=== PATIENT | male | born 1960 | race Caucasian/White ===

== ENCOUNTER 2019-07-17 12:17 | Inpatient (IN) ==
--- NOTE | 2019-07-17 20:17 | History & Physical Report ---
Date of Service July 17, 2019 Assessment & Plan (1) Cellulitis: [facility] for cellulitis of the right hand possible osteomyelitis. CT right hand pending Consult Ortho Continue Zyvox and Zosyn for cellulitis which was started in [facility]. Monitor white blood cells Monitor electrolytes and replenish We will hold Xarelto until we hear from orthopedics because of possible surgical procedure. For DVT prophylaxis and atrial fibrillation/pulmonary embolism/DVT replaced patient therapeutic dose of Lovenox twice a day. Patient is a full code Present on Admission?: Yes (2) Sleep apnea: Continue BiPAP per patient home setting. Present on Admission?: Yes (3) Diabetes mellitus type 2 in nonobese: A1c pending in a.m. Patient is on insulin pump with NovoLog. Present on Admission?: Yes (4) Depression: Continue home medicine: Bupropion HCl 150 mg tablet 1 tablet daily. Present on Admission?: Yes (5) Atrial fibrillation: Continue home medicine: Amiodarone 200 mg p.o. daily, aspirin 81 mg p.o. daily, carvedilol 12.5 mg tablet p.o. twice daily, furosemide 80 mg p.o. twice a day. Present on Admission?: Yes (6) Peripheral neuropathy: Continue home medicine. Patient takes large doses of Lyrica which was clarified with patient . Patient takes 200 mg of milligram of Lyrica in the morning, 250 at noon time and 200 before he goes to sleep. Present on Admission?: Yes (7) Pulmonary embolism: Patient is on Xarelto but now because of possible procedure he is switched to Lovenox therapeutic dose for A. fib's pulmonary embolism and DVT twice a day. Present on Admission?: Yes (8) DVT (deep venous thrombosis): Continue Lovenox therapeutic dose twice a day. Present on Admission?: Yes (9) Asthma: Continue montelukast 10 mg tablet p.o. daily. 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 Present on Admission?: Yes (11) Chronic kidney disease, stage III (moderate): Avoid nephrotoxic agents. Omeprazole on hold due to possible side effects to kidneys. Would consider consulting nephrology. 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 Patient is right-hand dominant. Patient reported having very little feeling in his hands due to diabetic neuropathy. Patient stated that he is nail disappeared and he noticed that was growing over the distal aspect of the right ring finger and he picked it and pulled out to the nail. From that point his hand started to swell and become warm and inflamed until his started to have pain going up to his arm. Patient's symptoms started approximately 1 week ago and are rapidly worsening. Patient reports that nothing helps. For chronic pain patient takes a large amount of Lyrica which was verified with his over the phone. Apparently patient takes 200mg of Lyrica in the morning 250mg in the afternoon and 200mg in the evening. He was admitted overnight in [facility] and treated with Zyvox and Zosyn for his cellulitis. They believe that patient should have had surgery and he is transferred to directly to [facility]. Labs from [facility] reviewed: WBC is 11.1, RBC 3.37, hematocrit 30.1, platelets 217, left shift and neutrophils 80, sodium 136, potassium 4.1, chloride 106, anion gap 12.1, AST 29, ALT 30, CRP 18.4 lactic acid 1.8 PT 9, PTT 29, INR 0.93. On arrival to [facility] patient denies fever, headache, chest pain, shortness of breath, frequency, urgency. Patient is usually oxygen at home. Depending on activity he takes usually 2 to 3 L. At night he uses BiPAP. Creatinine 2.3, GFR 29. Bilirubin 0.2, albumin 2.8 chest x-ray shows mild cardiac enlargement with superimposed mild congestive changes. No other definitive acute chest abnormality. X-rays of the right hand 3 views shows interval development of bony ratification ulcers destruction involving the distal phalanges of the right fourth digit. A mild amount of dorsal subluxation of the distal phalanx in relation to the middle phalanx is now seen without joint space widening. There is now mild irregularity of the distal epithesis of the middle phalanx. No other evidence for fracture, dislocation or definitive bone destruction in the fourth and the right fourth digits. Diffuse soft tissue swelling without evidence of subcutaneous gas or radiopaque foreign body. There has been further attenuation of the third digit distal phalanx. There is now also is attenuation of the tuft of the distal phalanx second digit. There is a mild diffuse soft tissue swelling of the fifth digit without evidence of acute osseous abnormality. Decision was made to admit patient to [facility] on telemetry. Allergies Allergy/AdvReac Type Severity Reaction Status Date / Time adhesive tape Allergy Verified 06/28/19 10:54 chlorhexidine Allergy Verified 06/28/19 10:54 disopyramide Allergy Verified 06/28/19 10:54 erythromycin base Allergy Verified 06/28/19 10:54 fluconazole Allergy Verified 06/28/19 10:54 levofloxacin [From Levaquin] Allergy Verified 06/28/19 10:54 Macrolide Antibiotics Allergy Verified 06/28/19 10:54 Quinolones Allergy Verified 06/28/19 10:54 Sulfa (Sulfonamide Allergy Verified 06/28/19 10:54 Antibiotics) sulfamethoxazole Allergy Verified 06/28/19 10:54 Sulfone Allergy Uncoded 06/28/19 10:54 Home Medications Home Medications Medication Instructions Recorded Confirmed Type acetaminophen 500 mg tablet PO .TAKE 1 TABLET EVERY tab 03/21/19 06/28/19 History bupropion HCl 150 mg tablet,12 hr PO .TAKE 1 TABLET DAILY. ea 03/21/19 03/21/19 History sustained-release carvedilol 12.5 mg tablet PO .Take 1 tablet twice tab 03/21/19 03/21/19 History donepezil 5 mg tablet PO .TAKE 1 TABLET DAILY tab 03/21/19 03/21/19 History duloxetine 60 mg capsule,delayed 1 PO .TAKE 1 CAPSULE DAILY cap 03/21/19 03/21/19 History release ergocalciferol (vitamin D2) 2,000 PO .1.25 mg 1 tab once a tab 03/21/19 03/21/19 History unit tablet fluticasone propionate 50 2 sprays INTRANASAL .USE 2 SPRAYS 03/21/19 03/21/19 History mcg/actuation nasal IN EACH gm spray,suspension furosemide 80 mg tablet PO tab 03/21/19 03/21/19 History lamotrigine 25 mg disintegrating PO .TAKE 2 TABLETS TWICE tab 03/21/19 03/21/19 History tablet lisinopril 10 mg tablet PO .TAKE 1 TABLET DAILY. tab 03/21/19 03/21/19 History magnesium oxide 400 mg (as 400 mg PO DAILY cap 03/21/19 03/21/19 History magnesium oxide) capsule montelukast 10 mg tablet PO .TAKE 1 TABLET DAILY. #90 tab 03/21/19 03/21/19 History multivitamin with iron 1 tab PO DAILY 03/21/19 03/21/19 History nitroglycerin 0.4 mg sublingual SL .PLACE 1 TABLET UNDER tab 03/21/19 03/21/19 History tablet nortriptyline 75 mg capsule PO cap 03/21/19 03/21/19 History omeprazole 20 mg capsule,delayed PO .TAKE 1 CAPSULE BY MO #30 cap 03/21/19 03/21/19 History release pregabalin 150 mg capsule 150 mg PO .TAKE 2 CAPSULE Twice 03/21/19 03/21/19 History cap pregabalin 50 mg capsule PO .TAKE 1 CAPSULE IN AM cap 03/21/19 03/21/19 History primidone 50 mg tablet PO .TAKE 2 TABLETS AT BE tab 03/21/19 03/21/19 History ranitidine HCl 150 mg tablet PO .TAKE 1 TABLET TWICE tab 03/21/19 03/21/19 History rivaroxaban 20 mg tablet PO .TAKE 1 TABLET BY ABBE #1 tab 03/21/19 03/21/19 History insulin aspart U-100 100 100 SUBCUT .sliding scale ml 05/24/19 05/24/19 History unit/mL subcutaneous solution amiodarone 200 mg tablet 200 mg PO DAILY tab 06/28/19 06/28/19 History aspirin 81 mg tablet 81 mg PO DAILY tab 06/28/19 06/28/19 History atorvastatin 20 mg tablet 20 mg PO DAILY tab 06/28/19 06/28/19 History prednisone 10 mg tablet See Rx Instructions PO DAILY #20 06/28/19 06/28/19 Rx tab Past Med/Surg History Medical History Anemia Anxiety Asthma Atrial fibrillation Cardiac defibrillator in place Chronic kidney disease Deep vein thrombosis Depression Diabetes mellitus, type 2 GERD (gastroesophageal reflux disease) Glaucoma L eye Hyperlipidemia Hypertension Methicillin resistant Staphylococcus aureus infection, unspecified site Myocardial Infarction On home oxygen therapy Osteoarthritis Osteomyelitis Pacemaker Peripheral neuropathy Pneumonia Pulmonary embolism Umbilical hernia Surgical History History of cholecystectomy History of umbilical hernia repair Hx of cataract surgery S/P placement of cardiac pacemaker Family History Father Diabetes Acute myocardial infarction Hypercholesteremia Mother Diabetes Heart disease Sister Cancer Social History Preferred Language: Omani Communication Ability: Effective Oncology Social Worker Required: No Beliefs That Will Affect Care: None Current Living Situation: Spouse Current Living Situation Comment: visiting caregivers and nurses Other Information That Helps Us Care for You: No Feels Safe at Home: Yes Safety Concerns: Feels Safe At This Time Smoking Status: Never smoker Hx Alcohol Use: No Hx Substance Use: No Review of Systems Review of Systems: All systems reviewed & are unremarkable except as noted in HPI & below Physical Exam Constitutional: WD/WN, vitals as above well developed and + morbidly obese Eyes: PERRL, conjunctivae normal, anicteric sclerae ENMT: external ear and nose normal, oropharynx normal Neck: trachea midline, no thyromegaly Respiratory: Auscultation: + wheezes Cardiovascular: Rate/Rhythm: + irregularly irregular Heart Sounds: normal S1 and normal S2 Vessels: dorsalis pedis pulses present Gastrointestinal (Abdomen): normal bowel sounds, soft, nontender, no hepatosplenomegaly Musculoskeletal: no cyanosis or clubbing, extremities motor strength 5/5 Right BKA, right hand red swollen tender. There is tract patient arm pit. Skin: no rashes, warm and dry Neurologic: patellar DTR's 2+ bilat, sensation intact Psychiatric: A+Ox3, euthymic affect Lymphatic: no cervical or axillary lymphadenopathy Results & Data Vital Signs (Past 12 Hours) Vital Signs Temp Pulse Resp BP Pulse Ox 07/17/19 18:45 36.9 C 110 H 20 127/70 98 Code Status & VTE Plan Code Status Full code VTE Prophylaxis Plan VTE Prophylaxis will be ordered: Yes PG Care Time/CCT Total # of Minutes Spent Total Time Spent with Patient: Total time spent is greater than 50% in coordination of care (as documented) at patient's floor/unit and/or counseling patient:
[2019-07-17] MEDS ORDERED: ALUMINUM/MAGNESIUM SUSP 30 ML UDC PO PRN (21:11)
[2019-07-17] MEDS ORDERED: POLYETHYLENE (MIRALAX) 17 GM PACK PO PRN (21:11)
[2019-07-17] MEDS ORDERED: MAGNESIUM HYDROXIDE SUSP 30 ML UDC PO PRN (21:11)
[2019-07-17] MEDS ORDERED: ONDANSETRON INJ 2 MG/ML 2 ML VIAL IV PRN (21:11)
[2019-07-17] MEDS ORDERED: NORTRIPTYLINE HCL 25 MG CAP PO SCH (21:11)
[2019-07-17] MEDS ORDERED: RIVAROXABAN 20 MG TAB PO SCH (21:11)
[2019-07-17] MEDS ORDERED: FLUTICASONE PROPIONATE NA SPR 16 GM BTL NAE SCH (21:11)
[2019-07-17] MEDS: ACETAMINOPHEN 325 MG TAB PO PRN (21:55)
[2019-07-17] MEDS ORDERED: PREGABALIN 100 MG CAP PO ONE (23:11)
[2019-07-17 23:54] LABS: Hematocrit (blood only) 31.6 % (42-52); Hemoglobin 10.2 g/dL (14.0-18.0); Mean Corpuscular Hemoglobin 29.7 pg (25-34); Mean Corpuscular Hgb Conc 32.3 g/dL (32-36); Mean Corpuscular Volume 91.9 fL (80-100); Mean Platelet Volume 8.6 fL (7.4-10.4); Platelet Count 253 K/uL (130-400); RDW Coefficient of Variation 14.7 % (11.5-14.5); Red Blood Count 3.44 M/uL (4.7-6.1); White Blood Count 11.25 K/uL (4.8-10.8)
[2019-07-18] MEDS ORDERED: PIPERACILL/TAZOBAC CONSULT ACTIVE PRN (00:02)
[2019-07-18 00:10] LABS: Creatinine Clr Calc Pharmacy 52.2 ml/min; Est GFR (African American) 43.8; Est GFR (Non-African American) 37.8
[2019-07-18] MEDS: carvediloL 12.5 MG TAB PO SCH ×3 (00:26→20:43)
[2019-07-18] MEDS: lamoTRIgine 25 MG TAB PO SCH ×3 (00:26→20:41)
[2019-07-18] MEDS: BuPROPion SR 150 MG TABCR PO SCH (00:27)
[2019-07-18] MEDS: PRIMIDONE 50 MG TAB PO SCH ×2 (00:28→20:43)
[2019-07-18] MEDS: MONTELUKAST SODIUM 10 MG TABLET PO SCH ×2 (00:28→20:42)
[2019-07-18] MEDS: ENOXAPARIN INJ 120 MG/0.8 ML SYR SQ SCH ×2 (00:29→22:48)
[2019-07-18 01:19] LABS: C Reactive Protein 18.5 mg/dl (0-0.29)
[2019-07-18] MEDS: LINEZOLID 600 MG TAB PO SCH ×2 (01:48→08:02)
[2019-07-18] MEDS: PIPERACILLIN/TAZOBACTAM 4.5 GM in DEXTROSE 5% 100 ML IV SCH ×3 (01:49→17:44)
[2019-07-18] MEDS ORDERED: SODIUM CHLORIDE 0.9% 1000ML 1,000 ML IV ONE (03:14)
[2019-07-18] MEDS: ACETAMINOPHEN 325 MG TAB PO PRN ×2 (05:05→21:00)
[2019-07-18] MEDS: MoRPHine SULFATE 2 MG/ML CARP IV PRN (05:45)
[2019-07-18 06:09] LABS: Estimated Average Glucose 197 mg/dl; Hemoglobin A1C 8.5 % (4.5-5.6)
[2019-07-18] MEDS: MULTIVITAMIN TAB PO SCH (08:00)
[2019-07-18] MEDS: ATORVASTATIN 20 MG TAB PO SCH (08:01)
[2019-07-18] MEDS: AMIODARONE 200 MG TAB PO SCH (08:01)
[2019-07-18] MEDS: DONEPEZIL HCL 10 MG TAB PO SCH (08:01)
[2019-07-18] MEDS: MAGNESIUM OXIDE 400 MG TAB PO SCH (08:01)
[2019-07-18] MEDS: ASPIRIN 81 MG ECTAB PO SCH (08:02)
[2019-07-18] MEDS ORDERED: GLUCOSE 40% GEL 15 GM TUBE PO PRN (08:48)
[2019-07-18] MEDS ORDERED: CARBOHYDRATES FOR HYPOGLYCEMIA PO PRN (08:48)
[2019-07-18] MEDS ORDERED: GLUCOSE 10 TABS/TUBE PO PRN (08:48)
[2019-07-18] MEDS ORDERED: DEXTROSE 50% 50 ML SYRINGE IV PRN (08:48)
[2019-07-18] MEDS ORDERED: GLUCAGON FOR INJ 1 MG VIAL SQ PRN (08:48)
[2019-07-18] MEDS ORDERED: PHARMACY GLYCEMIC MGMT CONSULT PRN (08:54)
[2019-07-18] MEDS ORDERED: lisinopriL 10 MG TAB PO SCH (09:00)
[2019-07-18] MEDS ORDERED: predniSONE 10 MG TABLET PO SCH (09:00)
[2019-07-18] MEDS ORDERED: FUROSEMIDE 80 MG TAB PO SCH (09:00)
[2019-07-18] MEDS: SODIUM CHLORIDE 0.9% 1000ML 1,000 ML IV SCH ×2 (09:01→19:33)
[2019-07-18] MEDS ORDERED: VANCOMYCIN CONSULT ACTIVE PRN (09:17)
--- NOTE | 2019-07-18 09:22 | CT Scan Report ---
CT hand RT wo con HISTORY: 59 years-old Male right hand cellulitis, possible osteo, acute pain and swelling of the rig ht hand. COMPARISON: Right hand radiographs 07/17/2019. TECHNIQUE: Multiple axial CT images of the right hand were obtained without the use of IV contrast. A dose lowering technique was used consistent with the principals of ANNETTE. FINDINGS: Intrinsic ligaments and tendons are not well evaluated by CT technique. No gross ligamentous or tendi nous injury identified. Arterial calcifications are noted. There is moderate subcutaneous edema of th e second through fourth distal phalanges with mild associated dermal thickening. No drainable fluid c ollection or soft tissue calcifications identified. Mild subcutaneous edema of the wrist and hand. Mild radiocarpal, triscaphe and first carpometacarpal osteoarthritis. Scattered subcortical cystic ch anges of the carpal bones and metacarpal heads. Late subacute to chronic appearing fracture of the fi fth middle phalanx. Mild osteoarthritis of the metacarpal phalangeal and interphalangeal joints. Subc ortical cyst versus marginal erosions of the second metacarpal head. Moderate osteoarthritis of the D IP joints. There is lytic destruction/bony resorption of the second, third and fourth distal phalange s, most pronounced within the third and fourth digits. There is dorsal subluxation involving the shakila ining portion of the fourth distal phalanx. IMPRESSION: 1. Lytic destruction/bony resorption of the second, third and fourth distal phalanges (acro-osteolysi s) is most pronounced within the third and fourth digits. Moderate subcutaneous edema with dermal thi ckening is also noted within these digits. Findings are nonspecific however there is a limited differ ential diagnosis which includes scleroderma, Raynaud disease, psoriatic arthritis, hyperparathyroidis m, prior thermal injury among other etiologies. Close clinical correlation is required. 2. Degenerative changes as above with equivocal marginal erosions of the second metacarpal head. The above report was generated using voice recognition software. It may contain grammatical, syntax o r spelling errors. Dictated: 07/18/2019 8:40 AM Transcribed: 07/18/2019 8:55 AM Dianne [id number] [email or web address] Electronically signed by: Juan Luis Brandon M.D. 07/18/2019 9:21 AM
[2019-07-18 09:30] LABS: Basophils # (auto) 0.03 K/uL (0-0.2); Basophils % (auto) 0.3 %; Eosinophils # (auto) 0.17 K/uL (0-0.5); Eosinophils % (auto) 1.8 %; Hematocrit (blood only) 30.8 % (42-52); Hemoglobin 9.6 g/dL (14.0-18.0); Immature Granulocytes # (auto) 0.04 K/uL (0.00-0.02); Immature Granulocytes % (auto) 0.4 %; Lymphocytes # (auto) 1.28 K/uL (1.2-3.4); Lymphocytes % (auto) 13.4 %; Mean Corpuscular Hemoglobin 29.1 pg (25-34); Mean Corpuscular Hgb Conc 31.2 g/dL (32-36); Mean Corpuscular Volume 93.3 fL (80-100); Mean Platelet Volume 8.3 fL (7.4-10.4); Monocytes # (auto) 0.67 K/uL (0.11-0.59); Neutrophils # (auto) 7.34 K/uL (1.4-6.5); Neutrophils % (auto) 77.1 %; Platelet Count 232 K/uL (130-400); RDW Coefficient of Variation 14.8 % (11.5-14.5); RDW Standard Deviation 50.5 fL (36.4-46.3); White Blood Count 9.53 K/uL (4.8-10.8)
[2019-07-18] MEDS ORDERED: VANCOMYCIN HCL 2,750 MG in SODIUM CHLORIDE 0.9% 500 ML IV ONE (09:30)
[2019-07-18] MEDS ORDERED: INSULIN ASPART 100 UNITS/ML 3 ML PEN SC SCH ×3 (09:30→12:00)
[2019-07-18 09:50] LABS: BUN Creatinine Ratio 25.1 (10-20); Calcium 8.8 mg/dl (8.5-10.1); Creatinine Clr Calc Pharmacy 50.1 ml/min; Est GFR (African American) 41.7; Magnesium 2.1 mg/dl (1.8-2.4); Potassium 4.3 mmol/L (3.5-5.1)
[2019-07-18] MEDS ORDERED: MICONAZOLE NITRATE POWDER 43 GM EXT PRN (09:52)
[2019-07-18] MEDS ORDERED: INSULIN GLARGINE SOLOSTAR 100 UNITS/ML 3 ML PEN SC ONE ×2 (10:00→21:00)
[2019-07-18 10:01] LABS: C Reactive Protein 19.7 mg/dl (0-0.29)
--- NOTE | 2019-07-18 10:27 | Infectious Disease Consult ---
Date of Consultation July 18, 2019 Assessment & Plan (1) Cellulitis: Continue IV abx for now, follow cultures, ortho following as well. History of Present Illness Attending Physician: Emeli Bernard MD pt transferred from [facility] due to increase pain, swelling, erythema of right 4th digit. He states he pulled his fingernail off last thursday and since then has noticed progression of swelling and erythema, denies drainage or bleeding. subjective f/c at home, afebrile since admission. wbc 11, crp 18, creat 1.9 (no baseline creat). Placed on vanco and zosyn and is tolerating well. CT hand done this am, no osteomyelitis noted but lytic destruction of 2nd, 3rd, 4th fingers noted. Blood cultures pending. ortho following. states he has neuropathy of hands/fingers for prolonged time. Did not take any abx prior to presentation to ER. no cp, sob, cough, abd pain, n/v/d. Allergies Allergy/AdvReac Type Severity Reaction Status Date / Time adhesive tape Allergy Verified 06/28/19 10:54 chlorhexidine Allergy Verified 06/28/19 10:54 disopyramide Allergy Verified 06/28/19 10:54 erythromycin base Allergy Verified 06/28/19 10:54 fluconazole Allergy Verified 06/28/19 10:54 levofloxacin [From Levaquin] Allergy Verified 06/28/19 10:54 Macrolide Antibiotics Allergy Verified 06/28/19 10:54 Quinolones Allergy Verified 06/28/19 10:54 Sulfa (Sulfonamide Allergy Verified 06/28/19 10:54 Antibiotics) sulfamethoxazole Allergy Verified 06/28/19 10:54 Sulfone Allergy Uncoded 06/28/19 10:54 Home Medications Home Medications Medication Instructions Recorded Confirmed Type acetaminophen 500 mg tablet PO .TAKE 1 TABLET EVERY tab 03/21/19 06/28/19 History bupropion HCl 150 mg tablet,12 hr PO .TAKE 1 TABLET DAILY. ea 03/21/19 03/21/19 History sustained-release carvedilol 12.5 mg tablet PO .Take 1 tablet twice tab 03/21/19 03/21/19 History donepezil 5 mg tablet PO .TAKE 1 TABLET DAILY tab 03/21/19 03/21/19 History duloxetine 60 mg capsule,delayed 1 PO .TAKE 1 CAPSULE DAILY cap 03/21/19 03/21/19 History release ergocalciferol (vitamin D2) 2,000 PO .1.25 mg 1 tab once a tab 03/21/19 03/21/19 History unit tablet fluticasone propionate 50 2 sprays INTRANASAL .USE 2 SPRAYS 03/21/19 03/21/19 History mcg/actuation nasal IN EACH gm spray,suspension furosemide 80 mg tablet PO tab 03/21/19 03/21/19 History lamotrigine 25 mg disintegrating PO .TAKE 2 TABLETS TWICE tab 03/21/19 03/21/19 History tablet lisinopril 10 mg tablet PO .TAKE 1 TABLET DAILY. tab 03/21/19 03/21/19 History magnesium oxide 400 mg (as 400 mg PO DAILY cap 03/21/19 03/21/19 History magnesium oxide) capsule montelukast 10 mg tablet PO .TAKE 1 TABLET DAILY. #90 tab 03/21/19 03/21/19 History multivitamin with iron 1 tab PO DAILY 03/21/19 03/21/19 History nitroglycerin 0.4 mg sublingual SL .PLACE 1 TABLET UNDER tab 03/21/19 03/21/19 History tablet nortriptyline 75 mg capsule PO cap 03/21/19 03/21/19 History omeprazole 20 mg capsule,delayed PO .TAKE 1 CAPSULE BY MO #30 cap 03/21/19 03/21/19 History release pregabalin 150 mg capsule 150 mg PO .TAKE 2 CAPSULE Twice 03/21/19 03/21/19 History cap pregabalin 50 mg capsule PO .TAKE 1 CAPSULE IN AM cap 03/21/19 03/21/19 History primidone 50 mg tablet PO .TAKE 2 TABLETS AT BE tab 03/21/19 03/21/19 History ranitidine HCl 150 mg tablet PO .TAKE 1 TABLET TWICE tab 03/21/19 03/21/19 History rivaroxaban 20 mg tablet PO .TAKE 1 TABLET BY ABBE #1 tab 03/21/19 03/21/19 History insulin aspart U-100 100 100 SUBCUT .sliding scale ml 05/24/19 05/24/19 History unit/mL subcutaneous solution amiodarone 200 mg tablet 200 mg PO DAILY tab 06/28/19 06/28/19 History aspirin 81 mg tablet 81 mg PO DAILY tab 06/28/19 06/28/19 History atorvastatin 20 mg tablet 20 mg PO DAILY tab 06/28/19 06/28/19 History prednisone 10 mg tablet See Rx Instructions PO DAILY #20 06/28/19 06/28/19 Rx tab Patient History Medical History Anemia Anxiety Asthma Atrial fibrillation Cardiac defibrillator in place Chronic kidney disease Deep vein thrombosis Depression Diabetes mellitus, type 2 GERD (gastroesophageal reflux disease) Glaucoma L eye Hyperlipidemia Hypertension Methicillin resistant Staphylococcus aureus infection, unspecified site Myocardial Infarction On home oxygen therapy Osteoarthritis Osteomyelitis Pacemaker Peripheral neuropathy Pneumonia Pulmonary embolism Umbilical hernia Surgical History History of cholecystectomy History of umbilical hernia repair Hx of cataract surgery S/P placement of cardiac pacemaker Family History Father Diabetes Acute myocardial infarction Hypercholesteremia Mother Diabetes Heart disease Sister Cancer Social History Preferred Language: Algerian Communication Ability: Effective Coppersmith Helper Required: No Beliefs That Will Affect Care: None Current Living Situation: Spouse Current Living Situation Comment: visiting caregivers and nurses Other Information That Helps Us Care for You: No Feels Safe at Home: Yes Safety Concerns: Feels Safe At This Time Smoking Status: Never smoker Hx Alcohol Use: No Hx Substance Use: No Review of Systems Review of Systems: All systems reviewed & are unremarkable except as noted in HPI & below Physical Exam Constitutional: WD/WN, vitals as above Eyes: PERRL, conjunctivae normal, anicteric sclerae ENMT: external ear and nose normal, oropharynx normal Neck: normal visual inspection Respiratory: normal respiratory effort, lungs clear to auscultation Auscultation: + diminished lung sounds Cardiovascular: RRR, no murmur, no edema Gastrointestinal (Abdomen): normal bowel sounds, soft, nontender, no hepatosplenomegaly Musculoskeletal: no cyanosis or clubbing, extremities motor strength 5/5 Skin: no rashes, warm and dry + wound (4th finger edema, erythema, warmth, no drainage) Psychiatric: A+Ox3, euthymic affect Results & Data Vital Signs (Past 12 Hours) Vital Signs Temp Pulse Pulse Resp BP Pulse Ox 07/18/19 08:40 99/60 L 07/18/19 07:33 37.2 C 82 20 87/52 L 96 07/18/19 03:19 104 H 16 94 07/18/19 03:06 37.2 C 125 H 20 80/48 L 93 07/18/19 00:48 111 H 07/17/19 23:55 37.4 C 110 H 20 106/55 L 99 07/17/19 22:25 116 H 22 95 PG Care Time/CCT Total # of Minutes Spent Total Time Spent with Patient: Total time spent is greater than 50% in coordination of care (as documented) at patient's floor/unit and/or counseling patient:
[2019-07-18] MEDS: PREGABALIN 100 MG CAP PO SCH ×4 (11:22→20:50)
[2019-07-18] MEDS: PREGABALIN 50 MG CAP PO SCH (12:34)
--- NOTE | 2019-07-18 13:00 | Consultation Report ---
DATE OF CONSULTATION: 07/18/2019 ORTHOPEDIC CONSULTATION PATIENT OF: Dr. Negron. CHIEF COMPLAINT: Right ring finger pain and swelling. HISTORY OF PRESENT ILLNESS: This 59-year-old white male is seen today in his room. The patient was admitted for an infection of his right ring finger. The patient states he frequently bites his fingernails. On Thursday, he bit his fingernail off and since then has noticed increasing redness, swelling, and pain of the ring finger. He was initially seen at the ER at [facility] and transferred here. There was significant redness in the finger that extended to the dorsum of the hand and into the forearm. Since being started on antibiotics, he states the redness has improved greatly. It now involves only the ring finger. No prior history of similar infection. He notes that he is a diabetic and has peripheral neuropathy. He does not feel much in the tips of his fingers. No fevers or chills. No nausea or vomiting. Right hand dominant. No other complaints. He does take Xarelto daily and has multiple medical comorbidities. PAST MEDICAL HISTORY: Significant for anemia, anxiety, asthma, atrial fibrillation, chronic kidney disease, history of DVT, depression, type 2 diabetes, GERD, glaucoma, elevated lipids, hypertension, history of MRSA, previous SD, osteoarthritis, peripheral neuropathy, pneumonia, history of PE, and umbilical hernia. PREVIOUS SURGERIES: Pacemaker placement, history of cholecystectomy, umbilical hernia repair, cataract surgery, below-knee amputation in [address] Pagan at [facility]. FAMILY HISTORY: Significant for diabetes, heart disease, elevated cholesterol, and cancer. SOCIAL HISTORY: The patient is . Unemployed. No tobacco use. No ETOH use. ALLERGIES: KNOWN ALLERGY TO ADHESIVE TAPE, CHLORHEXIDINE, ERYTHROMYCIN, FLUCONAZOLE, LEVAQUIN, QUINOLONES, SULFA, AND SULFONE. CURRENT MEDICATIONS: Extensive list reviewed and filed in patient's chart. Notable for Xarelto, insulin, amiodarone, lisinopril, lamotrigine, duloxetine, donepezil, carvedilol, and bupropion. REVIEW OF SYSTEMS: A total of 10 systems are reviewed and are significant only for the above-stated conditions. PHYSICAL EXAMINATION: VITAL SIGNS: Temperature 37.0, pulse 99, BP 88/54, respirations 22, O2 sat 97% on 2 liters. GENERAL: A well-developed, well-nourished obese middle-aged white male, in no acute distress. Lying on a bed. Alert and oriented. Conversive. SKIN: Warm and dry with good turgor. Right ring finger has significant erythema and edema throughout the digit. Overall, his digits are universally swollen. He has extensive scabbing on the ends of each of the digits. Ring finger has a large eschar and some questionable pus underneath the skin of the tip of the finger. It is very mildly fluctuant. No other definitive areas of collection throughout the finger. Multiple fingernails are missing. Finger is tender to touch. MUSCULOSKELETAL: The patient has intact motor function to the FDS and FDP tendons in the index, long, and little fingers. I am unable to get him to flex the DIP joint of the ring finger through isolation. He does have intact motor function to the PIP and MCP joints. There is discomfort with palpation over the ring finger as stated. No pain with palpation over his metacarpals, carpals, or forearm. Full range of motion of the wrist. NEUROLOGIC: Gross sensation is intact across all aspects of the forearm and hand by soft touch. He has universal decreased subjective sensation across the tips of each of the fingers by soft touch. DATA: Radiographic imaging previously obtained of the right hand shows osseous destruction of the distal phalanx and middle phalanx of the right fourth digit with subluxation at the DIP joint. Progression of osseous destruction in the long finger and index finger as well. Soft tissue swelling of the little finger is present. CT scan imaging of the hand obtained today shows lytic destruction and bony resorption of the second, third, and fourth distal phalanges. It is worse to the third and fourth digits. Moderate subcutaneous edema with terminal thickening is noted. Degenerative changes of the second metacarpal head are also noted. No specific abscess. 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 PLAN: The patient was educated regarding today's findings. We will continue to follow while in house. He may require a localized I and D of the tip if it looks like this is becoming more pocketed. For now, continue on his antibiotics. Appreciate insight from infectious disease. The patient will be seen later today by Dr. Negron for reexamination. I do not anticipate treatment in the operating room at this time. I, Dr. Negron, saw and examined the patient and discussed the management with my PA. I reviewed my PAs note and agree with the documented findings and the plan of care I developed. At this point no surgical intervention is necessary. Would continue with IV antibiotics. We will continue to monitor while in the hospital. ALL
--- NOTE | 2019-07-18 14:45 | Pharmacy Report ---
Glycemic Control Consultation - Date of Service July 18, 2019 - Scope Scope: Glycemic Pharmacist consulted by Dr Bernard on 07/18 for glycemic control and to write orders per [facility] inpatient glycemic control protocol - Objective Weight: 114.9 kg Accuchecks BSG (last 24hrs): 07/17/19 07/17/19 07/18/19 20:30 21:31 07:45 Glucose POC Glucose 94 97 198 H 07/18/19 07/18/19 07/18/19 09:15 11:33 12:13 Glucose 218 H POC Glucose 275 H 306 H* Laboratory Data (last 24hrs): 07/17/19 07/18/19 23:14 09:15 Potassium 4.3 Carbon Dioxide 21 Anion Gap 8.0 Creatinine 1.92 H 2.00 H Est Cr Clr Drug Dosing 52.2 50.1 HbA1c: Hemoglobin A1c 8.5 % (4.5-5.6) H 07/17/19 23:14 - Recent Pertinent Medications Outpatient Anti-diabetic Regimen: * Novolog pump: basal settings obtained from [employer] (~82 units/day) + bolus 30 units with breakfast, lunch and dinner (~170 total units/day) * Per records his back up SQ dosing is Lantus 50 units daily and novolog 28 units breakfast, 28 lunch, and 25 with supper * A1c =8.5 % 07/17 Risk Factors for Insulin Resistance: * Diet:NPO/ changed to diet at lunch - Assessment & Plan Assessment & Plan: ASSESSMENT: * 59 year old transferred from outside facility due to increase in pain,swelling of finger. Osteomyelitis ruled out, started broad spectrum antibiotics * Patient on novolog pump at home, pharmacy consulted to manage insulin. Pump disconnected this morning around 9 am * Patient NPO this morning - reduced outpatient basal dose this morning ; add scale for Lantus for tonight * Patient changed to diet at lunch - plan is to hold surgery for now and continue with IV abx PLAN FOR INPATIENT GLYCEMIC CONTROL: * Basal insulin * Lantus 40 this am (dose given late by nurse - given at 1200) * Lantus HS per scale -for bsg <140 - give 20 units -for bsg 140-180 - give 25 units -for bsg >180 - give 30 units * Bolus insulin * NovoLog per scale ACHS or Q6hrs while NPO * Goal Range: Low 110 mg/dL - High 140 mg/dL * Correction Factor: 15 mg/dL/unit * Nutritional / Prandial insulin per carb ratio of 1 unit per 4 grams CHO consumed * Please note that the plan above was derived based on current level of insulin resistance and hospital stress. These recommendations are appropriate for inpatient admission only. Plan of care upon discharge will need to be reassessed to avoid potential outpatient hypo/hyperglycemia. Thank you.
--- NOTE | 2019-07-18 15:32 | Pharmacy Report ---
Pharmacy Abx Initial Consult - Date of Service July 18, 2019 - Pharmacy Dosing Scope Date of Consult: 07/18 Consultation requested by: Dr. Bernard Pharmacy is consulted to initiate vancomycin and zosyn IV/PO dosing therapy, order appropriate labs and adjust drug dose/frequency. - Subjective The patient is a 59 year old M admitted on 07/17/19 18:46. - Objective Height: 5 ft 8 in Weight: 114.9 kg Vital Signs (Past 12hrs): Vital Signs Temp Pulse Resp BP Pulse Ox 07/18/19 15:13 36.8 C 98 H 20 102/66 91 07/18/19 11:20 37 C 99 H 22 88/54 L 97 07/18/19 08:40 99/60 L 07/18/19 07:33 37.2 C 82 20 87/52 L 96 Lab Results (24hrs): Laboratory Tests (24 Hours) 07/18/19 07/18/19 07/18/19 09:15 09:15 09:15 WBC 9.53 Neut # (Auto) 7.34 H ESR > 90 H Creatinine 2.00 H Est Cr Clr Drug Dosing 50.1 C-Reactive Protein 19.70 H 07/17/19 07/17/19 23:14 23:14 WBC 11.25 H Neut # (Auto) ESR Creatinine 1.92 H Est Cr Clr Drug Dosing 52.2 C-Reactive Protein 18.50 H Micro Results: 07/18/19 00:37 Aerobic Blood Culture - Pending Blood Anaerobic Blood Culture - Pending 07/18/19 00:38 Aerobic Blood Culture - Pending Blood Anaerobic Blood Culture - Pending - Assessment & Plan Assessment 59 year old male admitted with possible finger infection. ID consulted to follow patient. CT of hand negative for osteomyelitis. Started broad spectrum antibiotics. Possible I&D per ortho. Blood cultures x 2 are pending Plan Vancomycin IV * Received 2750 mg iv x 1 this morning * Will start maintenance dose of 1500 mg iv q 18 hrs to achieve estimated trough ~15 mcg/ml - a less than traditional dose selected due to likelihood of accumulation in elevated BMI > 35 mg/kg2 * Estimated kinetics: t1/2~15 hrs, ke~0.05 hr-1, CrCl ~52 ml/min * Will wait to see if continued >48 hrs before ordering trough level Piperacillin/tazobactam * 4.5 gm iv q 8 hrs - no change (appropriate for CrCl >20 ml/min) Pharmacy will continue to follow and will adjust dose/frequency as necessary. Thank you.
[2019-07-18] MEDS ORDERED: Nursing to Pharmacy Communication ONE (16:50)
[2019-07-18] MEDS: INSULIN ASPART 100 UNITS/ML 3 ML PEN SC SCH ×2 (17:08→20:39)
--- NOTE | 2019-07-18 18:14 | Hospitalist Progress Note ---
Date of Service July 18, 2019 Assessment & Plan (1) Cellulitis: With cellulitis of the right ring finger with possible osteomyelitis. CT right hand with significant bony destruction especially in 3-4th digits, question if just all from neuropathy or like a Charcot hand? Consult Ortho appreciated--> continue IV abx for now, no surgery yet Continue Zosyn and switched Zyvox to Vanco due to interaction with his Wellbutrin However, pt reports a h/o Red Man syndrome with Vanco after it was already given--> no signs of this now -can cautiously continue Vanco and make infusions slow Monitor CBC, ESR, CRP-all high but WBCs coming down -continue to hold Xarelto because of possible surgical procedure-giving Lovenox instead in case needs to be held -continue pain control with tylenol -encouraged elevation of hand (2) Sleep apnea: Continue BiPAP per patient home setting. (3) Depression: Continue home medicine: Bupropion HCl 150 mg tablet 1 tablet daily. (4) Atrial fibrillation: Paroxysmal-had rapid AF for 2:30 hrs on night of 07/17, spontaneously converted Has pacer/AICD in palce -holding Xarelto and bridging with Lovenox in case of need for surgery on finger as above -continue home Amiodarone 200 mg p.o. daily, aspirin 81 mg p.o. daily, carvedilol 12.5 mg tablet p.o. twice daily -continue tele monitoring -keep lytes replaced -hold lasix while acutely ill as may contribute to tachycardia (5) Peripheral neuropathy: Continue home medicine. Patient takes large doses of Lyrica which was clarified with patient . Patient takes 200 mg of milligram of Lyrica in the morning, 250 at noon time and 200 before he goes to sleep. (6) Pulmonary embolism: A history of such Holding Xarelto as above -continue Lovenox therapeutic dose (7) Asthma: No acute issues -Continue montelukast 10 mg tablet p.o. daily. 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 Possibly for ischemic severe CM? Follows with brenda in [place] for Cardiolgoy -consult [facility] Cardiology here if needed (9) Chronic kidney disease, stage III (moderate): Pt reports baseline GFR around 42, was told has CKD Stage 3 Emergency Technician here 1.9-2.0 slightly above baseline in setting of acute illness -Avoid nephrotoxic agents -hold home lasix and lisinopril -giving IVFs -follow BMP in AM (10) Chronic pain syndrome: multiple joints, OA-continue tylenol prn (11) Hypotension: hypotensive today in setting of acute infection -hold lasix, lisinopril -giving IVFs -improved (12) CAD (coronary artery disease), [place] coronary artery: with h/o PA and stents placed many years ago No ongoing chest pain -continue ASA, statin, Coreg -lisinopril on hold (13) Anemia: Hgb 9.6, stable from previous, normocytic Likely anemia of chronic disease but will check B12, folate, iron studies (14) Diabetes mellitus, type 2: With insulin pump at home which was removed here and no supplies available -check A1C in AM -consult Pharmacy appreciated -start Lantus and Novolog, high doses here -follow accuchecks akosua (15) DVT (deep venous thrombosis): Continue Lovenox therapeutic dose twice a day. Dispo-remain hospitalized Subjective I discussed his case with Orthopedic Surgeon, Dr. Negron Pt feels his finger is more painful as the day goes on. Denies chest pain or SOB over his usual. He denies abd pain, no diarrhea. Reviewed his extensive history with him and at bedside. Tele with rapid A-fib overnight into the 140s for 2:30 hours and then spontaneously converted back. Pt reports he has had Afib before and thinks that's why he has a pacer/AICD. Denies ever being shocked. Does not recall having CHF or a low EF but reports after his PA many years ago, they were told the backside of his heart was 50% "wiped out." Pt also reports he usually gets Red Man Syndrome pretty badly with Vanco, however he has not had any problems all day since receiving the dose earlier as it was not listed in his allergies. Review of Systems Review of Systems: All systems reviewed & are unremarkable except as noted in HPI & below Physical Exam Constitutional: WD/WN, vitals as above + obese Eyes: + anicteric sclerae ENMT: external ear and nose normal, oropharynx normal Neck: trachea midline, no thyromegaly Respiratory: normal respiratory effort, lungs clear to auscultation Cardiovascular: RRR, no murmur, no edema Vessels: dorsalis pedis pulses present (on left, absent foot on right) and radial pulses present Chest (Breasts): Chest: normal inspection of chest Gastrointestinal (Abdomen): normal bowel sounds, soft, nontender, no hepatosplenomegaly (obese, protuberant) Musculoskeletal: Extremities: + hand abnormality Right (ring finger markedly edematous,erythema to dorsal hand,yellow blanching dorsal finger,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7-6.1) M/uL Hgb (14.0-18.0) g/dL Hct (42-52) % MCV (80-100) fL MCH (25-34) pg MCHC (32-36) g/dL RDW Std Deviation (36.4-46.3) fL RDW Coeff of Karolina (11.5-14.5) % Plt Count (130-400) K/uL MPV (7.4-10.4) fL Immature Gran % (Auto) % Neut % (Auto) % Lymph % (Auto) % [place] % (Auto) % Eos % (Auto) % Baso % (Auto) % Immature Gran # (Auto) (0.00-0.02) K/uL Neut # (Auto) (1.4-6.5) K/uL Lymph # (Auto) (1.2-3.4) K/uL [place] # (Auto) (0.11-0.59) K/uL Eos # (Auto) (0-0.5) K/uL Baso # (Auto) (0-0.2) K/uL ESR (0-14) mm/hr Sodium (136-145) mmol/L Potassium (3.5-5.1) mmol/L Chloride (98-107) mmol/L Carbon Dioxide (21-32) mmol/L Anion Gap (3-11) BUN (7-18) mg/dl Creatinine (0.6-1.4) mg/dl Est Cr Clr Drug Dosing ml/min Est GFR ( Amer) Est GFR (Non-Af Amer) BUN/Creatinine Ratio (10-20) Glucose (70-99) mg/dl POC Glucose 226 H 266 H 306 H* (70-99) Estimat Average Glucose mg/dl Hemoglobin A1c (4.5-5.6) % Calcium (8.5-10.1) mg/dl Magnesium (1.8-2.4) mg/dl C-Reactive Protein (0-0.29) mg/dl Triglycerides (0-150) mg/dl Cholesterol (0-200) mg/dl LDL Cholesterol, Calc mg/dl VLDL Cholesterol, Calc mg/dl HDL Cholesterol mg/dl Cholesterol/HDL Ratio 07/18/19 07/18/19 07/18/19 Range/Units 11:33 09:15 09:15 WBC (4.8-10.8) K/uL RBC (4.7-6.1) M/uL Hgb (14.0-18.0) g/dL Hct (42-52) % MCV (80-100) fL MCH (25-34) pg MCHC (32-36) g/dL RDW Std Deviation (36.4-46.3) fL RDW Coeff of Karolina (11.5-14.5) % Plt Count (130-400) K/uL MPV (7.4-10.4) fL Immature Gran % (Auto) % Neut % (Auto) % Lymph % (Auto) % [place] % (Auto) % Eos % (Auto) % Baso % (Auto) % Immature Gran # (Auto) (0.00-0.02) K/uL Neut # (Auto) (1.4-6.5) K/uL Lymph # (Auto) (1.2-3.4) K/uL [place] # (Auto) (0.11-0.59) K/uL Eos # (Auto) (0-0.5) K/uL Baso # (Auto) (0-0.2) K/uL ESR > 90 H (0-14) mm/hr Sodium 136 (136-145) mmol/L Potassium 4.3 (3.5-5.1) mmol/L Chloride 107 (98-107) mmol/L Carbon Dioxide 21 (21-32) mmol/L Anion Gap 8.0 (3-11) BUN 50 H (7-18) mg/dl Creatinine 2.00 H (0.6-1.4) mg/dl Est Cr Clr Drug Dosing 50.1 ml/min Est GFR ( Amer) 41.7 Est GFR (Non-Af Amer) 36.0 BUN/Creatinine Ratio 25.1 H (10-20) Glucose 218 H (70-99) mg/dl POC Glucose 275 H (70-99) Estimat Average Glucose mg/dl Hemoglobin A1c (4.5-5.6) % Calcium 8.8 (8.5-10.1) mg/dl Magnesium 2.1 (1.8-2.4) mg/dl C-Reactive Protein 19.70 H (0-0.29) mg/dl Triglycerides (0-150) mg/dl Cholesterol (0-200) mg/dl LDL Cholesterol, Calc mg/dl VLDL Cholesterol, Calc mg/dl HDL Cholesterol mg/dl Cholesterol/HDL Ratio 07/18/19 07/18/19 07/17/19 Range/Units 09:15 07:45 23:14 WBC 9.53 (4.8-10.8) K/uL RBC 3.30 L (4.7-6.1) M/uL Hgb 9.6 L (14.0-18.0) g/dL Hct 30.8 L (42-52) % MCV 93.3 (80-100) fL MCH 29.1 (25-34) pg MCHC 31.2 L (32-36) g/dL RDW Std Deviation 50.5 H (36.4-46.3) fL RDW Coeff of Karolina 14.8 H (11.5-14.5) % Plt Count 232 (130-400) K/uL MPV 8.3 (7.4-10.4) fL Immature Gran % (Auto) 0.4 % Neut % (Auto) 77.1 % Lymph % (Auto) 13.4 % [place] % (Auto) 7.0 % Eos % (Auto) 1.8 % Baso % (Auto) 0.3 % Immature Gran # (Auto) 0.04 H (0.00-0.02) K/uL Neut # (Auto) 7.34 H (1.4-6.5) K/uL Lymph # (Auto) 1.28 (1.2-3.4) K/uL [place] # (Auto) 0.67 H (0.11-0.59) K/uL Eos # (Auto) 0.17 (0-0.5) K/uL Baso # (Auto) 0.03 (0-0.2) K/uL ESR (0-14) mm/hr Sodium (136-145) mmol/L Potassium (3.5-5.1) mmol/L Chloride (98-107) mmol/L Carbon Dioxide (21-32) mmol/L Anion Gap (3-11) BUN (7-18) mg/dl Creatinine (0.6-1.4) mg/dl Est Cr Clr Drug Dosing ml/min Est GFR ( Amer) Est GFR (Non-Af Amer) BUN/Creatinine Ratio (10-20) Glucose (70-99) mg/dl POC Glucose 198 H (70-99) Estimat Average Glucose 197 mg/dl Hemoglobin A1c 8.5 H (4.5-5.6) % Calcium (8.5-10.1) mg/dl Magnesium (1.8-2.4) mg/dl C-Reactive Protein (0-0.29) mg/dl Triglycerides (0-150) mg/dl Cholesterol (0-200) mg/dl LDL Cholesterol, Calc mg/dl VLDL Cholesterol, Calc mg/dl HDL Cholesterol mg/dl Cholesterol/HDL Ratio 07/17/19 07/17/19 Range/Units 23:14 23:14 WBC 11.25 H (4.8-10.8) K/uL RBC 3.44 L (4.7-6.1) M/uL Hgb 10.2 L (14.0-18.0) g/dL Hct 31.6 L (42-52) % MCV 91.9 (80-100) fL MCH 29.7 (25-34) pg MCHC 32.3 (32-36) g/dL RDW Std Deviation 50.0 H (36.4-46.3) fL RDW Coeff of Karolina 14.7 H (11.5-14.5) % Plt Count 253 (130-400) K/uL MPV 8.6 (7.4-10.4) fL Immature Gran % (Auto) % Neut % (Auto) % Lymph % (Auto) % [place] % (Auto) % Eos % (Auto) % Baso % (Auto) % Immature Gran # (Auto) (0.00-0.02) K/uL Neut # (Auto) (1.4-6.5) K/uL Lymph # (Auto) (1.2-3.4) K/uL [place] # (Auto) (0.11-0.59) K/uL Eos # (Auto) (0-0.5) K/uL Baso # (Auto) (0-0.2) K/uL ESR (0-14) mm/hr Sodium (136-145) mmol/L Potassium (3.5-5.1) mmol/L Chloride (98-107) mmol/L Carbon Dioxide (21-32) mmol/L Anion Gap (3-11) BUN (7-18) mg/dl Creatinine 1.92 H (0.6-1.4) mg/dl Est Cr Clr Drug Dosing 52.2 ml/min Est GFR ( Amer) 43.8 Est GFR (Non-Af Amer) 37.8 BUN/Creatinine Ratio (10-20) Glucose (70-99) mg/dl POC Glucose (70-99) Estimat Average Glucose mg/dl Hemoglobin A1c (4.5-5.6) % Calcium (8.5-10.1) mg/dl Magnesium (1.8-2.4) mg/dl C-Reactive Protein 18.50 H (0-0.29) mg/dl Triglycerides 128 (0-150) mg/dl Cholesterol 128 (0-200) mg/dl LDL Cholesterol, Calc 53 mg/dl VLDL Cholesterol, Calc 26 mg/dl HDL Cholesterol 49 mg/dl Cholesterol/HDL Ratio [address] images personally reviewed and agree with the following report: [place], [place] [phone] CT Scan Report Patient: LORENA CLEVELANDAdmit Date: 07/17/19 MR#: [id number]: [id number] [facility] Acct ID:[id number]: Date: [address] Zip: [place] [address] Age: 59Location: 2W Sex: M Room/Bed: [facility] Att Phy: Emeli Bernard, MDDiagnosis: OSTEOMYLEITIS R RING FINGER Cyndi Phy: Hola Lindsey I., VERITOervice Date: 07/18/19 Fam Phy:Interpreting Phy: Sanjeev Brandon Admit Phy: Anderson Dallas MD Ordering Phy: Anderson Dallas MD cc: ~ CT hand RT wo con HISTORY: 59 years-old Male right hand cellulitis, possible osteo, acute pain and swelling of the right hand. COMPARISON: Right hand radiographs 07/17/2019. TECHNIQUE: Multiple axial CT images of the right hand were obtained without the use of IV contrast. A dose lowering technique was used consistent with the principals of ALARA. FINDINGS: Intrinsic ligaments and tendons are not well evaluated by CT technique. No gross ligamentous or tendinous injury identified. Arterial calcifications are noted. There is moderate subcutaneous edema of the second through fourth distal phalanges with mild associated dermal thickening. No drainable fluid collection or soft tissue calcifications identified. Mild subcutaneous edema of the wrist and hand. Mild radiocarpal, triscaphe and first carpometacarpal osteoarthritis. Scattered subcortical cystic changes of the carpal bones and metacarpal heads. Late subacute to chronic appearing fracture of the fifth middle phalanx. Mild osteoarthritis of the metacarpal phalangeal and interphalangeal joints. Subcortical cyst versus marginal erosions of the second metacarpal head. Modera te osteoarthritis of the DIP joints. There is lytic destruction/bony resorption of the second, third and fourth distal phalanges, most pronounced within the third and fourth digits. There is dorsal subluxation involving the remaining portion of the fourth distal phalanx. IMPRESSION: 1. Lytic destruction/bony resorption of the second, third and fourth distal phalanges (acro-osteolysis) is most pronounced within the third and fourth digits. Moderate subcutaneous edema with dermal thickening is also noted within these digits. Findings are nonspecific however there is a limited differential diagnosis which includes scleroderma, Raynaud disease, psoriatic arthritis, hyperparathyroidism, prior thermal injury among other etiologies. Close clinical correlation is required. 2. Degenerative changes as above with equivocal marginal erosions of the second metacarpal head. PG Care Time/CCT Total # of Minutes Spent Total Time Spent with Patient: Total time spent is greater than 50% in coordination of care (as documented) at patient's floor/unit and/or counseling patient:
[2019-07-19] MEDS: INSULIN ASPART 100 UNITS/ML 3 ML PEN SC SCH ×6 (00:14→20:30)
[2019-07-19] MEDS: PIPERACILLIN/TAZOBACTAM 4.5 GM in DEXTROSE 5% 100 ML IV SCH ×3 (02:12→17:49)
[2019-07-19] MEDS: SODIUM CHLORIDE 0.9% 1000ML 1,000 ML IV SCH ×3 (03:34→19:57)
[2019-07-19] MEDS: VANCOMYCIN HCL 1,500 MG in SODIUM CHLORIDE 0.9% 500 ML IV SCH ×2 (03:35→21:34)
[2019-07-19 07:44] LABS: Basophils # (auto) 0.04 K/uL (0-0.2); Basophils % (auto) 0.5 %; Eosinophils # (auto) 0.24 K/uL (0-0.5); Eosinophils % (auto) 3.1 %; Hematocrit (blood only) 29.9 % (42-52); Hemoglobin 9.4 g/dL (14.0-18.0); Immature Granulocytes # (auto) 0.02 K/uL (0.00-0.02); Immature Granulocytes % (auto) 0.3 %; Lymphocytes # (auto) 1.21 K/uL (1.2-3.4); Lymphocytes % (auto) 15.6 %; Mean Corpuscular Hemoglobin 29.6 pg (25-34); Mean Corpuscular Hgb Conc 31.4 g/dL (32-36); Mean Platelet Volume 8.5 fL (7.4-10.4); Monocytes # (auto) 0.51 K/uL (0.11-0.59); Monocytes % (auto) 6.6 %; Neutrophils # (auto) 5.75 K/uL (1.4-6.5); Neutrophils % (auto) 73.9 %; Platelet Count 234 K/uL (130-400); RDW Coefficient of Variation 14.8 % (11.5-14.5); RDW Standard Deviation 50.7 fL (36.4-46.3); Red Blood Count 3.18 M/uL (4.7-6.1); White Blood Count 7.77 K/uL (4.8-10.8)
[2019-07-19 08:18] LABS: BUN Creatinine Ratio 25.4 (10-20); Calcium 9.2 mg/dl (8.5-10.1); Est GFR (African American) 48.3; Est GFR (Non-African American) 41.7; Magnesium 2.3 mg/dl (1.8-2.4); Potassium 3.7 mmol/L (3.5-5.1)
[2019-07-19 08:23] LABS: Ferritin 94.2 ng/ml (8-388)
[2019-07-19] MEDS ORDERED: INSULIN GLARGINE SOLOSTAR 100 UNITS/ML 3 ML PEN SC SCH (09:00)
[2019-07-19] MEDS: PREGABALIN 100 MG CAP PO SCH ×3 (09:33→20:48)
[2019-07-19] MEDS: DONEPEZIL HCL 10 MG TAB PO SCH (09:33)
[2019-07-19] MEDS: ASPIRIN 81 MG ECTAB PO SCH (09:34)
[2019-07-19] MEDS: carvediloL 12.5 MG TAB PO SCH (09:34)
[2019-07-19] MEDS: lamoTRIgine 25 MG TAB PO SCH ×2 (09:34→20:38)
[2019-07-19] MEDS: AMIODARONE 200 MG TAB PO SCH (09:34)
[2019-07-19] MEDS: MULTIVITAMIN TAB PO SCH (09:35)
[2019-07-19] MEDS: MAGNESIUM OXIDE 400 MG TAB PO SCH (09:35)
[2019-07-19] MEDS: ATORVASTATIN 20 MG TAB PO SCH (09:35)
[2019-07-19] MEDS: BuPROPion SR 150 MG TABCR PO SCH ×2 (09:35→17:44)
[2019-07-19 10:45] LABS: Folate (Folic Acid) 7.97 ng/ml (>5.38)
--- NOTE | 2019-07-19 12:58 | Pharmacy Report ---
Pharmacy Glycemic Short Note 2 - Date of Service July 19, 2019 - Glycemic Short BSG Results (Last 24 hours): 07/18/19 07/18/19 07/19/19 16:58 20:09 00:05 Glucose POC Glucose 266 H 226 H 158 H 07/19/19 07/19/19 07/19/19 03:41 07:27 07:41 Glucose 123 H POC Glucose 139 H 124 H 07/19/19 11:38 Glucose POC Glucose 239 H OUTPATIENT ANTIDIABETIC REGIMEN: * Novolog pump: basal settings obtained from [employer] (~82 units/day) + bolus 30 units with breakfast, lunch and dinner (~170 total units/day) * Per records his back up SQ dosing is Lantus 50 units daily and novolog 28 units breakfast, 28 lunch, and 25 with supper * A1c =8.5 % 07/17 ASSESSMENT: 07/19: * Jorge received 117 units of SQ insulin yesterday (70 units basal - 47 units bolus) with majority of BSGs > 200 mg/dL. * Fasting BSG of 124 mg/dL is at goal. I will slightly back off basal insulin dosing. Per [employer] records, Jorge usually takes Lantus 50 units daily when off insulin pump. He required 70 units yesterday but I suspect this will be too much if continued. * He is tolerating an oral diet. Insulin meal coverage yesterday shows adequate correction factor and need for additional carb coverage. 07/18: * 59 year old transferred from outside facility due to increase in pain,swelling of finger. Osteomyelitis ruled out, started broad spectrum antibiotics * Patient on novolog pump at home, pharmacy consulted to manage insulin. Pump disconnected this morning around 9 am * Patient NPO this morning - reduced outpatient basal dose this morning ; add scale for Lantus for tonight * Patient changed to diet at lunch - plan is to hold surgery for now and continue with IV abx PLAN FOR INPATIENT GLYCEMIC CONTROL: * Basal insulin * Lantus 25 units SQ this morning, then per scale BID: - bsg <140 - give 25 units - bsg 140-180 - give 30 units - bsg >180 - give 35 units * Bolus insulin - tighten carb coverage * NovoLog per scale ACHS or Q6hrs while NPO * Goal Range: Low 110 mg/dL - High 140 mg/dL * Correction Factor: 15 mg/dL/unit * Change to Nutritional / Prandial insulin per carb ratio of 1 unit per 3.5 grams CHO consumed * Please note that the plan above was derived based on current level of insulin resistance and hospital stress. These recommendations are appropriate for inpatient admission only. Plan of care upon discharge will need to be reassessed to avoid potential outpatient hypo/hyperglycemia. PLAN FOR DISCHARGE: * Resume care at [facility]
[2019-07-19] MEDS: ENOXAPARIN INJ 120 MG/0.8 ML SYR SQ SCH ×2 (13:04→21:35)
--- NOTE | 2019-07-19 13:14 | Infectious Disease Progress Nt ---
Date of Service July 19, 2019 Assessment & Plan (1) Cellulitis: Continue IV abx for now, follow cultures, ortho following as well. Subjective remains on broad spectrum abx, tolerating well. afebrile. ESR >90. wbc 7. blood cultures negative, ortho following. Results & Data Vital Signs (Past 12 Hours) Vital Signs Temp Pulse Resp BP BP Pulse Ox 07/19/19 12:15 92 H 20 114/65 100 07/19/19 07:58 36.9 C 69 19 115/68 99 07/19/19 04:11 36.7 C 105 H 18 111/62 97 Laboratory Results Microbiology 07/18/19 00:38 Blood Aerobic Blood Culture - Preliminary No growth in Aerobic bottle after 24 hours. 07/18/19 00:38 Blood Anaerobic Blood Culture - Preliminary No growth in Anaerobic bottle after 24 hours. 07/18/19 00:37 Blood Aerobic Blood Culture - Preliminary No growth in Aerobic bottle after 24 hours. 07/18/19 00:37 Blood Anaerobic Blood Culture - Preliminary No growth in Anaerobic bottle after 24 hours. PG Care Time/CCT Total # of Minutes Spent Total Time Spent with Patient: Total time spent is greater than 50% in coordination of care (as documented) at patient's floor/unit and/or counseling patient:
[2019-07-19] MEDS: PREGABALIN 50 MG CAP PO SCH (13:26)
--- NOTE | 2019-07-19 15:02 | Orthopedic Progress Note ---
Date of Service July 19, 2019 Assessment & Plan (1) Cellulitis: Cellulitis right hand, would recommend strict elevation right hand. Encouraged patient to keep hand above his heart. ROM right hand as tolerated. Continue antibiotics as per ID. Will continue to monitor and discuss findings with Dr. Negron. I, Dr. Negron, saw and examined the patient and agree with the above findings and plan of care with my PA. Subjective states still having pain right middle finger. radiates into hand and wrist. Patient states it's the same as yesterday. Has been trying to keep it elevated. Physical Exam Physical Exam: exam of right hand/finger - redness, warmth of right middle finger. Edema into hand and forearm. Has pain with active and passive ROM of Right wrist. Tolerates passive motion of right finger MCP and PIP joints. No fluctuance or palpated abscess, tender to palpation. Finger blanches and cap refill brisk. Two small dime sized white patches on finger, nontender to palpation. Dried scabs throughout tip of finger. Distal sensation unchanged. Results & Data Vital Signs (Past 12 Hours) Vital Signs Temp Pulse Pulse Resp BP BP Pulse Ox 07/19/19 12:15 92 H 20 114/65 100 07/19/19 08:00 68 07/19/19 07:58 36.9 C 69 19 115/68 99 07/19/19 04:11 36.7 C 105 H 18 111/62 97
--- NOTE | 2019-07-19 19:15 | Hospitalist Progress Note ---
Date of Service July 19, 2019 Assessment & Plan (1) Cellulitis: With cellulitis of the right ring finger with possible osteomyelitis. CT right hand with significant bony destruction especially in 3-4th digits, question if just all from neuropathy or like a Charcot hand? Consult Ortho appreciated--> continue IV abx for now, no surgery yet With some mild improvement on 07/19, but had fever still last evening -Continue Zosyn and Vanco-caution as pt reports a h/o Red Man syndrome with [facility] after it was already given--> no signs of this now -can cautiously continue Vanco and make infusions slow -Monitor CBC, ESR, CRP-all high but WBCs coming down lysed -continue to hold Xarelto because of possible surgical procedure-giving Lovenox instead in case needs to be held -continue pain control with tylenol -encouraged elevation of hand -Suspect some of his lethargy today is due to febrile illness and infection- monitor closely although reports that he frequently sleeps all day long (2) Sleep apnea: Continue BiPAP per patient home setting. (3) Depression: Continue home medicine: Bupropion HCl 150 mg twice daily -Continue Lamictal 25 mg twice daily -Holding nortriptyline due to drowsiness -Restart home duloxetine which got left off the med list (4) Atrial fibrillation: Paroxysmal-had rapid AF for 2:30 hrs on night of 07/17, spontaneously conve rted and has not had any further Has pacer/AICD in place -holding Xarelto and bridging with Lovenox in case of need for surgery on finger as above -continue home Amiodarone 200 mg p.o. daily, aspirin 81 mg p.o. daily, but will hold carvedilol 12.5 mg tablet p.o. twice daily for hypotension -continue tele monitoring -keep lytes replaced -hold lasix while acutely ill as may contribute to tachycardia -DC IV fluids (5) Peripheral neuropathy: Patient takes large doses of Lyrica which was clarified with patient . Patient takes 200 mg of milligram of Lyrica in the morning, 250 at noon time and 200 before he goes to sleep. -Continue same doses as he has been stable on these for years and renal functions actually improved since admission (6) Pulmonary embolism: A history of such Holding Xarelto as above -continue Lovenox therapeutic dose (7) Asthma: No acute issues -Continue montelukast 10 mg tablet p.o. daily. 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 Possibly for ischemic severe CM? 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 slightly above baseline in setting of acute illness upon admission which is now improved with IV fluids to 1.77 -Avoid nephrotoxic agents -Continue to hold home lasix and lisinopril -DC IVFs now -follow BMP in AM (10) Chronic pain syndrome: multiple joints, OA-continue tylenol prn -Continue Lyrica, holding nortriptyline -Continue Cymbalta (11) Hypotension: hypotensive in setting of acute infection which was improved but now slightly low again today, asymptomatic -Continue to hold lasix, lisinopril -DC IVFs to avoid volume overload -Hold Coreg (12) CAD (coronary artery disease), [place] coronary artery: with h/o TX and stents placed many years ago No ongoing chest pain -continue ASA, statin, but will hold Coreg as above for hypotension -lisinopril on hold (13) Anemia: Hgb 9.6, stable from previous, normocytic Likely anemia of chronic disease-B12, folate pending -Iron studies consistent with chronic disease (14) Diabetes mellitus, type 2: With insulin pump at home which was removed here and no supplies available Hemoglobin A1C here is 8.5% -consult Pharmacy appreciated Hyperglycemia now improved -Continue Lantus and Novolog as per pharmacy -follow [facility] (15) Depression: Seems to be worsened in the setting of acute illness as per Wants to just sleep all day, not motivated -Continue bupropion -Restart home duloxetine -Continue Lamictal -Continue donepezil (16) Tremor: Hold home primidone for excessive drowsiness -Holding home Requip and Mirapex for drowsiness Not having terrible restless legs at the moment (17) DVT (deep venous thrombosis): Continue Lovenox therapeutic dose twice a day. Dispo-remain hospitalized for ongoing IV antibiotics Subjective Patient has been very drowsy all day and is been sleeping most of the day as per nursing. He has been wearing his BiPAP in bed. He wakes up very easily and is oriented and answers all questions appropriately, however he reports that he is just feeling unusually tired. He has been afebrile today but did have a fever last night. He denies headache or lightheadedness, denies chest pain. He has his chronic shortness of breath which feels better with wearing BiPAP and is no worse than usual. Denies nausea or abdominal pain. He has had low appetite today. He reports he ate breakfast but does not feel like eating lunch or dinner. Blood sugar was checked at the bedside was 131. He feels he has been trying to elevate his right hand is much as possible, however when I walked in he was sleeping, his hand was hanging down below the bedside. He has some pain in the right ring finger when it is manipulated. Telemetry with normal sinus rhythm with rates in the 60s to 100s, some sinus tachycardia in the low 100s with first-degree block Review of Systems Review of Systems: All systems reviewed & are unremarkable except as noted in HPI & below Physical Exam Constitutional: WD/WN, vitals as above + obese Eyes: + conjunctival abnormality (Small amount of erythema and watery discharge right eye) and + anicteric sclerae Neck: trachea midline, no thyromegaly Respiratory: normal respiratory effort, lungs clear to auscultation Cardiovascular: RRR, no murmur, no edema Vessels: dorsalis pedis pulses present (on left, absent foot on right) and radial pulses present Chest (Breasts): Chest: normal inspection of chest Gastrointestinal (Abdomen): normal bowel sounds, soft, nontender, no hepatosplenomegaly (obese, protuberant) Musculoskeletal: Extremities: + hand abnormality; + 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), no cyanosis and no clubbing Skin: + lesion (Right ring finger markedly edematous,erythematous but slightly improved from previous) Neurologic: moves all extremities and awake; no focal motor deficits Psychiatric: A+Ox3, euthymic affect Results & Data Vital Signs (Past 12 Hours) Vital Signs Temp Pulse Pulse Resp BP BP Pulse Ox 07/19/19 16:19 75 07/19/19 15:37 36.4 C L 68 20 91/48 L 95 07/19/19 12:15 92 H 20 114/65 100 07/19/19 08:00 68 07/19/19 07:58 36.9 C 69 19 115/68 99 Laboratory Results 07/19/19 07/19/19 07/19/19 Range/Units 16:17 11:38 07:41 WBC (4.8-10.8) K/uL RBC (4.7-6.1) M/uL Hgb (14.0-18.0) g/dL Hct (42-52) % MCV (80-100) fL MCH (25-34) pg MCHC (32-36) g/dL RDW Std Deviation (36.4-46.3) fL RDW Coeff of Karolina (11.5-14.5) % Plt Count (130-400) K/uL MPV (7.4-10.4) fL Immature Gran % (Auto) % Neut % (Auto) % Lymph % (Auto) % Wilson % (Auto) % Eos % (Auto) % Baso % (Auto) % Immature Gran # (Auto) (0.00-0.02) K/uL Neut # (Auto) (1.4-6.5) K/uL Lymph # (Auto) (1.2-3.4) K/uL Wilson # (Auto) (0.11-0.59) K/uL Eos # (Auto) (0-0.5) K/uL Baso # (Auto) (0-0.2) K/uL Sodium (136-145) mmol/L Potassium (3.5-5.1) mmol/L Chloride (98-107) mmol/L Carbon Dioxide (21-32) mmol/L Anion Gap (3-11) BUN (7-18) mg/dl Creatinine (0.6-1.4) mg/dl Est Cr Clr Drug Dosing ml/min Est GFR ( Amer) Est GFR (Non-Af Amer) BUN/Creatinine Ratio (10-20) Glucose (70-99) mg/dl POC Glucose 146 H 239 H 124 H (70-99) Calcium (8.5-10.1) mg/dl Magnesium (1.8-2.4) mg/dl Iron (35-175) mcg/dl TIBC (250-450) mcg/dl Transferrin (200-360) mg/dl Transferrin % Sat (20-50) % Ferritin (8-388) ng/ml Vitamin B12 (211-911) pg/ml Folate (>5.38) ng/ml 07/19/19 07/19/19 07/19/19 Range/Units 07:27 07:27 07:27 WBC 7.77 (4.8-10.8) K/uL RBC 3.18 L (4.7-6.1) M/uL Hgb 9.4 L (14.0-18.0) g/dL Hct 29.9 L (42-52) % MCV 94.0 (80-100) fL MCH 29.6 (25-34) pg MCHC 31.4 L (32-36) g/dL RDW Std Deviation 50.7 H (36.4-46.3) fL RDW Coeff of Karolina 14.8 H (11.5-14.5) % Plt Count 234 (130-400) K/uL MPV 8.5 (7.4-10.4) fL Immature Gran % (Auto) 0.3 % Neut % (Auto) 73.9 % Lymph % (Auto) 15.6 % Wilson % (Auto) 6.6 % Eos % (Auto) 3.1 % Baso % (Auto) 0.5 % Immature Gran # (Auto) 0.02 (0.00-0.02) K/uL Neut # (Auto) 5.75 (1.4-6.5) K/uL Lymph # (Auto) 1.21 (1.2-3.4) K/uL Wilson # (Auto) 0.51 (0.11-0.59) K/uL Eos # (Auto) 0.24 (0-0.5) K/uL Baso # (Auto) 0.04 (0-0.2) K/uL Sodium 141 (136-145) mmol/L Potassium 3.7 (3.5-5.1) mmol/L Chloride 113 H (98-107) mmol/L Carbon Dioxide 22 (21-32) mmol/L Anion Gap 6.0 (3-11) BUN 45 H (7-18) mg/dl Creatinine 1.77 H (0.6-1.4) mg/dl Est Cr Clr Drug Dosing 58.0 ml/min Est GFR ( Amer) 48.3 Est GFR (Non-Af Amer) 41.7 BUN/Creatinine Ratio 25.4 H (10-20) Glucose 123 H (70-99) mg/dl POC Glucose (70-99) Calcium 9.2 (8.5-10.1) mg/dl Magnesium 2.3 (1.8-2.4) mg/dl Iron 32 L (35-175) mcg/dl TIBC 272 (250-450) mcg/dl Transferrin 230 (200-360) mg/dl Transferrin % Sat 10 L (20-50) % Ferritin 94.2 (8-388) ng/ml Vitamin B12 327 (211-911) pg/ml Folate 7.97 (>5.38) ng/ml 07/19/19 07/19/19 07/18/19 Range/Units 03:41 00:05 20:09 WBC (4.8-10.8) K/uL RBC (4.7-6.1) M/uL Hgb (14.0-18.0) g/dL Hct (42-52) % MCV (80-100) fL MCH (25-34) pg MCHC (32-36) g/dL RDW Std Deviation (36.4-46.3) fL RDW Coeff of Karolina (11.5-14.5) % Plt Count (130-400) K/uL MPV (7.4-10.4) fL Immature Gran % (Auto) % Neut % (Auto) % Lymph % (Auto) % Wilson % (Auto) % Eos % (Auto) % Baso % (Auto) % Immature Gran # (Auto) (0.00-0.02) K/uL Neut # (Auto) (1.4-6.5) K/uL Lymph # (Auto) (1.2-3.4) K/uL Wilson # (Auto) (0.11-0.59) K/uL Eos # (Auto) (0-0.5) K/uL Baso # (Auto) (0-0.2) K/uL Sodium (136-145) mmol/L Potassium (3.5-5.1) mmol/L Chloride (98-107) mmol/L Carbon Dioxide (21-32) mmol/L Anion Gap (3-11) BUN (7-18) mg/dl Creatinine (0.6-1.4) mg/dl Est Cr Clr Drug Dosing ml/min Est GFR ( Amer) Est GFR (Non-Af Amer) BUN/Creatinine Ratio (10-20) Glucose (70-99) mg/dl POC Glucose 139 H 158 H 226 H (70-99) Calcium (8.5-10.1) mg/dl Magnesium (1.8-2.4) mg/dl Iron (35-175) mcg/dl TIBC (250-450) mcg/dl Transferrin (200-360) mg/dl Transferrin % Sat (20-50) % Ferritin (8-388) ng/ml Vitamin B12 (211-911) pg/ml Folate (>5.38) ng/ml PG Care Time/CCT Total # of Minutes Spent Total Time Spent with Patient: Total time spent is greater than 50% in coordination of care (as documented) at patient's floor/unit and/or counseling patient:
[2019-07-19] MEDS: INSULIN GLARGINE SOLOSTAR 100 UNITS/ML 3 ML PEN SC SCH (20:38)
[2019-07-19] MEDS: DULOXETINE HCL 60 MG CAP PO SCH (20:38)
[2019-07-19] MEDS: MONTELUKAST SODIUM 10 MG TABLET PO SCH (20:38)
[2019-07-19] MEDS: ACETAMINOPHEN 325 MG TAB PO PRN (20:48)
[2019-07-20] MEDS: PIPERACILLIN/TAZOBACTAM 4.5 GM in DEXTROSE 5% 100 ML IV SCH ×3 (01:06→18:15)
[2019-07-20] MEDS: MoRPHine SULFATE 2 MG/ML CARP IV PRN ×4 (05:37→23:30)
[2019-07-20 07:54] LABS: Hematocrit (blood only) 29.2 % (42-52); Hemoglobin 9.1 g/dL (14.0-18.0); Mean Corpuscular Hemoglobin 29.3 pg (25-34); Mean Corpuscular Hgb Conc 31.2 g/dL (32-36); Mean Corpuscular Volume 93.9 fL (80-100); Mean Platelet Volume 8.2 fL (7.4-10.4); Platelet Count 236 K/uL (130-400); RDW Coefficient of Variation 14.8 % (11.5-14.5); Red Blood Count 3.11 M/uL (4.7-6.1); White Blood Count 6.72 K/uL (4.8-10.8)
[2019-07-20 08:24] LABS: C Reactive Protein 12.1 mg/dl (0-0.29); Creatinine Clr Calc Pharmacy 74.6 ml/min; Est GFR (African American) 60.5; Est GFR (Non-African American) 52.2; Magnesium 2.4 mg/dl (1.8-2.4); Potassium 4.1 mmol/L (3.5-5.1)
[2019-07-20] MEDS: INSULIN ASPART 100 UNITS/ML 3 ML PEN SC SCH ×4 (08:34→21:38)
[2019-07-20] MEDS: INSULIN GLARGINE SOLOSTAR 100 UNITS/ML 3 ML PEN SC SCH ×2 (08:35→21:36)
[2019-07-20] MEDS: PREGABALIN 100 MG CAP PO SCH ×3 (08:38→21:35)
[2019-07-20] MEDS: AMIODARONE 200 MG TAB PO SCH (08:39)
[2019-07-20] MEDS: DONEPEZIL HCL 10 MG TAB PO SCH (08:39)
[2019-07-20] MEDS: ASPIRIN 81 MG ECTAB PO SCH (08:40)
[2019-07-20] MEDS: DULOXETINE HCL 60 MG CAP PO SCH (08:40)
[2019-07-20] MEDS: lamoTRIgine 25 MG TAB PO SCH ×2 (08:40→21:35)
[2019-07-20] MEDS: BuPROPion SR 150 MG TABCR PO SCH ×2 (08:41→16:40)
[2019-07-20] MEDS: MAGNESIUM OXIDE 400 MG TAB PO SCH (08:41)
[2019-07-20] MEDS: ATORVASTATIN 20 MG TAB PO SCH (08:41)
[2019-07-20] MEDS: MULTIVITAMIN TAB PO SCH (08:41)
--- NOTE | 2019-07-20 09:19 | Pharmacy Report ---
Pharmacy Glycemic Short Note 2 - Date of Service July 20, 2019 - Glycemic Short BSG Results (Last 24 hours): 07/19/19 07/19/19 07/19/19 11:38 16:17 19:09 Glucose POC Glucose 239 H 146 H 131 H 07/20/19 07/20/19 07:31 07:36 Glucose 95 POC Glucose 94 OUTPATIENT ANTIDIABETIC REGIMEN: * Novolog pump: basal settings obtained from [employer] (~82 units/day) + bolus 30 units with breakfast, lunch and dinner (~170 total units/day) * Per records his back up SQ dosing is Lantus 50 units daily and novolog 28 units breakfast, 28 lunch, and 25 with supper * A1c =8.5 % 07/17 ASSESSMENT: 07/20: * Mr. Cullen received 70 units of insulin yesterday (50 units of basal - 20 units of bolus) with BSGs ranging from 124 - 239 mg/dL. Of note, current insulin needs are significantly less that what patient takes at home (~170 units/day). * Fasting BSG of 94 mg/dL this morning is slightly below goal for inpatient glycemic control. I will decrease basal insulin by 20%. Continue BID dosing of Lantus to allow for easier transition back to insulin pump at time of discharge. * Post prandial BSGs are at goal after tightening carb coverage on 07/19. Continue same for now. 07/19: * Jorge received 117 units of SQ insulin yesterday (70 units basal - 47 units bolus) with majority of BSGs > 200 mg/dL. * Fasting BSG of 124 mg/dL is at goal. I will slightly back off basal insulin dosing. Per [employer] records, Jorge usually takes Lantus 50 units daily when off insulin pump. He required 70 units yesterday but I suspect this will be too much if continued. * He is tolerating an oral diet. Insulin meal coverage yesterday shows adequate correction factor and need for additional carb coverage. 07/18: * 59 year old transferred from outside facility due to increase in pain,swelling of finger. Osteomyelitis ruled out, started broad spectrum antibiotics * Patient on novolog pump at home, pharmacy consulted to manage insulin. Pump disconnected this morning around 9 am * Patient NPO this morning - reduced outpatient basal dose this morning ; add scale for Lantus for tonight * Patient changed to diet at lunch - plan is to hold surgery for now and continue with IV abx PLAN FOR INPATIENT GLYCEMIC CONTROL: * Basal insulin - decrease * Lantus SQ per scale BID: - bsg < 140 - give 20 units - bsg 140-180 - give 25 units - bsg > 180 - give 30 units * Bolus insulin * NovoLog per scale ACHS or Q6hrs while NPO * Goal Range: Low 110 mg/dL - High 140 mg/dL * Correction Factor: 15 mg/dL/unit * Nutritional / Prandial insulin per carb ratio of 1 unit per 3.5 grams CHO consumed * Please note that the plan above was derived based on current level of insulin resistance and hospital stress. These recommendations are appropriate for inpatient admission only. Plan of care upon discharge will need to be reassessed to avoid potential outpatient hypo/hyperglycemia. PLAN FOR DISCHARGE: * A1c = 8.5% (07/17/19). Increased from 7.4 % in December of 2018. * A1c elevation is likely due to recent prednisone use and infection * Resume care through [facility]
--- NOTE | 2019-07-20 10:12 | Orthopedic Progress Note ---
Date of Service July 20, 2019 Assessment & Plan (1) Cellulitis: Cellulitis right hand, now with open wound at tip. Continue strict elevation right hand. Encouraged patient to keep hand above his heart. ROM right hand as tolerated. Continue antibiotics as per ID. Start warm soaks TID. Will continue to monitor and follow in hospital. Subjective Right ring finger continued pain, bumped earlier today and split open the tip. states still having pain right middle finger. radiates into hand and wrist. Patient states it's the same as yesterday. Has been trying to keep it elevated. Review of Systems Review of Systems: All systems reviewed & are unremarkable except as noted in HPI & below Physical Exam Physical Exam: Right ring finger/hand: decreased swelling and erythema. small laceration at tip of finger with minimal bloody drainage on dressing. Unable to expressing any purulent material/fluid. Neuro unchanged. Results & Data Vital Signs (Past 12 Hours) Vital Signs Temp Pulse Pulse Resp BP BP Pulse Ox 07/20/19 07:22 36.9 C 98 H 19 121/67 97 07/20/19 04:02 36.4 C L 64 18 111/65 96 07/20/19 03:48 69 16 99 07/20/19 00:51 74 07/19/19 23:40 37.0 C 70 19 103/58 L 95 07/19/19 22:30 77 17 96 Laboratory Results 07/20/19 07/20/19 07/20/19 Range/Units 07:36 07:36 07:36 WBC 6.72 (4.8-10.8) K/uL RBC 3.11 L (4.7-6.1) M/uL Hgb 9.1 L (14.0-18.0) g/dL Hct 29.2 L (42-52) % MCV 93.9 (80-100) fL MCH 29.3 (25-34) pg MCHC 31.2 L (32-36) g/dL RDW Std Deviation 50.0 H (36.4-46.3) fL RDW Coeff of Karolina 14.8 H (11.5-14.5) % Plt Count 236 (130-400) K/uL MPV 8.2 (7.4-10.4) fL ESR 86 H (0-14) mm/hr Sodium 141 (136-145) mmol/L Potassium 4.1 (3.5-5.1) mmol/L Chloride 114 H (98-107) mmol/L Carbon Dioxide 23 (21-32) mmol/L Anion Gap 5.0 (3-11) BUN 32 H (7-18) mg/dl Creatinine 1.47 H D (0.6-1.4) mg/dl Est Cr Clr Drug Dosing 74.6 ml/min Est GFR ( Amer) 60.5 Est GFR (Non-Af Amer) 52.2 BUN/Creatinine Ratio 22.0 H (10-20) Glucose 95 (70-99) mg/dl POC Glucose (70-99) Calcium 9.0 (8.5-10.1) mg/dl Magnesium 2.4 (1.8-2.4) mg/dl C-Reactive Protein 12.10 H (0-0.29) mg/dl Vitamin B12 (211-911) pg/ml Folate (>5.38) ng/ml 07/20/19 07/19/19 07/19/19 Range/Units 07:31 19:09 16:17 WBC (4.8-10.8) K/uL RBC (4.7-6.1) M/uL Hgb (14.0-18.0) g/dL Hct (42-52) % MCV (80-100) fL MCH (25-34) pg MCHC (32-36) g/dL RDW Std Deviation (36.4-46.3) fL RDW Coeff of Karolina (11.5-14.5) % Plt Count (130-400) K/uL MPV (7.4-10.4) fL ESR (0-14) mm/hr Sodium (136-145) mmol/L Potassium (3.5-5.1) mmol/L Chloride (98-107) mmol/L Carbon Dioxide (21-32) mmol/L Anion Gap (3-11) BUN (7-18) mg/dl Creatinine (0.6-1.4) mg/dl Est Cr Clr Drug Dosing ml/min Est GFR ( Amer) Est GFR (Non-Af Amer) BUN/Creatinine Ratio (10-20) Glucose (70-99) mg/dl POC Glucose 94 131 H 146 H (70-99) Calcium (8.5-10.1) mg/dl Magnesium (1.8-2.4) mg/dl C-Reactive Protein (0-0.29) mg/dl Vitamin B12 (211-911) pg/ml Folate (>5.38) ng/ml 07/19/19 07/19/19 Range/Units 11:38 07:27 WBC (4.8-10.8) K/uL RBC (4.7-6.1) M/uL Hgb (14.0-18.0) g/dL Hct (42-52) % MCV (80-100) fL MCH (25-34) pg MCHC (32-36) g/dL RDW Std Deviation (36.4-46.3) fL RDW Coeff of Karolina (11.5-14.5) % Plt Count (130-400) K/uL MPV (7.4-10.4) fL ESR (0-14) mm/hr Sodium (136-145) mmol/L Potassium (3.5-5.1) mmol/L Chloride (98-107) mmol/L Carbon Dioxide (21-32) mmol/L Anion Gap (3-11) BUN (7-18) mg/dl Creatinine (0.6-1.4) mg/dl Est Cr Clr Drug Dosing ml/min Est GFR ( Amer) Est GFR (Non-Af Amer) BUN/Creatinine Ratio (10-20) Glucose (70-99) mg/dl POC Glucose 239 H (70-99) Calcium (8.5-10.1) mg/dl Magnesium (1.8-2.4) mg/dl C-Reactive Protein (0-0.29) mg/dl Vitamin B12 327 (211-911) pg/ml Folate 7.97 (>5.38) ng/ml
[2019-07-20] MEDS ORDERED: TRIAMCINOLONE ACET 0.1% OINT 15 GM TUBE EXT PRN (10:15)
[2019-07-20] MEDS: FUROSEMIDE 80 MG TAB PO SCH ×2 (11:51→12:18)
[2019-07-20] MEDS: PREGABALIN 50 MG CAP PO SCH (11:52)
[2019-07-20] MEDS: ENOXAPARIN INJ 120 MG/0.8 ML SYR SQ SCH ×2 (12:22→22:05)
--- NOTE | 2019-07-20 13:39 | Infectious Disease Progress Nt ---
Date of Service July 20, 2019 Assessment & Plan (1) Cellulitis: Continue IV abx for now, follow cultures, ortho following as well. will check wound culture now that wound is open, culture may be negative due to broad spectrum abx. will await results and hopefully adjust to po abx in near future. Subjective pt seen in followup, oob to chair, states he is feeling better but still having pain in finger. saw ortho earlier and no plan for OR at this time. No f/c overnight. Remains on zosyn and vanco, spoke with pharmacy earlier regarding vanco dosing. wbc 6.7, blood cultures remain negative. creat imrproving, states wound opened today, now using peroxide soak with improvement. Review of Systems Review of Systems: All systems reviewed & are unremarkable except as noted in HPI & below Physical Exam Constitutional: WD/WN, vitals as above Eyes: PERRL, conjunctivae normal, anicteric sclerae ENMT: external ear and nose normal, oropharynx normal Neck: normal visual inspection Respiratory: normal respiratory effort, lungs clear to auscultation Auscultation: + diminished lung sounds Cardiovascular: RRR, no murmur, no edema Gastrointestinal (Abdomen): normal bowel sounds, soft, nontender, no hepatosplenomegaly Musculoskeletal: no cyanosis or clubbing, extremities motor strength 5/5 Skin: no rashes, warm and dry + wound (4th finger edema, erythema, warmth, no drainage) Psychiatric: A+Ox3, euthymic affect Results & Data Vital Signs (Past 12 Hours) Vital Signs Temp Pulse Pulse Resp BP BP Pulse Ox 07/20/19 11:07 36.6 C 77 18 118/73 97 07/20/19 07:22 36.9 C 98 H 19 121/67 97 07/20/19 04:02 36.4 C L 64 18 111/65 96 07/20/19 03:48 69 16 99 Laboratory Results Microbiology 07/18/19 00:38 Blood Aerobic Blood Culture - Preliminary No growth in Aerobic bottle after 48 hours. 07/18/19 00:38 Blood Anaerobic Blood Culture - Preliminary No growth in Anaerobic bottle after 48 hours. 07/18/19 00:37 Blood Aerobic Blood Culture - Preliminary No growth in Aerobic bottle after 48 hours. 07/18/19 00:37 Blood Anaerobic Blood Culture - Preliminary No growth in Anaerobic bottle after 48 hours. PG Care Time/CCT Total # of Minutes Spent Total Time Spent with Patient: Total time spent is greater than 50% in coordination of care (as documented) at patient's floor/unit and/or counseling patient:
[2019-07-20] MEDS ORDERED: VANCOMYCIN TROUGH ONE ×3 (14:00→15:30)
--- NOTE | 2019-07-20 15:31 | Pharmacy Report ---
Pharmacy Abx Dose Short Note - Date of Service July 20, 2019 - Assessment & Plan Assessment 59 year old M with h/o MRSA receiving vancomycin IV for treatment of cellulitis of finger * CT of hand from 07/18: no osteomyelitis noted but lytic destruction of 2nd, 3rd, 4th fingers noted * wound culture obtained today - results may be skewed due to patient on day 3 of broad spectrum antibiotics * Scr trending downward Plan Vancomycin * Trough level of 16.2 mcg/mL is therapeutic * of note, trough level was drawn 1.5 hours early therefore true trough level is less than 16.2 mcg/mL * Continue dose of 1500 mg IV every 18 hours * Goal trough level for cellulitis: ~15 mcg/mL * Patient requires close monitoring due to likelihood of drug accumulation with BMI > 40. Repeat trough level ordered for 07/22 prior to 0400 dose. Piperacillin/tazobactam * 4.5 gm iv q 8 hrs - no change (appropriate for CrCl >20 ml/min) Pharmacy will continue to follow and will adjust dose/frequency as necessary. Thank you.
[2019-07-20] MEDS: VANCOMYCIN HCL 1,500 MG in SODIUM CHLORIDE 0.9% 500 ML IV SCH (16:35)
--- NOTE | 2019-07-20 17:24 | Hospitalist Progress Note ---
Date of Service July 20, 2019 Assessment & Plan (1) Cellulitis: With cellulitis of the right ring finger with possible osteomyelitis. CT right hand with significant bony destruction especially in 3-4th digits, question if just all from neuropathy or like a Charcot hand? Consult Ortho appreciated--> continue IV abx for now, no surgery yet Finger now opened up and draining on own, edema slightly down Follow wound culture No further fevers -Continue Zosyn and Vanco-caution as pt reports a h/o Red Man syndrome with Vanco after it was already given--> no signs of this now -can cautiously continue Vanco and make infusions slow -Monitor CBC, ESR, CRP every other day-all high but WBCs coming down -continue to hold Xarelto because of possible surgical procedure-giving Lovenox instead in case needs to be held -continue pain control with tylenol -encouraged continued elevation of hand -lethargy improved Appreciate ID consult as well (2) Sleep apnea: Continue BiPAP per patient home setting. (3) Depression: Continue home medicine: Bupropion HCl 150 mg twice daily -Continue Lamictal 25 mg twice daily -Holding nortriptyline due to drowsiness -continue duloxetine (4) Atrial fibrillation: Paroxysmal-had rapid AF for 2:30 hrs on night of 07/17, spontaneously converted and has not had any further Has pacer/AICD in place -holding Xarelto and bridging with Lovenox in case of need for surgery on finger as above -continue home Amiodarone 200 mg p.o. daily, aspirin 81 mg p.o. daily, but will continue to hold carvedilol 12.5 mg tablet p.o. twice daily for hypotension -continue tele monitoring -keep lytes replaced -restart lasix (5) Peripheral neuropathy: Patient takes large doses of Lyrica which was clarified with patient . Patient takes 200 mg of milligram of Lyrica in the morning, 250 at noon time and 200 before he goes to sleep. -Continue same doses as he has been stable on these for years and renal functions actually improved since admission (6) Pulmonary embolism: A history of such Holding Xarelto as above -continue Lovenox therapeutic dose (7) Asthma: No acute issues -Continue montelukast 10 mg tablet p.o. daily. 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 Possibly for ischemic severe CM? 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 slightly above baseline in setting of acute illness upon admission which is now improved with IV fluids to 1.4 -Avoid nephrotoxic agents -restart home lasix so doesn't get volume overloaded -continue to hold lisinopril -have since dcd IVFs -follow BMP in AM (10) Chronic pain syndrome: multiple joints, OA-continue tylenol prn -Continue Lyrica, holding nortriptyline -Continue Cymbalta (11) Hypotension: hypotensive in setting of acute infection which is now improved -Continue to hold lisinopril -Hold Coreg (12) CAD (coronary artery disease), [place] coronary artery: with h/o [place] and stents placed many years ago No ongoing chest pain -continue ASA, statin, but will hold Coreg as above for hypotension -lisinopril on hold (13) Anemia: Hgb 9.1, stable from previous, normocytic Likely anemia of chronic disease-B12, folate normal -Iron studies consistent with chronic disease (14) Diabetes mellitus, type 2: With insulin pump at home which was removed here and no supplies available Hemoglobin A1C here is 8.5% -consult Pharmacy appreciated Hyperglycemia now improved -Continue Lantus and Novolog as per pharmacy -follow [facility] [place] (15) Tremor: Hold home primidone for excessive drowsiness -Holding home Requip and Mirapex for drowsiness Not having terrible restless legs at the moment (16) DVT (deep venous thrombosis): Continue Lovenox therapeutic dose twice a day. Check Soppler RUE for edema which is likely from infection in hand but given h istory of extensive RUE DVT in setting of PICC line while on anticoag, is high risk Dispo-remain hospitalized for ongoing IV antibiotics Subjective Finger was bumped on something this AM and split open, is now draining some blood and pus which was cultured. Ortho ordered warm saline soaks. Is more awake and alert today. No CP or SOB over his baseline. Denies lightheadedness, no nausea, is eating better today. Was encouraged to get out of bed to chair and he was apparently not eager to do so but did. Tele with NSR, rates 70-90s He is concerned about the swelling in his RUE and says he had an extensive DVT there in the past despite being on anticoagulation when he had a PICC line placed Also with complaint of 2 very itchy spots on his back Review of Systems Review of Systems: All systems reviewed & are unremarkable except as noted in HPI & below Physical Exam Constitutional: WD/WN, vitals as above + obese Eyes: + eyelid abnormality (bilat R>L upper lid with mild erythema and edema consistent with blephariti) and + anicteric sclerae Neck: trachea midline, no thyromegaly Respiratory: normal respiratory effort, lungs clear to auscultation Cardiovascular: RRR, no murmur, no edema Chest (Breasts): Chest: normal inspection of chest Gastrointestinal (Abdomen): normal bowel sounds, soft, nontender, no hepatosplenomegaly (obese, protuberant) Musculoskeletal: Extremities: + hand abnormality; + 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), no cyanosis and no clubbing Skin: + rash (2 small patches of erythematous macular rash approx 3 cm on right side back) and + lesion (Right ring finger markedly edematous,erythematous but slightly improved from previous) finger has opened at the tip and draining scant purulent drainge; Right dorsal hand slightly less edema, right wrist and forearm 1+ pitting edema Neurologic: moves all extremities and awake; no focal motor deficits Psychiatric: A+Ox3, euthymic affect Results & Data Vital Signs (Past 12 Hours) Vital Signs Temp Pulse Pulse Resp BP BP Pulse Ox 07/20/19 14:48 36.8 C 90 18 133/68 95 07/20/19 11:07 36.6 C 77 18 118/73 97 07/20/19 08:00 72 07/20/19 07:22 36.9 C 98 H 19 121/67 97 Laboratory Results 07/20/19 07/20/19 07/20/19 Range/Units 20:08 16:26 14:05 WBC (4.8-10.8) K/uL RBC (4.7-6.1) M/uL Hgb (14.0-18.0) g/dL Hct (42-52) % MCV (80-100) fL MCH (25-34) pg MCHC (32-36) g/dL RDW Std Deviation (36.4-46.3) fL RDW Coeff of Karolina (11.5-14.5) % Plt Count (130-400) K/uL MPV (7.4-10.4) fL ESR (0-14) mm/hr Sodium (136-145) mmol/L Potassium (3.5-5.1) mmol/L Chloride (98-107) mmol/L Carbon Dioxide (21-32) mmol/L Anion Gap (3-11) BUN (7-18) mg/dl Creatinine (0.6-1.4) mg/dl Est Cr Clr Drug Dosing ml/min Est GFR ( Amer) Est GFR (Non-Af Amer) BUN/Creatinine Ratio (10-20) Glucose (70-99) mg/dl POC Glucose 157 H 193 H (70-99) Calcium (8.5-10.1) mg/dl Magnesium (1.8-2.4) mg/dl C-Reactive Protein (0-0.29) mg/dl Vancomycin Trough 16.2 (See Comment) mcg/ml 07/20/19 07/20/19 07/20/19 Range/Units 11:52 07:36 07:36 WBC (4.8-10.8) K/uL RBC (4.7-6.1) M/uL Hgb (14.0-18.0) g/dL Hct (42-52) % MCV (80-100) fL MCH (25-34) pg MCHC (32-36) g/dL RDW Std Deviation (36.4-46.3) fL RDW Coeff of Karolina (11.5-14.5) % Plt Count (130-400) K/uL MPV (7.4-10.4) fL ESR 86 H (0-14) mm/hr Sodium 141 (136-145) mmol/L Potassium 4.1 (3.5-5.1) mmol/L Chloride 114 H (98-107) mmol/L Carbon Dioxide 23 (21-32) mmol/L Anion Gap 5.0 (3-11) BUN 32 H (7-18) mg/dl Creatinine 1.47 H D (0.6-1.4) mg/dl Est Cr Clr Drug Dosing 74.6 ml/min Est GFR ( Amer) 60.5 Est GFR (Non-Af Amer) 52.2 BUN/Creatinine Ratio 22.0 H (10-20) Glucose 95 (70-99) mg/dl POC Glucose 126 H (70-99) Calcium 9.0 (8.5-10.1) mg/dl Magnesium 2.4 (1.8-2.4) mg/dl C-Reactive Protein 12.10 H (0-0.29) mg/dl Vancomycin Trough (See Comment) mcg/ml 07/20/19 07/20/19 Range/Units 07:36 07:31 WBC 6.72 (4.8-10.8) K/uL RBC 3.11 L (4.7-6.1) M/uL Hgb 9.1 L (14.0-18.0) g/dL Hct 29.2 L (42-52) % MCV 93.9 (80-100) fL MCH 29.3 (25-34) pg MCHC 31.2 L (32-36) g/dL RDW Std Deviation 50.0 H (36.4-46.3) fL RDW Coeff of Karolina 14.8 H (11.5-14.5) % Plt Count 236 (130-400) K/uL MPV 8.2 (7.4-10.4) fL ESR (0-14) mm/hr Sodium (136-145) mmol/L Potassium (3.5-5.1) mmol/L Chloride (98-107) mmol/L Carbon Dioxide (21-32) mmol/L Anion Gap (3-11) BUN (7-18) mg/dl Creatinine (0.6-1.4) mg/dl Est Cr Clr Drug Dosing ml/min Est GFR ( Amer) Est GFR (Non-Af Amer) BUN/Creatinine Ratio (10-20) Glucose (70-99) mg/dl POC Glucose 94 (70-99) Calcium (8.5-10.1) mg/dl Magnesium (1.8-2.4) mg/dl C-Reactive Protein (0-0.29) mg/dl Vancomycin Trough (See Comment) mcg/ml PG Care Time/CCT Total # of Minutes Spent Total Time Spent with Patient: Total time spent is greater than 50% in coordina tion of care (as documented) at patient's floor/unit and/or counseling patient:
[2019-07-20] MEDS: MONTELUKAST SODIUM 10 MG TABLET PO SCH (21:38)
[2019-07-21] MEDS: ACETAMINOPHEN 325 MG TAB PO PRN ×2 (00:41→20:22)
[2019-07-21] MEDS: PIPERACILLIN/TAZOBACTAM 4.5 GM in DEXTROSE 5% 100 ML IV SCH (01:32)
[2019-07-21] MEDS: PANTOprazole 40 MG TAB PO SCH (05:29)
--- NOTE | 2019-07-21 06:09 | Ultrasound Report ---
US venous doppler UE RT HISTORY: Pain. Edema. edema,r/o DVT COMPARISON STUDY: None. FINDINGS: The internal jugular vein is patent. There is normal flow within the subclavian vein. There is normal flow and compressibility within the left axillary, basilic, brachial, radial, ulnar, and v isualized cephalic veins. IMPRESSION: No DVT within the upper extremity. The above report was generated using voice recognition software. It may contain grammatical, syntax or spelling errors. Electronically signed by: Jeff Nunez M.D. 07/21/2019 6:08 AM
[2019-07-21] MEDS: INSULIN ASPART 100 UNITS/ML 3 ML PEN SC SCH ×4 (08:22→20:24)
[2019-07-21] MEDS: INSULIN GLARGINE SOLOSTAR 100 UNITS/ML 3 ML PEN SC SCH ×2 (08:22→20:23)
[2019-07-21] MEDS: PREGABALIN 100 MG CAP PO SCH ×3 (08:24→20:20)
[2019-07-21] MEDS: carvediloL 12.5 MG TAB PO SCH ×2 (08:25→20:19)
[2019-07-21] MEDS: MAGNESIUM OXIDE 400 MG TAB PO SCH (08:25)
[2019-07-21] MEDS: BuPROPion SR 150 MG TABCR PO SCH ×2 (08:26→18:07)
[2019-07-21] MEDS: ATORVASTATIN 20 MG TAB PO SCH (08:26)
[2019-07-21] MEDS: lamoTRIgine 25 MG TAB PO SCH ×2 (08:26→20:19)
[2019-07-21] MEDS: DONEPEZIL HCL 10 MG TAB PO SCH (08:26)
[2019-07-21] MEDS: DULOXETINE HCL 60 MG CAP PO SCH (08:26)
[2019-07-21] MEDS: FUROSEMIDE 80 MG TAB PO SCH (08:26)
[2019-07-21] MEDS: MULTIVITAMIN TAB PO SCH (08:26)
[2019-07-21] MEDS: ASPIRIN 81 MG ECTAB PO SCH (08:26)
[2019-07-21] MEDS: AMIODARONE 200 MG TAB PO SCH (08:27)
[2019-07-21 08:53] LABS: Creatinine Clr Calc Pharmacy 66.1 ml/min; Est GFR (African American) 52.2; Est GFR (Non-African American) 45.1
--- NOTE | 2019-07-21 09:36 | XRay Report ---
XR finger RT min 2V CLINICAL HISTORY: R Ring Finger, pain COMPARISON STUDY: None. FINDINGS: Erosive changes seen throughout the majority of the second through fourth distal phalanges. There is a slightly distracted comminuted fracture with fragmentation at the base of the residual di stal phalanx of the fourth finger. There is diffuse soft tissue swelling. Additional erosive changes seen at the head of the middle phalanx of the fourth digit. These findings are not significantly siddiqi ged compared to the 07/17/2019 hand radiograph and 07/18/[address] IMPRESSION: Destructive/erosive changes seen at the second, third, and fourth distal phalanges likel y representing acro-osteolysis. This is most pronounced at the distal phalanx of the fourth digit whi ch also demonstrates diffuse soft tissue swelling. The residual base of the distal phalanx of the fou rth digit demonstrates a comminuted fracture/fragmentation, unchanged. These findings favor psoriatic arthritis. An associated osteomyelitis cannot be excluded. Electronically signed by: Kiran Gifford M.D. 07/21/2019 9:35 AM
[2019-07-21] MEDS: VANCOMYCIN HCL 1,500 MG in SODIUM CHLORIDE 0.9% 500 ML IV SCH (10:25)
[2019-07-21] MEDS: ENOXAPARIN INJ 120 MG/0.8 ML SYR SQ SCH ×2 (10:25→22:47)
[2019-07-21] MEDS: PREGABALIN 50 MG CAP PO SCH (12:33)
--- NOTE | 2019-07-21 14:04 | Infectious Disease Progress Nt ---
Date of Service July 21, 2019 Assessment & Plan (1) Cellulitis: wound culture obtained yesterday after wound spontaneously opened, will continue with vanco with plans to change to po abx tomorrow when final cultures returned. may need OR at some point but for now ortho planning for conservative treatment with local wound care and abx. will follow final culture. Subjective wound culture growing S. aureus, likely final in am. blood cultures remain negative, afebrile. vanco level 16 yesterday, creat slightly increased today. zosyn stopped earlier today. no plans for OR at this time. Results & Data Vital Signs (Past 12 Hours) Vital Signs Temp Pulse Pulse Resp BP BP Pulse Ox 07/21/19 12:21 37.3 C 63 19 124/61 97 07/21/19 07:00 37.0 C 72 20 112/71 98 07/21/19 04:55 36.4 C L 110 H 20 118/74 97 07/21/19 03:32 91 H 18 95 Laboratory Results Microbiology 07/20/19 14:41 Finger,Right Ring Gram Stain - Final 07/20/19 14:41 Finger,Right Ring Wound Culture - Preliminary Staphylococcus aureus 07/18/19 00:38 Blood Aerobic Blood Culture - Preliminary No growth in Aerobic bottle after 48 hours. 07/18/19 00:38 Blood Anaerobic Blood Culture - Preliminary No growth in Anaerobic bottle after 48 hours. 07/18/19 00:37 Blood Aerobic Blood Culture - Preliminary No growth in Aerobic bottle after 48 hours. 07/18/19 00:37 Blood Anaerobic Blood Culture - Preliminary No growth in Anaerobic bottle after 48 hours. PG Care Time/CCT Total # of Minutes Spent Total Time Spent with Patient: Total time spent is greater than 50% in coordination of care (as documented) at patient's floor/unit and/or counseling patient:
--- NOTE | 2019-07-21 19:27 | Hospitalist Progress Note ---
Date of Service July 21, 2019 Assessment & Plan (1) Cellulitis: With cellulitis of the right ring finger with possible osteomyelitis. CT right hand with significant bony destruction especially in 3-4th digits, question if just all from neuropathy or like a Charcot hand? Consult Ortho appreciated--> opting for conservative management without surgical intervention -Continue IV abx for now, narrowing down to vancomycin alone as per culture with Staphylococcus aureus -DC Zosyn Finger now opened up and draining on own, edema and erythema finally down Follow wound culture final sensitivities No further fevers -Monitor CBC, ESR, CRP every other day-all high but WBCs coming down -continue to hold Xarelto because of possible surgical procedure-giving Lovenox instead in case needs to be held -continue pain control with tylenol -encouraged continued elevation of hand Appreciate ID consult as well (2) Sleep apnea: Continue BiPAP per patient home setting. (3) Depression: Continue home medicine: Bupropion HCl 150 mg twice daily -Continue Lamictal 25 mg twice daily -Holding nortriptyline due to drowsiness -continue duloxetine (4) Atrial fibrillation: Paroxysmal-had rapid AF for 2:30 hrs on night of 07/17, and atrial flutter with rates to the 130s for an hour and a half again on the night of 07/20 spontaneously converted and has not had any further Has pacer/AICD in place -Continue holding Xarelto and bridging with Lovenox in case of need for surgery on finger as above -continue home Amiodarone 200 mg p.o. daily, aspirin 81 mg p.o. daily, and have since restarted carvedilol 12.5 mg tablet p.o. twice daily now that hypotension is resolved -continue tele monitoring -keep lytes replaced -Continue Lasix (5) Peripheral neuropathy: Patient takes large doses of Lyrica which was clarified with patient . Patient takes 200 mg of milligram of Lyrica in the morning, 250 at noon time and 200 before he goes to sleep. -Continue same doses as he has been stable on these for years and renal functions actually improved since admission (6) Pulmonary embolism: A history of such Holding Xarelto as above -continue Lovenox therapeutic dose (7) Asthma: No acute issues -Continue montelukast 10 mg tablet p.o. daily. 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 Possibly for ischemic severe CM? 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 slightly above baseline in setting of acute illness upon admission which is now improved and stable at 1.6 -Avoid nephrotoxic agents -Continue home lasix as has some volume overload from previous IV fluids now -continue to hold lisinopril -Follow BMP in the morning (10) Chronic pain syndrome: multiple joints, OA-continue tylenol prn -Continue Lyrica, holding nortriptyline -Continue Cymbalta (11) Hypotension: hypotensive in setting of acute infection which is now resolved -Continue to hold lisinopril -Restarted Coreg (12) CAD (coronary artery disease), [place] coronary artery: with h/o [place] and stents placed many years ago No ongoing chest pain -continue ASA, statin, and restarted Coreg as above -lisinopril on hold (13) Anemia: Hgb 9.1, stable from previous, normocytic Likely anemia of chronic disease-B12, folate normal -Iron studies consistent with chronic disease (14) Diabetes mellitus, type 2: With insulin pump at home which was removed here and no supplies available Hemoglobin A1C here is 8.5% -consult Pharmacy appreciated Hyperglycemia now improved -Continue Lantus and Novolog as per pharmacy -follow [facility] (15) Tremor: Worsening off meds -We will restart home primidone -Restless leg syndrome is worsening off of meds now -Restart home Mirapex but does not need Requip also (16) DVT (deep venous thrombosis): Continue Lovenox therapeutic dose twice a day. Doppler RUE for edema negative for DVT Dispo-remain hospitalized for ongoing IV antibiotics, but possible discharge home tomorrow if hand continues to improve Subjective Patient reports he is ready to get out of here. He is frustrated with how long it takes to get help to get to the bedside commode. Still has the itchy spots on his back and reports he never received the triamcinolone cream that was ordered Denies chest pain or shortness of breath Telemetry with normal sinus rhythm in the 70s, had some atrial flutter in the 120s to 130s for about an hour and 45 minutes last night and spontaneously converted Review of Systems Review of Systems: All systems reviewed & are unremarkable except as noted in HPI & below Physical Exam Constitutional: WD/WN, vitals as above + obese Eyes: + eyelid abnormality (bilat R>L upper lid with mild erythema and edema consistent with blephariti) and + anicteric sclerae Neck: trachea midline, no thyromegaly Respiratory: normal respiratory effort, lungs clear to auscultation Cardiovascular: Rate/Rhythm: regular rate and regular rhythm Extremities: + edema (Left ankle trace edema) Chest (Breasts): Chest: normal inspection of chest Gastrointestinal (Abdomen): normal bowel sounds, soft, nontender, no hepatosplenomegaly (obese, protuberant) Musculoskeletal: Extremities: + hand abnormality Right (Erythema and edema markedly improved today in the right ring finger); + 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), no cyanosis and no clubbing Skin: + rash (2 small patches of erythematous macular rash approx 3 cm on right side back) Neurologic: moves all extremities and awake; no focal motor deficits Psychiatric: A+Ox3, euthymic affect Results & Data Vital Signs (Past 12 Hours) Vital Signs Temp Pulse Pulse Resp BP Pulse Ox 07/21/19 16:20 72 07/21/19 15:32 36.6 C 70 17 122/69 97 07/21/19 12:21 37.3 C 63 19 124/61 97 Laboratory Results Labs reviewed labs reviewed Wound culture growing Staphylococcus aureus, sensitivities pending PG Care Time/CCT Total # of Minutes Spent Total Time Spent with Patient: Total time spent is greater than 50% in coordination of care (as documented) at patient's floor/unit and/or counseling patient:
[2019-07-21] MEDS: MONTELUKAST SODIUM 10 MG TABLET PO SCH (20:20)
[2019-07-21] MEDS: PRIMIDONE 50 MG TAB PO SCH (20:20)
[2019-07-21] MEDS ORDERED: PRAMIPEXOLE DIHYDROCHLO 0.25 MG TAB PO SCH (21:00)
--- NOTE | 2019-07-21 21:33 | Orthopedic Progress Note ---
Date of Service July 21, 2019 Assessment & Plan (1) Cellulitis: Cellulitis right hand, now with open wound at tip R RF. Continue strict elevation right hand. Encouraged patient to keep hand above his heart. ROM right hand as tolerated. Continue antibiotics as per ID. Start warm soaks TID, switched to warm soapy water. Appreciate wound care nurse input. Will continue to monitor and follow in hospital. Subjective Continued pain right hand. Review of Systems Review of Systems: All systems reviewed & are unremarkable except as noted in HPI & below Physical Exam Physical Exam: RUE: Erythema and swelling unchanged. The tip of the ring finger remains open, no purulent drainage. The skin overlying the dorsum of the ring finger is desiccated and appears it will slough. Neurovascularly unchanged. Limited ROM of digits. Results & Data Vital Signs (Past 12 Hours) Vital Signs Temp Pulse Pulse Resp BP Pulse Ox 07/21/19 20:14 36.8 C 77 18 150/76 H 99 07/21/19 16:20 72 07/21/19 15:32 36.6 C 70 17 122/69 97 07/21/19 12:21 37.3 C 63 19 124/61 97 Diagnostic Findings XR finger RT min 2V CLINICAL HISTORY: R Ring Finger, pain COMPARISON STUDY: None. FINDINGS: Erosive changes seen throughout the majority of the second through fourth distal phalanges. There is a slightly distracted comminuted fracture with fragmentation at the base of the residual distal phalanx of the fourth finger. There is diffuse soft tissue swelling. Additional erosive changes seen at the head of the middle phalanx of the fourth digit. These findings are not significantly changed compared to the 07/17/2019 hand radiograph and 07/18/[address] 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 This is most pronounced at the distal phalanx of the fourth digit which also demonstrates diffuse soft tissue swelling. The residual base of the distal phalanx of the fourth digit demonstrates a comminuted fracture/fragmentation, unchanged. These findings favor psoriatic arthritis. An associated osteomyelitis cannot be excluded. Electronically signed by: Kiran Gifford M.D. 07/21/2019 9:35 AM
[2019-07-22] MEDS ORDERED: VANCOMYCIN TROUGH ONE (03:30)
[2019-07-22 04:09] LABS: Basophils # (auto) 0.03 K/uL (0-0.2); Basophils % (auto) 0.5 %; Eosinophils # (auto) 0.27 K/uL (0-0.5); Eosinophils % (auto) 4.4 %; Hematocrit (blood only) 28.3 % (42-52); Hemoglobin 8.9 g/dL (14.0-18.0); Immature Granulocytes # (auto) 0.14 K/uL (0.00-0.02); Immature Granulocytes % (auto) 2.3 %; Lymphocytes # (auto) 1.01 K/uL (1.2-3.4); Lymphocytes % (auto) 16.6 %; Mean Corpuscular Hemoglobin 29.2 pg (25-34); Mean Corpuscular Hgb Conc 31.4 g/dL (32-36); Mean Corpuscular Volume 92.8 fL (80-100); Mean Platelet Volume 8.1 fL (7.4-10.4); Monocytes % (auto) 6.6 %; Neutrophils # (auto) 4.24 K/uL (1.4-6.5); Neutrophils % (auto) 69.6 %; Nucleated RBC # (auto) 0.02 K/uL (0-0); Nucleated RBC % (auto) 0.3 %; Platelet Count 246 K/uL (130-400); RDW Coefficient of Variation 14.3 % (11.5-14.5); RDW Standard Deviation 48.3 fL (36.4-46.3); Red Blood Count 3.05 M/uL (4.7-6.1); White Blood Count 6.09 K/uL (4.8-10.8)
[2019-07-22 04:29] LABS: Albumin Level 2.5 gm/dl (3.4-5.0); BUN Creatinine Ratio 19.8 (10-20); Calcium 8.8 mg/dl (8.5-10.1); Creatinine Clr Calc Pharmacy 66.9 ml/min; Est GFR (Non-African American) 45.7; Magnesium 2.1 mg/dl (1.8-2.4); Potassium 3.8 mmol/L (3.5-5.1)
[2019-07-22 04:32] LABS: Albumin Globulin Ratio 0.5 (0.9-2); Bilirubin,Total 0.2 mg/dl (0.2-1); C Reactive Protein 8.78 mg/dl (0-0.29); Globulin 4.9 gm/dl (2.5-4.0); Total Protein 7.4 gm/dl (6.4-8.2)
[2019-07-22] MEDS: VANCOMYCIN HCL 1,500 MG in SODIUM CHLORIDE 0.9% 500 ML IV SCH (04:53)
[2019-07-22] MEDS: PANTOprazole 40 MG TAB PO SCH (05:37)
[2019-07-22] MEDS: ACETAMINOPHEN 325 MG TAB PO PRN (05:37)
[2019-07-22] MEDS: INSULIN ASPART 100 UNITS/ML 3 ML PEN SC SCH ×2 (08:07→13:28)
[2019-07-22] MEDS: INSULIN GLARGINE SOLOSTAR 100 UNITS/ML 3 ML PEN SC SCH (08:07)
[2019-07-22] MEDS: PREGABALIN 100 MG CAP PO SCH ×2 (08:21→14:09)
[2019-07-22] MEDS: DONEPEZIL HCL 10 MG TAB PO SCH (08:22)
[2019-07-22] MEDS: carvediloL 12.5 MG TAB PO SCH (08:22)
[2019-07-22] MEDS: DULOXETINE HCL 60 MG CAP PO SCH (08:22)
[2019-07-22] MEDS: FUROSEMIDE 80 MG TAB PO SCH (08:23)
[2019-07-22] MEDS: MULTIVITAMIN TAB PO SCH (08:23)
[2019-07-22] MEDS: AMIODARONE 200 MG TAB PO SCH (08:24)
[2019-07-22] MEDS: lamoTRIgine 25 MG TAB PO SCH (08:24)
[2019-07-22] MEDS: ASPIRIN 81 MG ECTAB PO SCH (08:24)
[2019-07-22] MEDS: ATORVASTATIN 20 MG TAB PO SCH (08:25)
[2019-07-22] MEDS: MAGNESIUM OXIDE 400 MG TAB PO SCH (08:25)
[2019-07-22] MEDS: BuPROPion SR 150 MG TABCR PO SCH (08:26)
--- NOTE | 2019-07-22 08:56 | Pharmacy Report ---
Pharmacy Abx Dose Short Note - Date of Service July 22, 2019 - Assessment & Plan Assessment 59 year old M receiving vancomycin for treatment of cellulitis of finger Day # 5 of antimicrobial therapy. Plan Vancomycin * Trough level came back therapeutic at ~15.8 mcg/ml (goal ~15 mcg/ml for cellulitis) * Will continue same regimen of vancomycin for now * Cultures from finger positive for MSSA - ID following / anticipate deescalation of abx soon * Renal function remains stable Pharmacy will continue to follow and will adjust dose/frequency as necessary. Thank you.
--- NOTE | 2019-07-22 09:45 | Pharmacy Report ---
Pharmacy Glycemic Short Note 2 - Date of Service July 22, 2019 - Glycemic Short BSG Results (Last 24 hours): 07/21/19 07/21/19 07/21/19 12:17 16:35 20:21 Glucose POC Glucose 202 H 165 H 189 H 07/22/19 07/22/19 03:53 07:21 Glucose 138 H POC Glucose 141 H OUTPATIENT ANTIDIABETIC REGIMEN: * Novolog pump: basal settings obtained from [facility] (~82 units/day) + bolus 30 units with breakfast, lunch and dinner (~170 total units/day) * Per records his back up SQ dosing is Lantus 50 units daily and novolog 28 units breakfast, 28 lunch, and 25 with supper * A1c =8.5 % 07/17 ASSESSMENT: 07/22: * Patient received total of 86 units of insulin yesterday, of which 55 were basal insulin * Fasting BSG this AM w/in range at 138 mg/dL - will continue with Lantus scale * BSGs trending up yesterday - will tighten CR slightly PLAN FOR INPATIENT GLYCEMIC CONTROL: * Basal insulin * Lantus SQ per scale BID: - bsg < 140 - give 20 units - bsg 140-180 - give 25 units - bsg > 180 - give 30 units * Bolus insulin - tighten CR * NovoLog per scale ACHS or Q6hrs while NPO * Goal Range: Low 110 mg/dL - High 140 mg/dL * Correction Factor: 15 mg/dL/unit * Nutritional / Prandial insulin per carb ratio of 1 unit per 3 grams CHO consumed * Please note that the plan above was derived based on current level of insulin resistance and hospital stress. These recommendations are appropriate for inpatient admission only. Plan of care upon discharge will need to be reassessed to avoid potential outpatient hypo/hyperglycemia. PLAN FOR DISCHARGE: * A1c = 8.5% (07/17/19). Increased from 7.4 % in December of 2018. * A1c elevation is likely due to recent prednisone use and infection * Resume care through [facility]
--- NOTE | 2019-07-22 11:22 | Orthopedic Progress Note ---
Date of Service July 22, 2019 Assessment & Plan (1) Cellulitis: Continue strict elevation right hand. Encouraged patient to keep hand above his heart. ROM right hand as tolerated. Continue antibiotics as per ID. Start warm soaks TID, switched to warm soapy water. Appreciate wound care nurse input. Will continue to monitor and follow in hospital. Subjective This 59 yo M is seen for f/u of Right hand/finger cellulitis. Currently soaking hand in warm soapy water. IV Vancomycin per ID (Dr. Herndon). States that his middle finger causes most pain and that he is unable to make fist. Denies discharge/drainage or open skin areas. Denies CP, SOB, nausea, vomiting, fever, chills, sweats or lethargy. Has chronic numbness affecting all digits for past 10-12 yrs Review of Systems Review of Systems: All systems reviewed & are unremarkable except as noted in HPI & below Physical Exam Physical Exam: Right UE: Erythema and swelling to 3rd digit. The tip of the ring finger has no definitive opening, no purulent drainage. The skin overlying the dorsum of the ring finger has minimal sloughing Neurovascularly unchanged. Limited ROM of digits. Results & Data Vital Signs (Past 12 Hours) Vital Signs Temp Pulse Pulse Resp BP BP Pulse Ox 07/22/19 07:00 35.8 C L 64 20 111/66 07/22/19 04:19 36.9 C 72 20 105/57 L 98 07/22/19 04:13 70 20 98 07/22/19 01:26 67 07/22/19 00:03 36.8 C 18 150/76 H 99 Laboratory Results 07/22/19 07/22/19 07/22/19 Range/Units 07:21 03:53 03:53 WBC 6.09 (4.8-10.8) K/uL RBC 3.05 L (4.7-6.1) M/uL Hgb 8.9 L (14.0-18.0) g/dL Hct 28.3 L (42-52) % MCV 92.8 (80-100) fL MCH 29.2 (25-34) pg MCHC 31.4 L (32-36) g/dL RDW Std Deviation 48.3 H (36.4-46.3) fL RDW Coeff of Karolina 14.3 (11.5-14.5) % Plt Count 246 (130-400) K/uL MPV 8.1 (7.4-10.4) fL Immature Gran % (Auto) 2.3 % Neut % (Auto) 69.6 % Lymph % (Auto) 16.6 % Haakon % (Auto) 6.6 % Eos % (Auto) 4.4 % Baso % (Auto) 0.5 % Immature Gran # (Auto) 0.14 H (0.00-0.02) K/uL Neut # (Auto) 4.24 (1.4-6.5) K/uL Lymph # (Auto) 1.01 L (1.2-3.4) K/uL Haakon # (Auto) 0.40 (0.11-0.59) K/uL Eos # (Auto) 0.27 (0-0.5) K/uL Baso # (Auto) 0.03 (0-0.2) K/uL Absolute Nucleated RBC 0.02 H (0-0) K/uL Nucleated RBC % (auto) 0.3 % ESR > 90 H (0-14) mm/hr Sodium (136-145) mmol/L Potassium (3.5-5.1) mmol/L Chloride (98-107) mmol/L Carbon Dioxide (21-32) mmol/L Anion Gap (3-11) BUN (7-18) mg/dl Creatinine (0.6-1.4) mg/dl Est Cr Clr Drug Dosing ml/min Est GFR ( Amer) Est GFR (Non-Af Amer) BUN/Creatinine Ratio (10-20) Glucose (70-99) mg/dl POC Glucose 141 H (70-99) Calcium (8.5-10.1) mg/dl Magnesium (1.8-2.4) mg/dl Total Bilirubin (0.2-1) mg/dl AST (15-37) U/L ALT (12-78) U/L Alkaline Phosphatase (45-117) U/L C-Reactive Protein (0-0.29) mg/dl Total Protein (6.4-8.2) gm/dl Albumin (3.4-5.0) gm/dl Globulin (2.5-4.0) gm/dl Albumin/Globulin Ratio (0.9-2) Vancomycin Trough (See Comment) mcg/ml 07/22/19 07/22/19 07/21/19 Range/Units 03:53 03:53 20:21 WBC (4.8-10.8) K/uL RBC (4.7-6.1) M/uL Hgb (14.0-18.0) g/dL Hct (42-52) % MCV (80-100) fL MCH (25-34) pg MCHC (32-36) g/dL RDW Std Deviation (36.4-46.3) fL RDW Coeff of Karolina (11.5-14.5) % Plt Count (130-400) K/uL MPV (7.4-10.4) fL Immature Gran % (Auto) % Neut % (Auto) % Lymph % (Auto) % Haakon % (Auto) % Eos % (Auto) % Baso % (Auto) % Immature Gran # (Auto) (0.00-0.02) K/uL Neut # (Auto) (1.4-6.5) K/uL Lymph # (Auto) (1.2-3.4) K/uL Haakon # (Auto) (0.11-0.59) K/uL Eos # (Auto) (0-0.5) K/uL Baso # (Auto) (0-0.2) K/uL Absolute Nucleated RBC (0-0) K/uL Nucleated RBC % (auto) % ESR (0-14) mm/hr Sodium 140 (136-145) mmol/L Potassium 3.8 (3.5-5.1) mmol/L Chloride 108 H (98-107) mmol/L Carbon Dioxide 25 (21-32) mmol/L Anion Gap 7.0 (3-11) BUN 32 H (7-18) mg/dl Creatinine 1.64 H (0.6-1.4) mg/dl Est Cr Clr Drug Dosing 66.9 ml/min Est GFR ( Amer) 53.0 Est GFR (Non-Af Amer) 45.7 BUN/Creatinine Ratio 19.8 (10-20) Glucose 138 H (70-99) mg/dl POC Glucose 189 H (70-99) Calcium 8.8 (8.5-10.1) mg/dl Magnesium 2.1 (1.8-2.4) mg/dl Total Bilirubin 0.2 (0.2-1) mg/dl AST 22 (15-37) U/L ALT 28 (12-78) U/L Alkaline Phosphatase 104 (45-117) U/L C-Reactive Protein 8.78 H (0-0.29) mg/dl Total Protein 7.4 (6.4-8.2) gm/dl Albumin 2.5 L (3.4-5.0) gm/dl Globulin 4.9 H (2.5-4.0) gm/dl Albumin/Globulin Ratio 0.5 L (0.9-2) Vancomycin Trough 15.8 (See Comment) mcg/ml 07/21/19 07/21/19 Range/Units 16:35 12:17 WBC (4.8-10.8) K/uL RBC (4.7-6.1) M/uL Hgb (14.0-18.0) g/dL Hct (42-52) % MCV (80-100) fL MCH (25-34) pg MCHC (32-36) g/dL RDW Std Deviation (36.4-46.3) fL RDW Coeff of Karolina (11.5-14.5) % Plt Count (130-400) K/uL MPV (7.4-10.4) fL Immature Gran % (Auto) % Neut % (Auto) % Lymph % (Auto) % Haakon % (Auto) % Eos % (Auto) % Baso % (Auto) % Immature Gran # (Auto) (0.00-0.02) K/uL Neut # (Auto) (1.4-6.5) K/uL Lymph # (Auto) (1.2-3.4) K/uL Haakon # (Auto) (0.11-0.59) K/uL Eos # (Auto) (0-0.5) K/uL Baso # (Auto) (0-0.2) K/uL Absolute Nucleated RBC (0-0) K/uL Nucleated RBC % (auto) % ESR (0-14) mm/hr Sodium (136-145) mmol/L Potassium (3.5-5.1) mmol/L Chloride (98-107) mmol/L Carbon Dioxide (21-32) mmol/L Anion Gap (3-11) BUN (7-18) mg/dl Creatinine (0.6-1.4) mg/dl Est Cr Clr Drug Dosing ml/min Est GFR ( Amer) Est GFR (Non-Af Amer) BUN/Creatinine Ratio (10-20) Glucose (70-99) mg/dl POC Glucose 165 H 202 H (70-99) Calcium (8.5-10.1) mg/dl Magnesium (1.8-2.4) mg/dl Total Bilirubin (0.2-1) mg/dl AST (15-37) U/L ALT (12-78) U/L Alkaline Phosphatase (45-117) U/L C-Reactive Protein (0-0.29) mg/dl Total Protein (6.4-8.2) gm/dl Albumin (3.4-5.0) gm/dl Globulin (2.5-4.0) gm/dl Albumin/Globulin Ratio (0.9-2) Vancomycin Trough (See Comment) mcg/ml
--- NOTE | 2019-07-22 13:13 | Discharge Summary ---
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 Patient is right-hand dominant. Patient reported having very little feeling in his hands due to diabetic neuropathy. Patient stated that he is nail disappeared and he noticed that was growing over the distal aspect of the right ring finger and he picked it and pulled out to the nail. From that point his hand started to swell and become warm and inflamed until his started to have pain going up to his arm. Patient's symptoms started approximately 1 week ago and are rapidly worsening. Patient reports that nothing helps. For chronic pain patient takes a large amount of Lyrica which was verified with his over the phone. Apparently patient takes 200mg of Lyrica in the morning 250mg in the afternoon and 200mg in the evening. He was admitted overnight in [facility] and treated with Zyvox and Zosyn for his cellulitis. They believe that patient should have had surgery and he is transferred to directly to [facility]. Labs from [facility] reviewed: WBC is 11.1, RBC 3.37, hematocrit 30.1, platelets 217, left shift and neutrophils 80, sodium 136, potassium 4.1, chloride 106, anion gap 12.1, AST 29, ALT 30, CRP 18.4 lactic acid 1.8 PT 9, PTT 29, INR 0.93. On arrival to [facility] patient denies fever, headache, chest pain, shortness of breath, frequency, urgency. Patient is usually oxygen at home. Depending on activity he takes usually 2 to 3 L. At night he uses BiPAP. Creatinine 2.3, GFR 29. Bilirubin 0.2, albumin 2.8 chest x-ray shows mild cardiac enlargement with superimposed mild congestive changes. No other definitive acute chest abnormality. X-rays of the right hand 3 views shows interval development of bony ratification ulcers destruction involving the distal phalanges of the right fourth digit. A mild amount of dorsal subluxation of the distal phalanx in relation to the middle phalanx is now seen without joint space widening. There is now mild irregularity of the distal epithesis of the middle phalanx. No other evidence for fracture, dislocation or definitive bone destruction in the fourth and the right fourth digits. Diffuse soft tissue swelling without evidence of subcutaneous gas or radiopaque foreign body. There has been further attenuation of the third digit distal phalanx. There is now also is attenuation of the tuft of the distal phalanx second digit. There is a mild diffuse soft tissue swelling of the fifth digit without evidence of acute osseous abnormality. Decision was made to admit patient to [facility] on telemetry. Principal Diagnosis Right 4th finger Discharge Exam Constitutional WD/WN, vitals as above + obese Eyes + anicteric sclerae ENMT external ear and nose normal, oropharynx normal Neck trachea midline, no thyromegaly Respiratory normal respiratory effort, lungs clear to auscultation Cardiovascular Rate/Rhythm: regular rate and regular rhythm Vessels: dorsalis pedis pulses present (on left, absent foot on right) and radial pulses present Extremities: + edema (Left ankle trace edema) Chest (Breasts) Chest: normal inspection of chest Gastrointestinal (Abdomen) normal bowel sounds, soft, nontender, no hepatosplenomegaly (obese, protuberant) Musculoskeletal Extremities: + hand abnormality; + 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), no cyanosis and no clubbing Skin + rash (2 small patches of erythematous rash on back less erythema) right 4th finger with significantly reduced erythema and edema from previous, with some drainage, crusted scab distally Neurologic moves all extremities and awake; no focal motor deficits Psychiatric A+Ox3, euthymic affect Discharge Data Allergies Allergy/AdvReac Type Severity Reaction Status Date / Time adhesive tape Allergy Verified 06/28/19 10:54 chlorhexidine Allergy Verified 06/28/19 10:54 disopyramide Allergy Verified 06/28/19 10:54 erythromycin base Allergy Verified 06/28/19 10:54 fluconazole Allergy Verified 06/28/19 10:54 levofloxacin [From Levaquin] Allergy Verified 06/28/19 10:54 Macrolide Antibiotics Allergy Verified 06/28/19 10:54 Quinolones Allergy Verified 06/28/19 10:54 Sulfa (Sulfonamide Allergy Verified 06/28/19 10:54 Antibiotics) sulfamethoxazole Allergy Verified 06/28/19 10:54 vancomycin AdvReac Intermediate Red Man Verified 07/18/19 18:15 Syndrome Sulfone Allergy Uncoded 06/28/19 10:54 Consultations 07/18/19 00:05 Consult Orthopedic Surgery Routine 07/18/19 00:06 Consult Infectious Diseases Routine Ordered Studies 07/18/19 00:02 CT hand RT wo con Routine 07/21/19 US venous doppler UE RT Urgent Finger xray Hospital Course (1) Cellulitis: With cellulitis of the right ring finger with possible osteomyelitis. CT right hand with significant bony destruction especially in 3-4th digits, question if just all from neuropathy or like a Charcot hand? Consult Ortho appreciated--> opting for conservative management without surgical intervention -received IV Zosyn and Vanco, narrowed down to vancomycin alone as per culture with Staphylococcus aureus -will convert to Keflex 500mg po tid x 4 weeks on discharge for MSSA as final culture Finger now opened up and draining on own, edema and erythema finally down No further fevers -Monitor CBC, ESR, CRP, CMP once weekly while on antibiotics-this can be drawn by your visiting nurse -continue pain control with tylenol -encouraged continued elevation of hand Appreciate ID consult as well f/u with wound RN at home, Ortho in office in 1 week, PCP (2) Sleep apnea: Continue BiPAP per patient home setting. (3) Depression: Continue home medicine: Bupropion HCl 150 mg twice daily -Continue Lamictal 25 mg twice daily -Held nortriptyline due to drowsiness which improved and he can restart on dc -continue duloxetine (4) Atrial fibrillation: Paroxysmal-had rapid AF for 2:30 hrs on night of 07/17, and atrial flutter with rates to the 130s for an hour and a half again on the night of 07/20 spontaneously converted and has not had any further Has pacer/AICD in place -Continue Xarelto -continue home Amiodarone 200 mg p.o. daily, aspirin 81 mg p.o. daily, and carvedilol 12.5 mg tablet p.o. twice daily now that hypotension is resolved -Continue Lasix (5) Peripheral neuropathy: Patient takes large doses of Lyrica which was clarified with patient . Patient takes 200 mg of milligram of Lyrica in the morning, 250 at noon time and 200 before he goes to sleep. -Continue same doses as he has been stable on these for years and renal functions actually improved since admission (6) Pulmonary embolism: A history of such continue Xarelto as above (7) Asthma: No acute issues -Continue montelukast 10 mg tablet p.o. daily. 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 Possibly for ischemic severe CM? Follows with [facility] in [place] for Cardiolgoy (9) Chronic kidney disease, stage III (moderate): Acute kidney failure in the history of CKD Stage 3 Pt reports baseline GFR around 42, was told has CKD Stage 3 Car Dropper here 1.9-2.0 slightly above baseline in setting of acute illness upon admission which is now improved and stable at 1.6 -Avoid nephrotoxic agents -Continue home lasix -held lisinopril but can now restart upon discharge (10) Chronic pain syndrome: multiple joints, OA-continue tylenol prn -Continue Lyrica, nortriptyline -Continue Cymbalta (11) Hypotension: hypotensive in setting of acute infection which is now resolved -restart lisinopril -Restarted Coreg (12) CAD (coronary artery disease), [place] coronary artery: with h/o [place] and stents placed many years ago No ongoing chest pain -continue ASA, statin, lisinopril, and Coreg as above (13) Anemia: Hgb 8.9, stable from previous, normocytic Likely anemia of chronic disease-B12, folate normal -Iron studies consistent with chronic disease (14) Diabetes mellitus, type 2: With insulin pump at home which was removed here and no supplies available Hemoglobin A1C here is 8.5% -Received Lantus and Novolog here and will convert back to home insulin pump when he gets back home (15) Tremor: -continue home primidone -Restless leg syndrome is worsening off of meds now initially held -Restart home Mirapex and Requip as per home dosing -f/u with Neuro as usual (16) DVT (deep venous thrombosis): Recived Lovenox while here in case of surgery and convert back to Xarelto upon discharge Doppler RUE for edema negative for DVT Dispo-stable for dc to home Total Time Total Time Spent Total Time Spent (In Minutes): 35 min Total Time Includes: Examination of the Patient, Discharge Planning, Medication Reconciliation and Communication With Other Providers (Dr. Negron, Dr. 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 During your stay at [facility], we have made an effort to correct the problem that brought you to the hospital while keeping you as comfortable as possible. Medications were used to bring your condition under control and your discharge instructions will include directions for any medications you should take after leaving the hospital. Please make sure you see your Primary Care Provider as part of your follow up plan. Activity: Resume your previous activity Activity Comment: Elevate the right hand above th heart as much as possible Bathing: No limitations Non-emergency contact: Primary Care Provider Call non-emergency contact if: you have any medication questions, your symptoms worsen, your pain is not controlled, your pain is worsening, your pain is unusual for you, your pain is concerning for you and your temperature is above 101 Follow-up/Referrals: Joel Negron MD [Physician] - 07/28/19 9:15 am (Please, follow up with Dr. Joel Negron (customer solutions specialist) on July 28 at 9:15 am. *The office is located in [address] of [facility], next to this hospital. If you need to change this appointment, call the office at [phone].) Hola Lindsey MD [Primary Care Provider] - 07/26/19 1:00 pm (Please, follow up with Dr. Sutherland on ThursdayJuly 26 at 1:00 pm. *If you need to change this appointment, call the office at [phone].) Diet: Carb Consistent or DM2 and Heart Healthy Addtl Attending Provider Instructions: Please finish out the course of antibiotics with Keflex three times daily x 4 weeks. You should have your home visiting wound care nurses follow you closely. Please see the instructions from Wound Care from the hospital. Continue warm so apy soaks of the finger three times daily for 15-20 min each time. Please have the visiting RN draw your CBC, CMP, ESR, and CRP labs once weekly while on the antibiotics. Results can be sent to your PCP and Dr. Negron. Please also follow up with the Orthopedic Surgeon and your PCP as scheduled for you. Please place your insulin pump back on as soon as you get home today. You received your Xarelto (blood thinner) here today at the hospital before discharge so you don't need to take it again till tomorrow. Pending Studies at Discharge: No Stand-Alone Forms: My [facility] Medications and DC Order Prescriptions: New cephalexin [Keflex] 500 mg capsule 500 mg PO TID Qty: 84 RF: 0 Continued insulin aspart U-100 100 unit/mL solution See Rx Instructions .ROUTE .COMPLEX RF: 0 atorvastatin 20 mg tablet 20 mg PO QPM RF: 0 duloxetine 60 mg capsule,delayed release(DR/EC) 60 mg PO DAILY RF: 0 lisinopril 10 mg tablet 10 mg PO DAILY RF: 0 bupropion HCl 150 mg tablet sustained-release 12 hr 150 mg PO BID RF: 0 furosemide 80 mg tablet 80 mg PO DAILY RF: 0 omeprazole 20 mg capsule,delayed release(DR/EC) 20 mg PO DAILYBB Qty: 30 RF: 0 montelukast 10 mg tablet 10 mg PO DAILY Qty: 90 RF: 0 nitroglycerin 0.4 mg tablet, sublingual SL .PLACE 1 TABLET UNDER RF: 0 ergocalciferol (vitamin D2) 2,000 unit tablet PO .1.25 mg 1 tab once a RF: 0 carvedilol 12.5 mg tablet 12.5 mg PO BID RF: 0 magnesium oxide 400 mg magnesium capsule 400 mg PO BID RF: 0 multivitamin with iron [Daily Multiple Vitamins/Iron] tablet 1 tab PO DAILY RF: 0 nortriptyline 75 mg capsule 75 mg PO HS RF: 0 pregabalin 50 mg capsule 50 mg PO DAILY RF: 0 pregabalin 150 mg capsule 200 mg PO TID RF: 0 primidone 50 mg tablet 50 mg PO HS RF: 0 lamotrigine 25 mg tablet,disintegrating 25 mg PO BID RF: 0 Xarelto 20 mg tablet 20 mg PO QDD Qty: 1 RF: 0 donepezil 5 mg tablet 10 mg PO DAILY RF: 0 amiodarone 200 mg tablet 200 mg PO DAILY RF: 0 aspirin 81 mg tablet 81 mg PO DAILY RF: 0 ropinirole 1 mg tablet 1 mg PO PM RF: 0 triamcinolone acetonide 0.1 % ointment See Rx Instructions .ROUTE .COMPLEX RF: 0 pramipexole 0.25 mg tablet See Rx Instructions .ROUTE .COMPLEX RF: 0 Trokendi XR 100 mg capsule,extended release 24hr 100 mg PO DAILY RF: 0 Discontinued prednisone 10 mg tablet See Rx Instructions PO DAILY Qty: 20 RF: 0 Discharge Orders: Discharge Order (Routine); Ordered 07/22/19 Ordered By: Emeli Bernard Admission Data Admit Date/Time: 07/17/19 18:46 Attending Provider: Emeli Bernard Admit Provider: Anderson Dallas Primary Care Provider: Hola Lindsey I. Other Providers: Joel Negron ; Camille Herndon ; [facility],Home Healthcare
[2019-07-22] MEDS ORDERED: RIVAROXABAN 20 MG TAB PO SCH (14:00)
[2019-07-22] MEDS: PREGABALIN 50 MG CAP PO SCH (14:09)
[2019-07-22] MEDS: ENOXAPARIN INJ 120 MG/0.8 ML SYR SQ SCH (14:10)
== END 2019-07-22 15:42 | disposition home health service (06) | DRG 603 ==
LOC: 3N 18:46 → SUATTDRO 18:46 → 2W 20:59

== ENCOUNTER 2019-09-06 07:20 | Inpatient (IN) ==
--- NOTE | 2019-08-19 10:07 | Anesthesiology Consultation ---
Date of Service August 19, 2019 Assessment & Plan (1) Encounter for pre-operative examination: Chart Review Chart Review: Acceptable Risk for Surgery and Patient NOT seen in Pre Admission Testing Patient hyperkalemic on labs drawn on 08/08/2019. Will repeat BMP STAT on arrival. PLEASE OBTAIN MOST RECENT CARDIOLOGY NOTE AND INFORMATION PERTAINING TO HIS PACER/ICD. Thank you! Consults Requested none History Surgery Operation Date: 09/06/19 09:50 Proposed Procedures p Right Ring Finger Irrigation and Debridement, Partial Amputation - Joel Ying Negron MD Height/Weight Height: 5 ft 8 in Weight: 145.15 kg Allergies Allergy/AdvReac Type Severity Reaction Status Date / Time adhesive tape Allergy Unknown WELTS Verified 08/12/19 12:20 chlorhexidine Allergy UNKN Verified 08/12/19 12:20 disopyramide Allergy UNKN Verified 08/12/19 12:25 erythromycin base Allergy ? HEART Verified 08/12/19 12:20 fluconazole Allergy Unknown Verified 08/12/19 12:25 levofloxacin [From Levaquin] Allergy HEART Verified 08/12/19 12:22 ISSUES Macrolide Antibiotics Allergy HEART ISSUE Verified 08/12/19 12:25 Quinolones Allergy HEART Verified 08/12/19 12:20 ISSUES Sulfa (Sulfonamide Allergy RASH AND Verified 08/12/19 12:20 Antibiotics) ITCHING vancomycin AdvReac Intermediate Red Man Verified 07/18/19 18:15 Syndrome Sulfone Allergy Uncoded 06/28/19 10:54 Medications Home Medications Medication Instructions Recorded Confirmed Last Taken bupropion HCl 150 mg tablet,12 hr 150 mg PO BID ea 03/21/19 08/12/19 Unknown sustained-release carvedilol 12.5 mg tablet 12.5 mg PO BID tab 03/21/19 08/12/19 Unknown duloxetine 60 mg capsule,delayed 60 mg PO DAILY cap 03/21/19 08/12/19 Unknown release lamotrigine 25 mg disintegrating 50 mg PO BID tab 03/21/19 08/12/19 Unknown tablet lisinopril 10 mg tablet 10 mg PO DAILY tab 03/21/19 08/12/19 Unknown magnesium oxide 400 mg (as 400 mg PO BID cap 03/21/19 08/12/19 Unknown magnesium oxide) capsule montelukast 10 mg tablet 10 mg PO DAILY #90 tab 03/21/19 08/12/19 Unknown multivitamin with iron 1 tab PO DAILY 03/21/19 08/12/19 Unknown nitroglycerin 0.4 mg sublingual 0.[address] 1 TABLET UNDER 03/21/19 08/12/19 Unknown tablet tab nortriptyline 75 mg capsule 75 mg PO HS cap 03/21/19 08/12/19 Unknown omeprazole 20 mg capsule,delayed 20 mg PO DAILYBB #30 cap 03/21/19 08/12/19 Unknown release pregabalin 50 mg capsule 100 mg PO QDL cap 03/21/19 08/12/19 Unknown primidone 50 mg tablet 50 mg PO QAM tab 03/21/19 08/12/19 Unknown amiodarone 200 mg tablet 200 mg PO QAM tab 06/28/19 08/12/19 Unknown aspirin 81 mg tablet 81 mg PO DAILY tab 06/28/19 08/12/19 Unknown atorvastatin 20 mg tablet 20 mg PO QPM tab 06/28/19 08/12/19 Unknown Trokendi XR 100 mg PO DAILY 07/19/19 08/12/19 Unknown pramipexole 0.25 mg PO QDD 07/19/19 08/12/19 Unknown triamcinolone acetonide See Rx Instructions .ROUTE .COMPLEX 07/19/19 08/12/19 Unknown cholecalciferol (vitamin D3) 5,000 unit PO DAILY 08/12/19 08/12/19 Unknown [Vitamin D3] donepezil 10 mg PO DAILY 08/12/19 08/12/19 Unknown gentamicin sulfate (PF) 60 mg INHALATION TID 08/12/19 08/12/19 Unknown insulin aspart U-100 [Novolog 1 sliding scale dose SUBCUT 08/12/19 08/12/19 Unknown U-100 Insulin aspart] USEASDIRECTD pramipexole 0.75 mg PO HS 08/12/19 08/12/19 Unknown pregabalin [Lyrica] 200 mg PO TID 08/12/19 08/12/19 Unknown primidone 200 mg PO HS 08/12/19 08/12/19 Unknown rivaroxaban [Xarelto] 15 mg PO PM 08/12/19 08/12/19 Unknown ropinirole 2 mg PO HS 08/12/19 08/12/19 Unknown torsemide 100 mg PO DAILY 08/12/19 08/12/19 Unknown Past Medical History Medical History (Updated 08/19/19 @ 10:06 by Darnell Cuevas MD) Anemia chronic. normocytic anemia, thought to be anemia of chronic disease. Anxiety Asthma Atrial fibrillation CAD (coronary artery disease), [place] coronary artery Cardiac defibrillator in place Chronic kidney disease Depression Diabetes mellitus, type 2 Patient has insulin pump. GERD (gastroesophageal reflux disease) Glaucoma L eye History of pneumonia Hx of cardiac arrest X4 - LAST 2013 - [facility] Hx of congestive heart failure Hx of deep venous thrombosis ARM, LEG Hx pulmonary embolism Hyperlipidemia Hypertension Methicillin resistant Staphylococcus aureus infection, unspecified site Myocardial Infarction X2 ; LAST 2003 [facility] PT DOES NOT KNOW LAURA treated with BiPAP Osteoarthritis Osteomyelitis Osteomyelitis FINGER - CURRENT ISSUE Pacemaker Peripheral neuropathy Pulmonary embolism Tremor Patient admitted early Jul 2019 for finger infection and at the time orthopedics felt to treat conservatively with antibiotics rather than operative management. Patient was discharged to home on 07/22/2019. Past Family History Family History Father Diabetes Acute myocardial infarction Hypercholesteremia Mother Diabetes Heart disease Sister Cancer Past Surgical History Surgical History History of cholecystectomy Hx of amputation below knee RIGHT Hx of cardiac catheterization 2004 STENT X2; OTHER CATH PRIOR CANNOT REMEMBER DATES Hx of cataract surgery Hx of gastric bypass Hx of hand surgery LEFT X2 Hx of repair of rotator cuff RIGHT Hx of umbilical hernia repair S/P placement of cardiac pacemaker Social History Smoking Status: Never smoker Do You Dip or Chew Tobacco: No Hx Alcohol Use: No Hx Substance Use: No Testing Laboratory Results Labs 08/08/2019 Na 135, K 5.5, Cl 106, bicarb 20, bun 30, creat 1.5, glucose 230 WBC 4.95, hgb 9.8, hct 31.4, plt 257 Electrocardiogram Date: 07/17/19 Findings: + ST @ (106) sinus tach. anterolateral infarct, age undetermined. Other Testing Nuclear med stress test 08/20/2015 Moderate intensity medium sized mainly fixed apical inferior wall and apical se ptal defect suggest previous CT No significant reversible ischemia is noted. LV is normal in size. LV apex is hypokinetic. Rest of the LV contract normally. LV EJ is calculated at 54% with stress and 52% with rest.
--- NOTE | 2019-08-24 14:40 | PAT Medication Instructions ---
Medication Instructions Date of Service August 24, 2019 Home Medications bupropion HCl 150 mg tablet,12 hr sustained-release 150 mg PO BID carvedilol 12.5 mg tablet 12.5 mg PO BID duloxetine 60 mg capsule,delayed release 60 mg PO DAILY lamotrigine 25 mg disintegrating tablet 50 mg PO BID lisinopril 10 mg tablet 10 mg PO DAILY magnesium oxide 400 mg PO BID montelukast 10 mg tablet 10 mg PO DAILY multivitamin with iron 1 tab PO DAILY nitroglycerin 0.4 mg sublingual tablet 0.[address] 1 TABLET UNDER nortriptyline 75 mg capsule 75 mg PO HS omeprazole 20 mg capsule,delayed release 20 mg PO DAILYBB pregabalin 50 mg capsule 100 mg PO QDL primidone 50 mg tablet 50 mg PO QAM amiodarone 200 mg tablet 200 mg PO QAM aspirin 81 mg tablet 81 mg PO DAILY atorvastatin 20 mg tablet 20 mg PO QPM Trokendi XR 100 mg PO DAILY pramipexole 0.25 mg PO QDD triamcinolone acetonide See Rx Instructions .ROUTE .COMPLEX cholecalciferol (vitamin D3) [Vitamin D3] 5,000 unit PO DAILY donepezil 10 mg PO DAILY gentamicin sulfate (PF) 60 mg INHALATION TID insulin aspart U-100 [Novolog U-100 Insulin aspart] 1 sliding scale dose SUBCUT USEASDIRECTD pramipexole 0.75 mg PO HS pregabalin [Lyrica] 200 mg PO TID primidone 200 mg PO HS rivaroxaban [Xarelto] 15 mg PO PM ropinirole 2 mg PO HS torsemide 100 mg PO DAILY Continue as directed nitroglycerin 0.4 mg sublingual tablet 0.[address] 1 TABLET UNDER (if needed) ASK your prescriber and surgeon rivaroxaban [Xarelto] 15 mg PO PM (per surgeon office, stop 3 days before surgery) aspirin 81 mg tablet 81 mg PO DAILY STOP taking 24 hours before surgery pramipexole 0.75 mg PO HS ropinirole 2 mg PO HS DO NOT take the morning of surgery lisinopril 10 mg tablet 10 mg PO DAILY magnesium oxide 400 mg PO BID montelukast 10 mg tablet 10 mg PO DAILY multivitamin with iron 1 tab PO DAILY cholecalciferol (vitamin D3) [Vitamin D3] 5,000 unit PO DAILY torsemide 100 mg PO DAILY Take morning of surgery With a small sip of water, OTHERWISE NOTHING TO EAT OR DRINK AFTER MIDNIGHT: bupropion HCl 150 mg tablet,12 hr sustained-release 150 mg PO BID carvedilol 12.5 mg tablet 12.5 mg PO BID duloxetine 60 mg capsule,delayed release 60 mg PO DAILY lamotrigine 25 mg disintegrating tablet 50 mg PO BID montelukast 10 mg tablet 10 mg PO DAILY omeprazole 20 mg capsule,delayed release 20 mg PO DAILYBB pregabalin 50 mg capsule 100 mg PO QDL primidone 50 mg tablet 50 mg PO QAM amiodarone 200 mg tablet 200 mg PO QAM Trokendi XR 100 mg PO DAILY donepezil 10 mg PO DAILY pregabalin [Lyrica] 200 mg PO TID gentamicin sulfate (PF) 60 mg INHALATION TID Take evening before surgery bupropion HCl 150 mg tablet,12 hr sustained-release 150 mg PO BID carvedilol 12.5 mg tablet 12.5 mg PO BID lamotrigine 25 mg disintegrating tablet 50 mg PO BID magnesium oxide 400 mg PO BID nortriptyline 75 mg capsule 75 mg PO HS atorvastatin 20 mg tablet 20 mg PO QPM gentamicin sulfate (PF) 60 mg INHALATION TID insulin aspart U-100 [Novolog U-100 Insulin aspart] 1 sliding scale dose SUBCUT USEASDIRECTD pregabalin [Lyrica] 200 mg PO TID primidone 200 mg PO HS Insulin Dependent Diabetic Patients For insulin pump, morning of surgery, set insulin pump to basal setting. Do not bolus. Other Notes If you have any questions please call us at [phone] or [phone] or [phone] or [phone]
[~2019-09-06 07:20] MED LIST: CEFAZOLIN 3000MG 72.5 ML IV SCH; LACTATED RINGER'S 1,000 ML IV SCH; LR 15ML/HR IV SCH
[2019-09-06] MEDS ORDERED: MIDAZOLAM HCL 1 MG/ML 2ML VIAL ONE (08:24)
[2019-09-06] MEDS ORDERED: LIDOCAINE HCL 2% 2 ML VIAL/AMP(20MG/ML) INFIL ONE (08:24)
[2019-09-06] MEDS ORDERED: fentaNYL citrate 100 MCG/2 ML VIAL ONE (08:24)
[2019-09-06] MEDS ORDERED: PROPOFOL IV EMULSION 10 MG/ML 20 ML VIAL IV ONE (08:24)
[2019-09-06 08:34] LABS: BUN Creatinine Ratio 25.2 (10-20); Calcium 9.1 mg/dl (8.5-10.1); Creatinine Clr Calc Pharmacy 63.8 ml/min; Est GFR (African American) 47.7; Est GFR (Non-African American) 41.1; Potassium 4.6 mmol/L (3.5-5.1)
[2019-09-06] MEDS ORDERED: ONDANSETRON INJ 2 MG/ML 2 ML VIAL IV PRN ×2 (09:52→11:42)
[2019-09-06] MEDS ORDERED: ePHEDrine sulfate 50 MG/ML AMP IV PRN (09:52)
[2019-09-06] MEDS ORDERED: ATROPINE SULFATE 0.1 MG/ML 10ML SYR IV PRN (09:52)
[2019-09-06] MEDS ORDERED: fentaNYL citrate 100 MCG/2 ML VIAL IV PRN (09:52)
--- NOTE | 2019-09-06 10:09 | History & Physical Bridge Note ---
Date of Service September 06, 2019 History & Physical Bridge Note I have examined the patient, reviewed the History & Physical and in the interval since the performance of the History & Physical I have noted the following changes of clinical significance: no changes noted
[2019-09-06] MEDS ORDERED: BUPIVACAINE 0.5 % 5 MG/1 ML MPF 30ML VIAL ONE (10:16)
[2019-09-06] MEDS ORDERED: LIDOCAINE HCL 1% 20 ML VIAL ONE (10:16)
--- NOTE | 2019-09-06 10:24 | History & Physical Bridge Note ---
Date of Service September 06, 2019 History & Physical Bridge Note I have examined the patient, reviewed the History & Physical and in the interval since the performance of the History & Physical I have noted the following changes of clinical significance: no changes noted except now has a lesion on the tip of his Left RF being treated by Wound care clinic and states that his electronics engineer wants him to have iron infusions.
[2019-09-06] MEDS ORDERED: OXYCODONE HCL IR 5 MG TAB (IMMEDIATE RELEASE) PO PRN (11:42)
[2019-09-06] MEDS ORDERED: INSULIN ASPART PER UNIT SQ SCH (11:42)
[2019-09-06] MEDS ORDERED: SODIUM CHLORIDE 0.9% 1000ML 1,000 ML IV SCH (11:42)
[2019-09-06] MEDS ORDERED: bisacodyL 10 MG SUPP PR PRN (11:42)
[2019-09-06] MEDS ORDERED: MAGNESIUM HYDROXIDE SUSP 30 ML UDC PO PRN (11:42)
[2019-09-06] MEDS ORDERED: NITROGLYCERIN SL 0.4 MG/TAB TAB SL SCH (11:42)
[2019-09-06] MEDS ORDERED: NALOXONE HCL 0.4 MG/1 ML VIAL/CARP IV PRN (11:42)
--- NOTE | 2019-09-06 11:47 | Post Operative Brief Note ---
Immediate Post Op Note v1 Date of Surgery September 06, 2019 Pre & Post Diagnosis Operation Date: 09/06/19 09:50 Pre-op Dx: Infected Right Ring Finger Post-op Dx: Infected Right Ring Finger I identified the patient and participated in the time-out.: Yes Procedure Operation Date: 09/06/19 09:50 Right Ring Finger I&D, partial amputation Surgeon Joel Negron MD Government Relations Analyst José Miguel Rowell MD Estimated Blood Loss 5 Findings Consistent with Post-Op Diagnosis Fluids 400 cc Specimens Right Ring Finger C&S Anesthesia Type MAC Complications none
--- NOTE | 2019-09-06 11:50 | Operative Report ---
Post Operative Report Pre & Post Diagnosis Operation Date: 09/06/19 09:50 Pre-op Dx: Infected Right Ring Finger Post-op Dx: Infected Right Ring Finger I identified the patient and participated in the time-out.: Yes Procedure Operation Date: 09/06/19 09:50 Right Ring Finger I&D, partial amputation Surgeon Joel Negron MD Urban Anthropologist José Miguel Rowell MD Estimated Blood Loss 5 Findings See Below The middle phalanx articular cartilage had significant erosion and exposed trabecular bone. The bone of the middle phalanx did not show any signs of infection, and the cortical bone was strong. There was no sign of infection. Fluids 400 cc Specimens Right Ring Finger C&S Drains n/a Anesthesia Type MAC Complications none Indications The patient a 59-year-old male, had developed osteomyelitis from a chronic draining wound from his right ring finger that he wished to have an I&D and partial amputation. The patient understands the risks of surgery, which include but are not limited to: bleeding, infection, re-operation, damage to nerves and arteries, and continued pain. The patient understands all of these instructions and explanations, all of their questions have been satisfactorily addressed. The patient has elected to proceed with surgery and the informed consent was signed. Description of Procedure The patient was taken to the Operating Room and placed in the supine position on the operating table. After general anesthetic was administered a multidisciplinary time-out was performed identifying my initials on the right upper limb as the correct and operative limb. 3 grams of intravenous Ancef were given. The right arm was prepped and draped in the usual Orthopaedic sterile fashion. A digital block as well as the skin edges were injected with a 50:50 mixture of 1% lidocaine and 0.5 % Marcaine with epi for a total of 10cc. a finger tourniquet was placed. The scalpel was used to create the planned fishmouth incision just proximal to the DIP joint, with a long full are flap. The DIP joint was entered and the distal phalanx along with the dorsal flap of skin was excised. The middle phalanx articular cartilage had significant erosion and exposed trabecular bone. There was no evidence of infection. The wound was cultured. Again the soft tissue down and including the distal phalanx and a portion of the middle phalanx as there was already exposed trabecular bone, was removed with a combination of sharp dissection with the scalpel, curette, and rongeur. The wound was copiously irrigated with normal saline. Following irrigation and debridement there was healthy viable tissue that was bleeding. The bone of the middle phalanx did not show any signs of infection, and the cortical bone was strong. The skin were closed with 4-0 chromic. The wound was covered Xeroform, 2x2's, sterile Samreen, and an Coban. The sponge and needle counts were correct. POST-OP: Patient will be admitted and continued on IV Ancef for 24 hours and then switch to by mouth Keflex. Just prior to starting the case today, the patient mentioned that he was having a similar issue with his left ring finger and x-rays will be obtained. He will also have wound care see him for this and continued treatment. He will start warm soaks in the meantime of the left ring finger. Due to his multiple medical problems, a medicine consult will also be obtained. I attest to the content of the Intraoperative Record and any orders documented therein. Any exceptions are noted below.
--- NOTE | 2019-09-06 12:19 | Fluoroscopy Report ---
FL finger RT 2V CLINICAL HISTORY: RT RING FINGER AMPUTATION COMPARISON STUDY: Right hand 08/02/2019. FLUOROSCOPY TIME: 1 second. FINDINGS: 2 fluoroscopic spot images of the right hand demonstrate distal amputation of the right rin g finger at the level of the head of the middle phalanx. Osteolysis is again noted at the second and third digits. IMPRESSION: Fluoroscopy provided for amputation of the right ring finger at the level of the head of the middle phalanx. ACT 112: Negative or not required by law. Electronically signed by: Kiran Gifford M.D. 09/06/2019 12:17 PM
[2019-09-06] MEDS ORDERED: ACETAMINOPHEN SOLN 500 MG/15.62 ML UDP PO STA (12:24)
[2019-09-06] MEDS ORDERED: ACETAMINOPHEN 500 MG TAB ONE (12:26)
--- NOTE | 2019-09-06 12:26 | Anesthesiology Progress Note ---
Date of Service September 06, 2019 Anesthesia Post Procedure Vital Signs Vital Signs: Temp Pulse Pulse Resp BP Pulse Ox 09/06/19 12:10 75 21 103/55 L 95 09/06/19 12:00 73 16 99/50 L 99 09/06/19 11:53 36.5 C 75 16 104/54 L 100 09/06/19 07:46 36.7 C 74 18 108/57 L 93 Pain Intensity Right 4th Digit: Pain Intensity: 4 Transfer of Care Handoff Completed per policy Notes Mental Status: alert / awake / arousable and participated in evaluation Nausea / Vomiting: adequately controlled Pain: adequately controlled Airway Patency, RR, SpO2: stable & adequate BP & HR: stable & adequate Hydration State: stable & adequate Anesthetic Complications: no major complications apparent and Pt Satisfied with anesthetic care Notes: Given PO tylenol for his headache
[2019-09-06] MEDS ORDERED: NITROGLYCERIN SL 0.4 MG/TAB TAB SL PRN (12:35)
--- NOTE | 2019-09-06 12:57 | XRay Report ---
XR finger RT min 2V CLINICAL HISTORY: Right fourth finger. Partial amputation. COMPARISON: 08/02/2019 DISCUSSION: There is evidence for amputation of the fourth finger at the mid aspect of the middle pha lanx. There is an overlying bandage. There are small radiopaque densities likely representing foreign body fragments within the skin. There is chronic spurring/periosteal reaction involving the base of the proximal phalanx of the fifth digit. IMPRESSION: Evidence for an amputation of the fourth digit at the mid aspect of the middle phalanx. ACT 112: Negative or not required by law. Electronically signed by: Ryan Cespedes M.D. 09/06/2019 12:55 PM
--- NOTE | 2019-09-06 13:04 | XRay Report ---
XR finger LT min 2V CLINICAL HISTORY: 59 years-old Male presenting with left ring finger ulcer. TECHNIQUE: Frontal, oblique, and lateral views of the left fourth finger were obtained. COMPARISON: None. FINDINGS: A bandage overlies the mid to distal left fourth finger. This only minimally obscures underlying osse ous detail. There is osseous erosion of the tuft of the distal phalanx best appreciated on lateral vi ew. Relative osteopenia of the distal phalanx diffusely in comparison to the remaining osseous struct ures. The distal interphalangeal joint is preserved. Mild diffuse soft tissue swelling. No acute frac ture or malalignment. Peripheral IV line noted along the dorsal lateral aspect of the hand. IMPRESSION: Osseous erosion of the tuft of the distal phalanx concerning for osteomyelitis. This may be subjacent to the reported ulcer. The report will be called/faxed according to standard departmental protocol. ACT 112: Negative or not required by law. Electronically signed by: Brodie Alvarez M.D. 09/06/2019 1:03 PM
[2019-09-06] MEDS ORDERED: GLUCOSE 10 TABS/TUBE PO PRN ×3 (13:45→15:12)
[2019-09-06] MEDS ORDERED: GLUCOSE 40% GEL 15 GM TUBE PO PRN ×3 (13:45→15:12)
[2019-09-06] MEDS ORDERED: GLUCAGON FOR INJ 1 MG VIAL SQ PRN ×2 (13:45→15:12)
[2019-09-06] MEDS ORDERED: CARBOHYDRATES FOR HYPOGLYCEMIA PO PRN ×3 (13:45→15:12)
[2019-09-06] MEDS ORDERED: DEXTROSE 50% 50 ML SYRINGE IV PRN ×3 (13:45→15:12)
[2019-09-06] MEDS ORDERED: INSULIN ASPART 100 UNITS/ML VIAL SC PRN (13:45)
[2019-09-06] MEDS ORDERED: PHARMACY GLYCEMIC MGMT CONSULT PRN (13:46)
[2019-09-06] MEDS ORDERED: ACETAMINOPHEN 500 MG TAB PO SCH (14:00)
[2019-09-06] MEDS ORDERED: INSULIN ASPART 100 UNITS/ML 3 ML PEN SC SCH (14:15)
[2019-09-06] MEDS ORDERED: INSULIN GLARGINE SOLOSTAR 100 UNITS/ML 3 ML PEN SC ONE ×3 (14:15→21:15)
[2019-09-06] MEDS ORDERED: GLUCAGON FOR INJ 1 MG VIAL IM PRN (14:45)
[2019-09-06] MEDS: PREGABALIN 100 MG CAP PO SCH ×2 (14:54→21:46)
--- NOTE | 2019-09-06 15:11 | Consultation ---
Date of Consultation September 06, 2019 Assessment & Plan (1) Osteomyelitis: (2) Amputation finger: Patient is status post partial amputation of right ring finger secondary to MSSA osteomyelitis by Dr. Negron POD #0 EBL 5 mL Tolerated procedure well Pain and wound management per Ortho Wound consult placed secondary to patient with other ulcerations, apparent new left fourth finger ulceration in which x-ray was performed with concerns for osteomyelitis Activity and therapy as directed by Ortho Encourage incentive spirometry Monitor H&H Continue IV antibiotics and treat to culture will stop IVF due to hx of CHF and pt tolerating oral diet (3) CAD (coronary artery disease), [place] coronary artery: No current chest pain Continue ASA, statin, Xarelto, Coreg, lisinopril (4) CHF (congestive heart failure): hx of Ischemic Cardiomyopathy Patient appears euvolemic Continue torsemide, Coreg, lisinopril Daily weights, strict I's and O's Continue BiPAP Heart healthy low-sodium diet Last echo in 2014 revealed mildly reduced systolic EF 40 to 44%, apical hypokinesis with Anterior septal and anterior wall motion abnormality (5) Diabetes mellitus, type 2: Glycemic pharmacist on board Insulin pump turned off and placed on basal bolus Lantus NovoLog regimen Follow closely Recommend strict control given patient diabetic with multiple diabetic complic ations and current infection Most recent A1c 8.5 on 07/17/2019 (6) Atrial fibrillation: Rate and rhythm controlled on Coreg, amiodarone Continue Xarelto, renally dosed (7) Chronic kidney disease, stage III (moderate): BUN/creatinine 45 and 1.79 Baseline creatinine 1.4-1.7 Monitor closely given multiple medication regimen and on diuretic (8) Peripheral neuropathy: Patient is on high-dose Lyrica, as well as nortriptyline and Cymbalta Patient also with restless leg syndrome on Requip and pramipexole monitor for sedation (9) LAURA treated with BiPAP: Continue BiPAP (10) Obesity hypoventilation syndrome: Continue BiPAP (11) Anemia: Last H&H 8.9 and 28.3 on 07/22/2019 Monitor No signs or symptoms of bleeding Normocytic normochromic likely anemia of chronic disease (12) 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, pre-operative cardiovascular examination: ICD in place secondary to history of ventricular tachycardia (13) Depression: Continue Cymbalta (14) DVT prophylaxis: continue xarelto Disposition: Admitted to Med/Surg, per primary Follow up: PCP Dr. Lindsey upon discharge Pt was seen and examined in collaboration with Dr. Salinas, please see addendum Thank you for this consultation. We will follow the patient with you during their hospital stay. You can reach a [facility]/03 via pager @ [phone]. Starting 09/07/19 pt will be under the care of Dr. Chavez Supervising Physician Co-Signing Physician Notes Attending Addendum: care coordinated with ERIKA Watts notes please refer to her notes for full details, I agree with her notes patient seen and examined, records reviewed by myself as well on exam, patient seen resting in bed, sleeping but easily awakened denies chest pain, dyspnea, palpitations, dizziness, nausea no other symptoms VS noted and reviewed oriented x 3 , not in distress, speaks in sentences with no effort nor accessory muscle use normal rate, regular rhythm, no murmurs clear breath sounds bilaterally non distended, soft, nontender right hand 4th finger dressing in place, no bleeding or discharge no bipedal edema, erythema, warmth no neuro deficits Na 140 Crea 1.79 ASSESSMENT AND PLAN OSTEOMYELITIS, RIGHT HAND, RING FINGER, S/P AMPUTATION ff up cultures continue Cefazolin ID consulted HISTORY OF CAD, CHF no cardiac symptoms euvolemic continue usual medications other diagnoses and plan of care as per ERIKA Riggins notes Reji Salinas MD History of Present Illness Requesting Physician: Dr. Negron Reason for Consultation: Postop medical manag ement Attending Physician: Joel Negron MD History of Present Illness This is a 59-year-old male who has significant past medical history of insulin-dependent T2DM on insulin pump, CAD with history of stents, HTN, HLD, PVD, diabetic polyneuropathy, CKD stage III secondary to T2DM, LAURA on BiPAP, chronic diastolic CHF, PAF, history of DVT on Xarelto, asthma, obesity hypoventilation syndrome, presence of AICD, history of right lower extremity osteomyelitis status post right BKA in 2012 who presents for elective right ring finger partial amputation by Dr. Negron secondary to osteomyelitis. Of significance patient was hospitalized on 07/17/2019 to 07/22/2019 secondary to right hand osteomyelitis. Cultures grew MSSA and IV antibiotics were transitioned to oral Keflex 500 mg 3 times a day for 4 weeks. He states he completed his oral antibiotics yesterday. Currently he complains of minimal pain to right fourth finger. He denies any fever, chills, sweats, lightheadedness, dizziness, chest pain, shortness of breath at rest, nausea, vomiting, abdominal pain. He does list to sinus congestion which is chronic for him. Elicits this occasionally caused him to feel short of breath. He is moving bowels adequately. He does have slight difficulty with urination given his prior genital surgeries. Requires a bed agosto for urination. His appetite is otherwise adequate. Currently he remains compliant with his BiPAP for LAURA. He did bring his machine from home. He currently is an insulin-dependent diabetic in which he uses insulin pump. While he is hospitalized he will convert to basal bolus injections. His last A1c was 8.5 on 07/17/2019. Given his history of PAF it should be noted that during most recent hospitalization he did have episodes of RVR with spontaneous conversion. He has AICD in place. Continues with Xarelto, but recently decreased to 15 mg daily given renal function. He is was maintained on amiodarone and carvedilol. Prior to current surgery he did undergo follow-up with executive associate Karlo Sue which feels he is stable from his ASA, LAURA standpoint. He also had follow-up with remediation project engineer. He lives at home with his . He is mostly dependent on wheelchair secondary to right BKA. Only having difficulty with his residual limb and unable to use prosthesi s. Allergies Allergy/AdvReac Type Severity Reaction Status Date / Time adhesive tape Allergy Unknown WELTS Verified 09/06/19 09:45 chlorhexidine Allergy UNKN Verified 09/06/19 09:45 disopyramide Allergy UNKN Verified 09/06/19 09:45 erythromycin base Allergy ? HEART Verified 09/06/19 09:45 fluconazole Allergy Unknown Verified 09/06/19 09:45 levofloxacin [From Levaquin] Allergy HEART Verified 09/06/19 09:45 ISSUES Macrolide Antibiotics Allergy HEART ISSUE Verified 09/06/19 09:45 Quinolones Allergy HEART Verified 09/06/19 09:45 ISSUES Sulfa (Sulfonamide Allergy RASH AND Verified 09/06/19 09:45 Antibiotics) ITCHING vancomycin AdvReac Intermediate Red Man Verified 09/06/19 09:45 Syndrome Sulfone Allergy Uncoded 08/30/19 10:24 Home Medications Home Medications Medication Instructions Recorded Confirmed Type bupropion HCl 150 mg tablet,12 hr 150 mg PO BID ea 03/21/19 09/06/19 History sustained-release carvedilol 12.5 mg tablet 12.5 mg PO BID tab 03/21/19 09/06/19 History duloxetine 60 mg capsule,delayed 60 mg PO DAILY cap 03/21/19 09/06/19 History release lamotrigine 25 mg disintegrating 50 mg PO BID tab 03/21/19 09/06/19 History tablet lisinopril 10 mg tablet 10 mg PO DAILY tab 03/21/19 09/06/19 History magnesium oxide 400 mg PO BID cap 03/21/19 09/06/19 History montelukast 10 mg tablet 10 mg PO DAILY #90 tab 03/21/19 09/06/19 History multivitamin with iron 1 tab PO DAILY 03/21/19 09/06/19 History nitroglycerin 0.4 mg sublingual 0.[address] 1 TABLET UNDER 03/21/19 08/30/19 History tablet tab nortriptyline 75 mg capsule 75 mg PO HS cap 03/21/19 09/06/19 History omeprazole 20 mg capsule,delayed 20 mg PO DAILYBB #30 cap 03/21/19 09/06/19 History release pregabalin 50 mg capsule 100 mg PO QDL cap 03/21/19 09/06/19 History primidone 50 mg tablet 50 mg PO QAM tab 03/21/19 09/06/19 History amiodarone 200 mg tablet 200 mg PO QAM tab 06/28/19 09/06/19 History aspirin 81 mg tablet 81 mg PO DAILY tab 06/28/19 09/06/19 History atorvastatin 20 mg tablet 20 mg PO QPM tab 06/28/19 09/06/19 History Trokendi XR 100 mg PO DAILY 07/19/19 09/06/19 History pramipexole 0.25 mg PO QDD 07/19/19 09/06/19 History triamcinolone acetonide See Rx Instructions .ROUTE .COMPLEX 07/19/19 08/12/19 History cholecalciferol (vitamin D3) 5,000 unit PO DAILY 08/12/19 09/06/19 History [Vitamin D3] donepezil 10 mg PO DAILY 08/12/19 09/06/19 History gentamicin sulfate (PF) 60 mg INHALATION TID 08/12/19 09/06/19 History insulin aspart U-100 [Novolog 1 sliding scale dose SUBCUT 08/12/19 09/06/19 History U-100 Insulin aspart] USEASDIRECTD pramipexole 0.75 mg PO HS 08/12/19 09/06/19 History pregabalin [Lyrica] 200 mg PO TID 08/12/19 09/06/19 History primidone 200 mg PO HS 08/12/19 09/06/19 History rivaroxaban [Xarelto] 15 mg PO PM 08/12/19 09/06/19 History ropinirole 2 mg PO HS 08/12/19 09/06/19 History torsemide 100 mg PO DAILY 08/12/19 09/06/19 History Patient History Medical History Anemia chronic. normocytic anemia, thought to be anemia of chronic disease. Anxiety Asthma Atrial fibrillation CAD (coronary artery disease), [place] coronary artery Cardiac defibrillator in place Chronic kidney disease Depression Diabetes mellitus, type 2 Patient has insulin pump. GERD (gastroesophageal reflux disease) Glaucoma L eye History of pneumonia Hx of cardiac arrest X4 - LAST 2013 - [facility] Hx of congestive heart failure Hx of deep venous thrombosis ARM, LEG Hx pulmonary embolism Hyperlipidemia Hypertension Methicillin resistant Staphylococcus aureus infection, unspecified site Myocardial Infarction X2 ; LAST 2003 [place] - PT DOES NOT KNOW LAURA treated with BiPAP Osteoarthritis Osteomyelitis Osteomyelitis FINGER - CURRENT ISSUE Pacemaker Peripheral neuropathy Pulmonary embolism Tremor Surgical History History of cholecystectomy Hx of amputation below knee RIGHT Hx of cardiac catheterization 2004 STENT X2; OTHER CATH PRIOR CANNOT REMEMBER DATES Hx of cataract surgery Hx of gastric bypass Hx of hand surgery LEFT X2 Hx of repair of rotator cuff RIGHT Hx of umbilical hernia repair S/P placement of cardiac pacemaker Family History Father Diabetes Acute myocardial infarction Hypercholesteremia Mother Diabetes Heart disease Sister Cancer Social History Preferred Language: Tunisian Communication Ability: Effective Patient Care Representative Required: No Beliefs That Will Affect Care: None marital status: Current Living Situation: Spouse Current Living Situation Comment: visiting caregivers and nurses Feels Safe at Home: Yes Smoking Status: Never smoker Do You Dip or Chew Tobacco: No ; Second Hand Exposure: Yes ( CHILD) ; Hx Alcohol Use: No Hx Substance Use: No Review of Systems Review of Systems: All systems reviewed & are unremarkable except as noted in HPI & below Physical Exam Physical Exam: Constitutional: Morbidly obese, male, sitting up in bed, answers questions appropriately, vitals as above, NAD, Head: Normocephalic, Atraumatic Eyes: PERRL, conjunctivae normal, anicteric sclerae ENMT: external ear and nose normal, oropharynx normal Neck: trachea midline, no thyromegaly normal visual inspection Respiratory: normal respiratory effort, lungs clear to auscultation, no wheeze, rales, rhonchi. Distant breath sounds given body habitus. Normal insp/exp effort, no accessory muscle use Cardiovascular: Distant heart sounds given body habitus. RRR, no murmur, normal S1-S2, right BKA noted with compression sleeve in place, bilateral radial pulse +1, left pedal pulse +1 vessels: no JVD or carotid bruit Chest: normal inspection of chest Abdomen: Distended abdomen, firm, nontender, + BS x4 Musculoskeletal: Right ring finger dressing CDI, left ring finger dressing CDI, moves active range of motion x4 Skin: no rashes, warm and dry normal turgor Neurologic: PERRL, EOMI, accommodation nl, no face palsy, no dysarthria CN's II-XI intact bilaterally and moves all extremities Psychiatric: A+Ox3, euthymic affect Lymphatic: no cervical or axillary lymphadenopathy : deferred Results & Data Vital Signs (Past 12 Hours) Vital Signs Temp Pulse Pulse Resp BP Pulse Ox 09/06/19 14:10 76 16 142/80 H 100 09/06/19 13:33 74 16 106/61 94 09/06/19 13:05 36.8 C 74 15 106/60 100 09/06/19 12:40 36.6 C 73 17 102/53 L 93 09/06/19 12:30 73 12 110/59 L 93 09/06/19 12:20 74 14 112/65 95 09/06/19 12:10 75 21 103/55 L 95 09/06/19 12:00 73 16 99/50 L 99 09/06/19 11:53 36.5 C 75 16 104/54 L 100 09/06/19 07:46 36.7 C 74 18 108/57 L 93 Laboratory Results Short CBC 09/06/19 Range/Units 07:49 Creatinine 1.79 H (0.6-1.4) mg/dl BMP 09/06/19 07:49 Sodium 140 Potassium 4.6 Chloride 107 Carbon Dioxide 27 BUN 45 H Creatinine 1.79 H Glucose 106 H Calcium 9.1 Diagnostic Findings R Finger Xray: DISCUSSION: There is evidence for amputation of the fourth finger at the mid aspect of the middle phalanx. There is an overlying bandage. There are small radiopaque densities likely representing foreign body fragments within the skin. There is chronic spurring/periosteal reaction involving the base of the proximal phalanx of the fifth digit. IMPRESSION: Evidence for an amputation of the fourth digit at the mid aspect of the middle phalanx. L Finger Xray: FINDINGS: A bandage overlies the mid to distal left fourth finger. This only minimally obscures underlying osseous detail. There is osseous erosion of the tuft of the distal phalanx best appreciated on lateral view. Relative osteopenia of the distal phalanx diffusely in comparison to the remaining osseous structures. The distal interphalangeal joint is preserved. Mild diffuse soft tissue swelling. No acute fracture or malalignment. Peripheral IV line noted along the dorsal lateral aspect of the hand. IMPRESSION: Osseous erosion of the tuft of the distal phalanx concerning for osteomyelitis. This may be subjacent to the reported ulcer. Medications Administered Lactated Ringer's (Lr) 1,000 mls @ 15 mls/hr IV .Q24H UNRULY Stop: 09/07/19 05:59 Last Admin: 09/06/19 14:36 Dose: Not Given Documented by: [id number] Cefazolin Sodium (Ancef 3000mg) 72.5 mls @ 130 mls/hr IV PREOP UNRULY Stop: 09/06/19 18:00 Last Admin: 09/06/19 14:35 Dose: Not Given Documented by: [id number] Sodium Chloride (Nss 1000ml) 1,000 mls @ 100 mls/hr IV .Q10H UNRULY Stop: 09/07/19 06:00 Last Admin: 09/06/19 14:38 Dose: 100 mls/hr Documented by: [id number] Discontinued Medications Acetaminophen (Tylenol) 1,000 mg PO NOW STA Stop: 09/06/19 12:25 Last Admin: 09/06/19 12:28 Dose: 1,000 mg Documented by: [id number] Acetaminophen (Tylenol) Confirm Administered Dose 1,000 mg .ROUTE .STK-MED ONE Stop: 09/06/19 12:27 Last Admin: 09/06/19 14:36 Dose: Not Given Documented by: [id number] Bupivacaine HCl (Marcaine 0.5% Mpf) Confirm Administered Dose 30 ml .ROUTE .STK- MED ONE Stop: 09/06/19 10:17 Last Admin: 09/06/19 11:30 Dose: 5 ml Documented by: [id number] Lidocaine HCl (Xylocaine 1% (Local)) Confirm Administered Dose 20 ml .ROUTE .STK-MED ONE Stop: 09/06/19 10:17 Last Admin: 09/06/19 11:31 Dose: 5 ml Documented by: [id number]
--- NOTE | 2019-09-06 15:57 | Pharmacy Report ---
Glycemic Control Consultation - Date of Service September 06, 2019 - Scope Scope: Glycemic Pharmacist consulted by Clau Li on 09/06 for glycemic control and to write orders per [facility] inpatient glycemic control protocol - Objective Weight: 145.15 kg Accuchecks BSG (last 24hrs): 09/06/19 09/06/19 09/06/19 07:49 07:56 12:03 Glucose 106 H POC Glucose 108 H 96 09/06/19 09/06/19 13:51 14:07 Glucose POC Glucose 67 L* 85 Laboratory Data (last 24hrs): 09/06/19 07:49 Potassium 4.6 Carbon Dioxide 27 Anion Gap 7.0 Creatinine 1.79 H Est Cr Clr Drug Dosing 63.8 - Recent Pertinent Medications Outpatient Anti-diabetic Regimen: * Insulin pump: Total daily basal: 85.1 units Bolus wizard is set for sensitivity 15 and carb ratio 5, but patient manually boluses 30 units with meals * A1c = 8.5 % 07/17/19 The patient is currently receiving: Risk Factors for Insulin Resistance: * Steroids: * Infection: finger infection * Pressors: * IVF: * Recent Surgery: POD #0 * Diet: T2DM * Mechanical Ventilation: - Assessment & Plan Assessment & Plan: ASSESSMENT: * Mr. Cullen is admitted following finger I&D with partial amputation, he has a history of type II diabetes and uses an insulin pump for control however, he does have assistance using his pump. Therefore after discussion with patient will utilize basal/bolus regimen. * Patient follows with [facility]- he reports his dosing off of the pump to be 25 units BID of lantus and slightly reduced mealtime aspart. * BSGs here [id number] prior to removal of insulin pump. Reviewing previous July admission, patient required ~50 units of basal, will give a slightly reduced dose now with pump removal and set a scale for later tonight up to a total daily dose of 50 units * Will begin weight based stress of 2 novolog- this is similar to outpatient SF/CR PLAN FOR INPATIENT GLYCEMIC CONTROL: * Holding outpatient oral diabetes medications * Basal insulin * Lantus 20 units now * 20 units < 140 mg/dL * 25 units 140-180 mg/dL * 30 units >180 mg/dL * Bolus insulin * NovoLog per scale ACHS or Q6hrs while NPO * Goal Range: Low 110 mg/dL - High 140 mg/dL * Correction Factor: 15 mg/dL/unit * Nutritional / Prandial insulin per carb ratio of 1 unit per 5 grams CHO consumed * Please note that the plan above was derived based on current level of insulin resistance and hospital stress. These recommendations are appropriate for inpatient admission only. Plan of care upon discharge will need to be reassessed to avoid potential outpatient hypo/hyperglycemia. Thank you.
[2019-09-06] MEDS ORDERED: NovoLOG INSULIN PUMP SCH (16:30)
[2019-09-06] MEDS: PRAMIPEXOLE DIHYDROCHLO 0.25 MG TAB PO SCH ×2 (16:58→21:37)
--- NOTE | 2019-09-06 17:35 | Orthopedic Progress Note ---
Date of Service September 06, 2019 Assessment & Plan (1) Osteomyelitis: POD # 0, s/p I&D R RF and partial amputation, doing as well as expected. Continue pain control. Resume diet. Change dressing POD #2 and re-check wound. Medicine consult for medical management. Continue IV Abx for 24 hours plan to switch back to PO. Contact precautions due to h/o MRSA. D/C planning. Left Ring Finger infection, concern for osteomyelitis. Patient reported this am that he recently was seen by wound care for this. Will consult wound care to continue treatment. In meantime will start warm soaks. Consult ID to determine Abx coverage for this new infection. No surgical intervention at this time, will continue to monitor. Will follow labs; however, CRP and WBC from 09/05/2019 were within normal limits. Present on Admission?: Yes Subjective Doing fine. Review of Systems Review of Systems: All systems reviewed & are unremarkable except as noted in HPI & below Physical Exam Physical Exam: Right Ring finger: Dressing is clean, dry, intact. Left Ring Finger: Dressing is clean, dry, intact. Earlier today, there was a small eschar over the tip. No active drainage. Mild erythema & swelling. Results & Data Vital Signs (Past 12 Hours) Vital Signs Temp Pulse Pulse Resp BP Pulse Ox 09/06/19 16:21 36.6 C 95 H 16 135/80 98 09/06/19 14:10 76 16 142/80 H 100 09/06/19 13:33 74 16 106/61 94 09/06/19 13:05 36.8 C 74 15 106/60 100 09/06/19 12:40 36.6 C 73 17 102/53 L 93 09/06/19 12:30 73 12 110/59 L 93 09/06/19 12:20 74 14 112/65 95 09/06/19 12:10 75 21 103/55 L 95 09/06/19 12:00 73 16 99/50 L 99 09/06/19 11:53 36.5 C 75 16 104/54 L 100 09/06/19 07:46 36.7 C 74 18 108/57 L 93 Diagnostic Findings XR finger LT min 2V CLINICAL HISTORY: 59 years-old Male presenting with left ring finger ulcer. TECHNIQUE: Frontal, oblique, and lateral views of the left fourth finger were obtained. COMPARISON: None. FINDINGS: A bandage overlies the mid to distal left fourth finger. This only minimally obscures underlying osseous detail. There is osseous erosion of the tuft of the distal phalanx best appreciated on lateral view. Relative osteopenia of the distal phalanx diffusely in comparison to the remaining osseous structures. The distal interphalangeal joint is preserved. Mild diffuse soft tissue swelling. No acute fracture or malalignment. Peripheral IV line noted along the dorsal lateral aspect of the hand. IMPRESSION: Osseous erosion of the tuft of the distal phalanx concerning for osteomyelitis. This may be subjacent to the reported ulcer.
[2019-09-06] MEDS: FERROUS SULFATE 325 MG TAB PO SCH (17:36)
[2019-09-06] MEDS: RIVAROXABAN 15 MG TAB PO SCH (17:36)
[2019-09-06] MEDS: INSULIN ASPART 100 UNITS/ML 3 ML PEN SC SCH ×2 (18:07→21:41)
[2019-09-06] MEDS: CEFAZOLIN 2000MG 2,000 MG/15 ML SYR IV SCH (18:11)
--- NOTE | 2019-09-06 21:14 | Operative Report ---
Post Operative Report Pre & Post Diagnosis Operation Date: 09/06/19 09:50 Pre-Op Diagnosis: Right Ring Finger Infection Post-Op Diagnosis: Right Ring Finger Infection I identified the patient and participated in the time-out.: Yes Procedure Operation Date: 09/06/19 09:50 Actual Procedures p Right Ring Finger Irrigation and Debridement, Partial Amputation(Right) - Joel Negron MD Surgeon Joel Negron MD Pocket Maker José Miguel Rowell MD Estimated Blood Loss 5 Findings Consistent with Post-Op Diagnosis Specimens R ring finger and bone Complications none Disposition Accompanied Patient To Recovery: Yes Disposition: Recovery Room Description of Procedure Supine, hand table, time out, finger tourniquet and digital block Right Ring Finger Irrigation and Debridement, Partial Amputation Please see Dr Negron's op notes for specific details I was present throughout the case, assisted for wound closure and transferred him to PACU in stable condition I attest to the content of the Intraoperative Record and any orders documented therein. Any exceptions are noted below.
[2019-09-06] MEDS: SENNA 8.6 MG TAB PO SCH (21:35)
[2019-09-06] MEDS: DOCUSATE SODIUM 100 MG CAP PO SCH (21:35)
[2019-09-06] MEDS: lamoTRIgine 25 MG TAB PO SCH (21:36)
[2019-09-06] MEDS: ACETAMINOPHEN 500 MG TAB PO SCH (21:36)
[2019-09-06] MEDS: ROPINIROLE HCL 1 MG TABLET PO SCH (21:36)
[2019-09-06] MEDS: ATORVASTATIN 20 MG TAB PO SCH (21:37)
[2019-09-06] MEDS: BuPROPion SR 150 MG TABCR PO SCH (21:37)
[2019-09-06] MEDS: NORTRIPTYLINE HCL 25 MG CAP PO SCH (21:37)
[2019-09-06] MEDS: MAGNESIUM OXIDE 400 MG TAB PO SCH (21:37)
[2019-09-06] MEDS: carvediloL 12.5 MG TAB PO SCH (21:37)
[2019-09-06] MEDS: PRIMIDONE 50 MG TAB PO SCH (21:37)
[2019-09-07] MEDS: CEFAZOLIN 2000MG 2,000 MG/15 ML SYR IV SCH (02:53)
[2019-09-07] MEDS: ACETAMINOPHEN 500 MG TAB PO SCH ×3 (06:00→21:43)
[2019-09-07] MEDS: PANTOprazole 40 MG TAB PO SCH (06:00)
[2019-09-07 06:12] LABS: Hematocrit (blood only) 33.9 % (42-52); Hemoglobin 10.6 g/dL (14.0-18.0); Mean Corpuscular Hemoglobin 28.1 pg (25-34); Mean Corpuscular Hgb Conc 31.3 g/dL (32-36); Mean Corpuscular Volume 89.9 fL (80-100); Mean Platelet Volume 8.9 fL (7.4-10.4); Platelet Count 193 K/uL (130-400); RDW Coefficient of Variation 15.9 % (11.5-14.5); RDW Standard Deviation 51.9 fL (36.4-46.3); Red Blood Count 3.77 M/uL (4.7-6.1); White Blood Count 4.93 K/uL (4.8-10.8)
[2019-09-07 06:39] LABS: BUN Creatinine Ratio 23.2 (10-20); Calcium 8.9 mg/dl (8.5-10.1); Creatinine Clr Calc Pharmacy 69.2 ml/min; Est GFR (African American) 52.6; Est GFR (Non-African American) 45.4; Potassium 4.5 mmol/L (3.5-5.1)
--- NOTE | 2019-09-07 08:21 | Anesthesiology Progress Note ---
Date of Service September 07, 2019 Anesthesia Post Procedure Vital Signs Vital Signs: Temp Pulse Pulse Resp BP Pulse Ox 09/07/19 07:51 36.4 C L 75 16 112/73 94 09/07/19 03:10 36.0 C L 68 18 116/73 97 09/06/19 23:40 36.2 C L 68 18 102/64 97 09/06/19 21:32 72 130/79 09/06/19 19:33 36.8 C 67 18 114/70 98 09/06/19 16:21 36.6 C 95 H 16 135/80 98 09/06/19 14:10 76 16 142/80 H 100 09/06/19 13:33 74 16 106/61 94 09/06/19 13:05 36.8 C 74 15 106/60 100 09/06/19 12:40 36.6 C 73 17 102/53 L 93 09/06/19 12:30 73 12 110/59 L 93 09/06/19 12:20 74 14 112/65 95 09/06/19 12:10 75 21 103/55 L 95 09/06/19 12:00 73 16 99/50 L 99 09/06/19 11:53 36.5 C 75 16 104/54 L 100 Pain Intensity Right 4th Digit: Pain Intensity: 5 (burning/achey) Head: Pain Intensity: 3 Left Finger: Pain Intensity: 4 Notes Mental Status: alert / awake / arousable Patient Amnestic to Procedure: No Nausea / Vomiting: adequately controlled Pain: improving with treatment Airway Patency, RR, SpO2: stable & adequate BP & HR: stable & adequate Hydration State: stable & adequate Anesthetic Complications: no major complications apparent
[2019-09-07] MEDS: PREGABALIN 100 MG CAP PO SCH ×4 (08:52→21:43)
[2019-09-07] MEDS: lisinopriL 10 MG TAB PO SCH (08:52)
[2019-09-07] MEDS: BuPROPion SR 150 MG TABCR PO SCH ×2 (08:53→20:34)
[2019-09-07] MEDS: carvediloL 12.5 MG TAB PO SCH ×2 (08:53→20:34)
[2019-09-07] MEDS: AMIODARONE 200 MG TAB PO SCH (08:53)
[2019-09-07] MEDS: ASPIRIN 81 MG ECTAB PO SCH (08:53)
[2019-09-07] MEDS: DULOXETINE HCL 60 MG CAP PO SCH (08:53)
[2019-09-07] MEDS: DONEPEZIL HCL 10 MG TAB PO SCH (08:54)
[2019-09-07] MEDS: TORSEMIDE 100 MG TAB PO SCH (08:54)
[2019-09-07] MEDS: CHOLECALCIFEROL 1,000 UNITS 25 MCG TAB PO SCH (08:54)
--- NOTE | 2019-09-07 08:54 | Hospitalist Progress Note ---
Date of Service September 07, 2019 Assessment & Plan (1) Osteomyelitis: (2) Amputation finger: Patient is status post partial amputation of right ring finger secondary to MSSA osteomyelitis by Dr. Negron POD #1 EBL 5 mL Tolerated procedure well Pain and wound management per Ortho Wound consult for new left fourth finger ulceration that developed over the weekend, x-ray was performed with concerns for osteomyelitis Per ID, would prefer to hold off additional abx and obtain culture of left hand. will need continued wound care followup at [facility] upon d/c. Activity and therapy as directed by Ortho Encourage incentive spirometry Monitor H&H Continue IV antibiotics and treat to culture Stopped IVF due to hx of CHF and pt tolerating oral diet (3) CAD (coronary artery disease), [place] coronary artery: No current chest pain Continue ASA, statin, Xarelto, Coreg, lisinopril (4) CHF (congestive heart failure): hx of Ischemic Cardiomyopathy Patient appears euvolemic Continue torsemide, Coreg, lisinopril Daily weights, strict I's and O's Continue BiPAP Heart healthy low-sodium diet Last echo in 2014 revealed mildly reduced systolic EF 40 to 44%, apical hypokinesis with Anterior septal and anterior wall motion abnormality (5) Diabetes mellitus, type 2: Glycemic pharmacist on board Insulin pump turned off and placed on basal bolus Lantus NovoLog regimen Follow closely Recommend strict control given patient diabetic with multiple diabetic complications and current infection Most recent A1c 8.5 on 07/17/2019 (6) Atrial fibrillation: Rate and rhythm controlled on Coreg, amiodarone Continue Xarelto, renally dosed (7) Chronic kidney disease, stage III (moderate): BUN/creatinine 45 and 1.79 Baseline creatinine 1.4-1.7 Monitor closely given multiple medication regimen and on diuretic (8) Peripheral neuropathy: Patient is on high-dose Lyrica, as well as nortriptyline and Cymbalta Patient also with restless leg syndrome on Requip and pramipexole monitor for sedation (9) LAURA treated with BiPAP: Continue BiPAP (10) Obesity hypoventilation syndrome: Continue BiPAP (11) Anemia: Last H&H 8.9 and 28.3 on 07/22/2019 Monitor No signs or symptoms of bleeding Normocytic normochromic likely anemia of chronic disease (12) 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, pre-operative cardiovascular examination: ICD in place secondary to history of ventricular tachycardia (13) Depression: Continue Cymbalta (14) DVT prophylaxis: continue xarelto Disposition: Admitted to Med/Surg, per primary Follow up: PCP Dr. Lindsey upon discharge Pt was seen and examined in collaboration with Dr. Salinas, please see addendum Thank you for this consultation. We will follow the patient with you during their hospital stay. You can reach a member of the [facility] Hospitalist Team 09/03 via pager @ [phone]. Starting 09/07/19 pt will be under the care of Dr. Chavez Supervising Physician Co-Signing Physician Notes Attending addendum The patient was seen and examined in medical floor He is a status post right ring finger amputation secondary to MSSA osteomyelitis Has infection in the left finger Denies any symptoms except generalized weakness and tiredness He has not been ambulating well due to right BKA amputation On examination Very obese with minimal distress at rest Sitting on a chair Hemodynamically stable Chest-decreased breath sounds but otherwise clear Heart-S1-S2 Abdomen-distended fatty nontender,, Extremities-right BKA and left 1+ edema His labs and imaging studies reviewed Status post right ring finger amputation Appreciate ID and Ortho input and their recommendation Agree with assessment plan as outlined above by JAYY Ivory Dr Subjective Seen and examined in room 309-1. Patient with minimal surgical site pain in fingers. Denies any lightheadedness, visual changes, chest pain, shortness of breath, nausea, vomiting, abdominal pain, dysuria, diarrhea or constipation. No postop bowel movement yet. Review of Systems Review of Systems: At least ten systems reviewed and negative except as noted in the HPI. Physical Exam Physical Exam: General Appearance: WD/WN, vitals as above, NAD, sitting in bedside chair, obese, pleasant, conversing easily Head: normocephalic, atraumatic Eyes: normal inspection, PERRL, conjunctivae normal, anicteric sclerae ENT: external ear and nose normal, oropharynx normal Neck: trachea midline, no thyromegaly normal visual inspection Respiratory: normal respiratory effort, lungs clear to auscultation, no wheeze, rales, rhonchi Cardiovascular: regular rate, rhythm, no murmur, normal peripheral pulses Chest: normal inspection of chest Abdomen/GI: normal bowel sounds, soft, nontender, no hepatosplenomegaly Extremities/Musculoskelatal: Bilateral ring fingers with dressing clean, dry, intact. R BKA. No cyanosis or clubbing, extremities motor strength 5/5 Neurologic: PERRL, CN's II-XI intact bilaterally and moves all extremities Psychiatric: A+Ox3, euthymic affect Skin: no rashes, normal color, warm/dry Results & Data Vital Signs (Past 12 Hours) Vital Signs Temp Pulse Resp BP Pulse Ox 09/07/19 07:51 36.4 C L 75 16 112/73 94 09/07/19 03:10 36.0 C L 68 18 116/73 97 09/06/19 23:40 36.2 C L 68 18 102/64 97 09/06/19 21:32 72 130/79 Laboratory Results Short CBC 09/07/19 Range/Units 05:44 WBC 4.93 (4.8-10.8) K/uL Hgb 10.6 L (14.0-18.0) g/dL Hct 33.9 L (42-52) % Plt Count 193 (130-400) K/uL [facility] 09/07/19 05:44 Sodium 139 Potassium 4.5 Chloride 108 H Carbon Dioxide 26 BUN 38 H Creatinine 1.65 H Glucose 124 H Calcium 8.9
[2019-09-07] MEDS: DOCUSATE SODIUM 100 MG CAP PO SCH ×2 (08:55→20:29)
[2019-09-07] MEDS: FERROUS SULFATE 325 MG TAB PO SCH ×2 (08:55→17:34)
[2019-09-07] MEDS: PRIMIDONE 50 MG TAB PO SCH ×2 (08:55→20:36)
[2019-09-07] MEDS: MULTIVITAMIN TAB PO SCH (08:55)
[2019-09-07] MEDS: MONTELUKAST SODIUM 10 MG TABLET PO SCH (08:55)
[2019-09-07] MEDS: lamoTRIgine 25 MG TAB PO SCH ×2 (08:56→20:36)
[2019-09-07] MEDS ORDERED: INSULIN GLARGINE SOLOSTAR 100 UNITS/ML 3 ML PEN SC ONE ×2 (09:00→21:00)
[2019-09-07] MEDS ORDERED: TRIAMCINOLONE ACET 0.1% OINT 15 GM TUBE TOP PRN (09:00)
[2019-09-07] MEDS ORDERED: MULTIVITAMIN WITH IRON PO SCH (09:00)
[2019-09-07] MEDS: INSULIN ASPART 100 UNITS/ML 3 ML PEN SC SCH ×4 (09:03→21:45)
[2019-09-07] MEDS: MAGNESIUM OXIDE 400 MG TAB PO SCH ×2 (10:24→21:42)
--- NOTE | 2019-09-07 10:51 | Infectious Disease Consult ---
Date of Consultation September 07, 2019 Assessment & Plan (1) Osteomyelitis: suspect amp curative for infection right finger. now with wound on left hand. clinically stable, would prefer to hold off additional abx and obtain culture of left hand. will need continued wound care followup at [facility] upon d/c. History of Present Illness Attending Physician: Joel Negron MD pt admitted for elective amp of right 4th finger. was hospitalized in early Decehiber for infection, culture grew MSSA, he was d/c on keflex, states he was taking this until admission. he follows at wound center at [facility]. tolerated amp well, denies pain, dressing intact, OR cultures pending but gram stain negative, no gross infection noted in OR. Now with wound on left 4th digit as well.He is currently on no abx, he is afebrile. wbc normal. creat 1.6 (baseline) x ray of left hand concerning for osteo 4th digit left hand now as well. no culture obtained. no pain in left hand, no drainage, no abd pain, no n/v/d, no cp, sob, cough. Allergies Allergy/AdvReac Type Severity Reaction Status Date / Time adhesive tape Allergy Unknown WELTS Verified 09/06/19 09:45 chlorhexidine Allergy UNKN Verified 09/06/19 09:45 disopyramide Allergy UNKN Verified 09/06/19 09:45 erythromycin base Allergy ? HEART Verified 09/06/19 09:45 fluconazole Allergy Unknown Verified 09/06/19 09:45 levofloxacin [From Levaquin] Allergy HEART Verified 09/06/19 09:45 ISSUES Macrolide Antibiotics Allergy HEART ISSUE Verified 09/06/19 09:45 Quinolones Allergy HEART Verified 09/06/19 09:45 ISSUES Sulfa (Sulfonamide Allergy RASH AND Verified 09/06/19 09:45 Antibiotics) ITCHING vancomycin AdvReac Intermediate Red Man Verified 09/06/19 09:45 Syndrome Sulfone Allergy Uncoded 08/30/19 10:24 Home Medications Home Medications Medication Instructions Recorded Confirmed Type bupropion HCl 150 mg tablet,12 hr 150 mg PO BID ea 03/21/19 09/06/19 History sustained-release carvedilol 12.5 mg tablet 12.5 mg PO BID tab 03/21/19 09/06/19 History duloxetine 60 mg capsule,delayed 60 mg PO DAILY cap 03/21/19 09/06/19 History release lamotrigine 25 mg disintegrating 50 mg PO BID tab 03/21/19 09/06/19 History tablet lisinopril 10 mg tablet 10 mg PO DAILY tab 03/21/19 09/06/19 History magnesium oxide 400 mg PO BID cap 03/21/19 09/06/19 History montelukast 10 mg tablet 10 mg PO DAILY #90 tab 03/21/19 09/06/19 History multivitamin with iron 1 tab PO DAILY 03/21/19 09/06/19 History nitroglycerin 0.4 mg sublingual 0.4 [address] 1 TABLET UNDER 03/21/19 08/30/19 History tablet tab nortriptyline 75 mg capsule 75 mg PO HS cap 03/21/19 09/06/19 History omeprazole 20 mg capsule,delayed 20 mg PO DAILYBB #30 cap 03/21/19 09/06/19 History release pregabalin 50 mg capsule 100 mg PO QDL cap 03/21/19 09/06/19 History primidone 50 mg tablet 50 mg PO QAM tab 03/21/19 09/06/19 History amiodarone 200 mg tablet 200 mg PO QAM tab 06/28/19 09/06/19 History aspirin 81 mg tablet 81 mg PO DAILY tab 06/28/19 09/06/19 History atorvastatin 20 mg tablet 20 mg PO QPM tab 06/28/19 09/06/19 History Trokendi XR 100 mg PO DAILY 07/19/19 09/06/19 History pramipexole 0.25 mg PO QDD 07/19/19 09/06/19 History triamcinolone acetonide See Rx Instructions .ROUTE .COMPLEX 07/19/19 08/12/19 History cholecalciferol (vitamin D3) 5,000 unit PO DAILY 08/12/19 09/06/19 History [Vitamin D3] donepezil 10 mg PO DAILY 08/12/19 09/06/19 History gentamicin sulfate (PF) 60 mg INHALATION TID 08/12/19 09/06/19 History insulin aspart U-100 [Novolog 1 sliding scale dose SUBCUT 08/12/19 09/06/19 History U-100 Insulin aspart] USEASDIRECTD pramipexole 0.75 mg PO HS 08/12/19 09/06/19 History pregabalin [Lyrica] 200 mg PO TID 08/12/19 09/06/19 History primidone 200 mg PO HS 08/12/19 09/06/19 History rivaroxaban [Xarelto] 15 mg PO PM 08/12/19 09/06/19 History ropinirole 2 mg PO HS 08/12/19 09/06/19 History torsemide 100 mg PO DAILY 08/12/19 09/06/19 History Patient History Medical History Anemia chronic. normocytic anemia, thought to be anemia of chronic disease. Anxiety Asthma Atrial fibrillation CAD (coronary artery disease), [place] coronary artery Cardiac defibrillator in place Chronic kidney disease Depression Diabetes mellitus, type 2 Patient has insulin pump. GERD (gastroesophageal reflux disease) Glaucoma L eye History of pneumonia Hx of cardiac arrest X4 - LAST 2013 - [facility] Hx of congestive heart failure Hx of deep venous thrombosis ARM, LEG Hx pulmonary embolism Hyperlipidemia Hypertension Methicillin resistant Staphylococcus aureus infection, unspecified site Myocardial Infarction X2 ; LAST 2003 [place] - PT DOES NOT KNOW LAURA treated with BiPAP Osteoarthritis Osteomyelitis Osteomyelitis FINGER - CURRENT ISSUE Pacemaker Peripheral neuropathy Pulmonary embolism Tremor Surgical History History of cholecystectomy Hx of amputation below knee RIGHT Hx of cardiac catheterization 2004 STENT X2; OTHER CATH PRIOR CANNOT REMEMBER DATES Hx of cataract surgery Hx of gastric bypass Hx of hand surgery LEFT X2 Hx of repair of rotator cuff RIGHT Hx of umbilical hernia repair S/P placement of cardiac pacemaker Family History Father Diabetes Acute myocardial infarction Hypercholesteremia Mother Diabetes Heart disease Sister Cancer Social History Preferred Language: [place] Communication Ability: Effective Highway Landscape Architect Required: No Beliefs That Will Affect Care: None marital status: Current Living Situation: Spouse Current Living Situation Comment: visiting caregivers and nurses Feels Safe at Home: Yes Smoking Status: Never smoker Do You Dip or Chew Tobacco: No ; Second Hand Exposure: Yes ( CHILD) ; Hx Alcohol Use: No Hx Substance Use: No Review of Systems Review of Systems: All systems reviewed & are unremarkable except as noted in HPI & below Physical Exam Constitutional: WD/WN, vitals as above Eyes: PERRL, conjunctivae normal, anicteric sclerae ENMT: external ear and nose normal, oropharynx normal Neck: normal visual inspection Respiratory: normal respiratory effort, lungs clear to auscultation Cardiovascular: RRR, no murmur, no edema Gastrointestinal (Abdomen): normal bowel sounds, soft, nontender, no hepatosplenomegaly Musculoskeletal: no cyanosis or clubbing, extremities motor strength 5/5 Skin: no rashes, warm and dry + wound (b/l 4th finger dressing c/d/i) Psychiatric: A+Ox3, euthymic affect Results & Data Vital Signs (Past 12 Hours) Vital Signs Temp Pulse Resp BP Pulse Ox 09/07/19 07:51 36.4 C L 75 16 112/73 94 09/07/19 03:10 36.0 C L 68 18 116/73 97 09/06/19 23:40 36.2 C L 68 18 102/64 97 Laboratory Results Microbiology 09/06/19 11:17 Finger,Right Ring Gram Stain - Final PG Care Time/CCT Total # of Minutes Spent Total Time Spent with Patient: Total time spent is greater than 50% in coordination of care (as documented) at patient's floor/unit and/or counseling patient:
--- NOTE | 2019-09-07 11:03 | Orthopedic Progress Note ---
Date of Service September 07, 2019 Assessment & Plan (1) Osteomyelitis: POD # 1, s/p I&D R RF and partial amputation, doing as well as expected. Continue pain control. Resume diet. Change dressing POD #2 and re-check wound. Medicine consult for medical management, appreciate input. IV Abx for first 24 hours and switched back to PO Keflex. Contact precautions due to h/o MSSA. - Nasal MRSA swab (1st). Check labs. D/C planning. Left Ring Finger infection, concern for osteomyelitis. Consult wound care to continue treatment, and obtain cultures. In meantime will start warm soaks. Continue wound care as outpatient. Consult ID, would like to hold Abx, appreciate input. No surgical intervention at this time, will continue to monitor. Will follow weekly labs; however, CRP and WBC from 09/05/2019 were within normal limits. Subjective Doing fine. HPI: Patient doing well POD #1 s/p R Ring Finger (RF) partial amputation due to previous infection. Also now with wound and possible osteomyelitis distal phalanx L RF. Dressings have not been removed and has not started soaks L RF. Review of Systems Review of Systems: All systems reviewed & are unremarkable except as noted in HPI & below Physical Exam Physical Exam: BUE: Dressing clean dry and intact, bilateral RF. Results & Data Vital Signs (Past 12 Hours) Vital Signs Temp Pulse Resp BP Pulse Ox 09/07/19 07:51 36.4 C L 75 16 112/73 94 09/07/19 03:10 36.0 C L 68 18 116/73 97 09/06/19 23:40 36.2 C L 68 18 102/64 97 Laboratory Results 09/07/19 09/07/19 09/07/19 Range/Units 08:26 05:44 05:44 WBC 4.93 (4.8-10.8) K/uL RBC 3.77 L (4.7-6.1) M/uL Hgb 10.6 L (14.0-18.0) g/dL Hct 33.9 L (42-52) % MCV 89.9 (80-100) fL MCH 28.1 (25-34) pg MCHC 31.3 L (32-36) g/dL RDW Std Deviation 51.9 H (36.4-46.3) fL RDW Coeff of Karolina 15.9 H (11.5-14.5) % Plt Count 193 (130-400) K/uL MPV 8.9 (7.4-10.4) fL Sodium 139 (136-145) mmol/L Potassium 4.5 (3.5-5.1) mmol/L Chloride 108 H (98-107) mmol/L Carbon Dioxide 26 (21-32) mmol/L Anion Gap 5.0 (3-11) BUN 38 H (7-18) mg/dl Creatinine 1.65 H (0.6-1.4) mg/dl Est Cr Clr Drug Dosing 69.2 ml/min Est GFR ( Amer) 52.6 Est GFR (Non-Af Amer) 45.4 BUN/Creatinine Ratio 23.2 H (10-20) Glucose 124 H (70-99) mg/dl POC Glucose 151 H (70-99) mg/dl Calcium 8.9 (8.5-10.1) mg/dl Nasal Screen MRSA (PCR) (Negative) Hepatitis C Ab Screen (Neg) 09/07/19 09/06/19 09/06/19 Range/Units 05:44 Unknown 20:58 WBC (4.8-10.8) K/uL RBC (4.7-6.1) M/uL Hgb (14.0-18.0) g/dL Hct (42-52) % MCV (80-100) fL MCH (25-34) pg MCHC (32-36) g/dL RDW Std Deviation (36.4-46.3) fL RDW Coeff of Karolina (11.5-14.5) % Plt Count (130-400) K/uL MPV (7.4-10.4) fL Sodium (136-145) mmol/L Potassium (3.5-5.1) mmol/L Chloride (98-107) mmol/L Carbon Dioxide (21-32) mmol/L Anion Gap (3-11) BUN (7-18) mg/dl Creatinine (0.6-1.4) mg/dl Est Cr Clr Drug Dosing ml/min Est GFR ( Amer) Est GFR (Non-Af Amer) BUN/Creatinine Ratio (10-20) Glucose (70-99) mg/dl POC Glucose 129 H (70-99) mg/dl Calcium (8.5-10.1) mg/dl Nasal Screen MRSA (PCR) Negative (Negative) Hepatitis C Ab Screen Neg (Neg) 09/06/19 09/06/19 09/06/19 Range/Units 17:14 14:07 13:51 WBC (4.8-10.8) K/uL RBC (4.7-6.1) M/uL Hgb (14.0-18.0) g/dL Hct (42-52) % MCV (80-100) fL MCH (25-34) pg MCHC (32-36) g/dL RDW Std Deviation (36.4-46.3) fL RDW Coeff of Karolina (11.5-14.5) % Plt Count (130-400) K/uL MPV (7.4-10.4) fL Sodium (136-145) mmol/L Potassium (3.5-5.1) mmol/L Chloride (98-107) mmol/L Carbon Dioxide (21-32) mmol/L Anion Gap (3-11) BUN (7-18) mg/dl Creatinine (0.6-1.4) mg/dl Est Cr Clr Drug Dosing ml/min Est GFR ( Amer) Est GFR (Non-Af Amer) BUN/Creatinine Ratio (10-20) Glucose (70-99) mg/dl POC Glucose 101 H 85 67 L* (70-99) mg/dl Calcium (8.5-10.1) mg/dl Nasal Screen MRSA (PCR) (Negative) Hepatitis C Ab Screen (Neg) 09/06/19 Range/Units 12:03 WBC (4.8-10.8) K/uL RBC (4.7-6.1) M/uL Hgb (14.0-18.0) g/dL Hct (42-52) % MCV (80-100) fL MCH (25-34) pg MCHC (32-36) g/dL RDW Std Deviation (36.4-46.3) fL RDW Coeff of Karolina (11.5-14.5) % Plt Count (130-400) K/uL MPV (7.4-10.4) fL Sodium (136-145) mmol/L Potassium (3.5-5.1) mmol/L Chloride (98-107) mmol/L Carbon Dioxide (21-32) mmol/L Anion Gap (3-11) BUN (7-18) mg/dl Creatinine (0.6-1.4) mg/dl Est Cr Clr Drug Dosing ml/min Est GFR ( Amer) Est GFR (Non-Af Amer) BUN/Creatinine Ratio (10-20) Glucose (70-99) mg/dl POC Glucose 96 (70-99) mg/dl Calcium (8.5-10.1) mg/dl Nasal Screen MRSA (PCR) (Negative) Hepatitis C Ab Screen (Neg) Gram Stain: Rare WBC's, No organisms C&S: Pending
[2019-09-07] MEDS ORDERED: cephALEXin 500 MG CAP PO SCH (13:00)
[2019-09-07] MEDS: cephALEXin 500 MG CAP PO SCH ×2 (14:20→20:34)
--- NOTE | 2019-09-07 15:22 | Pharmacy Report ---
Pharmacy Glycemic Short Note 2 - Date of Service September 07, 2019 - Glycemic Short BSG Results (Last 24 hours): 09/06/19 09/06/19 09/07/19 17:14 20:58 05:44 Glucose 124 H POC Glucose 101 H 129 H 09/07/19 09/07/19 08:26 11:43 Glucose POC Glucose 151 H 222 H OUTPATIENT ANTIDIABETIC REGIMEN: * Insulin Pump: Basal 85.1 units/day; 30 units with meals ASSESSMENT: * Mr. Cullen received 35 units of basal yesterday, fasting this morning 151, will continue to titrate lantus up with scale * Lunch BSG elevated today, however patient had later breakfast. On previous admission carb ratio was titrated down to 3, therefore will tighten to a CR of 4 at this time and reassess need for tighter coverage. PLAN FOR INPATIENT GLYCEMIC CONTROL: * Hold outpatient oral diabetes medications * Basal insulin * Lantus 25 units this morning * scale for HS: * 20 units BSG <140 * 25 units BSG 140-180 * 30 units BSG >180 * Bolus insulin * NovoLog per scale ACHS or Q6hrs while NPO * Goal Range: Low 110 mg/dL - High 140 mg/dL * Correction Factor: 15 mg/dL/unit * Nutritional / Prandial insulin per carb ratio of 1 unit per 4 grams CHO consumed PLAN FOR DISCHARGE: * A1c 8.3% on 08/08, this was an improvement from 07/17/19 8.5%. Patient's requirements reduced while inpatient. As A1c trending down with outpatient management, would recommend follow-up with patient's MTM group for further adjustments.
--- NOTE | 2019-09-07 15:36 | Orthopedic Progress Note ---
Date of Service September 07, 2019 Assessment & Plan (1) Osteomyelitis: POD # 1, s/p I&D R RF and partial amputation, doing as well as expected. Continue pain control. Continue DMI diet. Change dressing POD #2 and re-check wound Appreciate input medicine input. Appreciate ID input. Await final cultures. Continue PO Keflex. Contact precautions due to h/o MSSA. - Nasal MRSA swab (1st). D/C planning--HH Nursing Left Ring Finger infection, concern for osteomyelitis. Continue daily warm soaks and dressing changes. Consult ID, would like to hold Abx, appreciate input. No surgical intervention at this time, will continue to monitor. D/C planning-- nursing Will follow weekly labs; however, CRP and WBC from 09/05/2019 were within normal limits. Subjective Patient sitting in bedside chair watching TV. Says right ring finger is sore. Had soaks to left ringer finger and redressed by nurse. Denies any lightheadedness, visual changes, chest pain, shortness of breath, nausea, vomiting, abdominal pain, dysuria, diarrhea or constipation. Tolerating diet and fluids. Seen this AM by Dr Negron. Physical Exam Physical Exam: Dressings to right and left fingers intact. Minimal swelling noted to hands or fingers. NV intact. B UE. Results & Data Vital Signs (Past 12 Hours) Vital Signs Temp Pulse Resp BP Pulse Ox 09/07/19 11:23 36.5 C 96 H 16 156/72 H 99 09/07/19 07:51 36.4 C L 75 16 112/73 94 Laboratory Results 09/07/19 09/07/19 09/07/19 Range/Units 11:43 08:26 05:44 WBC (4.8-10.8) K/uL RBC (4.7-6.1) M/uL Hgb (14.0-18.0) g/dL Hct (42-52) % MCV (80-100) fL MCH (25-34) pg MCHC (32-36) g/dL RDW Std Deviation (36.4-46.3) fL RDW Coeff of Karolina (11.5-14.5) % Plt Count (130-400) K/uL MPV (7.4-10.4) fL Sodium 139 (136-145) mmol/L Potassium 4.5 (3.5-5.1) mmol/L Chloride 108 H (98-107) mmol/L Carbon Dioxide 26 (21-32) mmol/L Anion Gap 5.0 (3-11) BUN 38 H (7-18) mg/dl Creatinine 1.65 H (0.6-1.4) mg/dl Est Cr Clr Drug Dosing 69.2 ml/min Est GFR ( Amer) 52.6 Est GFR (Non-Af Amer) 45.4 BUN/Creatinine Ratio 23.2 H (10-20) Glucose 124 H (70-99) mg/dl POC Glucose 222 H 151 H (70-99) mg/dl Calcium 8.9 (8.5-10.1) mg/dl Hepatitis C Ab Screen (Neg) 09/07/19 09/07/19 09/06/19 Range/Units 05:44 05:44 20:58 WBC 4.93 (4.8-10.8) K/uL RBC 3.77 L (4.7-6.1) M/uL Hgb 10.6 L (14.0-18.0) g/dL Hct 33.9 L (42-52) % MCV 89.9 (80-100) fL MCH 28.1 (25-34) pg MCHC 31.3 L (32-36) g/dL RDW Std Deviation 51.9 H (36.4-46.3) fL RDW Coeff of Karolina 15.9 H (11.5-14.5) % Plt Count 193 (130-400) K/uL MPV 8.9 (7.4-10.4) fL Sodium (136-145) mmol/L Potassium (3.5-5.1) mmol/L Chloride (98-107) mmol/L Carbon Dioxide (21-32) mmol/L Anion Gap (3-11) BUN (7-18) mg/dl Creatinine (0.6-1.4) mg/dl Est Cr Clr Drug Dosing ml/min Est GFR ( Amer) Est GFR (Non-Af Amer) BUN/Creatinine Ratio (10-20) Glucose (70-99) mg/dl POC Glucose 129 H (70-99) mg/dl Calcium (8.5-10.1) mg/dl Hepatitis C Ab Screen Neg (Neg) 09/06/19 Range/Units 17:14 WBC (4.8-10.8) K/uL RBC (4.7-6.1) M/uL Hgb (14.0-18.0) g/dL Hct (42-52) % MCV (80-100) fL MCH (25-34) pg MCHC (32-36) g/dL RDW Std Deviation (36.4-46.3) fL RDW Coeff of Karolina (11.5-14.5) % Plt Count (130-400) K/uL MPV (7.4-10.4) fL Sodium (136-145) mmol/L Potassium (3.5-5.1) mmol/L Chloride (98-107) mmol/L Carbon Dioxide (21-32) mmol/L Anion Gap (3-11) BUN (7-18) mg/dl Creatinine (0.6-1.4) mg/dl Est Cr Clr Drug Dosing ml/min Est GFR ( Amer) Est GFR (Non-Af Amer) BUN/Creatinine Ratio (10-20) Glucose (70-99) mg/dl POC Glucose 101 H (70-99) mg/dl Calcium (8.5-10.1) mg/dl Hepatitis C Ab Screen (Neg) Diagnostic Findings Preliminary culture reveals low counts mixed probable skin microbiota
[2019-09-07] MEDS: PRAMIPEXOLE DIHYDROCHLO 0.25 MG TAB PO SCH ×2 (17:07→20:35)
[2019-09-07] MEDS: RIVAROXABAN 15 MG TAB PO SCH (17:34)
[2019-09-07] MEDS: SENNA 8.6 MG TAB PO SCH (20:29)
[2019-09-07] MEDS: ATORVASTATIN 20 MG TAB PO SCH (20:34)
[2019-09-07] MEDS: ROPINIROLE HCL 1 MG TABLET PO SCH (20:34)
[2019-09-07] MEDS: NORTRIPTYLINE HCL 25 MG CAP PO SCH (20:36)
[2019-09-08 05:55] LABS: Basophils # (auto) 0.02 K/uL (0-0.2); Basophils % (auto) 0.4 %; Eosinophils # (auto) 0.21 K/uL (0-0.5); Eosinophils % (auto) 3.8 %; Hemoglobin 10.1 g/dL (14.0-18.0); Immature Granulocytes # (auto) 0.03 K/uL (0.00-0.02); Immature Granulocytes % (auto) 0.5 %; Lymphocytes # (auto) 1.26 K/uL (1.2-3.4); Lymphocytes % (auto) 22.5 %; Mean Corpuscular Hemoglobin 28.3 pg (25-34); Mean Corpuscular Hgb Conc 31.6 g/dL (32-36); Mean Corpuscular Volume 89.6 fL (80-100); Mean Platelet Volume 8.9 fL (7.4-10.4); Monocytes # (auto) 0.37 K/uL (0.11-0.59); Monocytes % (auto) 6.6 %; Neutrophils # (auto) 3.71 K/uL (1.4-6.5); Neutrophils % (auto) 66.2 %; Platelet Count 206 K/uL (130-400); RDW Coefficient of Variation 15.5 % (11.5-14.5); RDW Standard Deviation 50.8 fL (36.4-46.3); Red Blood Count 3.57 M/uL (4.7-6.1)
[2019-09-08] MEDS: PANTOprazole 40 MG TAB PO SCH (06:08)
[2019-09-08] MEDS: ACETAMINOPHEN 500 MG TAB PO SCH ×3 (06:08→22:00)
[2019-09-08 06:26] LABS: BUN Creatinine Ratio 23.2 (10-20); Calcium 8.7 mg/dl (8.5-10.1); Creatinine Clr Calc Pharmacy 56.7 ml/min; Est GFR (African American) 41.7; Potassium 4.5 mmol/L (3.5-5.1)
[2019-09-08] MEDS: PREGABALIN 100 MG CAP PO SCH ×4 (09:07→22:00)
[2019-09-08] MEDS: BuPROPion SR 150 MG TABCR PO SCH ×2 (09:08→22:01)
[2019-09-08] MEDS: DOCUSATE SODIUM 100 MG CAP PO SCH ×2 (09:08→22:02)
[2019-09-08] MEDS: MAGNESIUM OXIDE 400 MG TAB PO SCH ×2 (09:08→22:02)
[2019-09-08] MEDS: AMIODARONE 200 MG TAB PO SCH ×2 (09:09→09:18)
[2019-09-08] MEDS: ASPIRIN 81 MG ECTAB PO SCH (09:09)
[2019-09-08] MEDS: lisinopriL 10 MG TAB PO SCH (09:09)
[2019-09-08] MEDS: FERROUS SULFATE 325 MG TAB PO SCH ×2 (09:10→17:24)
[2019-09-08] MEDS: lamoTRIgine 25 MG TAB PO SCH ×2 (09:10→22:01)
[2019-09-08] MEDS: TORSEMIDE 100 MG TAB PO SCH (09:10)
[2019-09-08] MEDS: cephALEXin 500 MG CAP PO SCH ×3 (09:10→22:01)
[2019-09-08] MEDS: DONEPEZIL HCL 10 MG TAB PO SCH (09:11)
[2019-09-08] MEDS: MONTELUKAST SODIUM 10 MG TABLET PO SCH (09:11)
[2019-09-08] MEDS: CHOLECALCIFEROL 1,000 UNITS 25 MCG TAB PO SCH (09:11)
[2019-09-08] MEDS: MULTIVITAMIN TAB PO SCH (09:11)
[2019-09-08] MEDS: PRIMIDONE 50 MG TAB PO SCH ×2 (09:12→22:01)
[2019-09-08] MEDS: carvediloL 12.5 MG TAB PO SCH ×2 (09:12→22:01)
[2019-09-08] MEDS: DULOXETINE HCL 60 MG CAP PO SCH (09:15)
[2019-09-08] MEDS: INSULIN GLARGINE SOLOSTAR 100 UNITS/ML 3 ML PEN SC SCH ×2 (09:19→22:02)
[2019-09-08] MEDS: INSULIN ASPART 100 UNITS/ML 3 ML PEN SC SCH ×4 (09:21→22:00)
--- NOTE | 2019-09-08 10:28 | Hospitalist Progress Note ---
Date of Service September 08, 2019 Assessment & Plan (1) Osteomyelitis: (2) Amputation finger: -Patient is status post partial amputation of right ring finger secondary to MSSA osteomyelitis by Dr. Negron POD #2 -EBL 5 mL -Tolerated procedure well -Pain and wound management per Ortho -Was hospitalized in July when culture grew MSSA, patient has been on p.o. cephalexin since that time -Further antibiotic recommendations as per ID -Also has left fourth finger ulceration, x-ray showing possible osteomyelitis -Per ID, would prefer to hold off additional antibiotics, will need continued wound care followup at [facility] upon d/c. (3) Acute kidney injury superimposed on CKD: (4) Chronic kidney disease, stage III (moderate): -Baseline creatinine 1.4-1.7 -Creatinine 2.0 today -Hold lisinopril and torsemide, give gentle IVF -Follow renal functions in a.m. (5) CHF (congestive heart failure): -hx of Ischemic Cardiomyopathy -May be on the dry side today with elevated creatinine -will hold torsemide and lisinopril today, give gentle IVF -Continue beta-kitty -Last echo in 2014 revealed mildly reduced systolic EF 40 to 44%, apical hypokinesis with anterior septal and anterior wall motion abnormality (6) CAD (coronary artery disease), [place] coronary artery: -Appears stable, no reports of chest pain -Continue aspirin, statin, beta-kitty, VIVIANA inhibitor (7) Diabetes mellitus, type 2: -Hgb A1c 8.5 07/2019 -Typically managed with insulin pump which is been placed on hold and utilizing Lantus and NovoLog per protocol -Glycemic pharmacist consulted (8) Atrial fibrillation: -Rate and rhythm controlled on Coreg, amiodarone -Continue Xarelto, renally dosed (9) Peripheral neuropathy: -Patient is on high-dose Lyrica, as well as nortriptyline and Cymbalta -Patient also with restless leg syndrome on Requip and pramipexole (10) LAURA treated with BiPAP: (11) Obesity hypoventilation syndrome: -Continue BiPAP (12) Anemia: -Baseline hemoglobin ~ 9-10 -Hgb 10.1 today -No signs or symptoms of bleeding -Normocytic normochromic likely anemia of chronic disease (13) 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, pre-operative cardiovascular examination: -ICD in place secondary to history of ventricular tachycardia -No acute issues (14) Depression: -Continue Cymbalta (15) DVT prophylaxis: -Anticoagulated on Xarelto Supervising Physician Co-Signing Physician Notes Attending addendum; The patient was seen and examined on 09/08/2019 He remains stable without any significant symptoms but noted to have increasing BUN and creatinine He denies any significant symptoms On examination Sitting in a chair without any acute symptoms except weakness Hemodynamically stable Chest-decreased breath sounds with minimal bibasilar crackles Heart-S1-S2 Abdomen-distended, soft Extremities-mild edema on the left, right BKA His labs and imaging studies noted Has increasing creatinine likely secondary to dehydration We will provide cautious IV fluid and advised to drink more fluid Monitor PRP Agree with assessment and plan as outlined above by Nubia Chavez Subjective Patient seen and examined. Resting in bed, no acute distress. Offers no complaints. Denies chest pain or shortness of breath. No lightheadedness present. Denies abdominal pain or nausea. Urinating and having bowel movement without difficulty. Physical Exam Constitutional: WD/WN, vitals as above + obese; no acute distress Resting in bed Respiratory: normal respiratory effort, lungs clear to auscultation Cardiovascular: Rate/Rhythm: regular rate and regular rhythm Vessels: normal peripheral pulses Extremities: no edema Gastrointestinal (Abdomen): normal bowel sounds, soft, nontender, no hepatosplenomegaly Inspection/Auscultation: + abdomen distended Musculoskeletal: Extremities: + lower leg abnormality (BKA) Right Dressings in place to right fourth finger and left fourth finger Skin: no rashes, warm and dry Chronic venous changes BLE Psychiatric: A+Ox3, euthymic affect Results & Data Vital Signs (Past 12 Hours) Vital Signs Temp Pulse Resp BP Pulse Ox 09/08/19 07:04 37.2 C 94 H 18 97/62 L 97 09/07/19 23:40 36.4 C L 91 H 18 123/70 97 Laboratory Results Short CBC 09/08/19 Range/Units 05:24 WBC 5.60 (4.8-10.8) K/uL Hgb 10.1 L (14.0-18.0) g/dL Hct 32.0 L (42-52) % Plt Count 206 (130-400) K/uL BMP 09/08/19 05:24 Sodium 137 Potassium 4.5 Chloride 104 Carbon Dioxide 27 BUN 46 H Creatinine 2.00 H D Glucose 143 H Calcium 8.7
[2019-09-08] MEDS ORDERED: SODIUM CHLORIDE 0.9% 1000ML 1,000 ML IV SCH (10:30)
--- NOTE | 2019-09-08 14:17 | Pharmacy Report ---
Pharmacy Glycemic Short Note 2 - Date of Service September 08, 2019 - Glycemic Short BSG Results (Last 24 hours): 09/07/19 09/07/19 09/08/19 17:31 20:29 05:24 Glucose 143 H POC Glucose 189 H 191 H 09/08/19 09/08/19 08:05 12:42 Glucose POC Glucose 168 H 198 H OUTPATIENT ANTIDIABETIC REGIMEN: * Insulin Pump: Basal 85.1 units/day; 30 units with meals ASSESSMENT: 09/08 * Mr. Cullen received 94 units of insulin yesterday, 55 units of basal, 39 units of correctional/prandial * Fasting this morning 168, above goal, will adjust pm lantus scale up to 35 units * Prandial BSGs ranged from 191-222 yesterday, will tighten carb ratio 09/07 * Mr. Cullen received 35 units of basal yesterday, fasting this morning 151, will continue to titrate lantus up with scale * Lunch BSG elevated today, however patient had later breakfast. On previous admission carb ratio was titrated down to 3, therefore will tighten to a CR of 4 at this time and reassess need for tighter coverage. PLAN FOR INPATIENT GLYCEMIC CONTROL: * Hold outpatient oral diabetes medications * Basal insulin * Lantus 25 units this morning * scale for HS: * 25 units BSG <120 * 30 units BSG 120-180 * 35 units BSG >180 * Bolus insulin * NovoLog per scale ACHS or Q6hrs while NPO * Goal Range: Low 110 mg/dL - High 140 mg/dL * Correction Factor: 15 mg/dL/unit * Nutritional / Prandial insulin per carb ratio of 1 unit per 3.5 grams CHO consumed PLAN FOR DISCHARGE: * A1c 8.3% on 08/08, this was an improvement from 07/17/19 8.5%. Patient's req uirements reduced while inpatient. As A1c trending down with outpatient management, would recommend follow-up with patient's MTM group for further adjustments.
--- NOTE | 2019-09-08 17:14 | Orthopedic Progress Note ---
Date of Service September 08, 2019 Assessment & Plan (1) Osteomyelitis: POD # 2, s/p I&D R RF and partial amputation, doing as well as expected. Continue pain control. Continue DMI diet. Re-check wound tomorrow and change dressing. Creatinine increased to 2. Medicine following. Appreciate ID input. Await final cultures---pending. Continue PO Keflex. Contact precautions due to h/o MSSA. - Nasal MRSA swab (1st). D/C planning--HH Nursing---Plan would be to discharge tomorrow late am. Left Ring Finger infection, concern for osteomyelitis. Continue daily warm soaks and dressing changes. (patient has a small dry ulcer noted to left pointer finger, ok to perform warm soaks as well but in separately) Consult ID, would like to hold Abx, appreciate input. No surgical intervention at this time, will continue to monitor. D/C planning-- nursing Will follow weekly labs; however, CRP and WBC from 09/05/2019 were within normal limits. I, Dr. Negron, saw and examined the patient and discussed the management with my PA. I reviewed my PAs note and agree with the documented findings and the plan of care I developed. Subjective Patient seen and examined with Dr Negron. Watching TV in chair at bedside. Has no complaints. Denies chest pain or shortness of breath. No lightheadedness. Denies abdominal pain or nausea. Urinating and having bowel movement without difficulty. Nurse just changed dressings to right ring finger. Left ring finger was soaked today and redressed. He says his left pointer finger was not redressed. Physical Exam Physical Exam: Right ring finger wound inspected. sutures intact. no active drainage. some blood noted on adaptic. no pus or foul odor. limited motion to PIP. otherwise no limitation to ROM to other fingers or hand. No change in NV. Altered sensation unchanged. palpable radial pulse. mild swelling to finger and left hand. Left ring finger tip inspected. nail intact. surface ulcer to tip with minimal scant bloody drainage on adaptic. No pus or foul odor. Left pointer finger with dry ulcer area to PIP. Patient has no limitations with left hand and finger motion. NV intact. palpable radial pulse. no swelling noted. Results & Data Vital Signs (Past 12 Hours) Vital Signs Temp Pulse Resp BP Pulse Ox 09/08/19 16:10 36.6 C 96 H 17 101/62 96 09/08/19 07:04 37.2 C 94 H 18 97/62 L 97 Laboratory Results 09/08/19 09/08/19 09/08/19 Range/Units 12:42 08:05 05:24 WBC (4.8-10.8) K/uL RBC (4.7-6.1) M/uL Hgb (14.0-18.0) g/dL Hct (42-52) % MCV (80-100) fL MCH (25-34) pg MCHC (32-36) g/dL RDW Std Deviation (36.4-46.3) fL RDW Coeff of Karolina (11.5-14.5) % Plt Count (130-400) K/uL MPV (7.4-10.4) fL Immature Gran % (Auto) % Neut % (Auto) % Lymph % (Auto) % [place] % (Auto) % Eos % (Auto) % Baso % (Auto) % Immature Gran # (Auto) (0.00-0.02) K/uL Neut # (Auto) (1.4-6.5) K/uL Lymph # (Auto) (1.2-3.4) K/uL [place] # (Auto) (0.11-0.59) K/uL Eos # (Auto) (0-0.5) K/uL Baso # (Auto) (0-0.2) K/uL Sodium 137 (136-145) mmol/L Potassium 4.5 (3.5-5.1) mmol/L Chloride 104 (98-107) mmol/L Carbon Dioxide 27 (21-32) mmol/L Anion Gap 6.0 (3-11) BUN 46 H (7-18) mg/dl Creatinine 2.00 H D (0.6-1.4) mg/dl Est Cr Clr Drug Dosing 56.7 ml/min Est GFR ( Amer) 41.7 Est GFR (Non-Af Amer) 36.0 BUN/Creatinine Ratio 23.2 H (10-20) Glucose 143 H (70-99) mg/dl POC Glucose 198 H 168 H (70-99) mg/dl Calcium 8.7 (8.5-10.1) mg/dl 09/08/19 09/07/19 09/07/19 Range/Units 05:24 20:29 17:31 WBC 5.60 (4.8-10.8) K/uL RBC 3.57 L (4.7-6.1) M/uL Hgb 10.1 L (14.0-18.0) g/dL Hct 32.0 L (42-52) % MCV 89.6 (80-100) fL MCH 28.3 (25-34) pg MCHC 31.6 L (32-36) g/dL RDW Std Deviation 50.8 H (36.4-46.3) fL RDW Coeff of Karolina 15.5 H (11.5-14.5) % Plt Count 206 (130-400) K/uL MPV 8.9 (7.4-10.4) fL Immature Gran % (Auto) 0.5 % Neut % (Auto) 66.2 % Lymph % (Auto) 22.5 % [place] % (Auto) 6.6 % Eos % (Auto) 3.8 % Baso % (Auto) 0.4 % Immature Gran # (Auto) 0.03 H (0.00-0.02) K/uL Neut # (Auto) 3.71 (1.4-6.5) K/uL Lymph # (Auto) 1.26 (1.2-3.4) K/uL [place] # (Auto) 0.37 (0.11-0.59) K/uL Eos # (Auto) 0.21 (0-0.5) K/uL Baso # (Auto) 0.02 (0-0.2) K/uL Sodium (136-145) mmol/L Potassium (3.5-5.1) mmol/L Chloride (98-107) mmol/L Carbon Dioxide (21-32) mmol/L Anion Gap (3-11) BUN (7-18) mg/dl Creatinine (0.6-1.4) mg/dl Est Cr Clr Drug Dosing ml/min Est GFR ( Amer) Est GFR (Non-Af Amer) BUN/Creatinine Ratio (10-20) Glucose (70-99) mg/dl POC Glucose 191 H 189 H (70-99) mg/dl Calcium (8.5-10.1) mg/dl
[2019-09-08] MEDS: PRAMIPEXOLE DIHYDROCHLO 0.25 MG TAB PO SCH ×2 (17:23→22:01)
[2019-09-08] MEDS: RIVAROXABAN 15 MG TAB PO SCH (17:24)
[2019-09-08] MEDS: NORTRIPTYLINE HCL 25 MG CAP PO SCH (22:01)
[2019-09-08] MEDS: ROPINIROLE HCL 1 MG TABLET PO SCH (22:01)
[2019-09-08] MEDS: SENNA 8.6 MG TAB PO SCH (22:02)
[2019-09-08] MEDS: ATORVASTATIN 20 MG TAB PO SCH (22:02)
[2019-09-09 05:28] LABS: Hematocrit (blood only) 32.4 % (42-52); Hemoglobin 10.4 g/dL (14.0-18.0); Mean Corpuscular Hemoglobin 28.3 pg (25-34); Mean Corpuscular Hgb Conc 32.1 g/dL (32-36); Mean Corpuscular Volume 88.3 fL (80-100); Mean Platelet Volume 8.9 fL (7.4-10.4); Platelet Count 204 K/uL (130-400); RDW Coefficient of Variation 15.5 % (11.5-14.5); RDW Standard Deviation 49.7 fL (36.4-46.3); Red Blood Count 3.67 M/uL (4.7-6.1); White Blood Count 6.23 K/uL (4.8-10.8)
[2019-09-09 05:51] LABS: BUN Creatinine Ratio 24.6 (10-20); Calcium 8.7 mg/dl (8.5-10.1); Creatinine Clr Calc Pharmacy 51.1 ml/min; Est GFR (Non-African American) 31.9
[2019-09-09] MEDS: PANTOprazole 40 MG TAB PO SCH (05:58)
[2019-09-09] MEDS: ACETAMINOPHEN 500 MG TAB PO SCH ×4 (05:59→23:28)
[2019-09-09] MEDS: DOCUSATE SODIUM 100 MG CAP PO SCH ×2 (08:40→22:09)
[2019-09-09] MEDS: PREGABALIN 100 MG CAP PO SCH ×4 (08:41→22:33)
[2019-09-09] MEDS: CHOLECALCIFEROL 1,000 UNITS 25 MCG TAB PO SCH (08:43)
[2019-09-09] MEDS: MONTELUKAST SODIUM 10 MG TABLET PO SCH (08:43)
[2019-09-09] MEDS: lamoTRIgine 25 MG TAB PO SCH ×2 (08:44→22:13)
[2019-09-09] MEDS: FERROUS SULFATE 325 MG TAB PO SCH ×2 (08:44→17:10)
[2019-09-09] MEDS: cephALEXin 500 MG CAP PO SCH (08:45)
[2019-09-09] MEDS: ASPIRIN 81 MG ECTAB PO SCH (08:45)
[2019-09-09] MEDS: AMIODARONE 200 MG TAB PO SCH (08:46)
[2019-09-09] MEDS: MAGNESIUM OXIDE 400 MG TAB PO SCH ×2 (08:46→22:15)
[2019-09-09] MEDS: PRIMIDONE 50 MG TAB PO SCH ×2 (08:47→22:12)
[2019-09-09] MEDS: DONEPEZIL HCL 10 MG TAB PO SCH (08:48)
[2019-09-09] MEDS: carvediloL 12.5 MG TAB PO SCH ×2 (08:48→22:20)
[2019-09-09] MEDS: DULOXETINE HCL 60 MG CAP PO SCH (08:48)
[2019-09-09] MEDS: MULTIVITAMIN TAB PO SCH (08:49)
[2019-09-09] MEDS: BuPROPion SR 150 MG TABCR PO SCH ×2 (08:49→22:11)
[2019-09-09] MEDS: INSULIN GLARGINE SOLOSTAR 100 UNITS/ML 3 ML PEN SC SCH ×2 (08:51→22:07)
[2019-09-09] MEDS: INSULIN ASPART 100 UNITS/ML 3 ML PEN SC SCH ×4 (08:52→22:06)
--- NOTE | 2019-09-09 10:08 | Hospitalist Progress Note ---
Date of Service September 09, 2019 Assessment & Plan (1) Osteomyelitis: (2) Amputation finger: -S/p partial amputation of right ring finger secondary to MSSA osteomyelitis by Dr. Negron POD #3 -EBL 5 mL -Tolerated procedure well -Pain and wound management per Ortho -Was hospitalized in July when culture grew MSSA, patient has been on p.o. cephalexin since that time -Further antibiotic recommendations as per ID -Also has left fourth finger ulceration, x-ray showing possible osteomyelitis -Per ID, would prefer to hold off additional antibiotics, will need continued wound care followup at [facility] upon discharge (3) Acute kidney injury superimposed on CKD: (4) Chronic kidney disease, stage III (moderate): -Baseline creatinine 1.4-1.7, Cr increased to 2.2 today (2.0 yesterday) -Held lisinopril and torsemide yesterday and today, given gentle IVF -Has been restricting PO intake due to anxiety about urinary incontinence if unable to make it to bathroom. Discussed need for fluids to improve kidney function, use of bedside urinal, etc -Likely to need continued gentle IVF but patient initially refused. Will re- evaluate this afternoon (5) CHF (congestive heart failure): -Hx of Ischemic Cardiomyopathy -Appears clinically dry -Will continue to hold torsemide and lisinopril today, encourage PO intake -Continue beta-kitty -Last echo in 2014 revealed mildly reduced systolic EF 40 to 44%, apical hypokinesis with anterior septal and anterior wall motion abnormality (6) CAD (coronary artery disease), [place] coronary artery: -Appears stable, no reports of chest pain -Continue aspirin, statin, beta-kitty (7) Diabetes mellitus, type 2: -Hgb A1c 8.5 07/2019 -Typically managed with insulin pump which is been placed on hold and utilizing Lantus and NovoLog per protocol -Glycemic pharmacist consulted (8) Atrial fibrillation: -Rate and rhythm controlled on Coreg, amiodarone -Continue Xarelto, renally dosed (9) Peripheral neuropathy: -Patient is on high-dose Lyrica, as well as nortriptyline and Cymbalta -Patient also with restless leg syndrome on Requip and pramipexole (10) LAURA treated with BiPAP: -Continue BiPAP (11) Obesity hypoventilation syndrome: -Continue BiPAP (12) Anemia: -Baseline hemoglobin ~ 9-10 -Hgb 10.4 today -No signs or symptoms of bleeding -Normocytic normochromic likely anemia of chronic disease (13) 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 Increase PO intake, readdress IVF, hold diuretics. Per primary service. Patient seen in collaboration with Dr. Chavez. Please see addendum. Thank you for this consultation. We will follow the patient with you during their hospital stay. You can reach a [facility] via pager @ [phone]. Supervising Physician Co-Signing Physician Notes Attending addendum: The patient was seen and examined in the medical floor Denies any symptoms as of today He has been drinking enough fluid and agreed to have 1 L of normal saline infusion On examination Sitting in a chair without any distress Hemodynamically stable Chestclear HeartS1-S2 Abdomen-distended, soft, bowel sounds present Extremities-no edema on the left and right BKA His labs and imaging studies reviewed Has URBANO likely secondary to dehydration Agree with assessment plan as outlined above by JAYY Ivory Dr Subjective Patient seen and examined in 309-1. Resting in bedside chair watching TV. Denies any surgical site pain, fever, chills, lightheadedness, visual changes, chest pain, SOB, nausea, vomiting, abdominal pain, dysuria, diarrhea or constipation. Having bowel movements. Has not been drinking as much orally due anxiety about not making it to the bathroom in time. Discussed need for better hydration and coordinated care with nursing. Also discussed him using bedside urinal with assistance. Review of Systems Review of Systems: At least ten systems reviewed and negative except as noted in the HPI. Physical Exam Physical Exam: General Appearance: WD/WN, vitals as above, NAD, sitting in bedside chair, obese, pleasant, conversing easily Head: normocephalic, atraumatic Eyes: normal inspection, PERRL, conjunctivae normal, anicteric sclerae ENT: external ear and nose normal, oropharynx normal Neck: trachea midline, no thyromegaly normal visual inspection Respiratory: normal respiratory effort, lungs clear to auscultation, no wheeze, rales, rhonchi Cardiovascular: regular rate, rhythm, no murmur, normal peripheral pulses Chest: normal inspection of chest Abdomen/GI: normal bowel sounds, soft, nontender, no hepatosplenomegaly Extremities/Musculoskeletal: Bilateral ring fingers with dressing clean, dry, intact. R BKA. No cyanosis or clubbing, extremities motor strength 5/5 Neurologic: PERRL, CN's II-XI intact bilaterally and moves all extremities Psychiatric: A+Ox3, euthymic affect Skin: no rashes, normal color, warm/dry Results & Data Vital Signs (Past 12 Hours) Vital Signs Temp Pulse Pulse Resp BP Pulse Ox 09/09/19 08:39 76 107/64 09/09/19 07:13 36.6 C 73 16 95/59 L 95 09/08/19 23:55 36.4 C L 74 18 100/58 L 97 Laboratory Results Short CBC 09/09/19 Range/Units 04:45 WBC 6.23 (4.8-10.8) K/uL Hgb 10.4 L (14.0-18.0) g/dL Hct 32.4 L (42-52) % Plt Count 204 (130-400) K/uL BMP 09/09/19 04:45 Sodium 133 L Potassium 4.0 Chloride 99 Carbon Dioxide 26 BUN 54 H Creatinine 2.21 H Glucose 118 H Calcium 8.7
--- NOTE | 2019-09-09 10:36 | Orthopedic Progress Note ---
Date of Service September 09, 2019 Assessment & Plan (1) Osteomyelitis: POD # 3, s/p I&D R RF and partial amputation, doing as well as expected. Continue pain control. Continue DMI diet. Dressing changed. Creatinine continues to increase above 2. Medicine feels he is not ready for d/c, appreciate input. Appreciate ID input. Await final cultures---pending. D/C Keflex. Contact precautions due to h/o MSSA. - Nasal MRSA swab (1st). D/C planning-- Nursing-- discharge pending medically stable. Left Ring Finger infection, concern for osteomyelitis. Left Index finger dry cracked dorsal wound over PIP. Continue daily warm soaks of individual fingers and dressing changes. Consult ID, would like to hold Abx, appreciate input, will stop Abx. No surgical intervention at this time, will continue to monitor. D/C planning-- nursing Will follow weekly labs; however, CRP and WBC from 09/05/2019 were within normal limits. Subjective Feeling pretty good. Review of Systems Review of Systems: All systems reviewed & are unremarkable except as noted in HPI & below Physical Exam Physical Exam: R RF: Incision is clean, dry, intact, with some scabbing over the incision line. Brisk cap refill less than 2 seconds. The digit is insensate, unchanged. No evidence of infection. Overall the finger looks good. LUE: Left ring finger, there is an eschar at the tip, there is no active drainage. Minimal swelling. Overall the finger looks much improved. Left index finger, there is a crack in the dorsal skin overlying the PIP joint, with no signs of infection. Neurovascularly unchanged. Results & Data Vital Signs (Past 12 Hours) Vital Signs Temp Pulse Pulse Resp BP Pulse Ox 09/09/19 08:39 76 107/64 09/09/19 07:13 36.6 C 73 16 95/59 L 95 09/08/19 23:55 36.4 C L 74 18 100/58 L 97 Laboratory Results 09/09/19 09/09/19 09/09/19 Range/Units 12:25 08:23 04:45 WBC (4.8-10.8) K/uL RBC (4.7-6.1) M/uL Hgb (14.0-18.0) g/dL Hct (42-52) % MCV (80-100) fL MCH (25-34) pg MCHC (32-36) g/dL RDW Std Deviation (36.4-46.3) fL RDW Coeff of Karolina (11.5-14.5) % Plt Count (130-400) K/uL MPV (7.4-10.4) fL Sodium 133 L (136-145) mmol/L Potassium 4.0 (3.5-5.1) mmol/L Chloride 99 (98-107) mmol/L Carbon Dioxide 26 (21-32) mmol/L Anion Gap 8.0 (3-11) BUN 54 H (7-18) mg/dl Creatinine 2.21 H (0.6-1.4) mg/dl Est Cr Clr Drug Dosing 51.1 ml/min Est GFR ( Amer) 37.0 Est GFR (Non-Af Amer) 31.9 BUN/Creatinine Ratio 24.6 H (10-20) Glucose 118 H (70-99) mg/dl POC Glucose 154 H 152 H (70-99) mg/dl Calcium 8.7 (8.5-10.1) mg/dl 09/09/19 09/08/19 09/08/19 Range/Units 04:45 20:39 17:19 WBC 6.23 (4.8-10.8) K/uL RBC 3.67 L (4.7-6.1) M/uL Hgb 10.4 L (14.0-18.0) g/dL Hct 32.4 L (42-52) % MCV 88.3 (80-100) fL MCH 28.3 (25-34) pg MCHC 32.1 (32-36) g/dL RDW Std Deviation 49.7 H (36.4-46.3) fL RDW Coeff of Karolina 15.5 H (11.5-14.5) % Plt Count 204 (130-400) K/uL MPV 8.9 (7.4-10.4) fL Sodium (136-145) mmol/L Potassium (3.5-5.1) mmol/L Chloride (98-107) mmol/L Carbon Dioxide (21-32) mmol/L Anion Gap (3-11) BUN (7-18) mg/dl Creatinine (0.6-1.4) mg/dl Est Cr Clr Drug Dosing ml/min Est GFR ( Amer) Est GFR (Non-Af Amer) BUN/Creatinine Ratio (10-20) Glucose (70-99) mg/dl POC Glucose 146 H 130 H (70-99) mg/dl Calcium (8.5-10.1) mg/dl Cultures and sensitivities are still pending, no growth to date. Low counts mixed probable skin microbiota.
[2019-09-09] MEDS ORDERED: SODIUM CHLORIDE 0.9% 1000ML 1,000 ML IV SCH (12:30)
[2019-09-09] MEDS: PRAMIPEXOLE DIHYDROCHLO 0.25 MG TAB PO SCH ×2 (17:07→22:14)
[2019-09-09] MEDS: RIVAROXABAN 15 MG TAB PO SCH (17:08)
[2019-09-09] MEDS: SENNA 8.6 MG TAB PO SCH (22:09)
[2019-09-09] MEDS: NORTRIPTYLINE HCL 25 MG CAP PO SCH (22:11)
[2019-09-09] MEDS: ATORVASTATIN 20 MG TAB PO SCH (22:11)
[2019-09-09] MEDS: ROPINIROLE HCL 1 MG TABLET PO SCH (22:13)
[2019-09-10] MEDS: DOCUSATE SODIUM 100 MG CAP PO SCH (05:50)
[2019-09-10] MEDS: PANTOprazole 40 MG TAB PO SCH (05:51)
[2019-09-10 06:19] LABS: Hematocrit (blood only) 32.9 % (42-52); Hemoglobin 10.5 g/dL (14.0-18.0); Mean Corpuscular Hemoglobin 28.2 pg (25-34); Mean Corpuscular Hgb Conc 31.9 g/dL (32-36); Mean Corpuscular Volume 88.2 fL (80-100); Mean Platelet Volume 8.9 fL (7.4-10.4); Platelet Count 205 K/uL (130-400); RDW Coefficient of Variation 15.3 % (11.5-14.5); RDW Standard Deviation 49.2 fL (36.4-46.3); Red Blood Count 3.73 M/uL (4.7-6.1); White Blood Count 5.76 K/uL (4.8-10.8)
[2019-09-10 06:57] LABS: BUN Creatinine Ratio 29.2 (10-20); Calcium 8.8 mg/dl (8.5-10.1); Creatinine Clr Calc Pharmacy 66.1 ml/min; Est GFR (African American) 50.4; Est GFR (Non-African American) 43.5; Potassium 4.3 mmol/L (3.5-5.1)
[2019-09-10] MEDS: CHOLECALCIFEROL 1,000 UNITS 25 MCG TAB PO SCH (09:01)
[2019-09-10] MEDS: BuPROPion SR 150 MG TABCR PO SCH (09:01)
[2019-09-10] MEDS: PREGABALIN 100 MG CAP PO SCH (09:01)
[2019-09-10] MEDS: DONEPEZIL HCL 10 MG TAB PO SCH (09:03)
[2019-09-10] MEDS: AMIODARONE 200 MG TAB PO SCH (09:03)
[2019-09-10] MEDS: PRIMIDONE 50 MG TAB PO SCH (09:04)
[2019-09-10] MEDS: MULTIVITAMIN TAB PO SCH (09:04)
[2019-09-10] MEDS: lamoTRIgine 25 MG TAB PO SCH (09:05)
[2019-09-10] MEDS: ASPIRIN 81 MG ECTAB PO SCH (09:05)
[2019-09-10] MEDS: DULOXETINE HCL 60 MG CAP PO SCH (09:06)
[2019-09-10] MEDS: MAGNESIUM OXIDE 400 MG TAB PO SCH (09:06)
[2019-09-10] MEDS: MONTELUKAST SODIUM 10 MG TABLET PO SCH (09:06)
[2019-09-10] MEDS: FERROUS SULFATE 325 MG TAB PO SCH (09:08)
[2019-09-10] MEDS: INSULIN GLARGINE SOLOSTAR 100 UNITS/ML 3 ML PEN SC SCH (09:11)
[2019-09-10] MEDS: INSULIN ASPART 100 UNITS/ML 3 ML PEN SC SCH (09:14)
[2019-09-10] MEDS: carvediloL 12.5 MG TAB PO SCH (09:18)
[2019-09-10] MEDS: ACETAMINOPHEN 500 MG TAB PO SCH (09:18)
--- NOTE | 2019-09-10 09:31 | Orthopedic Progress Note ---
Date of Service September 10, 2019 Assessment & Plan (1) Osteomyelitis: POD # 4, s/p I&D R RF and partial amputation, doing as well as expected. Continue pain control. Continue DMI diet. Dressing changed. Continue every other day dressing changes: cover with Adaptic, Samreen, and Coban for both R RF & RIF Creatinine returned to baseline 1.7. Medicine feels he is ready for d/c, appreciate input. Appreciate ID input. Await final cultures---pending. D/C Keflex. Contact precautions due to h/o MSSA. - Nasal MRSA swab (). D/C planning-- Nursing-- discharge later today, medically stable. Left Ring Finger infection, concern for osteomyelitis. Left Index finger dry cracked dorsal wound over PIP and nail bed. Continue daily warm soaks of individual fingers and dressing changes. Consult ID, holding Abx, appreciate input. No surgical intervention at this time, will continue to monitor. D/C planning-- nursing Will follow weekly labs; however, CRP and WBC from 09/05/2019 were within normal limits. F/U with PCP this week. F/U In Dr. Negron's office this week for wound checks. Subjective doing well. Review of Systems Review of Systems: All systems reviewed & are unremarkable except as noted in HPI & below Crack in Right index finger developed yesterday. Physical Exam Physical Exam: R RF: Incision is clean, dry, intact, with some scabbing over the incision line. Brisk cap refill less than 2 seconds. The digit is insensate, unchanged. No evidence of infection. Overall the finger looks good. R IF: small crack along volar aspect distal pad. No evidence of infection. Old dried blood on dressing. LUE: Left ring finger, there is an eschar at the tip, there is no active drainage. Minimal swelling. Overall the finger looks much improved. Left index finger, there is a crack in the dorsal skin overlying the PIP joint, with no signs of infection. Developed bleeding from the nail bed as well. Neurovascularly unchanged. Results & Data Vital Signs (Past 12 Hours) Vital Signs Temp Pulse Pulse Resp BP Pulse Ox 09/10/19 09:18 73 110/67 09/10/19 07:59 36.4 C L 70 20 118/70 93 09/10/19 00:00 36.4 C L 93 H 18 123/81 97 Laboratory Results 09/10/19 09/10/19 09/10/19 Range/Units 08:27 05:46 05:46 WBC 5.76 (4.8-10.8) K/uL RBC 3.73 L (4.7-6.1) M/uL Hgb 10.5 L (14.0-18.0) g/dL Hct 32.9 L (42-52) % MCV 88.2 (80-100) fL MCH 28.2 (25-34) pg MCHC 31.9 L (32-36) g/dL RDW Std Deviation 49.2 H (36.4-46.3) fL RDW Coeff of Karolina 15.3 H (11.5-14.5) % Plt Count 205 (130-400) K/uL MPV 8.9 (7.4-10.4) fL Sodium 136 (136-145) mmol/L Potassium 4.3 (3.5-5.1) mmol/L Chloride 104 (98-107) mmol/L Carbon Dioxide 25 (21-32) mmol/L Anion Gap 7.0 (3-11) BUN 50 H (7-18) mg/dl Creatinine 1.71 H D (0.6-1.4) mg/dl Est Cr Clr Drug Dosing 66.1 ml/min Est GFR ( Amer) 50.4 Est GFR (Non-Af Amer) 43.5 BUN/Creatinine Ratio 29.2 H (10-20) Glucose 128 H (70-99) mg/dl POC Glucose 140 H (70-99) mg/dl Calcium 8.8 (8.5-10.1) mg/dl 09/09/19 09/09/19 09/09/19 Range/Units 20:42 17:19 12:25 WBC (4.8-10.8) K/uL RBC (4.7-6.1) M/uL Hgb (14.0-18.0) g/dL Hct (42-52) % MCV (80-100) fL MCH (25-34) pg MCHC (32-36) g/dL RDW Std Deviation (36.4-46.3) fL RDW Coeff of Karolina (11.5-14.5) % Plt Count (130-400) K/uL MPV (7.4-10.4) fL Sodium (136-145) mmol/L Potassium (3.5-5.1) mmol/L Chloride (98-107) mmol/L Carbon Dioxide (21-32) mmol/L Anion Gap (3-11) BUN (7-18) mg/dl Creatinine (0.6-1.4) mg/dl Est Cr Clr Drug Dosing ml/min Est GFR ( Amer) Est GFR (Non-Af Amer) BUN/Creatinine Ratio (-20) Glucose (70-99) mg/dl POC Glucose 127 H 158 H 154 H (70-99) mg/dl Calcium (8.5-10.1) mg/dl 09/09/19 Range/Units 08:23 WBC (4.8-10.8) K/uL RBC (4.7-6.1) M/uL Hgb (14.0-18.0) g/dL Hct (42-52) % MCV (80-100) fL MCH (25-34) pg MCHC (32-36) g/dL RDW Std Deviation (36.4-46.3) fL RDW Coeff of Karolina (11.5-14.5) % Plt Count (130-400) K/uL MPV (7.4-10.4) fL Sodium (136-145) mmol/L Potassium (3.5-5.1) mmol/L Chloride (98-107) mmol/L Carbon Dioxide (21-32) mmol/L Anion Gap (3-11) BUN (7-18) mg/dl Creatinine (0.6-1.4) mg/dl Est Cr Clr Drug Dosing ml/min Est GFR ( Amer) Est GFR (Non-Af Amer) BUN/Creatinine Ratio (-20) Glucose (70-99) mg/dl POC Glucose 152 H (70-99) mg/dl Calcium (8.5-10.1) mg/dl C&S, no changes or growth noted.
--- NOTE | 2019-09-11 07:52 | Hospitalist Progress Note ---
Date of Service Deiayed entry for the date of 09/10/2019 September 11, 2019 Assessment & Plan (1) Osteomyelitis: (2) Amputation finger: -S/p partial amputation of right ring finger secondary to MSSA osteomyelitis by Dr. Negron POD #3 -EBL 5 mL -Tolerated procedure well -Pain and wound management per Ortho -Was hospitalized in July when culture grew MSSA, patient has been on p.o. cephalexin since that time -Further antibiotic recommendations as per ID -Also has left fourth finger ulceration, x-ray showing possible osteomyelitis -Per ID, would prefer to hold off additional antibiotics, will need continued wound care followup at [facility] upon discharge (3) Acute kidney injury superimposed on CKD: (4) Chronic kidney disease, stage III (moderate): -Baseline creatinine 1.4-1.7, Cr increased to 2.2 today (2.0 yesterday) -Held lisinopril and torsemide yesterday and today, given gentle IVF -Has been restricting PO intake due to anxiety about urinary incontinence if unable to make it to bathroom. Discussed need for fluids to improve kidney function, use of bedside urinal, etc -Likely to need continued gentle IVF but patient initially refused. 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 [employer]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 (6) CAD (coronary artery disease), [place] coronary artery: -Appears stable, no reports of chest pain -Continue aspirin, statin, beta-kitty (7) Diabetes mellitus, type 2: -Hgb A1c 8.5 07/2019 -Typically managed with insulin pump which is been placed on hold and utilizing Lantus and NovoLog per protocol -Glycemic pharmacist consulted (8) Atrial fibrillation: -Rate and rhythm controlled on Coreg, amiodarone -Continue Xarelto, renally dosed (9) Peripheral neuropathy: -Patient is on high-dose Lyrica, as well as nortriptyline and Cymbalta -Patient also with restless leg syndrome on Requip and pramipexole (10) LAURA treated with BiPAP: -Continue BiPAP (11) Obesity hypoventilation syndrome: -Continue BiPAP (12) Anemia: -Baseline hemoglobin ~ 9-10 -Hgb 10.4 today -No signs or symptoms of bleeding -Normocytic normochromic likely anemia of chronic disease (13) 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 Increase PO intak e, readdress IVF, hold diuretics. Per primary service. Patient seen in collaboration with Dr. Chavez. Please see addendum. Thank you for this consultation. We will follow the patient with you during their hospital stay. You can reach a member of the [facility] via pager @ [phone]. Subjective 09/10/2019 Patient was seen and examined in medical floor He denies any symptoms whatsoever He has been feeling a lot better Will be discharged today as per the primary service Review of Systems Review of Systems: All systems reviewed and are unremarkable except as noted below Physical Exam Physical Exam: Sitting on a chair without any symptom Constitutional: well developed, well nourished and + obese; no acute distress Eyes: PERRL, conjunctivae normal, anicteric sclerae ENMT: external ear and nose normal, oropharynx normal Neck: trachea midline, no thyromegaly Respiratory: normal respiratory effort Auscultation: lungs clear to auscultation bilaterally and + diminished lung sounds Cardiovascular: Rate/Rhythm: regular rate and regular rhythm Vessels: normal peripheral pulses Extremities: no edema Gastrointestinal (Abdomen): normal bowel sounds, soft, nontender, no hepatosplenomegaly Inspection/Auscultation: + abdomen distended Musculoskeletal: Extremities: + lower leg abnormality (BKA) No acute arthritis in any joint Skin: no rashes, warm and dry Psychiatric: A+Ox3, euthymic affect
--- NOTE | 2019-09-12 16:33 | Discharge Summary ---
ADMITTING DIAGNOSES: Right ring finger infection/MSSA osteomyelitis. DISCHARGE DIAGNOSES: 1. Right ring finger MSSA osteomyelitis status post partial amputation with irrigation and debridement. 2. Left ring finger infection, possible osteomyelitis. CONDITION ON DISCHARGE: Stable. DATE OF DISCHARGE: 09/10/2019. PROCEDURE PERFORMED 09/06/2019: Right ring finger partial amputation with irrigation and debridement. CONSULTATIONS: Anesthesia, hospitalist and infectious disease. HOSPITAL COURSE: 59-year-old male admitted status post surgery with Dr. Negron consisting of right ring finger partial amputation with irrigation and debridement. Prior to the surgery the patient has been treated with PO Keflex for MSSA osteomyelitis of the right ring finger tip. His last sed rate and CRP leading up to the procedure had normalized. The patient tolerated the surgical procedure. He did receive 24 hours of IV Keflex switched to p.o. Keflex. Gram stain and cultures were performed of the right ring finger. The patient was also complaining of an ulcer to the tip of his left ring finger. X-rays were performed which showed possible osteomyelitis. Infectious disease was consulted. They recommended holding any additional antibiotics with continued wound care. While inhouse the patient was also consulted by medicine. He did have increased creatinine levels from baseline of 1.4-1.7 up to 2-2.2 which kept him in the hospital a few days longer. During that time, lisinopril, torsemide was held and gentle IV fluids was recommended. On 09/11/2019 his creatinine improved to 1.7. He was deemed medically stable to be discharged with recommendations from medicine to follow with his primary care within 7 days. During the hospital stay the patient's right ring finger dressings were changed and his incision was healing nicely with minimal scant bloody drainage. His left ring finger as well as his left pointer finger that also showed dry cracked skin to his PIP received individualized warm soaks on a daily basis with dressing changes. The patient was discharged to home on 09/11/2019 with home health nursing. DISCHARGE INSTRUCTIONS AND MEDICATIONS: The patient was discharged home in which he lives with his . Home health nursing was ordered to perform weekly blood work to include CBC with diff, sed rate and C-reactive protein. Also, the patient was to have dressing changes to his right ring finger every other day and his left ring finger and pointer finger dressing changes daily after daily warm soaks. The patient was not discharged on any antibiotics as his cultures were negative for significant growth showing low counts of mixed probable skin microbiota from the right ring finger. The patient is aware that we are going to allow the left ring finger to declare itself with time. From a medical standpoint he was discharged on all of his regular medications and recommended to follow up with his primary care provider within 7 days of discharge. The patient did not require any narcotics upon discharge. He will resume his regular Tylenol for pain. He is to follow up with Dr. Negron's office on September 15 at 2:00 p.m. He was, however, advised to call the office if he has any problems, questions, or concerns or signs or symptoms of infection including significant drainage, fevers, chills or sweats. ALL
== END 2019-09-10 11:34 | disposition home health service (06) | DRG 513 ==
LOC: ASU 07:20 → 3E 11:42

== ENCOUNTER 2022-06-26 02:05 | Inpatient (IN) ==
[2022-06-26] MEDS ORDERED: PIPERACILLIN/TAZOBACTAM 3.375 GM in DEXTROSE 5% 100 ML IV SCH (05:00)
[2022-06-26] MEDS ORDERED: POLYETHYLENE (MIRALAX) 17 GM PACK PO PRN ×2 (05:04→18:39)
[2022-06-26] MEDS ORDERED: ACETAMINOPHEN 325 MG TAB PO PRN (05:04)
[2022-06-26] MEDS ORDERED: NITROGLYCERIN SL 0.4 MG/TAB TAB SL PRN (05:04)
[2022-06-26] MEDS ORDERED: Patient's HEIGHT &/or WEIGHT Needed SCH (05:30)
[2022-06-26] MEDS ORDERED: GLUCAGON FOR INJ 1 MG VIAL IM PRN (05:30)
[2022-06-26] MEDS ORDERED: DEXTROSE 50% 50 ML SYRINGE IV PRN (05:30)
[2022-06-26] MEDS ORDERED: GLUCOSE 40% GEL 15 GM TUBE PO PRN (05:30)
[2022-06-26] MEDS ORDERED: GLUCOSE 10 TAB/TUBE PO PRN (05:30)
[2022-06-26] MEDS ORDERED: CARBOHYDRATES FOR HYPOGLYCEMIA PO PRN (05:30)
[2022-06-26] MEDS ORDERED: PHARMACY GLYCEMIC MGMT CONSULT PRN (05:33)
[2022-06-26] MEDS ORDERED: ALBUTEROL 0.083% NEBU SOLN 3 ML VIAL INH PRN (05:34)
[2022-06-26] MEDS ORDERED: NON-FORMULARY MEDICATION (Oxygen Home Liters per Minute) SCH (05:45)
[2022-06-26] MEDS ORDERED: PIPERACILLIN/TAZOBACTAM 4.5 GM in DEXTROSE 5% 100 ML IV ONE (06:15)
[2022-06-26] MEDS: INSULIN ASPART PER UNIT SC SCH ×3 (06:38→17:51)
[2022-06-26] MEDS: DAPTOmycin 600 MG in SYRINGE 0 ML IV SCH (07:49)
[2022-06-26] MEDS: PANTOprazole 40 MG TAB PO SCH (07:50)
[2022-06-26 08:17] LABS: Basophils # (auto) 0.08 K/uL (0-0.2); Basophils % (auto) 1.2 %; Eosinophils % (auto) 4.7 %; Immature Granulocytes # (auto) 0.04 K/uL (0.00-0.02); Immature Granulocytes % (auto) 0.6 %; Lymphocytes # (auto) 1.31 K/uL (1.2-3.4); Lymphocytes % (auto) 20.3 %; Mean Corpuscular Hemoglobin 30.3 pg (25.0-34.0); Mean Corpuscular Hgb Conc 32.4 g/dL (32.0-36.0); Mean Corpuscular Volume 93.7 fL (80.0-100.0); Mean Platelet Volume 9.2 fL (9.4-12.4); Monocytes # (auto) 0.52 K/uL (0.24-0.82); Monocytes % (auto) 8.1 %; Neutrophils # (auto) 4.19 K/uL (1.4-6.5); Neutrophils % (auto) 65.1 %; Platelet Count 258 K/uL (130-400); RDW Coefficient of Variation 14.2 % (11.5-14.5); RDW Standard Deviation 48.6 fL (36.4-46.3); Red Blood Count 3.63 M/uL (4.63-6.08); White Blood Count 6.44 K/ul (4.8-10.8)
[2022-06-26 08:28] LABS: Partial Thromboplastin Ratio 1.1; Partial Thromboplastin Time 29.3 Seconds (21.0-31.0); Prothrombin Time 10.3 Seconds (9.0-12.0)
[2022-06-26] MEDS ORDERED: LANTUS PER UNIT CHARGE SQ ONE (08:30)
[2022-06-26 08:38] LABS: Bilirubin,Total 0.2 mg/dl (0.2-1.0); Total Protein 7.7 gm/dl (6.0-8.3)
[2022-06-26 08:39] LABS: BUN Creatinine Ratio 18.4 (10-20); Calcium 8.8 mg/dl (8.5-10.1); Creatinine Clr Calc Pharmacy 62.1 ml/min; Est GFR (African American) 48.3 ml/min; Est GFR (Non-African American) 41.7 ml/min; Magnesium 2.6 mg/dl (1.7-2.4); Potassium 4.8 mmol/L (3.5-5.1)
[2022-06-26 08:52] LABS: Thyroid Stimulating Hormone 6.163 uIu/ml (0.300-4.500)
[2022-06-26] MEDS ORDERED: LANTUS PER UNIT CHARGE SQ SCH (09:00)
[2022-06-26] MEDS: allopurinoL 100 MG TAB PO SCH (09:00)
[2022-06-26] MEDS: PRIMIDONE 50 MG TAB PO SCH ×2 (09:01→20:25)
[2022-06-26] MEDS: DULoxetine HCL 60 MG CAP PO SCH (09:01)
[2022-06-26] MEDS: carvediloL 12.5 MG TAB PO SCH ×2 (09:01→20:26)
[2022-06-26] MEDS: buPROPion SR 150 MG TABCR PO SCH ×2 (09:01→20:26)
[2022-06-26] MEDS: MONTELUKAST SODIUM 10 MG TABLET PO SCH (09:01)
[2022-06-26] MEDS: lamoTRIgine 25 MG TAB PO SCH ×2 (09:01→20:26)
[2022-06-26] MEDS: AMIODARONE 200 MG TAB PO SCH (09:01)
[2022-06-26] MEDS: lisinopril 5 MG TAB PO SCH (09:01)
[2022-06-26] MEDS: CEROVITE ADV FORMULA TAB PO SCH (09:01)
[2022-06-26] MEDS: CHOLECALCIFEROL 5,000 UNITS 125 MCG TAB PO SCH (09:01)
[2022-06-26] MEDS: DONEPEZIL HCL 10 MG TAB PO SCH (09:01)
[2022-06-26] MEDS: TORSEMIDE 20 MG TAB PO SCH (09:01)
[2022-06-26] MEDS: APIXABAN 5 MG TABLET PO SCH ×2 (09:02→19:16)
[2022-06-26] MEDS: ASPIRIN 81 MG ECTAB PO SCH (09:02)
[2022-06-26] MEDS: ATORVASTATIN 40 MG TAB PO SCH (09:03)
[2022-06-26] MEDS: PREGABALIN 100 MG CAP PO SCH ×3 (09:13→20:22)
[2022-06-26 09:36] LABS: T4 Free Thyroxine 0.94 ng/dl (0.61-1.60)
--- NOTE | 2022-06-26 09:44 | History and Physical Report ---
DATE OF ADMISSION: 06/26/2022. CHIEF COMPLAINT: Right index finger osteomyelitis. HISTORY OF PRESENT ILLNESS: This 62-year-old male with past medical history significant for ischemic cardiomyopathy ,chronic diastolic CHF, status post ICD recently, EF is 50%-55% low normal, hypertension, history of paroxysmal ventricular tachycardia, on amiodarone, history of DVT and PE, on Eliquis, history of paroxysmal atrial fibrillation, on Eliquis, history of gouty arthritis, history of right below knee amputation, mostly wheelchair bound, history of CAD, history of small-bowel obstruction, complication of his gastric bypass surgery, history of obstructive sleep apnea on BiPAP, obesity, type 2 diabetes, on insulin pump, history of peripheral vascular disease, history of chronic kidney disease stage IIIB, hyperparathyroidism, diabetic retinopathy with hypertension, GERD, psoriatic arthropathy, restless legs syndrome, hip arthritis, amputation of middle fingers of right hand, history of migraines, muscular rigidity and spasm, normocytic anemia, recurrent infections, recurrent major depression disorder, and intention tremor. Lives at home with his . Went to [facility] because of infection of his right index finger. The patient's infection started when his nail came off a couple of weeks ago, but yesterday noticed that it is getting worse, skin came off and became more red. X-rays done at the [facility] showed osteomyelitis and he was transferred here for hand surgeon evaluation. The patient denies any pain. No fever or chills. Resting comfortably, hemodynamically stable. Denies any headache, no dizziness, no blurred visions. Has chronic runny nose, no sore throat, no cough. Dry throat. He has to drink water for swallowing his food. Denies any chest pain. He has chronic shortness of breath with exertion. No nausea, no vomiting, no abdominal pain. Somewhat constipated. Denies any blood in stools. Normal bladder movements. Has some swelling in the legs. Has wounds on his knees from bumping on the bed as per patient. 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 PAST MEDICAL HISTORY: As mentioned above. PAST SURGICAL HISTORY: Amputation of right great toe, treatment of anal fistula, colonoscopy, gastric bypass surgery for obesity, incisional hernia repair, right BKA, surgery for bowel obstruction, ventral hernia repair, ICD placement, laparoscopic cholecystectomy, , cardiac stent placement, cataract surgeries, treatment of extensive retinopathy. MEDICATIONS: The patient is on albuterol inhalation q.4 hours p.r.n., allopurinol 50 mg p.o. daily, amiodarone 200 mg p.o. daily, Eliquis 5 mg p.o. b.i.d., aspirin 81 mg p.o. daily, atorvastatin 40 mg p.o. daily, bupropion 150 mg sustained release p.o. b.i.d., Coreg 12.5 mg p.o. b.i.d., donepezil 10 mg p.o. daily, Trulicity 4.5 mg subcutaneously weekly, duloxetine 60 mg p.o. daily, insulin sliding scale, Lamictal 25 mg p.o. b.i.d., lisinopril 5 mg p.o. daily, montelukast 10 mg p.o. daily, multivitamin 1 tablet p.o. daily, nitroglycerin 0.4 mg sublingual p.r.n., nortriptyline 25 mg p.o. at bedtime, omeprazole 20 mg p.o. daily, pramipexole 0.5 mg at 5:00 p.m. and 1.5 mg p.o. at bedtime, pregabalin 200 mg p.o. t.i.d., pregabalin 50 mg p.o. at lunchtime, primidone 200 mg p.o. at bedtime, primidone 50 mg p.o. a.m., torsemide 40 mg p.o. daily, Trokendi XR 100 mg p.o. daily. FAMILY HISTORY: Father had allergies, diabetes, [place], at the age of 50, hypertension, hyperlipidemia. Mother had allergies, diabetes, heart disorder, hypertension, hyperlipidemia, at the age of 55. Paternal grandfather had diabetes, cancer. Maternal grandfather had MS. Sister has hypertension. SOCIAL HISTORY: . No smoking, no alcohol, no drug use. REVIEW OF SYSTEMS: As per HPI. Rest of review of systems is negative. PHYSICAL EXAMINATION: VITAL SIGNS: Currently unavailable. GENERAL: The patient is morbidly obese, alert, oriented, not in acute distress. HEENT: No pallor. Extraocular muscles intact. Oral mucosa moist. NECK: No JVD. No neck masses. CARDIOVASCULAR: S1 and S2 heard. Regular rate and rhythm. No murmur, no gallop. RESPIRATORY SYSTEM: Normal AP diameter. No accessory muscle use. No wheezing, no crackles. ABDOMEN: Soft, bowel sounds present, nontender. No guarding. CENTRAL NERVOUS SYSTEM: Alert and oriented. No facial droop. Speech is clear. Insight is okay. Obeys commands. Moves extremities. EXTREMITIES: Right below-knee amputation, small skin tears in the upper part of the stump and also on the left knee, small skin tear is seen. Edema of the extremities seen. LABORATORY DATA: Labs done at [facility] show WBC 5.7, hemoglobin 11.7, hematocrit 35.9, platelets 224. Influenza A and B flu negative. COVID is negative. PTT 29, PT 10.6, INR 0.9. X-ray of the right fingers: Findings concerning for osteomyelitis involving the distal phalanx of the right fifth finger as well as base of the middle phalanx and distal end of the proximal phalanx. Findings concerning for osteomyelitis of the distal phalanx, right index finger. Sodium 135, potassium 4.8, chloride 103, bicarbonate 28, calcium 8.7, glucose 137, BUN 33, creatinine 1.9. ESR 81. ASSESSMENT AND PLAN: This is a 62-year-old male who presents with infection of the right hand. 1. Infection of the right hand: X-rays done in the [facility] showing osteomyelitis of the right index and right fifth finger. Empirically starting on daptomycin and Zosyn. Follow the cultures. Will keep him n.p.o. Consult orthopedics and wound care consult and closely monitor. 2. History of obstructive sleep apnea: On BiPAP at bedtime. 3. History of chronic diastolic congestive heart failure: Continue his torsemide, lisinopril, and Coreg. We will monitor for any volume overload a. EF low normal. 4. History of status post implantable cardioverter-defibrillator. 5. History of paroxysmal ventricular tachycardia: On amiodarone. 6. History of deep venous thrombosis and pulmonary embolism: On Eliquis. 7. History of paroxysmal atrial fibrillation: On amiodarone and Eliquis. 8. History of gouty arthritis: On allopurinol. 9. Diabetes: On insulin pump, which patient is ok to remove for now..Will place him on Lantus and insulin sliding scale. Pharmacy consult. Follow HbA1c level. 10. Peripheral vascular disease: On aspirin, Eliquis and statin. 11. Chronic kidney disease stage IIIB: Creatinine is 1.9 on [facility] laboratories. Baseline around 1.8. We will follow the laboratories. Avoid nephrotoxic agents. 12. History of obesity, status post gastric bypass. 13. History of restless legs syndrome: Continue home medications. 14. History of recurrent major depression: On duloxetine, nortriptyline and bupropion. 15. Hyperlipidemia: On statin. 16. Anemia of chronic kidney disease: We will follow the laboratories. 17. Gastroesophageal reflux disease: On omeprazole. 18. Hypertension: On Coreg, lisinopril, torsemide. We will monitor the blood pressure. 19. Deep venous thrombosis prophylaxis: Currently on Eliquis. DISPOSITION: Closely monitor in the med-tele. PT/OT prior to discharge. Social service to help with discharge planning. Level 1, full code. Job ID: [id number] [facility]
[2022-06-26 10:13] LABS: Estimated Average Glucose 154 mg/dl
--- NOTE | 2022-06-26 12:05 | XRay Report ---
XR chest 1V portable CLINICAL HISTORY: sob TECHNIQUE: Single frontal radiograph of the chest was obtained. Comparison: Comparison is made to chest radiograph 07/17/2019 FINDINGS: Implanted defibrillator is seen. Exam is limited by underpenetration. The cardiomediastinal silhouett e is normal. The lungs are clear. No evidence of pleural effusion or pneumothorax. IMPRESSION: Exam is limited by patient body habitus. Within these limits, no evidence of pneumonia. ACT 112: Negative or not required by law. Electronically signed by: Jose Juan Grant M.D. 06/26/2022 12:04 PM
[2022-06-26] MEDS: PIPERACILLIN/TAZOBACTAM 4.5 GM in DEXTROSE 5% 100 ML IV SCH ×2 (12:25→20:23)
[2022-06-26] MEDS: PREGABALIN 50 MG CAP PO SCH (12:26)
--- NOTE | 2022-06-26 15:08 | Pharmacy Report ---
Pharmacy Glycemic Short Note 2 - Date of Service June 26, 2022 - Glycemic Short BSG Results (Last 24 hours): 06/26/22 06/26/22 06/26/22 05:42 07:23 07:31 Glucose 112 H POC Glucose 98 111 H 06/26/22 11:31 Glucose POC Glucose 114 H OUTPATIENT ANTIDIABETIC REGIMEN: * Trulicity 4.5mg SQ weekly * Novolog insulin pump: * Basal insulin: * 12am - 8am: 2.05 units/hr * 8am - 11am: 3.65 units/hr * 11am - 2pm: 4.6 units/hr * 2pm - 6pm: 4.1 units/hr * 6pm - 9pm: 4.0 units/hr * 9pm - 12am: 2.5 units/hr * Bolus insulin: * 25 units SQ TID with breakfast/lunch/dinner * 10-15 units SQ with snacks * HbA1c: 7.0% (06/26/22) ASSESSMENT: * Mr Cullen is a 62yo diabetic M admitted with SSTI. * Patient's insulin pump was disconnected upon admission. Pt will be managed on basal/bolus insulin for the duration of his hospital stay. * Pt has been NPO since admission. PLAN FOR INPATIENT GLYCEMIC CONTROL: * Basal insulin * Lantus 40 units SQ daily * Lantus 0-20 units SQ daily * Bolus insulin * NovoLog per scale ACHS or Q6hrs while NPO * Goal Range: Low 110 mg/dL - High 140 mg/dL * Correction Factor: 30 mg/dL/unit * Nutritional / Prandial insulin per carb ratio of 1 unit per 10 grams CHO consumed
[2022-06-26] MEDS ORDERED: PRAMIPEXOLE DIHYDROCHLO 0.25 MG TAB PO SCH (16:30)
--- NOTE | 2022-06-26 17:50 | XRay Report ---
XR hand RT min 3V routine CLINICAL HISTORY: Right hand pain with osteomyelitis at 2nd and 5th fingers COMPARISON STUDY: Right hand 08/02/2019. FINDINGS: Prior partial amputation at the third and fourth fingers. Progressive erosive change at the distal tuft of the index finger with overlying soft tissue swelling. Although difficult to evaluate due to patient positioning there is also progressed erosive change at the distal tuft of the fifth di git. No fracture or dislocation. No radiopaque foreign bodies. IMPRESSION: Progressive erosive changes at the distal armani of the right index and fifth fingers con sistent with an osteomyelitis versus osteolysis. ACT 112: Negative or not required by law. Electronically signed by: Kiran Gifford M.D. 06/26/2022 5:48 PM
[2022-06-26] MEDS: PRAMIPEXOLE DIHYDROCHLO 0.5 MG TAB PO SCH ×2 (17:51→20:25)
--- NOTE | 2022-06-26 18:10 | Orthopedic Consultation ---
Date of Consultation June 26, 2022 Assessment & Plan (1) Osteomyelitis: Possible osteomyelitis index finger distal phalanx. History of multiple hand surgeries and partial amputations. Photographs forwarded to Dr. Ivey for his review. Patient may or may not be a surgical candidate at this point in t martha. (2) Amputation finger: Prior amputations noted History of Present Illness Reason for Consultation: Right hand wounds Attending Physician: Amarjit Funk MD History of Present Illness 62-year-old male who uses electric wheelchair and has had chronic multiple hand issues and previously had surgeries by Dr. Negron. Patient was transferred to [facility] to be evaluated by a hand surgeon specialist. Allergies Allergy/AdvReac Type Severity Reaction Status Date / Time adhesive tape Allergy Unknown WELTS Verified 05/08/22 08:42 chlorhexidine Allergy UNKN Verified 05/08/22 08:42 disopyramide Allergy UNKN Verified 05/08/22 08:42 erythromycin base Allergy ? HEART Verified 05/08/22 08:42 fluconazole Allergy Unknown Verified 05/08/22 08:42 levofloxacin [From Levaquin] Allergy HEART Verified 05/08/22 08:42 ISSUES Macrolide Antibiotics Allergy HEART ISSUE Verified 05/08/22 08:42 Quinolones Allergy HEART Verified 05/08/22 08:42 ISSUES Sulfa (Sulfonamide Allergy RASH AND Verified 05/08/22 08:42 Antibiotics) ITCHING vancomycin AdvReac Intermediate Red Man Verified 05/08/22 08:42 Syndrome Sulfone Allergy Uncoded 05/08/22 08:42 Home Medications Medication Instructions Recorded Confirmed Type bupropion HCl 150 mg tablet,12 hr 150 mg PO BID 03/21/19 05/08/22 History sustained-release carvedilol 12.5 mg tablet 12.5 mg PO BID 03/21/19 05/08/22 History duloxetine 60 mg capsule,delayed 60 mg PO DAILY 03/21/19 05/08/22 History release lamotrigine 25 mg disintegrating 50 mg PO BID 03/21/19 05/08/22 History tablet montelukast 10 mg tablet 10 mg PO DAILY #90 tabs 03/21/19 05/08/22 History multivitamin with iron (Daily 1 tab PO DAILY 03/21/19 05/08/22 History Multiple Vitamins with Iron tablet) nitroglycerin 0.4 mg sublingual 0.[address] 1 TABLET 03/21/19 05/08/22 History tablet UNDER omeprazole 20 mg capsule,delayed 20 mg PO DAILYBB #30 caps 03/21/19 05/08/22 History release pregabalin 50 mg capsule 50 mg PO QDL 03/21/19 05/08/22 History primidone 50 mg tablet 50 mg PO QAM 03/21/19 05/08/22 History amiodarone 200 mg tablet 200 mg PO QAM 06/28/19 05/08/22 History aspirin 81 mg tablet 81 mg PO DAILY 06/28/19 05/08/22 History topiramate 100 mg capsule,extended 100 mg PO DAILY 07/19/19 05/08/22 History release 24 hr (Trokendi XR) triamcinolone acetonide 0.1 % See Rx Instructions .Route .COMPLEX 07/19/19 05/08/22 History topical ointment cholecalciferol (vitamin D3) 125 5,000 unit PO DAILY 08/12/19 05/08/22 History mcg (5,000 unit) tablet (Vitamin D3) donepezil 10 mg tablet 10 mg PO DAILY 08/12/19 05/08/22 History insulin aspart U-100 100 unit/mL 1 sliding scale dose subcut 08/12/19 05/08/22 History subcutaneous solution (Novolog USEASDIRECTD U-100 Insulin aspart) primidone 50 mg tablet 200 mg PO HS 08/12/19 05/08/22 History albuterol sulfate 2.5 mg/3 mL 2.5 mg (3 mL) inhalation Q4H PRN 03/06/20 05/08/22 Rx (0.083 %) solution for nebulization shortness of breath or wheezing #180 mL nebulizer accessories #1 ea 03/06/20 05/08/22 Rx nebulizers #1 ea 03/06/20 05/08/22 Rx BiPap Supplies #1 ea 05/07/21 05/08/22 Rx BiPap Machine #1 ea 05/21/21 05/08/22 Rx lisinopril 10 mg tablet 5 mg PO DAILY 11/05/21 05/08/22 History Oxygen Home #1 ea 11/22/21 05/08/22 Rx allopurinol 100 mg tablet 50 mg PO DAILY 06/26/22 06/26/22 History apixaban 5 mg tablet (Eliquis) 5 mg PO BID 06/26/22 06/26/22 History atorvastatin 40 mg tablet 40 mg PO DAILY 06/26/22 06/26/22 History dulaglutide 4.5 mg/0.5 mL 4.5 mg subcut WK 06/26/22 06/26/22 History subcutaneous pen injector (Trulicity) nortriptyline 25 mg capsule 25 mg PO HS 06/26/22 06/26/22 History pramipexole 1 mg tablet 0.5 mg PO USEASDIRECTD 06/26/22 06/26/22 History pregabalin 200 mg capsule 200 mg PO TID 06/26/22 06/26/22 History torsemide 40 mg tablet 40 mg PO DAILY 06/26/22 06/26/22 History Patient History Medical History (Updated 05/21/21 @ 10:02 by Andrew Sue PA-C) Anemia chronic. normocytic anemia, thought to be anemia of chronic disease. Anxiety Asthma Atrial fibrillation CAD (coronary artery disease), [place] coronary artery Cardiac defibrillator in place Chronic kidney disease Depression Diabetes mellitus, type 2 Patient has insulin pump. GERD (gastroesophageal reflux disease) Glaucoma L eye History of pneumonia Hx of cardiac arrest X4 - LAST 2013 - [facility] Hx of congestive heart failure Hx of deep venous thrombosis ARM, LEG Hx pulmonary embolism Hyperlipidemia Hypertension Methicillin resistant Staphylococcus aureus infection, unspecified site Myocardial Infarction X2 ; LAST 2003 [place] - PT DOES NOT KNOW LAURA treated with BiPAP Osteoarthritis Osteomyelitis Osteomyelitis FINGER - CURRENT ISSUE Pacemaker Peripheral neuropathy Pulmonary embolism Tremor Surgical History History of cholecystectomy Hx of amputation below knee RIGHT Hx of cardiac catheterization 2004 STENT X2; OTHER CATH PRIOR CANNOT REMEMBER DATES Hx of cataract surgery Hx of gastric bypass Hx of hand surgery LEFT X2 Hx of repair of rotator cuff RIGHT Hx of umbilical hernia repair S/P placement of cardiac pacemaker Family History Father Diabetes Acute myocardial infarction Hypercholesteremia Mother Diabetes Heart disease Sister Cancer Social History Smoking Status: Never smoker Second Hand Exposure: Yes ( CHILD); Hx Alcohol Use: No Hx Substance Use: No Preferred Language: Hungarian Communication Ability: Effective Flame Degreaser Required: No Beliefs That Will Affect Care: None marital status: Current Living Situation: Spouse Current Living Situation Comment: visiting caregivers and nurses Feels Safe at Home: Yes Safety Concerns: Feels Safe At This Time Assistive Devices: Wheelchair Assistive Devices Comment: pt wheelchair bound Review of Systems Review of Systems: Patient said he was supposed to be fitted for prosthesis but right now he just uses electric wheelchair. Patient has a pacemaker defibrillator and cannot have an MRI. Physical Exam Physical Exam: Right hand demonstrates multiple partial amputations of his fingers. His index finger he has an eschar over the tip of the index finger and a large blister that was debrided or came off of the skin with macerated type skin up to the PIP joint level. No erythema. Some weeping of the tissue but no theron pus or drainage. Fingers pink and perfused aside from the tip which has a eschar released 12 mm in diameter. He has contractures of his fingers and does not have full range of motion in the fifth finger dorsum of the finger has skin erosion through the epidermis and dermis and there is some desiccated tissue exposed possible tendon tissue that appears dried out. Results & Data ([facility]) Vital Signs (Past 12 Hours) Vital Signs Temp Pulse Pulse Resp BP BP Pulse Ox 06/26/22 16:23 37.0 C 97 H 20 97/64 L 98 06/26/22 12:30 06/26/22 11:24 37.0 C 74 20 102/44 L 99 06/26/22 10:24 92 H 06/26/22 07:25 36.9 C 106 H 18 120/79 97 O2 Del Method O2 Flow Rate 06/26/22 16:23 CPAP 4 06/26/22 12:30 CPAP 06/26/22 11:24 CPAP 4 06/26/22 10:24 06/26/22 07:25 CPAP 4 Laboratory Results Afebrile, white count 6.44 with 65.1% neutrophils Diagnostic Findings Radiographs right hand demonstrates that there is erosion at the tip of the distal phalanx of the index finger. Middle finger is amputated at the PLI P joint level. Ring fingers amputated at the mid middle phalanx level. In the fifth finger no obvious osteomyelitis
[2022-06-26] MEDS: NORTRIPTYLINE HCL 25 MG CAP PO SCH (20:23)
[2022-06-26] MEDS: ACETAMINOPHEN 325 MG TAB PO PRN (20:23)
[2022-06-26] MEDS: LANTUS PER UNIT CHARGE SQ SCH (20:27)
[2022-06-26] MEDS ORDERED: NON-FORMULARY MEDICATION (Bipap Machine misc) SCH (21:00)
--- NOTE | 2022-06-26 21:50 | Electrocardiogram Report ---
Test Reason : Blood Pressure : / mmHG Vent. Rate : 076 BPM Atrial Rate : 075 BPM P-R Int : 000 ms QRS Dur : 114 ms QT Int : 364 ms P-R-T Axes : 000 255 117 degrees QTc Int : 409 ms Atrial fibrillation Low voltage QRS Anterior infarct Inferior infarct , age undetermined Abnormal ECG When compared with ECG of 17-JUL-2019 23:47, Atrial fibrillation has replaced Sinus rhythm QRS duration has increased Confirmed by Alber Huang ([id number]) on 06/26/2022 9:49:33 PM Referred By: Phill Beasley Confirmed By:Alber Huang
[2022-06-27] MEDS: INSULIN ASPART PER UNIT SC SCH ×5 (00:39→20:38)
[2022-06-27 01:06] LABS: Appearance Urine Clear (Clear); Bacteria Urine Automated Negative (Negative); Bilirubin Urine Negative (Negative); Blood Urine Negative (Negative); Color Urine Yellow; Epithelial Cell Urine Auto >30 /lpf (0-5); Glucose Urine UA Negative (Negative); Ketones Urine Negative (Negative); Leukocyte Esterase Urine 2+ (Negative); Nitrite Urine Positive (Negative); Protein Urine Negative (Negative); Specific Gravity Urine 1.012 (1.000-1.030); Urobilinogen Urine Negative (Negative)
[2022-06-27] MEDS: PIPERACILLIN/TAZOBACTAM 4.5 GM in DEXTROSE 5% 100 ML IV SCH ×3 (03:47→20:39)
[2022-06-27] MEDS: DAPTOmycin 600 MG in SYRINGE 0 ML IV SCH (06:16)
--- NOTE | 2022-06-27 06:51 | Communication Note ---
Date of Service: June 27, [address] Ivey. Patient will require some level of amputation of the right index finger, possibly fifth finger. Dr. Ivey will see the patient and determine appropriate level of resection. We will plan on surgical intervention tomorrow morning. N.p.o. after midnight for planned surgery tomorrow morning with Dr. Ivey.
[2022-06-27] MEDS ORDERED: LANTUS PER UNIT CHARGE SQ ONE (07:45)
[2022-06-27] MEDS: PANTOprazole 40 MG TAB PO SCH (08:00)
--- NOTE | 2022-06-27 08:07 | Hospitalist Progress Note ---
Date of Service June 27, 2022 Assessment & Plan (1) Osteomyelitis: Plan: This is a 62-year-old male who presents with infection of the right hand. R index finger (and pos. 5th R finger) osteomyelitis 1. Infection of the right hand: X-rays done in the [facility] showing osteomyelitis of the right index and right fifth finger. X-ray here: IMPRESSION: Progressive erosive changes at the distal armani of the right index and fifth fingers consistent with an osteomyelitis versus osteolysis. Empirically started on daptomycin and Zosyn. Follow the cultures. Orthopedics and wound care consulted Plan for surg. intervention tmrw (06/27) NPO after MN 2. History of obstructive sleep apnea: On BiPAP at bedtime. 3. History of chronic diastolic congestive heart failure: Continue his torsemide, lisinopril, and Coreg. We will monitor for any volume overload, EF low normal. 4. History of status post implantable cardioverter-defibrillator. 5. History of paroxysmal ventricular tachycardia: On amiodarone. 6. Hx of DVT thrombosis and pulmonary embolism: On Eliquis. 7. Hx of paroxysmal atrial fibrillation: On amiodarone and Eliquis. 8. History of gouty arthritis: On allopurinol. 9. Diabetes: On insulin pump, was removed for now.. placed him on Lantus and insulin sliding scale on admission. Glycemic pharmacy consulted. Current HbA1c level 7.0% 10. Peripheral vascular disease: On aspirin, Eliquis and statin. 11. Chronic kidney disease stage IIIB: Creatinine is 1.9 on [facility]. Baseline around 1.8. Avoid nephrotoxic agents. Current Cr 2.4 likely from pt being npo, will give gentle fluids. 12. History of obesity, status post gastric bypass. BMI 47. 13. History of restless legs syndrome: Continue home medications. 14. History of recurrent major depression: On duloxetine, nortriptyline and bupropion. 15. Hyperlipidemia: On statin. 16. Anemia of chronic kidney disease:Follow the laboratories. 17. Gastroesophageal reflux disease: On omeprazole. 18. Hypertension: On Coreg, lisinopril, torsemide. We will monitor the blood pressure. DVT prophylaxis: Currently on Eliquis. DISPOSITION:med-tele. PT/OT prior to discharge. Code: Full Admission and Anticipated Discharge Date Admission Date: June 26, 2022 Subjective Pt seen in follow up of R index finger (and poss. 5th R finger) osteomyelitis Currently laying in bed in NAD Denies any fever, chills, chest pain, shortness of breath, abd. pain, n/v Orthopedics consulted, plan for surg. intervention tmrw. Review of Systems Review of Systems: All systems reviewed & are unremarkable except as noted in Subjective Physical Exam Physical Exam: GENERAL:morbidly obese M, alert, oriented, not in acute distress. HEENT: No pallor. Extraocular muscles intact. Oral mucosa moist. NECK: No JVD. No neck masses. CARDIOVASCULAR: S1 and S2 heard. Regular rate and rhythm. No murmur, no gallop. RESPIRATORY: No accessory muscle use. No wheezing, no crackles. Somewhat diminished d/t body habitus. ABDOMEN: Soft, bowel sounds present, nontender. No guarding. NEURO: Alert and oriented. No facial droop. Speech is clear.Obeys commands. Moves extremities. EXTREMITIES: Right below-knee amputation, small skin tears in the upper part of the stump and also on the left knee, small skin tear is seen.+ mild edema of the extremities noted Results & Data Results & Data ([facility]) Vital Signs (Past 12 Hours) Vital Signs Temp Pulse Pulse Pulse Resp BP BP 06/27/22 07:59 82 06/27/22 07:54 36.5 C 92 H 17 91/60 L 06/27/22 03:10 83 18 90/60 L 06/27/22 00:05 107/65 06/26/22 22:57 84 18 85/55 L 06/26/22 22:20 89 Pulse Ox O2 Del Method 06/27/22 07:59 06/27/22 07:54 95 Room Air, BiPAP 06/27/22 03:10 98 BiPAP 06/27/22 00:05 06/26/22 22:57 96 BiPAP 06/26/22 22:20 Laboratory Results 06/27/22 06/27/22 06/27/22 Range/Units 12:25 08:02 08:02 WBC 4.59 L (4.8-10.8) K/ul RBC 3.77 L (4.63-6.08) M/uL Hgb 11.3 L (14.0-18.0) g/dl Hct 35.6 L (40.1-51.0) % MCV 94.4 (80.0-100.0) fL MCH 30.0 (25.0-34.0) pg MCHC 31.7 L (32.0-36.0) g/dL RDW Std Deviation 49.4 H (36.4-46.3) fL RDW Coeff of Karolina 14.4 (11.5-14.5) % Plt Count 210 (130-400) K/uL MPV 8.7 L (9.4-12.4) fL Sodium 136 (136-145) mmol/L Potassium 4.6 (3.5-5.1) mmol/L Chloride 102 (98-107) mmol/L Carbon Dioxide 26 (21-32) mmol/L Anion Gap 8 (3-11) BUN 39 H (6-23) mg/dl Creatinine 2.41 H D (0.6-1.4) mg/dl Est Cr Clr Drug Dosing 44.8 ml/min Est GFR ( Amer) 32.6 ml/min Est GFR (Non-Af Amer) 28.1 ml/min BUN/Creatinine Ratio 16.2 (10-20) Glucose 133 H (70-99(Fasting)) mg/dl POC Glucose 169 H (70-99) mg/dl Calcium 8.7 (8.5-10.1) mg/dl Phosphorus 5.2 H (2.5-4.9) mg/dl Magnesium 2.6 H (1.7-2.4) mg/dl Urine Color Urine Appearance (Clear) Urine pH (4.5-7.5) Ur Specific [place] (1.000-1.030) Urine Protein (Negative) Urine Glucose (UA) (Negative) Urine Ketones (Negative) Urine Blood (Negative) Urine Nitrite (Negative) Urine Bilirubin (Negative) Urine Urobilinogen (Negative) Ur Leukocyte Esterase (Negative) Urine WBC (Auto) (0-5) /hpf Urine RBC (Auto) (0-4) /hpf U Hyaline Cast (Auto) (0-5) /lpf U Epithel Cells (Auto) (0-5) /lpf Urine Bacteria (Auto) (Negative) 06/27/22 06/27/22 06/27/22 Range/Units 07:48 06:15 00:45 WBC (4.8-10.8) K/ul RBC (4.63-6.08) M/uL Hgb (14.0-18.0) g/dl Hct (40.1-51.0) % MCV (80.0-100.0) fL MCH (25.0-34.0) pg MCHC (32.0-36.0) g/dL RDW Std Deviation (36.4-46.3) fL RDW Coeff of Karolina (11.5-14.5) % Plt Count (130-400) K/uL MPV (9.4-12.4) fL Sodium (136-145) mmol/L Potassium (3.5-5.1) mmol/L Chloride (98-107) mmol/L Carbon Dioxide (21-32) mmol/L Anion Gap (3-11) BUN (6-23) mg/dl Creatinine (0.6-1.4) mg/dl Est Cr Clr Drug Dosing ml/min Est GFR ( Amer) ml/min Est GFR (Non-Af Amer) ml/min BUN/Creatinine Ratio (10-20) Glucose (70-99(Fasting)) mg/dl POC Glucose 135 H 133 H (70-99) mg/dl Calcium (8.5-10.1) mg/dl Phosphorus (2.5-4.9) mg/dl Magnesium (1.7-2.4) mg/dl Urine Color Yellow Urine Appearance Clear (Clear) Urine pH 7.0 (4.5-7.5) Ur Specific [place] 1.012 (1.000-1.030) Urine Protein Negative (Negative) Urine Glucose (UA) Negative (Negative) Urine Ketones Negative (Negative) Urine Blood Negative (Negative) Urine Nitrite Positive A (Negative) Urine Bilirubin Negative (Negative) Urine Urobilinogen Negative (Negative) Ur Leukocyte Esterase 2+ H (Negative) Urine WBC (Auto) 10-30 H (0-5) /hpf Urine RBC (Auto) 5-10 H (0-4) /hpf U Hyaline Cast (Auto) 1-5 (0-5) /lpf U Epithel Cells (Auto) >30 H (0-5) /lpf Urine Bacteria (Auto) Negative (Negative) 06/27/22 06/26/22 06/26/22 Range/Units 00:25 20:03 17:48 WBC (4.8-10.8) K/ul RBC (4.63-6.08) M/uL Hgb (14.0-18.0) g/dl Hct (40.1-51.0) % MCV (80.0-100.0) fL MCH (25.0-34.0) pg MCHC (32.0-36.0) g/dL RDW Std Deviation (36.4-46.3) fL RDW Coeff of Karolina (11.5-14.5) % Plt Count (130-400) K/uL MPV (9.4-12.4) fL Sodium (136-145) mmol/L Potassium (3.5-5.1) mmol/L Chloride (98-107) mmol/L Carbon Dioxide (21-32) mmol/L Anion Gap (3-11) BUN (6-23) mg/dl Creatinine (0.6-1.4) mg/dl Est Cr Clr Drug Dosing ml/min Est GFR ( Amer) ml/min Est GFR (Non-Af Amer) ml/min BUN/Creatinine Ratio (10-20) Glucose (70-99(Fasting)) mg/dl POC Glucose 148 H 137 H 134 H (70-99) mg/dl Calcium (8.5-10.1) mg/dl Phosphorus (2.5-4.9) mg/dl Magnesium (1.7-2.4) mg/dl Urine Color Urine Appearance (Clear) Urine pH (4.5-7.5) Ur Specific [place] (1.000-1.030) Urine Protein (Negative) Urine Glucose (UA) (Negative) Urine Ketones (Negative) Urine Blood (Negative) Urine Nitrite (Negative) Urine Bilirubin (Negative) Urine Urobilinogen (Negative) Ur Leukocyte Esterase (Negative) Urine WBC (Auto) (0-5) /hpf Urine RBC (Auto) (0-4) /hpf U Hyaline Cast (Auto) (0-5) /lpf U Epithel Cells (Auto) (0-5) /lpf Urine Bacteria (Auto) (Negative) 06/26/22 Range/Units 16:48 WBC (4.8-10.8) K/ul RBC (4.63-6.08) M/uL Hgb (14.0-18.0) g/dl Hct (40.1-51.0) % MCV (80.0-100.0) fL MCH (25.0-34.0) pg MCHC (32.0-36.0) g/dL RDW Std Deviation (36.4-46.3) fL RDW Coeff of Karolina (11.5-14.5) % Plt Count (130-400) K/uL MPV (9.4-12.4) fL Sodium (136-145) mmol/L Potassium (3.5-5.1) mmol/L Chloride (98-107) mmol/L Carbon Dioxide (21-32) mmol/L Anion Gap (3-11) BUN (6-23) mg/dl Creatinine (0.6-1.4) mg/dl Est Cr Clr Drug Dosing ml/min Est GFR ( Amer) ml/min Est GFR (Non-Af Amer) ml/min BUN/Creatinine Ratio (10-20) Glucose (70-99(Fasting)) mg/dl POC Glucose 115 H (70-99) mg/dl Calcium (8.5-10.1) mg/dl Phosphorus (2.5-4.9) mg/dl Magnesium (1.7-2.4) mg/dl Urine Color Urine Appearance (Clear) Urine pH (4.5-7.5) Ur Specific [place] (1.000-1.030) Urine Protein (Negative) Urine Glucose (UA) (Negative) Urine Ketones (Negative) Urine Blood (Negative) Urine Nitrite (Negative) Urine Bilirubin (Negative) Urine Urobilinogen (Negative) Ur Leukocyte Esterase (Negative) Urine WBC (Auto) (0-5) /hpf Urine RBC (Auto) (0-4) /hpf U Hyaline Cast (Auto) (0-5) /lpf U Epithel Cells (Auto) (0-5) /lpf Urine Bacteria (Auto) (Negative) Medications Administered Current Inpatient Medications Acetaminophen (Acetaminophen 325 Mg Tab) 650 mg PO Q4H PRN PRN Reason: Pain or Fever Stop: 07/26/22 18:38 Last Admin: 06/26/22 20:23 Dose: 650 mg Albuterol (Albuterol 0.083% Nebu Soln 3 Ml Vial) 2.5 mg INH Q4H PRN; Protocol PRN Reason: shortness of breath or wheezin Stop: 07/26/22 05:33 Allopurinol (Allopurinol 100 Mg Tab) 50 mg PO DAILY [facility]RULY Stop: 07/26/22 08:59 Last Admin: 06/26/22 09:00 Dose: 50 mg Amiodarone HCl (Amiodarone 200 Mg Tab) 200 mg PO QAM [facility] Stop: 07/26/22 08:59 Last Admin: 06/26/22 09:01 Dose: 200 mg Apixaban (Apixaban 5 Mg Tablet) 5 mg PO BID [facility] Stop: 07/26/22 08:59 Last Admin: 06/26/22 19:16 Dose: Not Given Aspirin (Aspirin 81 Mg Ectab) 81 mg PO DAILY [facility] Stop: 07/26/22 08:59 Last Admin: 06/26/22 09:02 Dose: Not Given Atorvastatin Calcium (Atorvastatin 40 Mg Tab) 40 mg PO DAILY [facility] Stop: 07/26/22 08:59 Last Admin: 06/26/22 09:03 Dose: 40 mg Bupropion HCl (Bupropion Sr 150 Mg Tabcr) 150 mg PO BID [facility] Stop: 07/26/22 08:59 Last Admin: 06/26/22 20:26 Dose: 150 mg Carvedilol (Carvedilol 12.5 Mg Tab) 12.5 mg PO BID [facility] Stop: 07/26/22 08:59 Last Admin: 06/26/22 20:26 Dose: 12.5 mg Dextrose (Dextrose 50% 50 Ml Syringe) 25 - 50 ml IV UD PRN; Protocol PRN Reason: Hypoglycemia Protocol Stop: 07/26/22 05:29 Donepezil HCl (Donepezil Hcl 10 Mg Tab) 10 mg PO DAILY UNRULY Stop: 07/26/22 08:59 Last Admin: 06/26/22 09:01 Dose: 10 mg Duloxetine HCl (Duloxetine Hcl 60 Mg Cap) 60 mg PO DAILY [facility]Y Stop: 07/26/22 08:59 Last Admin: 06/26/22 09:01 Dose: 60 mg Glucagon (Glucagon For Inj 1 Mg Vial) 1 mg IM UD PRN; Protocol PRN Reason: Hypoglycemia Protocol Stop: 07/26/22 05:29 Glucose (Glucose 40% Gel 15 Gm Tube) 15 - 30 gm PO UD PRN; Protocol PRN Reason: Hypoglycemia Protocol Stop: 07/26/22 05:29 Glucose (Glucose 10 Tab/Tube) 4 - 8 tab PO UD PRN; Protocol PRN Reason: Hypoglycemia Protocol Stop: 07/26/22 05:29 Daptomycin 600 mg/ Syringe 12 mls @ 6 mls/min IV Q24H UNRULY; Protocol Stop: 07/03/22 06:59 Last Admin: 06/27/22 06:16 Dose: 6 mls/min Piperacillin Sod/Tazobactam (Sod 4.5 gm/ Dextrose) 120 mls @ 30 mls/hr IV Q8H UNRULY; Protocol Stop: 07/03/22 11:59 Last Admin: 06/27/22 03:47 Dose: 30 mls/hr Insulin Aspart (Insulin Aspart Per Unit) 0 units SC Q6 [facility] Stop: 07/26/22 05:59 Last Admin: 06/27/22 06:17 Dose: Not Given Insulin Glargine (Lantus Per Unit Charge) 0 units SQ HS UNRULY; Protocol Stop: 07/26/22 20:59 Last Admin: 06/26/22 20:27 Dose: 10 units Lamotrigine (Lamotrigine 25 Mg Tab) 50 mg PO BID [facility] Stop: 07/26/22 08:59 Last Admin: 06/26/22 20:26 Dose: 50 mg Lisinopril (Lisinopril 5 Mg Tab) 5 mg PO DAILY [facility] Stop: 07/26/22 08:59 Last Admin: 06/26/22 09:01 Dose: 5 mg Miscellaneous (Carbohydrates For Hypoglycemia ) 15 - 30 gm PO UD PRN PRN Reason: Hypoglycemia Treatment Stop: 07/26/22 05:29 Miscellaneous (Topiramate [Trokendi Xr] 100 Mg - Order Awaiting Action) 1 each N/A QS [facility] Stop: 07/26/22 07:59 Last Admin: 06/26/22 23:31 Dose: Not Given Miscellaneous Information (Pharmacy Glycemic Mgmt Consult) 1 each N/A UD PRN; Protocol PRN Reason: Consult Stop: 07/26/22 05:32 Montelukast Sodium (Montelukast Sodium 10 Mg Tablet) 10 mg PO DAILY [facility] Stop: 07/26/22 08:59 Last Admin: 06/26/22 09:01 Dose: 10 mg Multivitamins/Minerals (Cerovite Adv Formula Tab) 1 tab PO DAILY [facility] Stop: 07/26/22 08:59 Last Admin: 06/26/22 09:01 Dose: 1 tab Nortriptyline HCl (Nortriptyline Hcl 25 Mg Cap) 25 mg PO HS [facility] Stop: 07/26/22 20:59 Last Admin: 06/26/22 20:23 Dose: 25 mg Pantoprazole Sodium (Pantoprazole 40 Mg Tab) 40 mg PO DAILYBB [facility] Stop: 07/26/22 06:29 Last Admin: 06/27/22 08:00 Dose: Not Given Polyethylene Glycol (Polyethylene (Miralax) 17 Gm Pack) 17 gm PO DAILY PRN PRN Reason: Constipation Stop: 07/26/22 18:38 Pramipexole Dihydrochloride (Pramipexole Dihydrochlo 0.5 Mg Tab) 0.5 mg PO TEA Y@1700 [facility] Stop: 07/26/22 16:59 Last Admin: 06/26/22 17:51 Dose: 0.5 mg Pramipexole Dihydrochloride (Pramipexole Dihydrochlo 0.5 Mg Tab) 1.5 mg PO HS [facility] Stop: 07/26/22 20:59 Last Admin: 06/26/22 20:25 Dose: 1.5 mg Pregabalin (Pregabalin 100 Mg Cap) 200 mg PO TID [facility] Stop: 07/26/22 08:59 Last Admin: 06/26/22 20:22 Dose: 200 mg Pregabalin (Pregabalin 50 Mg Cap) 50 mg PO QDL [facility] Stop: 07/26/22 11:29 Last Admin: 06/26/22 12:26 Dose: 50 mg Primidone (Primidone 50 Mg Tab) 50 mg PO QAM [facility] Stop: 07/26/22 08:59 Last Admin: 06/26/22 09:01 Dose: 50 mg Primidone (Primidone 50 Mg Tab) 200 mg PO HS [facility] Stop: 07/26/22 20:59 Last Admin: 06/26/22 20:25 Dose: 200 mg Topiramate (Topiramate 100 Mg Tab) 100 mg PO DAILY [facility] Stop: 07/27/22 08:59 Torsemide (Torsemide 20 Mg Tab) 40 mg PO DAILY [facility] Stop: 07/26/22 08:59 Last Admin: 06/26/22 09:01 Dose: 40 mg Vitamin D (Cholecalciferol 5,000 Units 125 Mcg Tab) 5,000 units PO DAILY [facility] Stop: 07/26/22 08:59 Last Admin: 06/26/22 09:01 Dose: 5,000 units
[2022-06-27 08:22] LABS: Hematocrit (blood only) 35.6 % (40.1-51.0); Hemoglobin 11.3 g/dl (14.0-18.0); Mean Corpuscular Hgb Conc 31.7 g/dL (32.0-36.0); Mean Corpuscular Volume 94.4 fL (80.0-100.0); Mean Platelet Volume 8.7 fL (9.4-12.4); Platelet Count 210 K/uL (130-400); RDW Coefficient of Variation 14.4 % (11.5-14.5); RDW Standard Deviation 49.4 fL (36.4-46.3); Red Blood Count 3.77 M/uL (4.63-6.08); White Blood Count 4.59 K/ul (4.8-10.8)
[2022-06-27] MEDS: TOPIRAMATE 100 MG TAB PO SCH (08:31)
[2022-06-27] MEDS: allopurinoL 100 MG TAB PO SCH (08:31)
[2022-06-27] MEDS: CHOLECALCIFEROL 5,000 UNITS 125 MCG TAB PO SCH (08:34)
[2022-06-27] MEDS: ASPIRIN 81 MG ECTAB PO SCH (08:34)
[2022-06-27] MEDS: ATORVASTATIN 40 MG TAB PO SCH (08:34)
[2022-06-27] MEDS: CEROVITE ADV FORMULA TAB PO SCH (08:34)
[2022-06-27] MEDS: DULoxetine HCL 60 MG CAP PO SCH (08:34)
[2022-06-27] MEDS: DONEPEZIL HCL 10 MG TAB PO SCH (08:34)
[2022-06-27] MEDS: APIXABAN 5 MG TABLET PO SCH ×2 (08:34→20:39)
[2022-06-27] MEDS: lamoTRIgine 25 MG TAB PO SCH ×2 (08:34→20:37)
[2022-06-27] MEDS: buPROPion SR 150 MG TABCR PO SCH ×2 (08:34→20:37)
[2022-06-27] MEDS: MONTELUKAST SODIUM 10 MG TABLET PO SCH (08:35)
[2022-06-27] MEDS: TORSEMIDE 20 MG TAB PO SCH (08:35)
[2022-06-27] MEDS: PRIMIDONE 50 MG TAB PO SCH ×2 (08:36→20:37)
[2022-06-27] MEDS: PREGABALIN 100 MG CAP PO SCH ×3 (08:43→20:36)
[2022-06-27] MEDS ORDERED: Nursing to Pharmacy Communication SCH ×2 (09:00→19:15)
[2022-06-27] MEDS: AMIODARONE 200 MG TAB PO SCH (09:22)
[2022-06-27] MEDS: lisinopril 5 MG TAB PO SCH (09:22)
[2022-06-27] MEDS: carvediloL 12.5 MG TAB PO SCH ×2 (09:23→20:37)
[2022-06-27 09:49] LABS: BUN Creatinine Ratio 16.2 (10-20); Calcium 8.7 mg/dl (8.5-10.1); Creatinine Clr Calc Pharmacy 44.8 ml/min; Est GFR (African American) 32.6 ml/min; Est GFR (Non-African American) 28.1 ml/min; Magnesium 2.6 mg/dl (1.7-2.4); Phosphorus 5.2 mg/dl (2.5-4.9); Potassium 4.6 mmol/L (3.5-5.1)
--- NOTE | 2022-06-27 11:31 | Anesthesiology Consultation ---
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 HEART Verified 05/08/22 08:42 fluconazole Allergy Unknown Verified 05/08/22 08:42 levofloxacin [From Levaquin] Allergy HEART Verified 05/08/22 08:42 ISSUES Macrolide Antibiotics Allergy HEART ISSUE Verified 05/08/22 08:42 Quinolones Allergy HEART Verified 05/08/22 08:42 ISSUES Sulfa (Sulfonamide Allergy RASH AND Verified 05/08/22 08:42 Antibiotics) ITCHING vancomycin AdvReac Intermediate Red Man Verified 05/08/22 08:42 Syndrome Sulfone Allergy Uncoded 05/08/22 08:42 Medications Home Medications Medication Instructions Recorded Confirmed Last Taken bupropion HCl 150 mg tablet,12 hr 150 mg PO BID 03/21/19 05/08/22 09/05/19 20:00 sustained-release carvedilol 12.5 mg tablet 12.5 mg PO BID 03/21/19 05/08/22 09/05/19 20:00 duloxetine 60 mg capsule,delayed 60 mg PO DAILY 03/21/19 05/08/22 09/05/19 20:00 release lamotrigine 25 mg disintegrating 50 mg PO BID 03/21/19 05/08/22 09/05/19 20:00 tablet montelukast 10 mg tablet 10 mg PO DAILY #90 tabs 03/21/19 05/08/22 09/05/19 08:00 multivitamin with iron (Daily 1 tab PO DAILY 03/21/19 05/08/22 09/05/19 08:00 Multiple Vitamins with Iron tablet) nitroglycerin 0.4 mg sublingual 0.4 [address] 1 TABLET 03/21/19 05/08/22 Unknown tablet UNDER omeprazole 20 mg capsule,delayed 20 mg PO DAILYBB #30 caps 03/21/19 05/08/22 09/05/19 08:00 release pregabalin 50 mg capsule 50 mg PO QDL 03/21/19 05/08/22 09/05/19 14:00 primidone 50 mg tablet 50 mg PO QAM 03/21/19 05/08/22 09/05/19 08:00 amiodarone 200 mg tablet 200 mg PO QAM 06/28/19 05/08/22 09/05/19 08:00 aspirin 81 mg tablet 81 mg PO DAILY 06/28/19 05/08/22 09/05/19 08:00 topiramate 100 mg capsule,extended 100 mg PO DAILY 07/19/19 05/08/22 09/05/19 08:00 release 24 hr (Trokendi XR) triamcinolone acetonide 0.1 % See Rx Instructions .Route .COMPLEX 07/19/19 05/08/22 Unknown topical ointment cholecalciferol (vitamin D3) 125 5,000 unit PO DAILY 08/12/19 05/08/22 09/05/19 08:00 mcg (5,000 unit) tablet (Vitamin D3) donepezil 10 mg tablet 10 mg PO DAILY 08/12/19 05/08/22 09/05/19 08:00 insulin aspart U-100 100 unit/mL 1 sliding scale dose subcut 08/12/19 05/08/22 Unknown subcutaneous solution (Novolog USEASDIRECTD U-100 Insulin aspart) primidone 50 mg tablet 200 mg PO HS 08/12/19 05/08/22 09/05/19 21:00 albuterol sulfate 2.5 mg/3 mL 2.5 mg (3 mL) inhalation Q4H PRN 03/06/20 05/08/22 Unknown (0.083 %) solution for nebulization shortness of breath or wheezing #180 mL nebulizer accessories #1 ea 03/06/20 05/08/22 Unknown nebulizers #1 ea 03/06/20 05/08/22 Unknown BiPap Supplies #1 ea 05/07/21 05/08/22 Unknown BiPap Machine #1 ea 05/21/21 05/08/22 Unknown lisinopril 10 mg tablet 5 mg PO DAILY 11/05/21 05/08/22 Unknown Oxygen Home #1 ea 11/22/21 05/08/22 Unknown allopurinol 100 mg tablet 50 mg PO DAILY 06/26/22 06/26/22 Unknown apixaban 5 mg tablet (Eliquis) 5 mg PO BID 06/26/22 06/26/22 Unknown atorvastatin 40 mg tablet 40 mg PO DAILY 06/26/22 06/26/22 Unknown dulaglutide 4.5 mg/0.5 mL 4.5 mg subcut WK 06/26/22 06/26/22 Unknown subcutaneous pen injector (Trulicity) nortriptyline 25 mg capsule 25 mg PO HS 06/26/22 06/26/22 Unknown pramipexole 1 mg tablet 0.5 mg PO USEASDIRECTD 06/26/22 06/26/22 Unknown pregabalin 200 mg capsule 200 mg PO TID 06/26/22 06/26/22 Unknown torsemide 40 mg tablet 40 mg PO DAILY 06/26/22 06/26/22 Unknown Active Medications Generic Name Dose Route Start Last Admin Trade Name [facility] PRN Reason Stop Dose Admin Acetaminophen 650 mg 06/26/22 18:39 06/26/22 20:23 Acetaminophen 325 Mg Tab PO 07/26/22 18:38 650 mg Q4H PRN Administration Pain or Fever Allopurinol 50 mg 06/26/22 09:00 06/27/22 08:31 Allopurinol 100 Mg Tab PO 07/26/22 08:59 50 mg DAILY UNRULY Administration Amiodarone HCl 200 mg 06/26/22 09:00 06/27/22 09:22 Amiodarone 200 Mg Tab PO 07/26/22 08:59 200 mg QAM UNRULY Administration Apixaban 5 mg 06/26/22 09:00 06/27/22 08:34 Apixaban 5 Mg Tablet PO 07/26/22 08:59 5 mg BID UNRULY Administration Aspirin 81 mg 06/26/22 09:00 06/27/22 08:34 Aspirin 81 Mg Ectab PO 07/26/22 08:59 81 mg DAILY UNRULY Administration Atorvastatin Calcium 40 mg 06/26/22 09:00 06/27/22 08:34 Atorvastatin 40 Mg Tab PO 07/26/22 08:59 40 mg DAILY UNRULY Administration Bupropion HCl 150 mg 06/26/22 09:00 06/27/22 08:34 Bupropion Sr 150 Mg Tabcr PO 07/26/22 08:59 150 mg BID UNRULY Administration Carvedilol 12.5 mg 06/26/22 09:00 06/27/22 09:23 Carvedilol 12.5 Mg Tab PO 07/26/22 08:59 12.5 mg BID UNRULY Administration Donepezil HCl 10 mg 06/26/22 09:00 06/27/22 08:34 Donepezil Hcl 10 Mg Tab PO 07/26/22 08:59 10 mg DAILY UNRULY Administration Duloxetine HCl 60 mg 06/26/22 09:00 06/27/22 08:34 Duloxetine Hcl 60 Mg Cap PO 07/26/22 08:59 60 mg DAILY UNRULY Administration Daptomycin 600 mg/ Syringe 12 mls @ 6 mls/min 06/26/22 07:00 06/27/22 06:16 IV 07/03/22 06:59 6 mls/min Q24H UNRULY Administration Protocol Piperacillin Sod/Tazobactam 120 mls @ 30 mls/hr 06/26/22 12:00 06/27/22 03:47 Sod 4.5 gm/ Dextrose IV 07/03/22 11:59 30 mls/hr Q8H UNRULY Administration Protocol Insulin Glargine 0 units 06/26/22 21:00 06/26/22 20:27 Lantus Per Unit Charge SQ 07/26/22 20:59 10 units HS UNRULY Administration Protocol Lamotrigine 50 mg 06/26/22 09:00 06/27/22 08:34 Lamotrigine 25 Mg Tab PO 07/26/22 08:59 50 mg BID UNRULY Administration Lisinopril 5 mg 06/26/22 09:00 06/27/22 09:22 Lisinopril 5 Mg Tab PO 07/26/22 08:59 5 mg DAILY UNRULY Administration Miscellaneous 1 each 06/26/22 08:00 06/27/22 08:26 Topiramate [Trokendi Xr] 100 Mg - Order Awaiting Action N/A 07/26/22 07:59 Not Given QS UNRULY Montelukast Sodium 10 mg 06/26/22 09:00 06/27/22 08:35 Montelukast Sodium 10 Mg Tablet PO 07/26/22 08:59 10 mg DAILY UNRULY Administration Multivitamins/Minerals 1 tab 06/26/22 09:00 06/27/22 08:34 Cerovite Adv Formula Tab PO 07/26/22 08:59 1 tab DAILY UNRULY Administration Nortriptyline HCl 25 mg 06/26/22 21:00 06/26/22 20:23 Nortriptyline Hcl 25 Mg Cap PO 07/26/22 20:59 25 mg HS UNRULY Administration Pantoprazole Sodium 40 mg 06/26/22 06:30 06/27/22 08:00 Pantoprazole 40 Mg Tab PO 07/26/22 06:29 Not Given DAILYBB UNRULY Pramipexole Dihydrochloride 0.5 mg 06/26/22 17:00 06/26/22 17:51 Pramipexole Dihydrochlo 0.5 Mg Tab PO 07/26/22 16:59 0.5 mg DAILY@1700 UNRULY Administration Pramipexole Dihydrochloride 1.5 mg 06/26/22 21:00 06/26/22 20:25 Pramipexole Dihydrochlo 0.5 Mg Tab PO 07/26/22 20:59 1.5 mg HS UNRULY Administration Pregabalin 200 mg 06/26/22 09:00 06/27/22 08:43 Pregabalin 100 Mg Cap PO 07/26/22 08:59 200 mg TID UNRULY Administration Pregabalin 50 mg 06/26/22 11:30 06/26/22 12:26 Pregabalin 50 Mg Cap PO 07/26/22 11:29 50 mg QDL UNRULY Administration Primidone 50 mg 06/26/22 09:00 06/27/22 08:36 Primidone 50 Mg Tab PO 07/26/22 08:59 50 mg QAM UNRULY Administration Primidone 200 mg 06/26/22 21:00 06/26/22 20:25 Primidone 50 Mg Tab PO 07/26/22 20:59 200 mg HS UNRULY Administration Topiramate 100 mg 06/27/22 09:00 06/27/22 08:31 Topiramate 100 Mg Tab PO 07/27/22 08:59 100 mg DAILY UNRULY Administration Torsemide 40 mg 06/26/22 09:00 06/27/22 08:35 Torsemide 20 Mg Tab PO 07/26/22 08:59 Not Given DAILY UNRULY Vitamin D 5,000 units 06/26/22 09:00 06/27/22 08:34 Cholecalciferol 5,000 Units 125 Mcg Tab PO 07/26/22 08:59 5,000 units DAILY UNRULY Administration Past Medical History Medical History Anemia chronic. normocytic anemia, thought to be anemia of chronic disease. Anxiety Asthma Atrial fibrillation CAD (coronary artery disease), [place] coronary artery Cardiac defibrillator in place Chronic kidney disease Depression Diabetes mellitus, type 2 Patient has insulin pump. GERD (gastroesophageal reflux disease) Glaucoma L eye History of pneumonia Hx of cardiac arrest X4 - LAST 2013 - [facility] Hx of congestive heart failure Hx of deep venous thrombosis ARM, LEG Hx pulmonary embolism Hyperlipidemia Hypertension Methicillin resistant Staphylococcus aureus infection, unspecified site Myocardial Infarction X2 ; LAST 2003 [place] - PT DOES NOT KNOW LAURA treated with BiPAP Osteoarthritis Osteomyelitis Osteomyelitis FINGER - CURRENT ISSUE Pacemaker Peripheral neuropathy Pulmonary embolism Tremor Past Family History Family History Father Diabetes Acute myocardial infarction Hypercholesteremia Mother Diabetes Heart disease Sister Cancer Past Surgical History Surgical History History of cholecystectomy Hx of amputation below knee RIGHT Hx of cardiac catheterization 2004 STENT X2; OTHER CATH PRIOR CANNOT REMEMBER DATES Hx of cataract surgery Hx of gastric bypass Hx of hand surgery LEFT X2 Hx of repair of rotator cuff RIGHT Hx of umbilical hernia repair S/P placement of cardiac pacemaker Social History Smoking Status: Never smoker Hx Alcohol Use: No Hx Substance Use: No Physical Exam Vital Signs Last Vital Signs Temp 95.5 F L 06/27/22 11:06 Pulse 78 06/27/22 11:06 Resp 16 06/27/22 11:06 BP 105/90 06/27/22 11:06 Pulse Ox 99 06/27/22 11:06 O2 Del Method CPAP 06/27/22 11:06 O2 Flow Rate 4 06/26/22 16:23 Testing Laboratory Results 06/27/22 08:02 06/27/22 08:02 PT 10.3 Seconds (9.0-12.0) 06/26/22 07:23 INR 1.0 (0.9-1.1) 06/26/22 07:23 APTT 29.3 Seconds (21.0-31.0) 06/26/22 07:23 Hemoglobin A1c 7.0 % (4.5-5.6) H 06/26/22 07:23 Urine Color Yellow 06/27/22 00:45 Urine Appearance Clear (Clear) 06/27/22 00:45 Urine pH 7.0 (4.5-7.5) 06/27/22 00:45 Ur Specific [place] 1.012 (1.000-1.030) 06/27/22 00:45 Urine Protein Negative (Negative) 06/27/22 00:45 Urine Glucose (UA) Negative (Negative) 06/27/22 00:45 Urine Ketones Negative (Negative) 06/27/22 00:45 Urine Nitrite Positive (Negative) A 06/27/22 00:45 Ur Leukocyte Esterase 2+ (Negative) H 06/27/22 00:45 Urine WBC (Auto) 10-30 /hpf (0-5) H 06/27/22 00:45 Urine RBC (Auto) 5-10 /hpf (0-4) H 06/27/22 00:45 U Hyaline Cast (Auto) 1-5 /lpf (0-5) 06/27/22 00:45 U Epithel Cells (Auto) >30 /lpf (0-5) H 06/27/22 00:45 Urine Bacteria (Auto) Negative (Negative) 06/27/22 00:45 06/26/22 07:58 Aerobic Blood Culture - Preliminary Blood No growth in Aerobic bottle after 24 hours. Anaerobic Blood Culture - Preliminary No growth in Anaerobic bottle after 24 hours. 06/26/22 07:23 Aerobic Blood Culture - Preliminary Blood No growth in Aerobic bottle after 24 hours. Anaerobic Blood Culture - Preliminary No growth in Anaerobic bottle after 24 hours. 06/27/22 00:45 Gram Stain - Final Finger,Right Index 06/27/22 06/27/22 06/27/22 07:48 06:15 00:25 POC Glucose 135 H 133 H 148 H Electrocardiogram Date: 06/26/22 Atrial fibrillation Low voltage QRS Anterior infarct Inferior infarct , age undetermined Abnormal ECG When compared with ECG of 17-JUL-2019 23:47, Atrial fibrillation has replaced Sinus rhythm QRS duration has increased Confirmed by Alber Huang ([id number]) on 06/26/2022 9:49:33 PM Chest X-Ray Date: 06/26/22 FINDINGS: Implanted defibrillator is seen. Exam is limited by underpenetration. The cardiomediastinal silhouette is normal. The lungs are clear. No evidence of pleural effusion or pneumothorax. IMPRESSION: Exam is limited by patient body habitus. Within these limits, no evidence of pneumonia.
[2022-06-27] MEDS: PREGABALIN 50 MG CAP PO SCH (12:33)
[2022-06-27] MEDS ORDERED: ALBUMIN 25% 100 mL 25 GM/100 ML VIAL IV ONE (13:00)
[2022-06-27] MEDS: SODIUM CHLORIDE 0.9% 1000ML 1,000 ML IV SCH (13:21)
--- NOTE | 2022-06-27 14:01 | Pharmacy Report ---
Pharmacy Glycemic Short Note 2 - Date of Service June 27, 2022 - Glycemic Short BSG Results (Last 24 hours): 06/26/22 06/26/22 06/26/22 16:48 17:48 20:03 Glucose POC Glucose 115 H 134 H 137 H 06/27/22 06/27/22 06/27/22 00:25 06:15 07:48 Glucose POC Glucose 148 H 133 H 135 H 06/27/22 06/27/22 08:02 12:25 Glucose 133 H POC Glucose 169 H OUTPATIENT ANTIDIABETIC REGIMEN: * Trulicity 4.5mg SQ weekly * Novolog insulin pump: * Basal insulin: * 12am - 8am: 2.05 units/hr * 8am - 11am: 3.65 units/hr * 11am - 2pm: 4.6 units/hr * 2pm - 6pm: 4.1 units/hr * 6pm - 9pm: 4.0 units/hr * 9pm - 12am: 2.5 units/hr * Bolus insulin: * 25 units SQ TID with breakfast/lunch/dinner * 10-15 units SQ with snacks * HbA1c: 7.0% (06/26/22) ASSESSMENT: 06/27: * BSGs have been well-controlled thus far on SQ basal/bolus insulin. * Pt's diet was resumed yesterday afternoon, but he will be NPO again after midnight tonight for OR tomorrow. * No changes required at this time. 06/26 * Mr Cullen is a 62yo diabetic M admitted with SSTI. * Patient's insulin pump was disconnected upon admission. Pt will be managed on basal/bolus insulin for the duration of his hospital stay. * Pt has been NPO since admission. PLAN FOR INPATIENT GLYCEMIC CONTROL: * Basal insulin * Lantus 50 units SQ daily * Bolus insulin * NovoLog per scale ACHS or Q6hrs while NPO * Goal Range: Low 110 mg/dL - High 140 mg/dL * Correction Factor: 30 mg/dL/unit * Nutritional / Prandial insulin per carb ratio of 1 unit per 10 grams CHO consumed
[2022-06-27] MEDS: PRAMIPEXOLE DIHYDROCHLO 0.5 MG TAB PO SCH ×2 (17:52→20:38)
[2022-06-27] MEDS ORDERED: INSULIN ASPART PER UNIT SC SCH (19:30)
[2022-06-27] MEDS: NORTRIPTYLINE HCL 25 MG CAP PO SCH (20:36)
[2022-06-27] MEDS: LANTUS PER UNIT CHARGE SQ SCH (20:39)
[2022-06-28] MEDS: INSULIN ASPART PER UNIT SC SCH ×5 (00:29→20:15)
[2022-06-28] MEDS: SODIUM CHLORIDE 0.9% 1000ML 1,000 ML IV SCH ×4 (01:43→20:27)
[2022-06-28] MEDS: PIPERACILLIN/TAZOBACTAM 4.5 GM in DEXTROSE 5% 100 ML IV SCH ×3 (03:42→20:15)
[2022-06-28] MEDS: PANTOprazole 40 MG TAB PO SCH (06:19)
[2022-06-28] MEDS: DAPTOmycin 600 MG in SYRINGE 0 ML IV SCH (06:19)
[2022-06-28 06:41] LABS: Hematocrit (blood only) 32.5 % (40.1-51.0); Hemoglobin 10.5 g/dl (14.0-18.0); Mean Corpuscular Hemoglobin 30.3 pg (25.0-34.0); Mean Corpuscular Hgb Conc 32.3 g/dL (32.0-36.0); Mean Corpuscular Volume 93.9 fL (80.0-100.0); Platelet Count 206 K/uL (130-400); RDW Coefficient of Variation 14.5 % (11.5-14.5); RDW Standard Deviation 49.6 fL (36.4-46.3); Red Blood Count 3.46 M/uL (4.63-6.08); White Blood Count 6.64 K/ul (4.8-10.8)
[2022-06-28] MEDS ORDERED: MIDAZOLAM HCL 1 MG/ML 2ML VIAL ONE (06:55)
[2022-06-28] MEDS ORDERED: LIDOCAINE 2% MPF LOCAL 5 ML VIAL INFIL ONE (06:55)
[2022-06-28] MEDS ORDERED: PROPOFOL IV EMULSION 10 MG/ML 20 ML VIAL IV ONE (06:55)
[2022-06-28] MEDS ORDERED: ONDANSETRON INJ 2 MG/ML 2 ML VIAL ONE (06:55)
[2022-06-28] MEDS ORDERED: fentaNYL citrate 100 MCG/2 ML VIAL ONE (06:56)
[2022-06-28 06:57] LABS: BUN Creatinine Ratio 19.8 (10-20); Calcium 8.7 mg/dl (8.5-10.1); Creatinine Clr Calc Pharmacy 47.8 ml/min; Est GFR (Non-African American) 30.2 ml/min; Magnesium 2.7 mg/dl (1.7-2.4); Phosphorus 5.1 mg/dl (2.5-4.9); Potassium 4.7 mmol/L (3.5-5.1)
[2022-06-28] MEDS ORDERED: ePHEDrine sulfate 50 MG/ML AMP IV PRN (07:04)
[2022-06-28] MEDS ORDERED: fentaNYL citrate 100 MCG/2 ML VIAL IV PRN (07:04)
[2022-06-28] MEDS ORDERED: ATROPINE SULFATE 0.1 MG/ML 10ML SYR IV PRN (07:04)
[2022-06-28] MEDS ORDERED: ONDANSETRON INJ 2 MG/ML 2 ML VIAL IV PRN ×2 (07:04→09:59)
[2022-06-28] MEDS ORDERED: BUPIVACAINE 0.5 % 5 MG/1 ML MPF 30ML VIAL ONE (07:09)
[2022-06-28] MEDS ORDERED: EPINEPHrine INJ 1 MG/ML AMP ONE (07:09)
--- NOTE | 2022-06-28 07:18 | Hospitalist Progress Note ---
Date of Service June 28, 2022 Assessment & Plan (1) Osteomyelitis: Plan: This is a 62-year-old male who presents with infection of the right hand. R index finger (and pos. 5th R finger) osteomyelitis 1. Infection of the right hand: X-rays done in the [facility] showing osteomyelitis of the right index and right fifth finger. X-ray here: IMPRESSION: Progressive erosive changes at the distal armani of the right index and fifth fingers consistent with an osteomyelitis versus osteolysis. Empirically started on daptomycin and Zosyn. Follow the cultures. Orthopedics and wound care consulted Now s/p surg. intervention - R index finger amputation (06/28) 2. History of obstructive sleep apnea: On BiPAP at bedtime. 3. History of chronic diastolic congestive heart failure: Continue his torsemide, lisinopril, and Coreg. We will monitor for any volume overload, EF low normal. 4. History of status post implantable cardioverter-defibrillator. 5. History of paroxysmal ventricular tachycardia: On amiodarone. 6. Hx of DVT thrombosis and pulmonary embolism: On Eliquis. 7. Hx of paroxysmal atrial fibrillation: On amiodarone and Eliquis. 8. History of gouty arthritis: On allopurinol. 9. Diabetes: On insulin pump, was removed for now.. placed him on Lantus and insulin sliding scale on admission. Glycemic pharmacy consulted. Current HbA1c level 7.0% 10. Peripheral vascular disease: On aspirin, Eliquis and statin. 11. Chronic kidney disease stage IIIB: Creatinine is 1.9 on [facility] laboratories. Baseline around 1.8. Avoid nephrotoxic agents. Current Cr 2.2 likely from pt being npo, received gentle fluids. 12. History of obesity, status post gastric bypass. BMI 47. 13. History of restless legs syndrome: Continue home medications. 14. History of recurrent major depression: On duloxetine, nortriptyline and bupropion. 15. Hyperlipidemia: On statin. 16. Anemia of chronic kidney disease:Follow the laboratories. 17. Gastroesophageal reflux disease: On omeprazole. 18. Hypertension: On Coreg, lisinopril, torsemide. We will monitor the blood pressure. DVT prophylaxis: Currently on Eliquis. DISPOSITION:med-tele. PT/OT prior to discharge. Code: Full Admission and Anticipated Discharge Date Admission Date: June 26, 2022 Subjective Pt seen in follow up of R index finger (and poss. 5th R finger) osteomyelitis Currently laying in bed in NAD Underwent surg. intervention (R index finger amputation) early this AM Pt feels well overall. Denies any fever, chills, chest pain, shortness of breath, abd. pain, n/v Review of Systems Review of Systems: All systems reviewed & are unremarkable except as noted in Subjective Physical Exam Physical Exam: GENERAL:morbidly obese M, alert, oriented, not in acute distress. HEENT: No pallor. Extraocular muscles intact. Oral mucosa moist. NECK: No JVD. No neck masses. CARDIOVASCULAR: S1 and S2 heard. Regular rate and rhythm. No murmur, no gallop. RESPIRATORY: No accessory muscle use. No wheezing, no crackles. Somewhat diminished d/t body habitus. ABDOMEN: Soft, bowel sounds present, nontender. No guarding. NEURO: Alert and oriented. No facial droop. Speech is clear.Obeys commands. Moves extremities. EXTREMITIES: Right below-knee amputation, small skin tears in the upper part of the stump and also on the left knee, small skin tear is seen. Results & Data Results & Data ([facility]) Vital Signs (Past 12 Hours) Vital Signs Temp Pulse Pulse Resp BP Pulse Ox O2 Del Method 06/28/22 03:00 36 C L 82 20 91/57 L 99 CPAP 06/27/22 22:20 60 06/27/22 20:30 CPAP 06/27/22 23:00 36 C L 83 20 91/65 L 98 CPAP 06/27/22 20:36 83 103/67 Laboratory Results 06/28/22 06/28/22 06/28/22 Range/Units 06:13 06:04 06:04 WBC 6.64 (4.8-10.8) K/ul RBC 3.46 L (4.63-6.08) M/uL Hgb 10.5 L (14.0-18.0) g/dl Hct 32.5 L (40.1-51.0) % MCV 93.9 (80.0-100.0) fL MCH 30.3 (25.0-34.0) pg MCHC 32.3 (32.0-36.0) g/dL RDW Std Deviation 49.6 H (36.4-46.3) fL RDW Coeff of Karolina 14.5 (11.5-14.5) % Plt Count 206 (130-400) K/uL MPV 9.0 L (9.4-12.4) fL Sodium 136 (136-145) mmol/L Potassium 4.7 (3.5-5.1) mmol/L Chloride 104 (98-107) mmol/L Carbon Dioxide 24 (21-32) mmol/L Anion Gap 8 (3-11) BUN 45 H (6-23) mg/dl Creatinine 2.27 H (0.6-1.4) mg/dl Est Cr Clr Drug Dosing 47.8 ml/min Est GFR ( Amer) 35.0 ml/min Est GFR (Non-Af Amer) 30.2 ml/min BUN/Creatinine Ratio 19.8 (10-20) Glucose 124 H (70-99(Fasting)) mg/dl POC Glucose 131 H (70-99) mg/dl Calcium 8.7 (8.5-10.1) mg/dl Phosphorus 5.1 H (2.5-4.9) mg/dl Magnesium 2.7 H (1.7-2.4) mg/dl 06/28/22 06/27/22 06/27/22 Range/Units 00:23 20:04 17:02 WBC (4.8-10.8) K/ul RBC (4.63-6.08) M/uL Hgb (14.0-18.0) g/dl Hct (40.1-51.0) % MCV (80.0-100.0) fL MCH (25.0-34.0) pg MCHC (32.0-36.0) g/dL RDW Std Deviation (36.4-46.3) fL RDW Coeff of Karolina (11.5-14.5) % Plt Count (130-400) K/uL MPV (9.4-12.4) fL Sodium (136-145) mmol/L Potassium (3.5-5.1) mmol/L Chloride (98-107) mmol/L Carbon Dioxide (21-32) mmol/L Anion Gap (3-11) BUN (6-23) mg/dl Creatinine (0.6-1.4) mg/dl Est Cr Clr Drug Dosing ml/min Est GFR ( Amer) ml/min Est GFR (Non-Af Amer) ml/min BUN/Creatinine Ratio (10-20) Glucose (70-99(Fasting)) mg/dl POC Glucose 136 H 142 H 139 H (70-99) mg/dl Calcium (8.5-10.1) mg/dl Phosphorus (2.5-4.9) mg/dl Magnesium (1.7-2.4) mg/dl 06/27/22 06/27/22 06/27/22 Range/Units 12:25 08:02 08:02 WBC 4.59 L (4.8-10.8) K/ul RBC 3.77 L (4.63-6.08) M/uL Hgb 11.3 L (14.0-18.0) g/dl Hct 35.6 L (40.1-51.0) % MCV 94.4 (80.0-100.0) fL MCH 30.0 (25.0-34.0) pg MCHC 31.7 L (32.0-36.0) g/dL RDW Std Deviation 49.4 H (36.4-46.3) fL RDW Coeff of Karolina 14.4 (11.5-14.5) % Plt Count 210 (130-400) K/uL MPV 8.7 L (9.4-12.4) fL Sodium 136 (136-145) mmol/L Potassium 4.6 (3.5-5.1) mmol/L Chloride 102 (98-107) mmol/L Carbon Dioxide 26 (21-32) mmol/L Anion Gap 8 (3-11) BUN 39 H (6-23) mg/dl Creatinine 2.41 H D (0.6-1.4) mg/dl Est Cr Clr Drug Dosing 44.8 ml/min Est GFR ( Amer) 32.6 ml/min Est GFR (Non-Af Amer) 28.1 ml/min BUN/Creatinine Ratio 16.2 (10-20) Glucose 133 H (70-99(Fasting)) mg/dl POC Glucose 169 H (70-99) mg/dl Calcium 8.7 (8.5-10.1) mg/dl Phosphorus 5.2 H (2.5-4.9) mg/dl Magnesium 2.6 H (1.7-2.4) mg/dl 06/27/22 Range/Units 07:48 WBC (4.8-10.8) K/ul RBC (4.63-6.08) M/uL Hgb (14.0-18.0) g/dl Hct (40.1-51.0) % MCV (80.0-100.0) fL MCH (25.0-34.0) pg MCHC (32.0-36.0) g/dL RDW Std Deviation (36.4-46.3) fL RDW Coeff of Karolina (11.5-14.5) % Plt Count (130-400) K/uL MPV (9.4-12.4) fL Sodium (136-145) mmol/L Potassium (3.5-5.1) mmol/L Chloride (98-107) mmol/L Carbon Dioxide (21-32) mmol/L Anion Gap (3-11) BUN (6-23) mg/dl Creatinine (0.6-1.4) mg/dl Est Cr Clr Drug Dosing ml/min Est GFR ( Amer) ml/min Est GFR (Non-Af Amer) ml/min BUN/Creatinine Ratio (10-20) Glucose (70-99(Fasting)) mg/dl POC Glucose 135 H (70-99) mg/dl Calcium (8.5-10.1) mg/dl Phosphorus (2.5-4.9) mg/dl Magnesium (1.7-2.4) mg/dl Medications Administered Current Inpatient Medications Acetaminophen (Acetaminophen 325 Mg Tab) 650 mg PO Q4H PRN PRN Reason: Pain or Fever Stop: 07/26/22 18:38 Last Admin: 06/26/22 20:23 Dose: 650 mg Albuterol (Albuterol 0.083% Nebu Soln 3 Ml Vial) 2.5 mg INH Q4H PRN; Protocol PRN Reason: shortness of breath or wheezin Stop: 07/26/22 05:33 Allopurinol (Allopurinol 100 Mg Tab) 50 mg PO DAILY [facility] Stop: 07/26/22 08:59 Last Admin: 06/27/22 08:31 Dose: 50 mg Amiodarone HCl (Amiodarone 200 Mg Tab) 200 mg PO QAM [facility] Stop: 07/26/22 08:59 Last Admin: 06/27/22 09:22 Dose: 200 mg Apixaban (Apixaban 5 Mg Tablet) 5 mg PO BID [facility] Stop: 07/26/22 08:59 Last Admin: 06/27/22 20:39 Dose: Not Given Aspirin (Aspirin 81 Mg Ectab) 81 mg PO DAILY [facility] Stop: 07/26/22 08:59 Last Admin: 06/27/22 08:34 Dose: 81 mg Atorvastatin Calcium (Atorvastatin 40 Mg Tab) 40 mg PO DAILY [facility] Stop: 07/26/22 08:59 Last Admin: 06/27/22 08:34 Dose: 40 mg Atropine Sulfate (Atropine Sulfate 0.1 Mg/Ml 10ml Syr) 0.5 mg IV Q1M PRN PRN Reason: PACU Use-HR<40 &/or Bradycardi Stop: 06/28/22 15:04 Bupropion HCl (Bupropion Sr 150 Mg Tabcr) 150 mg PO BID [facility] Stop: 07/26/22 08:59 Last Admin: 06/27/22 20:37 Dose: 150 mg Carvedilol (Carvedilol 12.5 Mg Tab) 12.5 mg PO BID [facility] Stop: 07/26/22 08:59 Last Admin: 06/27/22 20:37 Dose: 12.5 mg Dextrose (Dextrose 50% 50 Ml Syringe) 25 - 50 ml IV UD PRN; Protocol PRN Reason: Hypoglycemia Protocol Stop: 07/26/22 05:29 Donepezil HCl (Donepezil Hcl 10 Mg Tab) 10 mg PO DAILY [facility] Stop: 07/26/22 08:59 Last Admin: 06/27/22 08:34 Dose: 10 mg Duloxetine HCl (Duloxetine Hcl 60 Mg Cap) 60 mg PO DAILY [facility] Stop: 07/26/22 08:59 Last Admin: 06/27/22 08:34 Dose: 60 mg Ephedrine Sulfate (Ephedrine Sulfate 50 Mg/Ml Amp) 5 mg IV Q5M PRN PRN Reason: PACU Use Only-SBP<90 mmHg Stop: 06/28/22 15:04 Fentanyl Citrate (Fentanyl Citrate 100 Mcg/2 Ml Vial) 25 mcg IV Q5M PRN PRN Reason: PACU Use Only-Pain Stop: 06/28/22 15:04 Glucagon (Glucagon For Inj 1 Mg Vial) 1 mg IM UD PRN; Protocol PRN Reason: Hypoglycemia Protocol Stop: 07/26/22 05:29 Glucose (Glucose 40% Gel 15 Gm Tube) 15 - 30 gm PO UD PRN; Protocol PRN Reason: Hypoglycemia Protocol Stop: 07/26/22 05:29 Glucose (Glucose 10 Tab/Tube) 4 - 8 tab PO UD PRN; Protocol PRN Reason: Hypoglycemia Protocol Stop: 07/26/22 05:29 Daptomycin 600 mg/ Syringe 12 mls @ 6 mls/min IV Q24H [facility]; Protocol Stop: 07/03/22 06:59 Last Admin: 06/28/22 06:19 Dose: 6 mls/min Piperacillin Sod/Tazobactam (Sod 4.5 gm/ Dextrose) 120 mls @ 30 mls/hr IV Q8H [facility]; Protocol Stop: 07/03/22 11:59 Last Admin: 06/28/22 03:42 Dose: 30 mls/hr Sodium Chloride (Nss 1000ml) 1,000 mls @ 80 mls/hr IV .[id number] [facility] Stop: 07/27/22 12:44 Last Admin: 06/28/22 01:43 Dose: 80 mls/hr Insulin Aspart (Insulin Aspart Per Unit) 0 units SC Q6H [facility] Stop: 07/28/22 00:00 Last Admin: 06/28/22 06:20 Dose: Not Given Insulin Glargine (Lantus Per Unit Charge) 0 units SQ HS [facility]; Protocol Stop: 07/26/22 20:59 Last Admin: 06/27/22 20:39 Dose: 10 units Insulin Glargine (Lantus Per Unit Charge) 50 units SQ QAM [facility] Stop: 07/28/22 08:59 Lamotrigine (Lamotrigine 25 Mg Tab) 50 mg PO BID [facility] Stop: 07/26/22 08:59 Last Admin: 06/27/22 20:37 Dose: 50 mg Lisinopril (Lisinopril 5 Mg Tab) 5 mg PO DAILY [facility] Stop: 07/26/22 08:59 Last Admin: 06/27/22 09:22 Dose: 5 mg Miscellaneous (Carbohydrates For Hypoglycemia ) 15 - 30 gm PO UD PRN PRN Reason: Hypoglycemia Treatment Stop: 07/26/22 05:29 Miscellaneous (Topiramate [Trokendi Xr] 100 Mg - Order Awaiting Action) 1 each N/A QS [facility] Stop: 07/26/22 07:59 Last Admin: 06/28/22 00:12 Dose: Not Given Miscellaneous Information (Pharmacy Glycemic Mgmt Consult) 1 each N/A UD PRN; Protocol PRN Reason: Consult Stop: 07/26/22 05:32 Montelukast Sodium (Montelukast Sodium 10 Mg Tablet) 10 mg PO DAILY [facility] Stop: 07/26/22 08:59 Last Admin: 06/27/22 08:35 Dose: 10 mg Multivitamins/Minerals (Cerovite Adv Formula Tab) 1 tab PO DAILY [facility] Stop: 07/26/22 08:59 Last Admin: 06/27/22 08:34 Dose: 1 tab Nortriptyline HCl (Nortriptyline Hcl 25 Mg Cap) 25 mg PO HS [facility] Stop: 07/26/22 20:59 Last Admin: 06/27/22 20:36 Dose: 25 mg Ondansetron HCl (Ondansetron Inj 2 Mg/Ml 2 Ml Vial) 4 mg IV ONCE PRN PRN Reason: PACU Use Only-Nausea/Vomiting Stop: 06/28/22 15:04 Pantoprazole Sodium (Pantoprazole 40 Mg Tab) 40 mg PO DAILYBB [facility] Stop: 07/26/22 06:29 Last Admin: 06/28/22 06:19 Dose: Not Given Polyethylene Glycol (Polyethylene (Miralax) 17 Gm Pack) 17 gm PO DAILY PRN PRN Reason: Constipation Stop: 07/26/22 18:38 Pramipexole Dihydrochloride (Pramipexole Dihydrochlo 0.5 Mg Tab) 0.5 mg PO DAILY@1700 [facility] Stop: 07/26/22 16:59 Last Admin: 06/27/22 17:52 Dose: 0.5 mg Pramipexole Dihydrochloride (Pramipexole Dihydrochlo 0.5 Mg Tab) 1.5 mg PO HS [facility] Stop: 07/26/22 20:59 Last Admin: 06/27/22 20:38 Dose: 1.5 mg Pregabalin (Pregabalin 100 Mg Cap) 200 mg PO TID [facility] Stop: 07/26/22 08:59 Last Admin: 06/27/22 20:36 Dose: 200 mg Pregabalin (Pregabalin 50 Mg Cap) 50 mg PO QDL [facility] Stop: 07/26/22 11:29 Last Admin: 06/27/22 12:33 Dose: 50 mg Primidone (Primidone 50 Mg Tab) 50 mg PO QAM [facility] Stop: 07/26/22 08:59 Last Admin: 06/27/22 08:36 Dose: 50 mg Primidone (Primidone 50 Mg Tab) 200 mg PO HS [facility] Stop: 07/26/22 20:59 Last Admin: 06/27/22 20:37 Dose: 200 mg Topiramate (Topiramate 100 Mg Tab) 100 mg PO DAILY [facility] Stop: 07/27/22 08:59 Last Admin: 06/27/22 08:31 Dose: 100 mg Torsemide (Torsemide 20 Mg Tab) 40 mg PO DAILY [facility] Stop: 07/26/22 08:59 Last Admin: 06/27/22 08:35 Dose: Not Given Vitamin D (Cholecalciferol 5,000 Units 125 Mcg Tab) 5,000 units PO DAILY [facility] Stop: 07/26/22 08:59 Last Admin: 06/27/22 08:34 Dose: 5,000 units
[2022-06-28] MEDS ORDERED: LIDOCAINE 1% LOCAL 20 ML VIAL ONE (07:58)
--- NOTE | 2022-06-28 08:01 | History & Physical Bridge Note ---
Date of Service June 28, 2022 History & Physical Bridge Note I have examined the patient, reviewed the History & Physical and in the interval since the performance of the History & Physical I have noted the following changes of clinical significance: no changes noted I saw Jorge in the preoperative holding area. We discussed risk benefits reasonable outcomes and expectations we will plan for: Right index finger amputation at PIP joint level versus middle phalanx level
--- NOTE | 2022-06-28 08:41 | Post Operative Brief Note ---
Immediate Post Op Note v1 Date of Surgery June 28, 2022 Pre & Post Diagnosis Operation Date: 06/28/22 07:35 Pre-Op Diagnosis: Osteomyelitis of right index finger Post-Op Diagnosis: Osteomyelitis of right index finger I identified the patient and participated in the time-out.: Yes Procedure Operation Date: 06/28/22 07:35 Actual Procedures p Right Hand Index Finger Amputation(Right) - Chris Ivey MD Surgeon Chris Ivey MD [employer]ame [employer]utter Edison Huerta PA-C Estimated Blood Loss 2 Findings Consistent with Post-Op Diagnosis Gross infection at the tip of the finger
[2022-06-28] MEDS ORDERED: LANTUS PER UNIT CHARGE SQ SCH (09:00)
--- NOTE | 2022-06-28 09:57 | Anesthesiology Progress Note ---
Date of Service June 28, 2022 Anesthesia Post Procedure Vital Signs Vital Signs: Temp Pulse Pulse Pulse Resp BP BP 06/28/22 07:04 66 06/28/22 09:30 97.3 F L 79 19 108/68 06/28/22 09:20 79 13 111/68 06/28/22 09:10 83 22 110/68 06/28/22 09:02 97.3 F L 82 18 104/67 06/28/22 03:00 96.8 F L 82 20 91/57 L 06/27/22 22:20 60 06/27/22 20:30 06/27/22 23:00 96.8 F L 83 20 91/65 L 06/27/22 20:36 83 103/67 06/27/22 18:57 97.7 F 84 20 100/61 06/27/22 18:00 103/62 06/27/22 16:27 73 06/27/22 16:13 97.7 F 77 20 103/67 06/27/22 14:12 06/27/22 11:06 95.5 F L 78 16 105/90 Pulse Ox O2 Del Method O2 Flow Rate 06/28/22 07:04 06/28/22 09:30 100 Nasal Cannula 2 06/28/22 09:20 100 Nasal Cannula 2 06/28/22 09:10 100 Nasal Cannula 2 06/28/22 09:02 94 Room Air 06/28/22 03:00 99 CPAP 06/27/22 22:20 06/27/22 20:30 CPAP 06/27/22 23:00 98 CPAP 06/27/22 20:36 06/27/22 18:57 99 CPAP 4 06/27/22 18:00 06/27/22 16:27 06/27/22 16:13 99 CPAP 4 06/27/22 14:12 CPAP 06/27/22 11:06 99 Room Air, CPAP Pain Intensity Head: Pain Intensity: 6 Transfer of Care Handoff Completed per policy Notes Mental Status: alert / awake / arousable and participated in evaluation Patient Amnestic to Procedure: Yes Nausea / Vomiting: adequately controlled Pain: adequately controlled Airway Patency, RR, SpO2: stable & adequate BP & HR: stable & adequate Hydration State: stable & adequate Anesthetic Complications: no major complications apparent and Pt Satisfied with anesthetic care
[2022-06-28] MEDS ORDERED: MAGNESIUM HYDROXIDE SUSP 30 ML UDC PO PRN (09:59)
[2022-06-28] MEDS ORDERED: NALOXONE HCL 0.4 MG/1 ML VIAL/CARP IV PRN (09:59)
[2022-06-28] MEDS ORDERED: bisacodyL 10 MG SUPP PR PRN (09:59)
[2022-06-28] MEDS: allopurinoL 100 MG TAB PO SCH (10:23)
[2022-06-28] MEDS: ASPIRIN 81 MG ECTAB PO SCH (10:26)
[2022-06-28] MEDS: AMIODARONE 200 MG TAB PO SCH (10:26)
[2022-06-28] MEDS: DONEPEZIL HCL 10 MG TAB PO SCH (10:27)
[2022-06-28] MEDS: buPROPion SR 150 MG TABCR PO SCH ×2 (10:27→20:19)
[2022-06-28] MEDS: carvediloL 12.5 MG TAB PO SCH ×2 (10:27→20:20)
[2022-06-28] MEDS: DULoxetine HCL 60 MG CAP PO SCH (10:27)
[2022-06-28] MEDS: CHOLECALCIFEROL 5,000 UNITS 125 MCG TAB PO SCH (10:27)
[2022-06-28] MEDS: ATORVASTATIN 40 MG TAB PO SCH (10:27)
[2022-06-28] MEDS: MONTELUKAST SODIUM 10 MG TABLET PO SCH (10:28)
[2022-06-28] MEDS: lamoTRIgine 25 MG TAB PO SCH ×2 (10:28→20:22)
[2022-06-28] MEDS: PREGABALIN 100 MG CAP PO SCH ×3 (10:28→20:26)
[2022-06-28] MEDS: CEROVITE ADV FORMULA TAB PO SCH (10:28)
[2022-06-28] MEDS: PRIMIDONE 50 MG TAB PO SCH ×2 (10:28→20:22)
[2022-06-28] MEDS: TOPIRAMATE 100 MG TAB PO SCH (10:29)
[2022-06-28] MEDS: PREGABALIN 50 MG CAP PO SCH (13:58)
[2022-06-28] MEDS: PRAMIPEXOLE DIHYDROCHLO 0.5 MG TAB PO SCH ×2 (17:22→20:17)
[2022-06-28] MEDS ORDERED: MICONAZOLE NITRATE POWDER 43 GM EXT PRN (17:57)
[2022-06-28] MEDS: LANTUS PER UNIT CHARGE SQ SCH (20:16)
[2022-06-28] MEDS: NORTRIPTYLINE HCL 25 MG CAP PO SCH (20:17)
[2022-06-28] MEDS: DOCUSATE SODIUM 100 MG CAP PO SCH (20:24)
[2022-06-28] MEDS: SENNA 8.6 MG TAB PO SCH (20:24)
[2022-06-29] MEDS: PIPERACILLIN/TAZOBACTAM 4.5 GM in DEXTROSE 5% 100 ML IV SCH ×3 (03:50→20:25)
[2022-06-29] MEDS: DAPTOmycin 600 MG in SYRINGE 0 ML IV SCH (05:55)
[2022-06-29] MEDS: PANTOprazole 40 MG TAB PO SCH (05:55)
--- NOTE | 2022-06-29 06:52 | Orthopedic Progress Note ---
Date of Service June 29, 2022 Assessment & Plan (1) Amputation finger: Plan: POD #1 s/p partial amputation of his right index finger. dressing was changed this am due to essentially coming off over night. recommend daily dressing changes, ice/elevation. Abx as per medicine, intra-op gram stain showing no organisms, c&s pending. Patient will need f/u with Dr Ivey team 10-12 days post op at [facility]. [phone] for appt, discharge instructions placed. please c ontact with any questions or concerns. Admission and Anticipated Discharge Date Admission Date: June 26, 2022 Subjective POD #1 s/p Right Hand Index Finger Amputation Physical Exam Physical Exam: Vital Signs Temp Pulse Pulse Pulse Resp BP Pulse Ox 06/29/22 03:00 36.2 C L 83 20 121/75 97 06/28/22 22:00 36.4 C L 85 18 110/66 97 06/28/22 23:28 82 06/28/22 23:28 06/28/22 19:00 36.7 C 84 18 133/74 96 06/28/22 18:49 87 06/28/22 10:29 06/28/22 15:09 36.5 C 90 18 92/58 L 98 06/28/22 14:16 36.4 C L 88 18 107/65 93 06/28/22 11:31 36.5 C 68 18 125/78 100 06/28/22 12:13 66 16 120/82 100 06/28/22 10:35 36.3 C L 70 18 121/74 99 06/28/22 10:05 36.5 C 80 20 123/79 98 06/28/22 09:50 36.6 C 80 20 111/75 98 06/28/22 10:18 84 06/28/22 07:04 66 06/28/22 09:30 36.3 C L 79 19 108/68 100 06/28/22 09:20 79 13 111/68 100 06/28/22 09:10 83 22 110/68 100 06/28/22 09:02 36.3 C L 82 18 104/67 94 O2 Del Method O2 Flow Rate 06/29/22 03:00 CPAP 06/28/22 22:00 BiPAP 06/28/22 23:28 06/28/22 23:28 Room Air, CPAP 06/28/22 19:00 BiPAP 06/28/22 18:49 06/28/22 10:29 Room Air, CPAP 4 06/28/22 15:09 CPAP 06/28/22 14:16 Room Air 06/28/22 11:31 CPAP 06/28/22 12:13 BiPAP 4 06/28/22 10:35 Room Air 06/28/22 10:05 Room Air 06/28/22 09:50 Room Air 06/28/22 10:18 06/28/22 07:04 06/28/22 09:30 Nasal Cannula 2 06/28/22 09:20 Nasal Cannula 2 06/28/22 09:10 Nasal Cannula 2 06/28/22 09:02 Room Air Intake and Output 06/28/22 06/28/22 06/29/22 14:59 22:59 06:59 Intake Total 1841.667 / 2628.33 4 566.667 / 2628.334 220 / 2628.334 Output Total 2 / 1153 1151 / 1153 Balance 1839.667 / 1475.33 4 -584.333 / 1475.33 4 220 / 1475.334 Intake: IV 1541.667 / 2228.33 4 566.667 / 2228.334 120 / 2228.334 Piperacillin/T azobactam 4.5 gm 120 / 360 120 / 360 120 / 360 In Dextrose 5% 100 ml @ 30 mls/ hr IV Q8H [facility] Rx#:[id number] Sodium Chlorid e 0.9% 1000ML 1, 1421.667 / 1868.33 4 446.667 / 1868.334 000 ml @ 80 ml s/hr IV .[id number] [facility] Rx#:[id number] IV Perioperative 300 / 300 Oral 100 / 100 Output: Urine 1150 / 1150 Estimated Blood Loss 2 / 2 # Bowel Movement s Other: Other Intake Lawanda rce sips Weight 141.4 kg 144.7 kg Patient Weight 06/29/22 06:59 Weight 144.7 kg Musculoskeletal: Right Hand index finger: is s/p partial amputation of his right index finger; skin edges well approximated with Nylon sutures. no erythema, no drainage noted. no streaking. he is able to move the MCP joint without pain. Results & Data ([facility]) Vital Signs (Past 12 Hours) Vital Signs Temp Pulse Pulse Resp BP Pulse Ox O2 Del Method 06/29/22 03:00 36.2 C L 83 20 121/75 97 CPAP 06/28/22 22:00 36.4 C L 85 18 110/66 97 BiPAP 06/28/22 23:28 82 06/28/22 23:28 Room Air, CPAP 06/28/22 19:00 36.7 C 84 18 133/74 96 BiPAP
[2022-06-29 06:53] LABS: Hemoglobin 10.3 g/dl (14.0-18.0); Mean Corpuscular Hgb Conc 31.2 g/dL (32.0-36.0); Mean Corpuscular Volume 96.2 fL (80.0-100.0); Mean Platelet Volume 8.6 fL (9.4-12.4); Platelet Count 201 K/uL (130-400); RDW Coefficient of Variation 14.4 % (11.5-14.5); RDW Standard Deviation 50.3 fL (36.4-46.3); Red Blood Count 3.43 M/uL (4.63-6.08); White Blood Count 5.45 K/ul (4.8-10.8)
[2022-06-29 07:27] LABS: Calcium 8.7 mg/dl (8.5-10.1); Creatinine Clr Calc Pharmacy 60.1 ml/min; Est GFR (African American) 45.5 ml/min; Est GFR (Non-African American) 39.2 ml/min; Magnesium 2.6 mg/dl (1.7-2.4); Phosphorus 3.9 mg/dl (2.5-4.9); Potassium 4.3 mmol/L (3.5-5.1)
[2022-06-29] MEDS: INSULIN ASPART PER UNIT SC SCH ×4 (08:38→21:41)
[2022-06-29] MEDS: PREGABALIN 100 MG CAP PO SCH ×3 (08:39→20:13)
[2022-06-29] MEDS: ACETAMINOPHEN 325 MG TAB PO PRN (08:39)
[2022-06-29] MEDS: DONEPEZIL HCL 10 MG TAB PO SCH (08:40)
[2022-06-29] MEDS: CEROVITE ADV FORMULA TAB PO SCH (08:40)
[2022-06-29] MEDS: ATORVASTATIN 40 MG TAB PO SCH (08:40)
[2022-06-29] MEDS: allopurinoL 100 MG TAB PO SCH (08:40)
[2022-06-29] MEDS: TOPIRAMATE 100 MG TAB PO SCH (08:40)
[2022-06-29] MEDS: MONTELUKAST SODIUM 10 MG TABLET PO SCH (08:40)
[2022-06-29] MEDS: ASPIRIN 81 MG ECTAB PO SCH (08:40)
[2022-06-29] MEDS: lamoTRIgine 25 MG TAB PO SCH ×2 (08:41→20:15)
[2022-06-29] MEDS: buPROPion SR 150 MG TABCR PO SCH ×2 (08:41→20:16)
[2022-06-29] MEDS: TORSEMIDE 20 MG TAB PO SCH (08:41)
[2022-06-29] MEDS: DULoxetine HCL 60 MG CAP PO SCH (08:41)
[2022-06-29] MEDS: DOCUSATE SODIUM 100 MG CAP PO SCH ×2 (08:41→20:15)
[2022-06-29] MEDS: carvediloL 12.5 MG TAB PO SCH ×2 (08:41→20:16)
[2022-06-29] MEDS: CHOLECALCIFEROL 5,000 UNITS 125 MCG TAB PO SCH (08:42)
[2022-06-29] MEDS: AMIODARONE 200 MG TAB PO SCH (08:42)
[2022-06-29] MEDS: MULTIVITAMIN TAB PO SCH (08:42)
[2022-06-29] MEDS: APIXABAN 5 MG TABLET PO SCH ×2 (08:42→20:16)
[2022-06-29] MEDS: PRIMIDONE 50 MG TAB PO SCH ×2 (08:42→20:13)
[2022-06-29] MEDS ORDERED: LANTUS PER UNIT CHARGE SQ SCH (09:00)
--- NOTE | 2022-06-29 10:31 | Hospitalist Progress Note ---
Date of Service June 29, 2022 Assessment & Plan (1) Osteomyelitis: Plan: This is a 62-year-old male who presents with infection of the right hand. R index finger (and poss. 5th R finger) osteomyelitis 1. Infection of the right hand: X-rays done in the [facility] showing osteomyelitis of the right index and right fifth finger. X-ray here: IMPRESSION: Progressive erosive changes at the distal armani of the right index and fifth fingers consistent with an osteomyelitis versus osteolysis. Empirically started on daptomycin and Zosyn. Follow the cultures. Orthopedics and wound care consulted Now s/p surg. intervention - R partial index finger amputation (06/28) 2. History of obstructive sleep apnea: On BiPAP at bedtime. 3. History of chronic diastolic congestive heart failure: Continue his torsemide, and Coreg. Lisinopril held d/t mild elevation of Cr. We will monitor for any volume overload, EF low normal. 4. History of status post implantable cardioverter-defibrillator. 5. History of paroxysmal ventricular tachycardia: On amiodarone. 6. Hx of DVT thrombosis and pulmonary embolism: On Eliquis. 7. Hx of paroxysmal atrial fibrillation: On amiodarone and Eliquis. 8. History of gouty arthritis: On allopurinol. 9. Diabetes: On insulin pump, was removed for now.. placed him on Lantus and insulin sliding scale on admission. Glycemic pharmacy consulted. Current HbA1c level 7.0% 10. Peripheral vascular disease: On aspirin, Eliquis and statin. 11. Chronic kidney disease stage IIIB: Creatinine is 1.9 on [facility] laboratories. Baseline around 1.8. Avoid nephrotoxic agents. Cr 2.2 likely from pt being npo, received gentle fluids. Current Cr 1.8 Cont. to monitor 12. History of obesity, status post gastric bypass. BMI 47. 13. History of restless legs syndrome: Continue home medications. 14. History of recurrent major depression: On duloxetine, nortriptyline and bupropion. 15. Hyperlipidemia: On statin. 16. Anemia of chronic kidney disease:Follow the laboratories. 17. Gastroesophageal reflux disease: On omeprazole. 18. Hypertension: On Coreg, lisinopril, torsemide. We will monitor the blood pressure. DVT prophylaxis: Currently on Eliquis. DISPOSITION:med-tele. PT/OT prior to discharge. Code: Full Admission and Anticipated Discharge Date Admission Date: June 26, 2022 Subjective Pt seen in follow up of R index finger (and poss. 5th R finger) osteomyelitis Currently sitting up in bed in NAD Underwent surg. intervention (R partial index finger amputation) yesterday (06/28/22) Pt feels well overall. Denies any fever, chills, chest pain, shortness of breath, abd. pain, n/v Review of Systems Review of Systems: All systems reviewed & are unremarkable except as noted in Subjective Physical Exam Physical Exam: GENERAL:morbidly obese M, alert, oriented, not in acute distress. HEENT: No pallor. Extraocular muscles intact. Oral mucosa moist. NECK: No JVD. No neck masses. CARDIOVASCULAR: S1 and S2 heard. Regular rate and rhythm. No murmur, no gallop. RESPIRATORY: No accessory muscle use. No wheezing, no crackles. Somewhat diminished d/t body habitus. ABDOMEN: Soft, bowel sounds present, nontender. No guarding. NEURO: Alert and oriented. No facial droop. Speech is clear.Moves extremities. EXTREMITIES: R hand - dressings applied over R index finger s/p surgery, Right below-knee amputation, small skin tears in the upper part of the stump and also on the left knee, small skin tear is seen. Results & Data Results & Data ([facility]) Vital Signs (Past 12 Hours) Vital Signs Temp Pulse Pulse Pulse Resp BP Pulse Ox 06/29/22 08:00 36.9 C 86 18 112/72 94 06/29/22 03:00 36.2 C L 83 20 121/75 97 06/28/22 23:28 82 06/28/22 23:28 O2 Del Method 06/29/22 08:00 Room Air 06/29/22 03:00 CPAP 06/28/22 23:28 06/28/22 23:28 Room Air, CPAP Laboratory Results 06/29/22 06/29/22 06/29/22 Range/Units 07:22 06:32 06:32 WBC 5.45 (4.8-10.8) K/ul RBC 3.43 L (4.63-6.08) M/uL Hgb 10.3 L (14.0-18.0) g/dl Hct 33.0 L (40.1-51.0) % MCV 96.2 (80.0-100.0) fL MCH 30.0 (25.0-34.0) pg MCHC 31.2 L (32.0-36.0) g/dL RDW Std Deviation 50.3 H (36.4-46.3) fL RDW Coeff of Kraolina 14.4 (11.5-14.5) % Plt Count 201 (130-400) K/uL MPV 8.6 L (9.4-12.4) fL Sodium 135 L (136-145) mmol/L Potassium 4.3 (3.5-5.1) mmol/L Chloride 105 (98-107) mmol/L Carbon Dioxide 25 (21-32) mmol/L Anion Gap 5 (3-11) BUN 33 H (6-23) mg/dl Creatinine 1.83 H D (0.6-1.4) mg/dl Est Cr Clr Drug Dosing 60.1 ml/min Est GFR ( Amer) 45.5 ml/min Est GFR (Non-Af Amer) 39.2 ml/min BUN/Creatinine Ratio 18.0 (10-20) Glucose 69 L (70-99(Fasting)) mg/dl POC Glucose 80 (70-99) mg/dl Calcium 8.7 (8.5-10.1) mg/dl Phosphorus 3.9 D (2.5-4.9) mg/dl Magnesium 2.6 H (1.7-2.4) mg/dl 06/28/22 06/28/22 06/28/22 Range/Units 20:03 16:39 11:17 WBC (4.8-10.8) K/ul RBC (4.63-6.08) M/uL Hgb (14.0-18.0) g/dl Hct (40.1-51.0) % MCV (80.0-100.0) fL MCH (25.0-34.0) pg MCHC (32.0-36.0) g/dL RDW Std Deviation (36.4-46.3) fL RDW Coeff of Karolina (11.5-14.5) % Plt Count (130-400) K/uL MPV (9.4-12.4) fL Sodium (136-145) mmol/L Potassium (3.5-5.1) mmol/L Chloride (98-107) mmol/L Carbon Dioxide (21-32) mmol/L Anion Gap (3-11) BUN (6-23) mg/dl Creatinine (0.6-1.4) mg/dl Est Cr Clr Drug Dosing ml/min Est GFR ( Amer) ml/min Est GFR (Non-Af Amer) ml/min BUN/Creatinine Ratio (10-20) Glucose (70-99(Fasting)) mg/dl POC Glucose 122 H 116 H 114 H (70-99) mg/dl Calcium (8.5-10.1) mg/dl Phosphorus (2.5-4.9) mg/dl Magnesium (1.7-2.4) mg/dl Medications Administered Current Inpatient Medications Acetaminophen (Acetaminophen 325 Mg Tab) 650 mg PO Q4H PRN PRN Reason: Pain or Fever Stop: 07/26/22 18:38 Last Admin: 06/29/22 08:39 Dose: 650 mg Albuterol (Albuterol 0.083% Nebu Soln 3 Ml Vial) 2.5 mg INH Q4H PRN; Protocol PRN Reason: shortness of breath or wheezin Stop: 07/26/22 05:33 Allopurinol (Allopurinol 100 Mg Tab) 50 mg PO DAILY UNRULY Stop: 07/26/22 08:59 Last Admin: 06/29/22 08:40 Dose: 50 mg Amiodarone HCl (Amiodarone 200 Mg Tab) 200 mg PO QAM [facility]RULY Stop: 07/26/22 08:59 Last Admin: 06/29/22 08:42 Dose: 200 mg Apixaban (Apixaban 5 Mg Tablet) 5 mg PO BID UNRULY Stop: 07/26/22 08:59 Last Admin: 06/29/22 08:42 Dose: 5 mg Aspirin (Aspirin 81 Mg Ectab) 81 mg PO DAILY UNRULY Stop: 07/26/22 08:59 Last Admin: 06/29/22 08:40 Dose: 81 mg Atorvastatin Calcium (Atorvastatin 40 Mg Tab) 40 mg PO DAILY UNRULY Stop: 07/26/22 08:59 Last Admin: 06/29/22 08:40 Dose: 40 mg Bisacodyl (Bisacodyl 10 Mg Supp) 10 mg LA DAILY PRN PRN Reason: Constipation Stop: 07/28/22 09:58 Bupropion HCl (Bupropion Sr 150 Mg Tabcr) 150 mg PO BID UNRULY Stop: 07/26/22 08:59 Last Admin: 06/29/22 08:41 Dose: 150 mg Carvedilol (Carvedilol 12.5 Mg Tab) 12.5 mg PO BID UNRULY Stop: 07/26/22 08:59 Last Admin: 06/29/22 08:41 Dose: 12.5 mg Dextrose (Dextrose 50% 50 Ml Syringe) 25 - 50 ml IV UD PRN; Protocol PRN Reason: Hypoglycemia Protocol Stop: 07/26/22 05:29 Docusate Sodium (Docusate Sodium 100 Mg Cap) 100 mg PO BID UNRULY Stop: 07/28/22 20:59 Last Admin: 06/29/22 08:41 Dose: 100 mg Donepezil HCl (Donepezil Hcl 10 Mg Tab) 10 mg PO DAILY UNRULY Stop: 07/26/22 08:59 Last Admin: 06/29/22 08:40 Dose: 10 mg Duloxetine HCl (Duloxetine Hcl 60 Mg Cap) 60 mg PO DAILY UNRULY Stop: 07/26/22 08:59 Last Admin: 06/29/22 08:41 Dose: 60 mg Glucagon (Glucagon For Inj 1 Mg Vial) 1 mg IM UD PRN; Protocol PRN Reason: Hypoglycemia Protocol Stop: 07/26/22 05:29 Glucose (Glucose 40% Gel 15 Gm Tube) 15 - 30 gm PO UD PRN; Protocol PRN Reason: Hypoglycemia Protocol Stop: 07/26/22 05:29 Glucose (Glucose 10 Tab/Tube) 4 - 8 tab PO UD PRN; Protocol PRN Reason: Hypoglycemia Protocol Stop: 07/26/22 05:29 Daptomycin 600 mg/ Syringe 12 mls @ 6 mls/min IV Q24H UNRULY; Protocol Stop: 07/03/22 06:59 Last Admin: 06/29/22 05:55 Dose: 6 mls/min Piperacillin Sod/Tazobactam (Sod 4.5 gm/ Dextrose) 120 mls @ 30 mls/hr IV Q8H UNRULY; Protocol Stop: 07/03/22 11:59 Last Infusion: 06/29/22 07:50 Dose: Infused Insulin Aspart (Insulin Aspart Per Unit) 0 units SC ACHS UNRULY Stop: 07/28/22 16:29 Last Admin: 06/29/22 08:38 Dose: 5 units Insulin Glargine (Lantus Per Unit Charge) 0 units SQ HS UNRULY; Protocol Stop: 07/26/22 20:59 Last Admin: 06/28/22 20:16 Dose: 10 units Insulin Glargine (Lantus Per Unit Charge) 40 units SQ QAM [facility] Stop: 07/29/22 08:59 Last Admin: 06/29/22 08:38 Dose: 40 units Lamotrigine (Lamotrigine 25 Mg Tab) 50 mg PO BID [facility] Stop: 07/26/22 08:59 Last Admin: 06/29/22 08:41 Dose: 50 mg Lisinopril (Lisinopril 5 Mg Tab) 5 mg PO DAILY [facility] Stop: 07/26/22 08:59 Last Admin: 06/27/22 09:22 Dose: 5 mg Magnesium Hydroxide (Magnesium Hydroxide Susp 30 Ml Udc) 30 ml PO Q6H PRN PRN Reason: Constipation Stop: 07/28/22 09:58 Miconazole Nitrate (Miconazole Nitrate Powder 43 Gm) 1 appln EXT PRN PRN PRN Reason: Affected Skin Folds Stop: 07/28/22 17:56 Miscellaneous (Carbohydrates For Hypoglycemia ) 15 - 30 gm PO UD PRN PRN Reason: Hypoglycemia Treatment Stop: 07/26/22 05:29 Miscellaneous (Topiramate [Trokendi Xr] 100 Mg - Order Awaiting Action) 1 each N/A QS [facility] Stop: 07/26/22 07:59 Last Admin: 06/29/22 09:04 Dose: Not Given Miscellaneous Information (Pharmacy Glycemic Mgmt Consult) 1 each N/A UD PRN; Protocol PRN Reason: Consult Stop: 07/26/22 05:32 Montelukast Sodium (Montelukast Sodium 10 Mg Tablet) 10 mg PO DAILY [facility] Stop: 07/26/22 08:59 Last Admin: 06/29/22 08:40 Dose: 10 mg Multivitamins (Multivitamin Tab) 1 tab PO QAM [facility] Stop: 07/29/22 08:59 Last Admin: 06/29/22 08:42 Dose: 1 tab Multivitamins/Minerals (Cerovite Adv Formula Tab) 1 tab PO DAILY [facility] Stop: 07/26/22 08:59 Last Admin: 06/29/22 08:40 Dose: 1 tab Naloxone HCl (Naloxone Hcl 0.4 Mg/1 Ml Vial/Carp) 0.1 mg IV Q5M PRN PRN Reason: Oversedation/Resp Depression Stop: 07/28/22 09:58 Nortriptyline HCl (Nortriptyline Hcl 25 Mg Cap) 25 mg PO HS [facility] Stop: 07/26/22 20:59 Last Admin: 06/28/22 20:17 Dose: 25 mg Ondansetron HCl (Ondansetron Inj 2 Mg/Ml 2 Ml Vial) 4 mg IV Q6H PRN PRN Reason: Nausea And Vomiting Stop: 07/28/22 09:58 Pantoprazole Sodium (Pantoprazole 40 Mg Tab) 40 mg PO DAILYBB [facility] Stop: 07/26/22 06:29 Last Admin: 06/29/22 05:55 Dose: 40 mg Polyethylene Glycol (Polyethylene (Miralax) 17 Gm Pack) 17 gm PO DAILY PRN PRN Reason: Constipation Stop: 07/26/22 18:38 Pramipexole Dihydrochloride (Pramipexole Dihydrochlo 0.5 Mg Tab) 0.5 mg PO DAILY@1700 [facility] Stop: 07/26/22 16:59 Last Admin: 06/28/22 17:22 Dose: 0.5 mg Pramipexole Dihydrochloride (Pramipexole Dihydrochlo 0.5 Mg Tab) 1.5 mg PO HS [facility] Stop: 07/26/22 20:59 Last Admin: 06/28/22 20:17 Dose: 1.5 mg Pregabalin (Pregabalin 100 Mg Cap) 200 mg PO TID [facility] Stop: 07/26/22 08:59 Last Admin: 06/29/22 08:39 Dose: 200 mg Pregabalin (Pregabalin 50 Mg Cap) 50 mg PO QDL [facility] Stop: 07/26/22 11:29 Last Admin: 06/28/22 13:58 Dose: 50 mg Primidone (Primidone 50 Mg Tab) 50 mg PO QAM [facility] Stop: 07/26/22 08:59 Last Admin: 06/29/22 08:42 Dose: 50 mg Primidone (Primidone 50 Mg Tab) 200 mg PO HS [facility] Stop: 07/26/22 20:59 Last Admin: 06/28/22 20:22 Dose: 200 mg Sennosides (Senna 8.6 Mg Tab) 17.2 mg PO HS [facility] Stop: 07/28/22 20:59 Last Admin: 06/28/22 20:24 Dose: 17.2 mg Topiramate (Topiramate 100 Mg Tab) 100 mg PO DAILY [facility] Stop: 07/27/22 08:59 Last Admin: 06/29/22 08:40 Dose: 100 mg Torsemide (Torsemide 20 Mg Tab) 40 mg PO DAILY [facility] Stop: 07/26/22 08:59 Last Admin: 06/29/22 08:41 Dose: 40 mg Vitamin D (Cholecalciferol 5,000 Units 125 Mcg Tab) 5,000 units PO DAILY [facility] Stop: 07/26/22 08:59 Last Admin: 06/29/22 08:42 Dose: 5,000 units
[2022-06-29] MEDS: PREGABALIN 50 MG CAP PO SCH (12:18)
--- NOTE | 2022-06-29 14:38 | Pharmacy Report ---
Pharmacy Glycemic Short Note 2 - Date of Service June 29, 2022 - Glycemic Short BSG Results (Last 24 hours): 06/28/22 06/28/22 06/29/22 16:39 20:03 06:32 Glucose 69 L POC Glucose 116 H 122 H 06/29/22 06/29/22 07:22 11:37 Glucose POC Glucose 80 78 OUTPATIENT ANTIDIABETIC REGIMEN: * Trulicity 4.5mg SQ weekly * Novolog insulin pump: * Basal insulin: * 12am - 8am: 2.05 units/hr * 8am - 11am: 3.65 units/hr * 11am - 2pm: 4.6 units/hr * 2pm - 6pm: 4.1 units/hr * 6pm - 9pm: 4.0 units/hr * 9pm - 12am: 2.5 units/hr * Bolus insulin: * 25 units SQ TID with breakfast/lunch/dinner * 10-15 units SQ with snacks * HbA1c: 7.0% (06/26/22) ASSESSMENT: 06/29: * POD #1 s/p partial amputation of his right index finger * BSGs well controlled but trending downward yesterday and fasting is below goal today (80 mg/dL). * Will back off both basal and bolus insulin. 06/27: * BSGs have been well-controlled thus far on SQ basal/bolus insulin. * Pt's diet was resumed yesterday afternoon, but he will be NPO again after midnight tonight for OR tomorrow. * No changes required at this time. 06/26 * Mr Cullen is a 62yo diabetic M admitted with SSTI. * Patient's insulin pump was disconnected upon admission. Pt will be managed on basal/bolus insulin for the duration of his hospital stay. * Pt has been NPO since admission. PLAN FOR INPATIENT GLYCEMIC CONTROL: * Basal insulin * Lantus 40 units SQ qAM + * Lantus 0-10 units SQ qHS (10 units if BSG 140 mg/dL or more) * Bolus insulin * NovoLog per scale ACHS or Q6hrs while NPO * Goal Range: Low 110 mg/dL - High 140 mg/dL * Correction Factor: 30 mg/dL/unit * Nutritional / Prandial insulin per carb ratio of 1 unit per 14 grams CHO consumed
[2022-06-29] MEDS: PRAMIPEXOLE DIHYDROCHLO 0.5 MG TAB PO SCH ×2 (17:21→20:14)
[2022-06-29] MEDS: SENNA 8.6 MG TAB PO SCH (20:13)
[2022-06-29] MEDS: NORTRIPTYLINE HCL 25 MG CAP PO SCH (20:15)
[2022-06-29] MEDS: LANTUS PER UNIT CHARGE SQ SCH (21:41)
[2022-06-30] MEDS: PIPERACILLIN/TAZOBACTAM 4.5 GM in DEXTROSE 5% 100 ML IV SCH ×2 (03:53→11:42)
[2022-06-30] MEDS: PANTOprazole 40 MG TAB PO SCH (05:09)
[2022-06-30] MEDS: DAPTOmycin 600 MG in SYRINGE 0 ML IV SCH (06:06)
--- NOTE | 2022-06-30 08:05 | Hospitalist Progress Note ---
Date of Service June 30, 2022 Assessment & Plan (1) Osteomyelitis: Plan: This is a 62-year-old male who presents with infection of the right hand. R index finger (and poss. 5th R finger) osteomyelitis 1. Infection of the right hand: X-rays done in the [facility] showing osteomyelitis of the right index and right fifth finger. X-ray here: IMPRESSION: Progressive erosive changes at the distal armani of the right index and fifth fingers consistent with an osteomyelitis versus osteolysis. Empirically started on daptomycin and Zosyn. Follow the cultures. Orthopedics and wound care consulted Now s/p surg. intervention - R partial index finger amputation (06/28) 06/30 Discussed w/ ID - plan to switch zosyn to cefepime - 6 weeks IV Abx for 5th finger needed - recommend bone biopsy or wound cultx from 5th finger Discussed w/ orthopedics re: R 5th finger - will repeat Xray of 5 th finger to further evaluate I also reviewed blood cultures from [facility], so far they are negative. Wound culture from there shows rare mixed gram-positive growth consistent with skin kiara. 2. History of obstructive sleep apnea: On BiPAP at bedtime. 3. History of chronic diastolic congestive heart failure: Continue his torsemide, and Coreg. Lisinopril held d/t mild elevation of Cr. We will monitor for any volume overload, EF low normal. 4. History of status post implantable cardioverter-defibrillator. 5. History of paroxysmal ventricular tachycardia: On amiodarone. 6. Hx of DVT thrombosis and pulmonary embolism: On Eliquis. 7. Hx of paroxysmal atrial fibrillation: On amiodarone and Eliquis. 8. History of gouty arthritis: On allopurinol. 9. Diabetes: On insulin pump, was removed for now.. placed him on Lantus and insulin sliding scale on admission. Glycemic pharmacy consulted. Current HbA1c level 7.0% 10. Peripheral vascular disease: On aspirin, Eliquis and statin. 11. Chronic kidney disease stage IIIB: Creatinine is 1.9 on [facility] laboratories. Baseline around 1.8. Avoid nephrotoxic agents. Cr 2.2 likely from pt being npo, received gentle fluids. Current Cr 1.8 Cont. to monitor 12. History of obesity, status post gastric bypass. BMI 47. 13. History of restless legs syndrome: Continue home medications. 14. History of recurrent major depression: On duloxetine, nortriptyline and bupropion. 15. Hyperlipidemia: On statin. 16. Anemia of chronic kidney disease:Follow the laboratories. 17. Gastroesophageal reflux disease: On omeprazole. 18. Hypertension: On Coreg, lisinopril, torsemide. We will monitor the blood pressure. DVT prophylaxis: Currently on Eliquis. DISPOSITION:med-tele. PT/OT prior to discharge. Code: Full Admission and Anticipated Discharge Date Admission Date: June 26, 2022 Subjective Pt seen in follow up of R index finger (and poss. 5th R finger) osteomyelitis Currently sitting up in bed in NAD Underwent surg. intervention (R partial index finger amputation) on (06/28/22) Pt feels well overall. Denies any fever, chills, chest pain, shortness of breath, abd. pain, n/v Orthopedics and ID consulted Review of Systems Review of Systems: All systems reviewed & are unremarkable except as noted in Subjective Physical Exam Physical Exam: GENERAL:morbidly obese M, alert, oriented, not in acute distress. HEENT: No pallor. Extraocular muscles intact. Oral mucosa moist. NECK: No JVD. No neck masses. CARDIOVASCULAR: S1 and S2 heard. Regular rate and rhythm. No murmur, no gallop. RESPIRATORY: No accessory muscle use. No wheezing, no crackles. Somewhat diminished d/t body habitus. ABDOMEN: Soft, bowel sounds present, nontender. No guarding. NEURO: Alert and oriented. No facial droop. Speech is clear.Moves extremities. EXTREMITIES: R hand - dressings applied over R index finger s/p surgery, Right below-knee amputation, small skin tears in the upper part of the stump and also on the left knee, small skin tear is seen. Results & Data Results & Data ([facility]) Vital Signs (Past 12 Hours) Vital Signs Temp Pulse Pulse Pulse Resp BP Pulse Ox 06/30/22 07:42 36.9 C 93 H 18 148/84 H 98 06/30/22 02:49 35.7 C L 86 18 149/80 H 98 06/29/22 22:10 81 06/29/22 22:00 36.3 C L 84 18 106/70 98 O2 Del Method 06/30/22 07:42 CPAP 06/30/22 02:49 BiPAP 06/29/22 22:10 06/29/22 22:00 BiPAP Laboratory Results 06/30/22 06/30/22 06/30/22 Range/Units 07:57 07:57 07:34 WBC 5.63 (4.8-10.8) K/ul RBC 3.58 L (4.63-6.08) M/uL Hgb 10.8 L (14.0-18.0) g/dl Hct 33.9 L (40.1-51.0) % MCV 94.7 (80.0-100.0) fL MCH 30.2 (25.0-34.0) pg MCHC 31.9 L (32.0-36.0) g/dL RDW Std Deviation 49.4 H (36.4-46.3) fL RDW Coeff of Karolina 14.3 (11.5-14.5) % Plt Count 213 (130-400) K/uL MPV 8.8 L (9.4-12.4) fL Sodium 138 (136-145) mmol/L Potassium 4.3 (3.5-5.1) mmol/L Chloride 105 (98-107) mmol/L Carbon Dioxide 26 (21-32) mmol/L Anion Gap 7 (3-11) BUN 33 H (6-23) mg/dl Creatinine 1.88 H (0.6-1.4) mg/dl Est Cr Clr Drug Dosing 56.9 ml/min Est GFR ( Amer) 44.0 ml/min Est GFR (Non-Af Amer) 38.0 ml/min BUN/Creatinine Ratio 17.6 (10-20) Glucose 82 (70-99(Fasting)) mg/dl POC Glucose 95 (70-99) mg/dl Calcium 9.0 (8.5-10.1) mg/dl Phosphorus 3.9 (2.5-4.9) mg/dl Magnesium 2.5 H (1.7-2.4) mg/dl Total Bilirubin 0.3 (0.2-1.0) mg/dl AST 20 (13-39) U/L ALT 12 (7-52) U/L Alkaline Phosphatase 93 (34-104) U/L Total Protein 7.4 (6.0-8.3) gm/dl Albumin 4.0 (3.4-5.0) gm/dl Globulin 3.4 (2.5-4.0) gm/dl Albumin/Globulin Ratio 1.2 (0.9-2) 06/29/22 06/29/22 06/29/22 Range/Units 20:28 16:58 11:37 WBC (4.8-10.8) K/ul RBC (4.63-6.08) M/uL Hgb (14.0-18.0) g/dl Hct (40.1-51.0) % MCV (80.0-100.0) fL MCH (25.0-34.0) pg MCHC (32.0-36.0) g/dL RDW Std Deviation (36.4-46.3) fL RDW Coeff of Karolina (11.5-14.5) % Plt Count (130-400) K/uL MPV (9.4-12.4) fL Sodium (136-145) mmol/L Potassium (3.5-5.1) mmol/L Chloride (98-107) mmol/L Carbon Dioxide (21-32) mmol/L Anion Gap (3-11) BUN (6-23) mg/dl Creatinine (0.6-1.4) mg/dl Est Cr Clr Drug Dosing ml/min Est GFR ( Amer) ml/min Est GFR (Non-Af Amer) ml/min BUN/Creatinine Ratio (10-20) Glucose (70-99(Fasting)) mg/dl POC Glucose 102 H 73 78 (70-99) mg/dl Calcium (8.5-10.1) mg/dl Phosphorus (2.5-4.9) mg/dl Magnesium (1.7-2.4) mg/dl Total Bilirubin (0.2-1.0) mg/dl AST (13-39) U/L ALT (7-52) U/L Alkaline Phosphatase (34-104) U/L Total Protein (6.0-8.3) gm/dl Albumin (3.4-5.0) gm/dl Globulin (2.5-4.0) gm/dl Albumin/Globulin Ratio (0.9-2) Medications Administered Current Inpatient Medications Acetaminophen (Acetaminophen 325 Mg Tab) 650 mg PO Q4H PRN PRN Reason: Pain or Fever Stop: 07/26/22 18:38 Last Admin: 06/29/22 08:39 Dose: 650 mg Albuterol (Albuterol 0.083% Nebu Soln 3 Ml Vial) 2.5 mg INH Q4H PRN; Protocol PRN Reason: shortness of breath or wheezin Stop: 07/26/22 05:33 Allopurinol (Allopurinol 100 Mg Tab) 50 mg PO DAILY [facility] Stop: 07/26/22 08:59 Last Admin: 06/29/22 08:40 Dose: 50 mg Amiodarone HCl (Amiodarone 200 Mg Tab) 200 mg PO QAM [facility] Stop: 07/26/22 08:59 Last Admin: 06/29/22 08:42 Dose: 200 mg Apixaban (Apixaban 5 Mg Tablet) 5 mg PO BID [facility] Stop: 07/26/22 08:59 Last Admin: 06/29/22 20:16 Dose: 5 mg Aspirin (Aspirin 81 Mg Ectab) 81 mg PO DAILY [facility] Stop: 07/26/22 08:59 Last Admin: 06/29/22 08:40 Dose: 81 mg Atorvastatin Calcium (Atorvastatin 40 Mg Tab) 40 mg PO DAILY [facility] Stop: 07/26/22 08:59 Last Admin: 06/29/22 08:40 Dose: 40 mg Bisacodyl (Bisacodyl 10 Mg Supp) 10 mg ME DAILY PRN PRN Reason: Constipation Stop: 07/28/22 09:58 Bupropion HCl (Bupropion Sr 150 Mg Tabcr) 150 mg PO BID [facility] Stop: 07/26/22 08:59 Last Admin: 06/29/22 20:16 Dose: 150 mg Carvedilol (Carvedilol 12.5 Mg Tab) 12.5 mg PO BID [facility] Stop: 07/26/22 08:59 Last Admin: 06/29/22 20:16 Dose: 12.5 mg Dextrose (Dextrose 50% 50 Ml Syringe) 25 - 50 ml IV UD PRN; Protocol PRN Reason: Hypoglycemia Protocol Stop: 07/26/22 05:29 Docusate Sodium (Docusate Sodium 100 Mg Cap) 100 mg PO BID [facility] Stop: 07/28/22 20:59 Last Admin: 06/29/22 20:15 Dose: 100 mg Donepezil HCl (Donepezil Hcl 10 Mg Tab) 10 mg PO DAILY [facility] Stop: 07/26/22 08:59 Last Admin: 06/29/22 08:40 Dose: 10 mg Duloxetine HCl (Duloxetine Hcl 60 Mg Cap) 60 mg PO DAILY [facility] Stop: 07/26/22 08:59 Last Admin: 06/29/22 08:41 Dose: 60 mg Glucagon (Glucagon For Inj 1 Mg Vial) 1 mg IM UD PRN; Protocol PRN Reason: Hypoglycemia Protocol Stop: 07/26/22 05:29 Glucose (Glucose 40% Gel 15 Gm Tube) 15 - 30 gm PO UD PRN; Protocol PRN Reason: Hypoglycemia Protocol Stop: 07/26/22 05:29 Glucose (Glucose 10 Tab/Tube) 4 - 8 tab PO UD PRN; Protocol PRN Reason: Hypoglycemia Protocol Stop: 07/26/22 05:29 Daptomycin 600 mg/ Syringe 12 mls @ 6 mls/min IV Q24H [facility]; Protocol Stop: 07/03/22 06:59 Last Admin: 06/30/22 06:06 Dose: 6 mls/min Piperacillin Sod/Tazobactam (Sod 4.5 gm/ Dextrose) 120 mls @ 30 mls/hr IV Q8H [facility]; Protocol Stop: 07/03/22 11:59 Last Admin: 06/30/22 03:53 Dose: 30 mls/hr Insulin Aspart (Insulin Aspart Per Unit) 0 units SC ACHS [facility] Stop: 07/28/22 16:29 Last Admin: 06/29/22 21:41 Dose: Not Given Insulin Glargine (Lantus Per Unit Charge) 35 units SQ QAM [facility] Stop: 07/30/22 08:59 Lamotrigine (Lamotrigine 25 Mg Tab) 50 mg PO BID [facility] Stop: 07/26/22 08:59 Last Admin: 06/29/22 20:15 Dose: 50 mg Lisinopril (Lisinopril 5 Mg Tab) 5 mg PO DAILY [facility] Stop: 07/26/22 08:59 Last Admin: 06/27/22 09:22 Dose: 5 mg Magnesium Hydroxide (Magnesium Hydroxide Susp 30 Ml Udc) 30 ml PO Q6H PRN PRN Reason: Constipation Stop: 07/28/22 09:58 Miconazole Nitrate (Miconazole Nitrate Powder 43 Gm) 1 appln EXT PRN PRN PRN Reason: Affected Skin Folds Stop: 07/28/22 17:56 Miscellaneous (Carbohydrates For Hypoglycemia ) 15 - 30 gm PO UD PRN PRN Reason: Hypoglycemia Treatment Stop: 07/26/22 05:29 Miscellaneous (Topiramate [Trokendi Xr] 100 Mg - Order Awaiting Action) 1 each N/A QS [facility] Stop: 07/26/22 07:59 Last Admin: 06/30/22 01:04 Dose: Not Given Miscellaneous Information (Pharmacy Glycemic Mgmt Consult) 1 each N/A UD PRN; Protocol PRN Reason: Consult Stop: 07/26/22 05:32 Montelukast Sodium (Montelukast Sodium 10 Mg Tablet) 10 mg PO DAILY [facility] Stop: 07/26/22 08:59 Last Admin: 06/29/22 08:40 Dose: 10 mg Multivitamins (Multivitamin Tab) 1 tab PO QAM [facility] Stop: 07/29/22 08:59 Last Admin: 06/29/22 08:42 Dose: 1 tab Multivitamins/Minerals (Cerovite Adv Formula Tab) 1 tab PO DAILY [facility] Stop: 07/26/22 08:59 Last Admin: 06/29/22 08:40 Dose: 1 tab Naloxone HCl (Naloxone Hcl 0.4 Mg/1 Ml Vial/Carp) 0.1 mg IV Q5M PRN PRN Reason: Oversedation/Resp Depression Stop: 07/28/22 09:58 Nortriptyline HCl (Nortriptyline Hcl 25 Mg Cap) 25 mg PO HS [facility] Stop: 07/26/22 20:59 Last Admin: 06/29/22 20:15 Dose: 25 mg Ondansetron HCl (Ondansetron Inj 2 Mg/Ml 2 Ml Vial) 4 mg IV Q6H PRN PRN Reason: Nausea And Vomiting Stop: 07/28/22 09:58 Pantoprazole Sodium (Pantoprazole 40 Mg Tab) 40 mg PO DAILYBB [facility] Stop: 07/26/22 06:29 Last Admin: 06/30/22 05:09 Dose: 40 mg Polyethylene Glycol (Polyethylene (Miralax) 17 Gm Pack) 17 gm PO DAILY PRN PRN Reason: Constipation Stop: 07/26/22 18:38 Pramipexole Dihydrochloride (Pramipexole Dihydrochlo 0.5 Mg Tab) 0.5 mg PO DAILY@1700 [facility] Stop: 07/26/22 16:59 Last Admin: 06/29/22 17:21 Dose: 0.5 mg Pramipexole Dihydrochloride (Pramipexole Dihydrochlo 0.5 Mg Tab) 1.5 mg PO HS [facility] Stop: 07/26/22 20:59 Last Admin: 06/29/22 20:14 Dose: 1.5 mg Pregabalin (Pregabalin 100 Mg Cap) 200 mg PO TID [facility] Stop: 07/26/22 08:59 Last Admin: 06/29/22 20:13 Dose: 200 mg Pregabalin (Pregabalin 50 Mg Cap) 50 mg PO QDL [facility] Stop: 07/26/22 11:29 Last Admin: 06/29/22 12:18 Dose: 50 mg Primidone (Primidone 50 Mg Tab) 50 mg PO QAM [facility] Stop: 07/26/22 08:59 Last Admin: 06/29/22 08:42 Dose: 50 mg Primidone (Primidone 50 Mg Tab) 200 mg PO HS [facility] Stop: 07/26/22 20:59 Last Admin: 06/29/22 20:13 Dose: 200 mg Sennosides (Senna 8.6 Mg Tab) 17.2 mg PO HS [facility] Stop: 07/28/22 20:59 Last Admin: 06/29/22 20:13 Dose: 17.2 mg Topiramate (Topiramate 100 Mg Tab) 100 mg PO DAILY [facility] Stop: 07/27/22 08:59 Last Admin: 06/29/22 08:40 Dose: 100 mg Torsemide (Torsemide 20 Mg Tab) 40 mg PO DAILY [facility] Stop: 07/26/22 08:59 Last Admin: 06/29/22 08:41 Dose: 40 mg Vitamin D (Cholecalciferol 5,000 Units 125 Mcg Tab) 5,000 units PO DAILY [facility] Stop: 07/26/22 08:59 Last Admin: 06/29/22 08:42 Dose: 5,000 units
--- NOTE | 2022-06-30 08:29 | Operative Report (OR) ---
DATE OF SURGERY: 06/28/2022 PREOPERATIVE DIAGNOSES: 1. Right index finger gangrene. 2. Right index finger diabetic infection. PROCEDURE: Right index finger amputation at middle phalanx level. POSTOPERATIVE DIAGNOSES: 1. Right index finger gangrene. 2. Right index finger diabetic infection. SURGEON: Chris Ivey MD. SPANISH LITERATURE PROFESSOR: Edison Manjarrez PA-C FINDINGS: No gross purulence at the site of amputation level. Tissue had a fair quality with slight decrease customer pricing manager and small amount of bleeding in the area. INDICATIONS: This is a gentleman with progressive diabetic infection. He presented with gangrene at the tip of the finger. He presents for amputation of the tip of the finger for primary reason of a gangrene at the finger. I saw him in preoperative holding area. We discussed risks, benefits, reasonable outcomes, and expec tations. The risks and benefits have been discussed including, but not limited to, risk of infection, nerve in jury, stiffness, loss of motion, failure to improve, etc. Reasonable outcomes and options of treatmen t were discussed. An explanation of appropriate alternatives to the procedure that may be advantageou s were discussed and their risks and benefits, as well as the risks and benefits of not proceeding wi th treatment. I offered to answer any additional inquiries concerning the treatment involved. All the patients questions were answered. The patient is agreeable, understanding of the treatment plan and alternatives, and wishes to proceed with the treatment plan. DESCRIPTION OF OPERATION: I made an elliptical fishmouth incision over the PIP joint. Dissection was carried down through the skin and subcutaneous tissue. The patient has an area of desquamation of t he skin proximally; however, the volar aspect of the dorsal skin was in much better condition. I royer vated the dorsal flap. I transected the flexor tendon and the extensor tendon. With a bone biter, I amputated at the level of the middle aspect of the middle phalanx. I performed traction neurectomies and digital arteries were cauterized. I used a Andria tourniquet and this was removed. Bleeding was somewhat decreased in the area, but it did show adequate circulat ory flow. Bleeders were cauterized. I copiously irrigated the area with 1 liter of normal saline. I took cultures of the tip of the finger. The patient's skin was closed with 4-0 nylon in a simple f ashion. The patient was placed in soft dressing and sent to the PACU in stable condition. POSTOPERATIVE PLAN: Will be to monitor wound cultures. We will leave stitches in for approximately 3 weeks. Followup should be approximately 3-[address] Ivey's, physician entry level assistant manager. Job ID: [id number]
[2022-06-30] MEDS: LANTUS PER UNIT CHARGE SQ SCH (08:40)
[2022-06-30] MEDS: allopurinoL 100 MG TAB PO SCH (08:41)
[2022-06-30] MEDS: INSULIN ASPART PER UNIT SC SCH ×4 (08:41→22:01)
[2022-06-30] MEDS: DOCUSATE SODIUM 100 MG CAP PO SCH ×2 (08:42→20:31)
[2022-06-30] MEDS: lamoTRIgine 25 MG TAB PO SCH ×2 (08:42→20:30)
[2022-06-30] MEDS: MONTELUKAST SODIUM 10 MG TABLET PO SCH (08:42)
[2022-06-30] MEDS: MULTIVITAMIN TAB PO SCH (08:42)
[2022-06-30] MEDS: CHOLECALCIFEROL 5,000 UNITS 125 MCG TAB PO SCH (08:42)
[2022-06-30] MEDS: DULoxetine HCL 60 MG CAP PO SCH (08:42)
[2022-06-30] MEDS: TOPIRAMATE 100 MG TAB PO SCH (08:42)
[2022-06-30] MEDS: TORSEMIDE 20 MG TAB PO SCH (08:42)
[2022-06-30] MEDS: CEROVITE ADV FORMULA TAB PO SCH (08:42)
[2022-06-30] MEDS: ASPIRIN 81 MG ECTAB PO SCH (08:42)
[2022-06-30] MEDS: DONEPEZIL HCL 10 MG TAB PO SCH (08:42)
[2022-06-30] MEDS: PREGABALIN 100 MG CAP PO SCH ×3 (08:42→20:28)
[2022-06-30] MEDS: ATORVASTATIN 40 MG TAB PO SCH (08:43)
[2022-06-30] MEDS: buPROPion SR 150 MG TABCR PO SCH ×2 (08:43→20:31)
[2022-06-30] MEDS: PRIMIDONE 50 MG TAB PO SCH ×2 (08:43→20:29)
[2022-06-30] MEDS: AMIODARONE 200 MG TAB PO SCH (08:43)
[2022-06-30] MEDS: carvediloL 12.5 MG TAB PO SCH ×2 (08:43→20:31)
[2022-06-30] MEDS: APIXABAN 5 MG TABLET PO SCH ×2 (08:43→20:32)
[2022-06-30 08:46] LABS: Hematocrit (blood only) 33.9 % (40.1-51.0); Hemoglobin 10.8 g/dl (14.0-18.0); Mean Corpuscular Hemoglobin 30.2 pg (25.0-34.0); Mean Corpuscular Hgb Conc 31.9 g/dL (32.0-36.0); Mean Corpuscular Volume 94.7 fL (80.0-100.0); Mean Platelet Volume 8.8 fL (9.4-12.4); Platelet Count 213 K/uL (130-400); RDW Coefficient of Variation 14.3 % (11.5-14.5); RDW Standard Deviation 49.4 fL (36.4-46.3); Red Blood Count 3.58 M/uL (4.63-6.08); White Blood Count 5.63 K/ul (4.8-10.8)
[2022-06-30 09:12] LABS: Albumin Globulin Ratio 1.2 (0.9-2); BUN Creatinine Ratio 17.6 (10-20); Bilirubin,Total 0.3 mg/dl (0.2-1.0); Creatinine Clr Calc Pharmacy 56.9 ml/min; Globulin 3.4 gm/dl (2.5-4.0); Magnesium 2.5 mg/dl (1.7-2.4); Phosphorus 3.9 mg/dl (2.5-4.9); Potassium 4.3 mmol/L (3.5-5.1); Total Protein 7.4 gm/dl (6.0-8.3)
[2022-06-30] MEDS: PREGABALIN 50 MG CAP PO SCH (11:42)
--- NOTE | 2022-06-30 15:52 | XRay Report ---
XR hand RT min 3V routine CLINICAL HISTORY: focus on R 5th finger dip joint r/o osteo COMPARISON STUDY: Right hand 06/26/2022. FINDINGS: Status post amputation at the middle phalanx of the right index finger. Prior amputation at the third and fourth fingers. There is a 7 mm skin ulceration at the dorsal aspect of the distal rig ht fifth digit. However, the osseous structures of the distal fifth digit are not well visualized due to patient positioning. No definite erosive changes identified. IMPRESSION: 1. Soft tissue swelling and a skin ulceration within the distal right fifth finger. The underlying os seous structures are not well visualized due to patient positioning. No definite erosive changes iden tified at the right fifth finger. 2. Interval amputation at the right index finger middle phalanx. ACT 112: Negative or not required by law. Electronically signed by: Kiran Gifford M.D. 06/30/2022 3:51 PM
[2022-06-30] MEDS: CEFEPIME 2,000 MG in SYRINGE 0 ML IV SCH (17:18)
[2022-06-30] MEDS: PRAMIPEXOLE DIHYDROCHLO 0.5 MG TAB PO SCH ×2 (17:19→20:29)
[2022-06-30] MEDS: ACETAMINOPHEN 325 MG TAB PO PRN (20:28)
[2022-06-30] MEDS: SENNA 8.6 MG TAB PO SCH (20:29)
[2022-06-30] MEDS: NORTRIPTYLINE HCL 25 MG CAP PO SCH (20:30)
[2022-07-01] MEDS: CEFEPIME 2,000 MG in SYRINGE 0 ML IV SCH ×2 (03:02→17:23)
[2022-07-01] MEDS: PANTOprazole 40 MG TAB PO SCH (05:46)
[2022-07-01] MEDS: DAPTOmycin 600 MG in SYRINGE 0 ML IV SCH (06:03)
[2022-07-01 08:03] LABS: Hematocrit (blood only) 34.3 % (40.1-51.0); Hemoglobin 11.2 g/dl (14.0-18.0); Mean Corpuscular Hemoglobin 30.4 pg (25.0-34.0); Mean Corpuscular Hgb Conc 32.7 g/dL (32.0-36.0); Mean Corpuscular Volume 93.2 fL (80.0-100.0); Platelet Count 218 K/uL (130-400); RDW Coefficient of Variation 14.1 % (11.5-14.5); RDW Standard Deviation 47.6 fL (36.4-46.3); Red Blood Count 3.68 M/uL (4.63-6.08); White Blood Count 6.19 K/ul (4.8-10.8)
[2022-07-01 08:29] LABS: BUN Creatinine Ratio 17.7 (10-20); Calcium 9.1 mg/dl (8.5-10.1); Creatinine Clr Calc Pharmacy 48.6 ml/min; Est GFR (African American) 36.4 ml/min; Est GFR (Non-African American) 31.4 ml/min; Magnesium 2.4 mg/dl (1.7-2.4); Phosphorus 4.8 mg/dl (2.5-4.9)
[2022-07-01] MEDS: INSULIN ASPART PER UNIT SC SCH ×4 (10:35→22:52)
[2022-07-01] MEDS: buPROPion SR 150 MG TABCR PO SCH ×2 (10:36→20:50)
[2022-07-01] MEDS: carvediloL 12.5 MG TAB PO SCH ×2 (10:36→20:51)
[2022-07-01] MEDS: DOCUSATE SODIUM 100 MG CAP PO SCH ×2 (10:36→20:49)
[2022-07-01] MEDS: APIXABAN 5 MG TABLET PO SCH ×2 (10:36→20:50)
[2022-07-01] MEDS: lamoTRIgine 25 MG TAB PO SCH ×2 (10:36→20:49)
[2022-07-01] MEDS: allopurinoL 100 MG TAB PO SCH (10:37)
[2022-07-01] MEDS: CEROVITE ADV FORMULA TAB PO SCH (10:38)
[2022-07-01] MEDS: DONEPEZIL HCL 10 MG TAB PO SCH (10:38)
[2022-07-01] MEDS: DULoxetine HCL 60 MG CAP PO SCH (10:38)
[2022-07-01] MEDS: AMIODARONE 200 MG TAB PO SCH (10:38)
[2022-07-01] MEDS: ASPIRIN 81 MG ECTAB PO SCH (10:38)
[2022-07-01] MEDS: MULTIVITAMIN TAB PO SCH (10:38)
[2022-07-01] MEDS: PRIMIDONE 50 MG TAB PO SCH ×2 (10:38→20:48)
[2022-07-01] MEDS: CHOLECALCIFEROL 5,000 UNITS 125 MCG TAB PO SCH (10:39)
[2022-07-01] MEDS: ATORVASTATIN 40 MG TAB PO SCH (10:39)
[2022-07-01] MEDS: TORSEMIDE 20 MG TAB PO SCH (10:39)
[2022-07-01] MEDS: TOPIRAMATE 100 MG TAB PO SCH (10:39)
[2022-07-01] MEDS: lisinopril 5 MG TAB PO SCH (10:39)
[2022-07-01] MEDS: MONTELUKAST SODIUM 10 MG TABLET PO SCH (10:39)
[2022-07-01] MEDS: LANTUS PER UNIT CHARGE SQ SCH (10:47)
[2022-07-01] MEDS: PREGABALIN 100 MG CAP PO SCH ×3 (10:55→20:47)
--- NOTE | 2022-07-01 11:48 | Magnetic Resonance Report ---
MR hand RT wo con HISTORY: Right fifth finger pain. Redness and swelling. r/o osteo R 5th finger TECHNIQUE: Multiaxial CT images of the right hand were performed without contrast according to [facility]al protocol. COMPARISON STUDY: Right hand radiograph 06/30/2022. FINDINGS: The distal tuft of the right fifth finger is absent which appears chronic. There is minimal increased signal on the STIR sequences within the residual distal phalanx of the right fifth finger. However, no abnormal T1 signal to suggest an osteomyelitis. This could represent a low-grade osteiti s. Minimal subcutaneous edema within the fifth finger. Status post recent amputation at the middle ph alanx of the right index finger. This likely accounts for the soft tissue edema within this finger. N o additional areas of suspicious signal abnormality or acute erosive changes within the hand to sugge st an osteomyelitis. Evidence for prior amputation at the PIP joint of the middle finger. Degenerativ e changes noted at the MCP joints and wrist. No loculated fluid collections to suggest an abscess. Mi ld thickening and small amount of fluid surrounding the flexor tendons of the index finger which coul d also be due to the recent postoperative change. IMPRESSION: 1. Suspect mild osteitis at the residual distal phalanx of the fifth finger. Otherwise, no evidence f or osteomyelitis within the right hand. 2. Status post recent partial amputation of the index finger with expected postoperative changes as d escribed above. ACT 112: Negative or not required by law. Electronically signed by: Kiran Gifford M.D. 07/01/2022 11:46 AM
[2022-07-01] MEDS: PREGABALIN 50 MG CAP PO SCH (12:19)
--- NOTE | 2022-07-01 13:00 | Hospitalist Progress Note ---
Date of Service July 01, 2022 Assessment & Plan (1) Osteomyelitis: Plan: This is a 62-year-old male who presents with infection of the right hand. R index finger (and poss. 5th R finger) osteomyelitis 1. Infection of the right hand: X-rays done in the [facility] showing osteomyelitis of the right index and right fifth finger. X-ray here: IMPRESSION: Progressive erosive changes at the distal armani of the right index and fifth fingers consistent with an osteomyelitis versus osteolysis. Empirically started on daptomycin and Zosyn. Follow the cultures. Orthopedics and wound care consulted Now s/p surg. intervention - R partial index finger amputation (06/28) 06/30 Discussed w/ ID - plan to switch zosyn to cefepime - 6 weeks IV Abx for 5th finger needed - recommend bone biopsy or wound cultx from 5th finger Discussed w/ orthopedics re: R 5th finger - will repeat Xray of 5 th finger to further evaluate R hand MRI also obtained 07/01 - discussed further w/ ID - cont. with IV vancomycin 820 mg daily for 4 weeks then continue doxycycline 100 bid for 2 weeks. Follow final cultx. Weekly CBC, CMP, CPK. Follow up with ID within 4 weeks. I also reviewed blood cultures from [facility], so far they are negative. Wound culture from there shows rare mixed gram-positive growth consistent with skin kiara. 2. History of obstructive sleep apnea: On BiPAP at bedtime. 3. History of chronic diastolic congestive heart failure: Continue his torsemide, and Coreg. Lisinopril held d/t mild elevation of Cr. Resumed We will monitor for any volume overload, EF low normal. 4. History of status post implantable cardioverter-defibrillator. 5. History of paroxysmal ventricular tachycardia: On amiodarone. 6. Hx of DVT thrombosis and pulmonary embolism: On Eliquis. 7. Hx of paroxysmal atrial fibrillation: On amiodarone and Eliquis. 8. History of gouty arthritis: On allopurinol. 9. Diabetes: On insulin pump, was removed for now.. placed him on Lantus and insulin sliding scale on admission. Glycemic pharmacy consulted. Current HbA1c level 7.0% 10. Peripheral vascular disease: On aspirin, Eliquis and statin. 11. Chronic kidney disease stage IIIB: Creatinine is 1.9 on [facility] laboratories. Baseline around 1.8. Avoid nephrotoxic agents. Cr 2.2 likely from pt being npo, received gentle fluids. Then Cr 1.8 - now again 2.2 Cont. to monitor 12. History of obesity, status post gastric bypass. BMI 47. 13. History of restless legs syndrome: Continue home medications. 14. History of recurrent major depression: On duloxetine, nortriptyline and bupropion. 15. Hyperlipidemia: On statin. 16. Anemia of chronic kidney disease:Follow the laboratories. 17. Gastroesophageal reflux disease: On omeprazole. 18. Hypertension: On Coreg, lisinopril, torsemide. We will monitor the blood pressure. DVT prophylaxis: Currently on Eliquis. DISPOSITION:med-tele. PT/OT prior to discharge. Code: Full Admission and Anticipated Discharge Date Admission Date: June 26, 2022 Subjective Pt seen in follow up of R index finger (and poss. 5th R finger) osteomyelitis Currently sitting up in bed in NAD Underwent surg. intervention (R partial index finger amputation) on (06/28/22) Pt feels well overall. Denies any fever, chills, chest pain, shortness of breath, abd. pain, n/v Orthopedics and ID consulted Review of Systems Review of Systems: All systems reviewed & are unremarkable except as noted in Subjective Physical Exam Physical Exam: GENERAL:morbidly obese M, alert, oriented, not in acute distress. HEENT: No pallor. Extraocular muscles intact. Oral mucosa moist. NECK: No JVD. No neck masses. CARDIOVASCULAR: S1 and S2 heard. Regular rate and rhythm. No murmur, no gallop. RESPIRATORY: No accessory muscle use. No wheezing, no crackles. Somewhat diminished d/t body habitus. ABDOMEN: Soft, bowel sounds present, nontender. No guarding. NEURO: Alert and oriented. No facial droop. Speech is clear.Moves extremities. EXTREMITIES: R hand - dressings applied over R index finger s/p surgery, Right below-knee amputation, small skin tears in the upper part of the stump and also on the left knee, small skin tear is seen. Results & Data Results & Data ([facility]) Vital Signs (Past 12 Hours) Vital Signs Temp Pulse Pulse Resp BP Pulse Ox O2 Del Method 07/01/22 11:17 36.5 C 94 H 18 134/70 91 Room Air 07/01/22 07:00 85 07/01/22 07:14 90 20 122/77 98 BiPAP 07/01/22 02:44 36.5 C 93 H 18 127/82 95 CPAP Laboratory Results 07/01/22 07/01/22 07/01/22 Range/Units 11:31 07:39 07:39 WBC (4.8-10.8) K/ul RBC (4.63-6.08) M/uL Hgb (14.0-18.0) g/dl Hct (40.1-51.0) % MCV (80.0-100.0) fL MCH (25.0-34.0) pg MCHC (32.0-36.0) g/dL RDW Std Deviation (36.4-46.3) fL RDW Coeff of Karolina (11.5-14.5) % Plt Count (130-400) K/uL MPV (9.4-12.4) fL Sodium 139 (136-145) mmol/L Potassium 4.0 (3.5-5.1) mmol/L Chloride 103 (98-107) mmol/L Carbon Dioxide 28 (21-32) mmol/L Anion Gap 8 (3-11) BUN 39 H (6-23) mg/dl Creatinine 2.20 H D (0.6-1.4) mg/dl Est Cr Clr Drug Dosing 48.6 ml/min Est GFR ( Amer) 36.4 ml/min Est GFR (Non-Af Amer) 31.4 ml/min BUN/Creatinine Ratio 17.7 (10-20) Glucose 102 H (70-99(Fasting)) mg/dl POC Glucose 173 H 111 H (70-99) mg/dl Calcium 9.1 (8.5-10.1) mg/dl Phosphorus 4.8 (2.5-4.9) mg/dl Magnesium 2.4 (1.7-2.4) mg/dl 07/01/22 06/30/22 06/30/22 Range/Units 07:39 20:21 16:31 WBC 6.19 (4.8-10.8) K/ul RBC 3.68 L (4.63-6.08) M/uL Hgb 11.2 L (14.0-18.0) g/dl Hct 34.3 L (40.1-51.0) % MCV 93.2 (80.0-100.0) fL MCH 30.4 (25.0-34.0) pg MCHC 32.7 (32.0-36.0) g/dL RDW Std Deviation 47.6 H (36.4-46.3) fL RDW Coeff of Karolina 14.1 (11.5-14.5) % Plt Count 218 (130-400) K/uL MPV 9.0 L (9.4-12.4) fL Sodium (136-145) mmol/L Potassium (3.5-5.1) mmol/L Chloride (98-107) mmol/L Carbon Dioxide (21-32) mmol/L Anion Gap (3-11) BUN (6-23) mg/dl Creatinine (0.6-1.4) mg/dl Est Cr Clr Drug Dosing ml/min Est GFR ( Amer) ml/min Est GFR (Non-Af Amer) ml/min BUN/Creatinine Ratio (10-20) Glucose (70-99(Fasting)) mg/dl POC Glucose 168 H 100 H (70-99) mg/dl Calcium (8.5-10.1) mg/dl Phosphorus (2.5-4.9) mg/dl Magnesium (1.7-2.4) mg/dl Medications Administered Current Inpatient Medications Acetaminophen (Acetaminophen 325 Mg Tab) 650 mg PO Q4H PRN PRN Reason: Pain or Fever Stop: 07/26/22 18:38 Last Admin: 06/30/22 20:28 Dose: 650 mg Albuterol (Albuterol 0.083% Nebu Soln 3 Ml Vial) 2.5 mg INH Q4H PRN; Protocol PRN Reason: shortness of breath or wheezin Stop: 07/26/22 05:33 Allopurinol (Allopurinol 100 Mg Tab) 50 mg PO DAILY UNRULY Stop: 07/26/22 08:59 Last Admin: 07/01/22 10:37 Dose: 50 mg Amiodarone HCl (Amiodarone 200 Mg Tab) 200 mg PO QAM UNRULY Stop: 07/26/22 08:59 Last Admin: 07/01/22 10:38 Dose: 200 mg Apixaban (Apixaban 5 Mg Tablet) 5 mg PO BID UNRULY Stop: 07/26/22 08:59 Last Admin: 07/01/22 10:36 Dose: 5 mg Aspirin (Aspirin 81 Mg Ectab) 81 mg PO DAILY UNRULY Stop: 07/26/22 08:59 Last Admin: 07/01/22 10:38 Dose: 81 mg Atorvastatin Calcium (Atorvastatin 40 Mg Tab) 40 mg PO DAILY UNRULY Stop: 07/26/22 08:59 Last Admin: 07/01/22 10:39 Dose: 40 mg Bisacodyl (Bisacodyl 10 Mg Supp) 10 mg TX DAILY PRN PRN Reason: Constipation Stop: 07/28/22 09:58 Bupropion HCl (Bupropion Sr 150 Mg Tabcr) 150 mg PO BID UNRULY Stop: 07/26/22 08:59 Last Admin: 07/01/22 10:36 Dose: 150 mg Carvedilol (Carvedilol 12.5 Mg Tab) 12.5 mg PO BID UNRULY Stop: 07/26/22 08:59 Last Admin: 07/01/22 10:36 Dose: 12.5 mg Dextrose (Dextrose 50% 50 Ml Syringe) 25 - 50 ml IV UD PRN; Protocol PRN Reason: Hypoglycemia Protocol Stop: 07/26/22 05:29 Docusate Sodium (Docusate Sodium 100 Mg Cap) 100 mg PO BID UNRULY Stop: 07/28/22 20:59 Last Admin: 07/01/22 10:36 Dose: Not Given Donepezil HCl (Donepezil Hcl 10 Mg Tab) 10 mg PO DAILY UNRULY Stop: 07/26/22 08:59 Last Admin: 07/01/22 10:38 Dose: 10 mg Duloxetine HCl (Duloxetine Hcl 60 Mg Cap) 60 mg PO DAILY UNRULY Stop: 07/26/22 08:59 Last Admin: 07/01/22 10:38 Dose: 60 mg Glucagon (Glucagon For Inj 1 Mg Vial) 1 mg IM UD PRN; Protocol PRN Reason: Hypoglycemia Protocol Stop: 07/26/22 05:29 Glucose (Glucose 40% Gel 15 Gm Tube) 15 - 30 gm PO UD PRN; Protocol PRN Reason: Hypoglycemia Protocol Stop: 07/26/22 05:29 Glucose (Glucose 10 Tab/Tube) 4 - 8 tab PO UD PRN; Protocol PRN Reason: Hypoglycemia Protocol Stop: 07/26/22 05:29 Daptomycin 600 mg/ Syringe 12 mls @ 6 mls/min IV Q24H [facility]; Protocol Stop: 07/02/22 07:00 Last Admin: 07/01/22 06:03 Dose: 6 mls/min Cefepime HCl 2,000 mg/ Syringe 20 mls @ 5 mls/min IV Q12H [facility]; Protocol Stop: 08/11/22 15:59 Last Admin: 07/01/22 03:02 Dose: 5 mls/min Daptomycin 220 mg/ Syringe 4.4 mls @ 2.2 mls/min IV ONE ONE; Protocol Stop: 07/01/22 12:52 Daptomycin 820 mg/ Syringe 16.4 mls @ 6 mls/min IV Q24H [facility]; Protocol Stop: 07/09/22 06:59 Insulin Aspart (Insulin Aspart Per Unit) 0 units SC ACHS [facility] Stop: 07/28/22 16:29 Last Admin: 07/01/22 12:19 Dose: 3 units Insulin Glargine (Lantus Per Unit Charge) 35 units SQ QAM [facility] Stop: 07/30/22 08:59 Last Admin: 07/01/22 10:47 Dose: 35 units Lamotrigine (Lamotrigine 25 Mg Tab) 50 mg PO BID [facility] Stop: 07/26/22 08:59 Last Admin: 07/01/22 10:36 Dose: 50 mg Lisinopril (Lisinopril 5 Mg Tab) 5 mg PO DAILY [facility] Stop: 07/26/22 08:59 Last Admin: 07/01/22 10:39 Dose: 5 mg Magnesium Hydroxide (Magnesium Hydroxide Susp 30 Ml Udc) 30 ml PO Q6H PRN PRN Reason: Constipation Stop: 07/28/22 09:58 Miconazole Nitrate (Miconazole Nitrate Powder 43 Gm) 1 appln EXT PRN PRN PRN Reason: Affected Skin Folds Stop: 07/28/22 17:56 Miscellaneous (Carbohydrates For Hypoglycemia ) 15 - 30 gm PO UD PRN PRN Reason: Hypoglycemia Treatment Stop: 07/26/22 05:29 Miscellaneous (Topiramate [Trokendi Xr] 100 Mg - Order Awaiting Action) 1 each N/A QS [facility] Stop: 07/26/22 07:59 Last Admin: 07/01/22 11:44 Dose: Not Given Miscellaneous Information (Pharmacy Glycemic Mgmt Consult) 1 each N/A UD PRN; Protocol PRN Reason: Consult Stop: 07/26/22 05:32 Montelukast Sodium (Montelukast Sodium 10 Mg Tablet) 10 mg PO DAILY [facility] Stop: 07/26/22 08:59 Last Admin: 07/01/22 10:39 Dose: 10 mg Multivitamins (Multivitamin Tab) 1 tab PO QAM UNRULY Stop: 07/29/22 08:59 Last Admin: 07/01/22 10:38 Dose: 1 tab Multivitamins/Minerals (Cerovite Adv Formula Tab) 1 tab PO DAILY UNRULY Stop: 07/26/22 08:59 Last Admin: 07/01/22 10:38 Dose: 1 tab Naloxone HCl (Naloxone Hcl 0.4 Mg/1 Ml Vial/Carp) 0.1 mg IV Q5M PRN PRN Reason: Oversedation/Resp Depression Stop: 07/28/22 09:58 Nortriptyline HCl (Nortriptyline Hcl 25 Mg Cap) 25 mg PO HS [facility] Stop: 07/26/22 20:59 Last Admin: 06/30/22 20:30 Dose: 25 mg Ondansetron HCl (Ondansetron Inj 2 Mg/Ml 2 Ml Vial) 4 mg IV Q6H PRN PRN Reason: Nausea And Vomiting Stop: 07/28/22 09:58 Pantoprazole Sodium (Pantoprazole 40 Mg Tab) 40 mg PO DAILYBB [facility] Stop: 07/26/22 06:29 Last Admin: 07/01/22 05:46 Dose: 40 mg Polyethylene Glycol (Polyethylene (Miralax) 17 Gm Pack) 17 gm PO DAILY PRN PRN Reason: Constipation Stop: 07/26/22 18:38 Pramipexole Dihydrochloride (Pramipexole Dihydrochlo 0.5 Mg Tab) 0.5 mg PO DAILY@1700 [facility] Stop: 07/26/22 16:59 Last Admin: 06/30/22 17:19 Dose: 0.5 mg Pramipexole Dihydrochloride (Pramipexole Dihydrochlo 0.5 Mg Tab) 1.5 mg PO HS [facility] Stop: 07/26/22 20:59 Last Admin: 06/30/22 20:29 Dose: 1.5 mg Pregabalin (Pregabalin 100 Mg Cap) 200 mg PO TID UNRULY Stop: 07/26/22 08:59 Last Admin: 07/01/22 10:55 Dose: 200 mg Pregabalin (Pregabalin 50 Mg Cap) 50 mg PO QDL UNRULY Stop: 07/26/22 11:29 Last Admin: 07/01/22 12:19 Dose: 50 mg Primidone (Primidone 50 Mg Tab) 50 mg PO QAM UNRULY Stop: 07/26/22 08:59 Last Admin: 07/01/22 10:38 Dose: 50 mg Primidone (Primidone 50 Mg Tab) 200 mg PO HS UNRULY Stop: 07/26/22 20:59 Last Admin: 06/30/22 20:29 Dose: 200 mg Sennosides (Senna 8.6 Mg Tab) 17.2 mg PO HS UNRULY Stop: 07/28/22 20:59 Last Admin: 06/30/22 20:29 Dose: Not Given Topiramate (Topiramate 100 Mg Tab) 100 mg PO DAILY UNRULY Stop: 07/27/22 08:59 Last Admin: 07/01/22 10:39 Dose: 100 mg Torsemide (Torsemide 20 Mg Tab) 40 mg PO DAILY UNRULY Stop: 07/26/22 08:59 Last Admin: 07/01/22 10:39 Dose: 40 mg Vitamin D (Cholecalciferol 5,000 Units 125 Mcg Tab) 5,000 units PO DAILY UNRULY Stop: 07/26/22 08:59 Last Admin: 07/01/22 10:39 Dose: 5,000 units
[2022-07-01] MEDS ORDERED: DAPTOMYCIN IV ONE (13:15)
[2022-07-01] MEDS: PRAMIPEXOLE DIHYDROCHLO 0.5 MG TAB PO SCH ×2 (17:23→20:49)
[2022-07-01] MEDS: SENNA 8.6 MG TAB PO SCH (20:47)
[2022-07-01] MEDS: ACETAMINOPHEN 325 MG TAB PO PRN (20:47)
[2022-07-01] MEDS: NORTRIPTYLINE HCL 25 MG CAP PO SCH (20:49)
[2022-07-01] MEDS ORDERED: ALBUMIN 25% 100 mL 25 GM/100 ML VIAL IV ONE (22:02)
[2022-07-02] MEDS: CEFEPIME 2,000 MG in SYRINGE 0 ML IV SCH ×2 (03:35→17:26)
[2022-07-02] MEDS: PANTOprazole 40 MG TAB PO SCH (05:57)
[2022-07-02] MEDS: DAPTOmycin 825 MG in SYRINGE 0 ML IV SCH (06:05)
[2022-07-02 06:30] LABS: Hematocrit (blood only) 34.6 % (40.1-51.0); Hemoglobin 11.2 g/dl (14.0-18.0); Mean Corpuscular Hemoglobin 30.4 pg (25.0-34.0); Mean Corpuscular Hgb Conc 32.4 g/dL (32.0-36.0); Mean Platelet Volume 8.7 fL (9.4-12.4); Platelet Count 214 K/uL (130-400); RDW Coefficient of Variation 14.4 % (11.5-14.5); RDW Standard Deviation 48.4 fL (36.4-46.3); Red Blood Count 3.68 M/uL (4.63-6.08); White Blood Count 6.42 K/ul (4.8-10.8)
[2022-07-02 06:59] LABS: Albumin Globulin Ratio 1.2 (0.9-2); Albumin Level 4.3 gm/dl (3.4-5.0); BUN Creatinine Ratio 20.1 (10-20); Bilirubin,Total 0.4 mg/dl (0.2-1.0); Calcium 9.2 mg/dl (8.5-10.1); Creatinine Clr Calc Pharmacy 45.3 ml/min; Est GFR (African American) 33.8 ml/min; Est GFR (Non-African American) 29.1 ml/min; Globulin 3.6 gm/dl (2.5-4.0); Magnesium 2.5 mg/dl (1.7-2.4); Phosphorus 5.3 mg/dl (2.5-4.9); Potassium 3.7 mmol/L (3.5-5.1); Total Protein 7.9 gm/dl (6.0-8.3)
[2022-07-02] MEDS: APIXABAN 5 MG TABLET PO SCH ×2 (09:00→20:18)
[2022-07-02] MEDS: buPROPion SR 150 MG TABCR PO SCH ×2 (09:00→20:22)
[2022-07-02] MEDS: TORSEMIDE 20 MG TAB PO SCH (09:00)
[2022-07-02] MEDS: lamoTRIgine 25 MG TAB PO SCH ×2 (09:01→20:21)
[2022-07-02] MEDS: DOCUSATE SODIUM 100 MG CAP PO SCH ×2 (09:01→20:19)
[2022-07-02] MEDS: ATORVASTATIN 40 MG TAB PO SCH (09:02)
[2022-07-02] MEDS: PRIMIDONE 50 MG TAB PO SCH ×2 (09:02→20:19)
[2022-07-02] MEDS: MONTELUKAST SODIUM 10 MG TABLET PO SCH (09:03)
[2022-07-02] MEDS: MULTIVITAMIN TAB PO SCH (09:03)
[2022-07-02] MEDS: AMIODARONE 200 MG TAB PO SCH (09:03)
[2022-07-02] MEDS: DONEPEZIL HCL 10 MG TAB PO SCH (09:04)
[2022-07-02] MEDS: TOPIRAMATE 100 MG TAB PO SCH (09:04)
[2022-07-02] MEDS: CEROVITE ADV FORMULA TAB PO SCH (09:05)
[2022-07-02] MEDS: ASPIRIN 81 MG ECTAB PO SCH (09:05)
[2022-07-02] MEDS: allopurinoL 100 MG TAB PO SCH (09:05)
[2022-07-02] MEDS: CHOLECALCIFEROL 5,000 UNITS 125 MCG TAB PO SCH (09:06)
[2022-07-02] MEDS: DULoxetine HCL 60 MG CAP PO SCH (09:06)
[2022-07-02] MEDS: carvediloL 12.5 MG TAB PO SCH ×2 (09:06→20:22)
[2022-07-02] MEDS: lisinopril 5 MG TAB PO SCH (09:07)
[2022-07-02] MEDS: PREGABALIN 100 MG CAP PO SCH ×3 (09:10→20:32)
[2022-07-02] MEDS: INSULIN ASPART PER UNIT SC SCH ×4 (09:14→20:32)
[2022-07-02] MEDS: LANTUS PER UNIT CHARGE SQ SCH (09:15)
--- NOTE | 2022-07-02 10:57 | Pharmacy Report ---
Pharmacy Glycemic Short Note 2 - Date of Service July 02, 2022 - Glycemic Short BSG Results (Last 24 hours): 07/01/22 07/01/22 07/01/22 11:31 16:40 20:16 Glucose POC Glucose 173 H 116 H 163 H 07/02/22 07/02/22 06:13 07:31 Glucose 132 H POC Glucose 135 H OUTPATIENT ANTIDIABETIC REGIMEN: * Trulicity 4.5mg SQ weekly * Novolog insulin pump: * Basal insulin: * 12am - 8am: 2.05 units/hr * 8am - 11am: 3.65 units/hr * 11am - 2pm: 4.6 units/hr * 2pm - 6pm: 4.1 units/hr * 6pm - 9pm: 4.0 units/hr * 9pm - 12am: 2.5 units/hr * Bolus insulin: * 25 units SQ TID with breakfast/lunch/dinner * 10-15 units SQ with snacks * HbA1c: 7.0% (06/26/22) ASSESSMENT: 07/01: * POD #4, Patient received 40 units of insulin yesterday, of which 35 were basal * Blood sugars have been within current goal range (adjusted 06/30 due to low fasting blood sugars) * Will adjust goal range back to 110-140 due improved fasting blood sugars (today 111) 06/29: * POD #1 s/p partial amputation of his right index finger * BSGs well controlled but trending downward yesterday and fasting is below goal today (80 mg/dL). * Will back off both basal and bolus insulin. 06/27: * BSGs have been well-controlled thus far on SQ basal/bolus insulin. * Pt's diet was resumed yesterday afternoon, but he will be NPO again after midnight tonight for OR tomorrow. * No changes required at this time. 06/26 * Mr Cullen is a 62yo diabetic M admitted with SSTI. * Patient's insulin pump was disconnected upon admission. Pt will be managed on basal/bolus insulin for the duration of his hospital stay. * Pt has been NPO since admission. PLAN FOR INPATIENT GLYCEMIC CONTROL: * Basal insulin * Lantus 35 units QAM * Bolus insulin * NovoLog per scale ACHS or Q6hrs while NPO * Goal Range: Low 110 mg/dL - High 140 mg/dL * Correction Factor: 30 mg/dL/unit * Nutritional / Prandial insulin per carb ratio of 1 unit per 10 grams CHO consumed
[2022-07-02] MEDS: PREGABALIN 50 MG CAP PO SCH (12:22)
--- NOTE | 2022-07-02 17:08 | Hospitalist Progress Note ---
Date of Service July 02, 2022 Assessment & Plan (1) Osteomyelitis: Plan: Patient is a 62 yr male who presents with infection of the right hand. Right Index finger and possible 5th Right finger Osteomyelitis Right index finger gangrene/Right index finger diabetic infection --X-rays done in the [facility] showing osteomyelitis of the right index and right fifth finger. --X-ray at [facility]: IMPRESSION: Progressive erosive changes at the distal armani of the right index and fifth fingers consistent with an osteomyelitis versus osteolysis. --MRI Hand:Suspect mild osteitis at the residual distal phalanx of the fifth finger. Otherwise, no evidence for osteomyelitis within the right hand. Status post recent partial amputation of the index finger with expected postoperative changes as described above. -S/P Right index finger amputation at middle phalanx level by Dr.Christopher Ivey on 06/30/22 --Blood Cx: No growth --Wound Cx grew: Coag Negative Staph -- Empirically started on daptomycin and Zosyn>>changed to daptomycin, cefepime Follow the cultures. Orthopedics and wound care consulted Now s/p surg. intervention - R partial index finger amputation (06/28) Appreciate ID input Continue wound care Prior provider discussed with ID on 07/01: continue IV Daptomycin 825 mg daily for 4 weeks then continue doxycycline 100 bid for 2 weeks. Follow final cultx. Weekly CBC, CMP, CPK. Follow up with ID within 4 weeks. Reviewed blood cultures from [facility], so far they are negative. Wound culture from there shows rare mixed gram-positive growth consistent with skin kiara. LAURA On BiPAP at bedtime. Chronic diastolic congestive heart failure: Monitor volume status on Torsemide, Beta-kitty Held torsemide, VIVIANA due to renal function Resume diuretics as able H/O paroxysmal ventricular tachycardia H/O paroxysmal atrial fibrillation S/P Implantable cardioverter-defibrillator. on amiodarone, Coreg, Eliquis H/O DVT, PE On Eliquis. H/O gouty arthritis: On allopurinol. DM II Was on Insulin Pump Continue Insulin per protocol Peripheral vascular disease: On aspirin, Eliquis statin held while on Dapto CKD IIIB Cr ~ 2 on [facility] laboratories Avoid nephrotoxic agents. Cr 2.3 today Monitor renal function Morbid obesity S/P gastric bypass BMI 45 Restless legs syndrome: Continue home medications. Recurrent major depression: On duloxetine, nortriptyline and bupropion Hyperlipidemia: Statin on hold Anemia of chronic kidney disease: Hb stable GERD on PPI HTN On Coreg Lisinopril held Monitor DVT Px: on Eliquis. Code Status Full Code Disposition To be determined Admission and Anticipated Discharge Date Admission Date: June 26, 2022 Subjective Patient is seen and examined at bedside Denies any pain at surgical site Reports chronic dyspnea which is unchanged Denies any chest pain, dizziness, nausea, abdominal pain Review of Systems Review of Systems: All systems reviewed & are unremarkable except as noted in Subjective Physical Exam Physical Exam: Physical Exam: Vitals signs as noted above General Appearance:Morbidly Obese, no apparent distress Head: normocephalic, Atraumatic Eyes: normal inspection, EOMI Neck: supple, Trachea midline Respiratory/Chest: Decreased breath sounds, CTA, No accessory muscle use Cardiovascular: S1, S2, No murmur Abdomen/GI:Soft, Protuberant, Non tender, Bowel sounds present Extremities/Musculoskeletal:normal inspection, no edema, R BKA, R UE finger ampuations Neurologic/Psych:AAOX3, grossly no focal neurological deficits Skin: normal color, warm Results & Data Results & Data ([facility]) Vital Signs (Past 12 Hours) Vital Signs Temp Pulse Pulse Resp BP Pulse Ox O2 Del Method 07/02/22 16:05 88 07/02/22 14:45 36.5 C 88 17 98/67 L 99 Room Air 07/02/22 11:16 36.4 C L 87 18 114/71 99 Room Air 07/02/22 09:30 91 H 07/02/22 07:41 36.8 C 94 H 16 96/62 L 96 Room Air Laboratory Results Short CBC 07/02/22 Range/Units 06:13 WBC 6.42 (4.8-10.8) K/ul Hgb 11.2 L (14.0-18.0) g/dl Hct 34.6 L (40.1-51.0) % Plt Count 214 (130-400) K/uL BMP 07/02/22 06:13 Sodium 139 Potassium 3.7 Chloride 103 Carbon Dioxide 26 BUN 47 H Creatinine 2.34 H Glucose 132 H Calcium 9.2 Cardiac Enzymes 07/02/22 Range/Units 06:13 Total Creatine Kinase 248 H (30-223) U/L Liver Function 07/02/22 Range/Units 06:13 Total Bilirubin 0.4 (0.2-1.0) mg/dl AST 21 (13-39) U/L ALT 14 (7-52) U/L Alkaline Phosphatase 94 (34-104) U/L Albumin 4.3 (3.4-5.0) gm/dl
[2022-07-02] MEDS: PRAMIPEXOLE DIHYDROCHLO 0.5 MG TAB PO SCH ×2 (17:22→20:16)
[2022-07-02] MEDS: NORTRIPTYLINE HCL 25 MG CAP PO SCH (20:19)
[2022-07-02] MEDS: SENNA 8.6 MG TAB PO SCH (20:23)
[2022-07-03] MEDS: CEFEPIME 2,000 MG in SYRINGE 0 ML IV SCH ×2 (04:04→17:37)
[2022-07-03] MEDS: DAPTOmycin 825 MG in SYRINGE 0 ML IV SCH (06:05)
[2022-07-03] MEDS: PANTOprazole 40 MG TAB PO SCH (06:05)
[2022-07-03] MEDS: ACETAMINOPHEN 325 MG TAB PO PRN (06:39)
[2022-07-03 07:10] LABS: BUN Creatinine Ratio 21.5 (10-20); Calcium 9.3 mg/dl (8.5-10.1); Creatinine Clr Calc Pharmacy 40.8 ml/min; Est GFR (African American) 29.7 ml/min; Est GFR (Non-African American) 25.7 ml/min; Potassium 3.7 mmol/L (3.5-5.1)
[2022-07-03] MEDS: DOCUSATE SODIUM 100 MG CAP PO SCH (08:50)
[2022-07-03] MEDS: allopurinoL 100 MG TAB PO SCH (08:53)
[2022-07-03] MEDS: AMIODARONE 200 MG TAB PO SCH (08:54)
[2022-07-03] MEDS: APIXABAN 5 MG TABLET PO SCH ×2 (08:54→21:06)
[2022-07-03] MEDS: carvediloL 12.5 MG TAB PO SCH ×2 (08:55→21:03)
[2022-07-03] MEDS: buPROPion SR 150 MG TABCR PO SCH ×2 (08:55→21:03)
[2022-07-03] MEDS: ASPIRIN 81 MG ECTAB PO SCH (08:55)
[2022-07-03] MEDS: ATORVASTATIN 40 MG TAB PO SCH (08:55)
[2022-07-03] MEDS: CHOLECALCIFEROL 5,000 UNITS 125 MCG TAB PO SCH (08:56)
[2022-07-03] MEDS: lamoTRIgine 25 MG TAB PO SCH ×2 (08:56→21:05)
[2022-07-03] MEDS: DULoxetine HCL 60 MG CAP PO SCH (08:56)
[2022-07-03] MEDS: DONEPEZIL HCL 10 MG TAB PO SCH (08:56)
[2022-07-03] MEDS: MONTELUKAST SODIUM 10 MG TABLET PO SCH (08:57)
[2022-07-03] MEDS: MULTIVITAMIN TAB PO SCH (08:58)
[2022-07-03] MEDS: PRIMIDONE 50 MG TAB PO SCH ×2 (08:58→21:07)
[2022-07-03] MEDS: CEROVITE ADV FORMULA TAB PO SCH (08:58)
[2022-07-03] MEDS: TOPIRAMATE 100 MG TAB PO SCH (08:59)
[2022-07-03] MEDS: LANTUS PER UNIT CHARGE SQ SCH (09:04)
[2022-07-03] MEDS: INSULIN ASPART PER UNIT SC SCH ×4 (09:04→21:07)
[2022-07-03] MEDS: PREGABALIN 100 MG CAP PO SCH ×3 (09:04→21:30)
[2022-07-03] MEDS: PREGABALIN 50 MG CAP PO SCH (12:09)
[2022-07-03] MEDS: ADVANCED PROBIOTIC 1250 MG CAPSULE PO SCH (13:37)
--- NOTE | 2022-07-03 13:50 | Consultation Report ---
NEPHROLOGY CONSULTATION NOTE DATE OF SERVICE: 07/03/2022 REASON FOR CONSULTATION: [id number] renal failure. HISTORY OF PRESENT ILLNESS: The patient is a 62-year-old male with very extensive list of medical pr oblems including longstanding type 2 diabetes, on insulin pump with chronic kidney disease stage IIIB with fluctuating baseline creatinine. He has had numerous episodes of acute renal failure in the [facility]. Also has very extensive cardiac problems including ischemic cardiomyopathy, status post ICD, hyp ertension, paroxysmal ventricular tachycardia, on amiodarone, history of DVT and PE, on Eliquis; morb id obesity, peripheral vascular disease, obstructive sleep apnea, on BiPAP, and multiple other medica l problems. He was admitted 1 week ago because of osteomyelitis of the finger for which he underwent surgery. His blood pressure has been all over the place including multiple readings of low blood pr essure. His more recent baseline creatinine has been about 1.8. On admission, he was at baseline at 1.74, but since then, it has initially went up, then came down, but for the last few days, it is devyn g up again from 1.8 to 2.20 to 2.34 and today is 2.60. His blood pressure and vital signs at this ti me are reasonable. He is making urine. He normally gets torsemide and lisinopril at home, both of w [facility] are currently on hold. He is not getting IV fluid at this time, but he is eating and drinking p retty good. He is getting cefepime and daptomycin for his osteomyelitis. Denies any nausea, vomitin g, abdominal pain, major shortness of breath, or any lower extremity edema. Denies any pain. ALLERGIES: List was reviewed in detail and is as per the H and P. PAST MEDICAL HISTORY AND PAST SURGICAL HISTORY: As detailed in HPI. On top of that, he also has his tory of small bowel obstruction, complication of gastric bypass surgery, peripheral vascular disease, hyperparathyroidism, diabetic retinopathy, hypertension, GERD, psoriatic arthropathy, restless legs syndrome, hip arthritis, migraines, major depression, wheelchair bound, cardiac stent, cataract surge ry, ICD placement, laparoscopic cholecystectomy, incisional hernia repair, right BKA, surgery for bow el obstruction, ventral hernia repair. MEDICATIONS: At home were reviewed in detail and is as per the H and P. His current inpatient medic ation list was also reviewed in full detail. Torsemide and lisinopril are currently on hold. FAMILY HISTORY: Reviewed in detail. No renal disease or dialysis. SOCIAL HISTORY: . No smoking, no alcohol, no drugs. 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 REVIEW OF SYSTEMS: As detailed in HPI; unless stated otherwise, 12 systems reviewed and negative. PHYSICAL EXAMINATION: GENERAL: A middle-aged white male who is morbidly obese. He looks older than the age and appears ch ronically ill. VITAL SIGNS: Blood pressure 137/81, pulse rate 92, temperature 36.9, 93% on room air. HEENT: Mucous membranes moist. NECK: Supple. No jugular venous distention. CHEST: Bilateral decreased breath sounds, occasional crackles. CARDIOVASCULAR: S1 and S2, irregular. Systolic murmur heard. ABDOMEN: Soft, nontender, morbidly obese. EXTREMITIES: Show no edema in the left. Right has BKA. NEUROLOGIC: Awake, alert, oriented x3, moving all 4 extremities. Normal speech and good memory and was able to give me a detailed account of his medical problem. LABORATORY TESTS: Blood work from this morning shows sodium 139, potassium 3.7, chloride 101, BUN 56 , creatinine 2.60, calcium 9.3. Hemoglobin 11.2, WBC count 6.42. Urine sediment from 6 days ago show ed negative blood, negative protein, some epithelial cells and RBC and WBC were present. IMAGING: Chest x-ray was unremarkable. ASSESSMENT AND PLAN: A 62-year-old male with very, very extensive list of medical problems including longstanding diabetes with all the complications related with diabetes including chronic kidney dise ase with baseline creatinine that fluctuates but usually about 1.8. He is now admitted with osteomye litis of his finger. He has had worsening kidney function for the last few days, for which I have be en consulted. 1. Acute renal failure on background chronic kidney disease III. Given that the patient has a very, very extensive list of cardiopulmonary, renal, and multisystem comorbid disease, it is not surprisin g that his creatinine went up a little bit in the current acute setting of osteomyelitis infection hurtado rgery. It is also worth noting that in the last 1 week, he has had multiple episodes of significantl y low blood pressure. Significant fluctuation in blood pressure like this, especially low blood pres sure can be associated with acute renal failure. He appears fairly euvolemic at this time and I woul d not give him any IV fluid. I agree with holding the torsemide and lisinopril for the time being, a s much as possible avoid nephrotoxic agent. The rise of the creatinine is not that impressive, but we like to see somewhat stable creatinine before discharge. He had previously seen [facility] with me, but has not had any regular followup lately and he needs to be followed by [facility] Clinic in [facility]. Thank you very much for the consult. Job ID: [id number]
--- NOTE | 2022-07-03 16:53 | Hospitalist Progress Note ---
Date of Service July 03, 2022 Assessment & Plan (1) Osteomyelitis: Plan: Patient is a 62 yr male who presents with infection of the right hand. Right Index finger and possible 5th Right finger Osteomyelitis Right index finger gangrene/Right index finger diabetic infection --X-rays done in the [facility] showing osteomyelitis of the right index and right fifth finger. --X-ray at [facility]: IMPRESSION: Progressive erosive changes at the distal armani of the right index and fifth fingers consistent with an osteomyelitis versus osteolysis. --MRI Hand:Suspect mild osteitis at the residual distal phalanx of the fifth finger. Otherwise, no evidence for osteomyelitis within the right hand. Status post recent partial amputation of the index finger with expected postoperative changes as described above. -S/P Right index finger amputation at middle phalanx level by Dr.Christopher Ivey on 06/30/22 --Blood Cx: No growth --Wound Cx grew: Coag Negative Staph -- Empirically started on daptomycin and Zosyn>>changed to daptomycin, cefepime Follow the cultures. Orthopedics and wound care consulted Now s/p surg. intervention - R partial index finger amputation (06/28) Appreciate ID input Continue wound care Prior provider discussed with ID on 07/01: continue IV Daptomycin 825 mg daily for 4 weeks then from 07/31/22 continue doxycycline 100 bid for 2 weeks. Follow final cultx. Weekly CBC, CMP, CPK. Follow up with ID within 4 weeks. Reviewed blood cultures from [facility], so far they are negative. Wound culture from there shows rare mixed gram-positive growth consistent with skin kiara. Requested Ultrasound-guided IV line placement Likely plan to discharge home tomorrow Needs follow-up with ID upon discharge Needs follow-up with orthopedics upon discharge LAURA On BiPAP at bedtime. Chronic diastolic congestive heart failure: Monitor volume status on Torsemide, Beta-kitty Held torsemide, VIVIANA due to renal function Resume diuretics as able H/O paroxysmal ventricular tachycardia H/O paroxysmal atrial fibrillation S/P Implantable cardioverter-defibrillator. on amiodarone, Coreg, Eliquis H/O DVT, PE On Eliquis. H/O gouty arthritis: On allopurinol. DM II Was on Insulin Pump Continue Insulin per protocol Peripheral vascular disease: On aspirin, Eliquis statin held while on Dapto URBANO on CKD IIIB Baseline Cr ~1.8 Avoid nephrotoxic agents. Cr 2.6 today Monitor renal function Appreciate nephrology input Needs follow-up with nephrology upon discharge Morbid obesity S/P gastric bypass BMI 45 Restless legs syndrome: Continue home medications. Recurrent major depression: On duloxetine, nortriptyline and bupropion Hyperlipidemia: Statin on hold while on Daptomycin Anemia of chronic kidney disease: Hb stable GERD on PPI HTN On Coreg Lisinopril held Monitor DVT Px: on Eliquis. Code Status Full Code Disposition Likely Home with Admission and Anticipated Discharge Date Admission Date: June 26, 2022 Subjective Patient is seen and examined at bedside No new complaints Renal function slightly worse Discussed with nephrology today chronic dyspnea which is unchanged Denies any chest pain, dizziness, nausea, abdominal pain Review of Systems Review of Systems: All systems reviewed & are unremarkable except as noted in Subjective Physical Exam Physical Exam: Physical Exam: Vitals signs as noted above General Appearance:Morbidly Obese, no apparent distress Head: normocephalic, Atraumatic Eyes: normal inspection, EOMI Neck: supple, Trachea midline Respiratory/Chest: Decreased breath sounds, CTA, No accessory muscle use Cardiovascular: S1, S2, No murmur Abdomen/GI:Soft, Protuberant, Non tender, Bowel sounds present Extremities/Musculoskeletal:normal inspection, no edema, R BKA, R UE finger ampuations Neurologic/Psych:AAOX3, grossly no focal neurological deficits Skin: normal color, warm Results & Data Results & Data ([place]) Vital Signs (Past 12 Hours) Vital Signs Temp Pulse Pulse Resp BP Pulse Ox O2 Del Method 07/03/22 15:48 36.4 C L 86 19 133/82 94 Room Air 07/03/22 11:07 36.9 C 92 H 19 137/81 93 Room Air 07/03/22 08:00 92 H 07/03/22 06:36 36.6 C 91 H 20 128/81 95 Room Air Laboratory Results [facility] 07/03/22 06:31 Sodium 139 Potassium 3.7 Chloride 101 Carbon Dioxide 27 BUN 56 H Creatinine 2.60 H Glucose 106 H Calcium 9.3
[2022-07-03] MEDS: PRAMIPEXOLE DIHYDROCHLO 0.5 MG TAB PO SCH ×2 (17:39→21:05)
[2022-07-03] MEDS: NORTRIPTYLINE HCL 25 MG CAP PO SCH (21:06)
[2022-07-04] MEDS: CEFEPIME 2,000 MG in SYRINGE 0 ML IV SCH (04:08)
[2022-07-04] MEDS: DAPTOmycin 825 MG in SYRINGE 0 ML IV SCH (05:58)
[2022-07-04] MEDS: PANTOprazole 40 MG TAB PO SCH (05:59)
[2022-07-04 06:29] LABS: Hematocrit (blood only) 36.6 % (40.1-51.0); Mean Corpuscular Hemoglobin 30.4 pg (25.0-34.0); Mean Corpuscular Hgb Conc 32.8 g/dL (32.0-36.0); Mean Corpuscular Volume 92.7 fL (80.0-100.0); Mean Platelet Volume 9.3 fL (9.4-12.4); Platelet Count 218 K/uL (130-400); RDW Coefficient of Variation 14.4 % (11.5-14.5); Red Blood Count 3.95 M/uL (4.63-6.08); White Blood Count 7.07 K/ul (4.8-10.8)
[2022-07-04 06:59] LABS: BUN Creatinine Ratio 25.7 (10-20); Calcium 9.7 mg/dl (8.5-10.1); Creatinine Clr Calc Pharmacy 50.4 ml/min; Est GFR (African American) 38.5 ml/min; Est GFR (Non-African American) 33.2 ml/min; Potassium 3.8 mmol/L (3.5-5.1)
[2022-07-04] MEDS: APIXABAN 5 MG TABLET PO SCH (08:51)
[2022-07-04] MEDS: PREGABALIN 100 MG CAP PO SCH (08:51)
[2022-07-04] MEDS: DONEPEZIL HCL 10 MG TAB PO SCH (08:51)
[2022-07-04] MEDS: ADVANCED PROBIOTIC 1250 MG CAPSULE PO SCH (08:51)
[2022-07-04] MEDS: buPROPion SR 150 MG TABCR PO SCH (08:51)
[2022-07-04] MEDS: lamoTRIgine 25 MG TAB PO SCH (08:52)
[2022-07-04] MEDS: MONTELUKAST SODIUM 10 MG TABLET PO SCH (08:52)
[2022-07-04] MEDS: AMIODARONE 200 MG TAB PO SCH (08:52)
[2022-07-04] MEDS: CEROVITE ADV FORMULA TAB PO SCH (08:52)
[2022-07-04] MEDS: MULTIVITAMIN TAB PO SCH (08:52)
[2022-07-04] MEDS: ATORVASTATIN 40 MG TAB PO SCH (08:52)
[2022-07-04] MEDS: DULoxetine HCL 60 MG CAP PO SCH (08:52)
[2022-07-04] MEDS: PRIMIDONE 50 MG TAB PO SCH (08:53)
[2022-07-04] MEDS: allopurinoL 100 MG TAB PO SCH (08:53)
[2022-07-04] MEDS: ASPIRIN 81 MG ECTAB PO SCH (08:53)
[2022-07-04] MEDS: carvediloL 12.5 MG TAB PO SCH (08:53)
[2022-07-04] MEDS: TOPIRAMATE 100 MG TAB PO SCH (08:53)
[2022-07-04] MEDS: CHOLECALCIFEROL 5,000 UNITS 125 MCG TAB PO SCH (08:53)
[2022-07-04] MEDS: INSULIN ASPART PER UNIT SC SCH ×2 (08:54→12:43)
[2022-07-04] MEDS: LANTUS PER UNIT CHARGE SQ SCH (08:54)
--- NOTE | 2022-07-04 10:32 | Nephrology Progress Note ---
Date of Service July 04, 2022 Assessment & Plan Admission and Anticipated Discharge Date Admission Date: June 26, 2022 Subjective S--no new issues. feels fine. PHYSICAL EXAMINATION: GENERAL: A middle-aged white male who is morbidly obese. He looks older than the age and appears chronically ill. VITAL SIGNS: Blood pressure 137/81, pulse rate 92, temperature 36.9, 93% on room air. HEENT: Mucous membranes moist. NECK: Supple. No jugular venous distention. CHEST: Bilateral decreased breath sounds, occasional crackles. CARDIOVASCULAR: S1 and S2, irregular. Systolic murmur heard. ABDOMEN: Soft, nontender, morbidly obese. EXTREMITIES: Show no edema in the left. Right has BKA. NEUROLOGIC: Awake, alert, oriented x3, moving all 4 extremities. Normal speech and good memory and was able to give me a detailed account of his medical problem. LABORATORY TESTS: Creat down a bit. IMAGING: Chest x-ray was unremarkable. ASSESSMENT AND PLAN: A 62-year-old male with very, very extensive list of medical problems including longstanding diabetes with all the complications related with diabetes including chronic kidney disease with baseline creatinine that fluctuates but usually about 1.8. He is now admitted with osteomyelitis of his finger. He had worsening kidney function for the last few days, for which I have been consulted. 1. Acute renal failure on background chronic kidney disease III. Given that the patient has a very, very extensive list of cardiopulmonary, renal, and multisystem comorbid disease, it is not surprising that his creatinine went up a little bit in the current acute setting of osteomyelitis/ infection/ surgery. It is also worth noting that in the last 1 week, he has had multiple episodes of significantly low blood pressure. Significant fluctuation in blood pressure like this, especially low blood pressure can be associated with acute renal failure. Creat down a bit today. He had previously seen CKD [facility] with me, but has not h ad any regular followup lately and he needs to be followed by CKD Clinic in [facility]. Hold Lisinopril till seen by nephrology/PCP next week. restart torsemide at a lower dose of 20 daily. Can raise further next week after f/u. Results & Data ([facility]) Vital Signs (Past 12 Hours) Vital Signs Temp Pulse Pulse Resp BP Pulse Ox O2 Del Method 07/04/22 06:06 36.9 C 91 H 20 154/86 H 95 Room Air 07/04/22 02:34 36.9 C 90 20 154/92 H 97 BiPAP 07/03/22 23:23 59 L
[2022-07-04] MEDS: PREGABALIN 50 MG CAP PO SCH (12:43)
--- NOTE | 2022-07-04 12:49 | Hospitalist Progress Note ---
Date of Service July 04, 2022 Assessment & Plan (1) Osteomyelitis: Plan: Patient is a 62 yr male who presents with infection of the right hand. Right Index finger and possible 5th Right finger Osteomyelitis Right index finger gangrene/Right index finger diabetic infection --X-rays done in the [facility] showing osteomyelitis of the right index and right fifth finger. --X-ray at [facility]: IMPRESSION: Progressive erosive changes at the distal armani of the right index and fifth fingers consistent with an osteomyelitis versus osteolysis. --MRI Hand:Suspect mild osteitis at the residual distal phalanx of the fifth finger. Otherwise, no evidence for osteomyelitis within the right hand. Status post recent partial amputation of the index finger with expected postoperative changes as described above. -S/P Right index finger amputation at middle phalanx level by Dr.Christopher Ivey on 06/30/22 --Blood Cx: No growth --Wound Cx grew: Coag Negative Staph -- Empirically started on daptomycin and Zosyn>>changed to daptomycin, cefepime Follow the cultures. Orthopedics and wound care consulted Now s/p surg. intervention - R partial index finger amputation (06/28) Appreciate ID input Continue wound care Prior provider discussed with ID on 07/01: continue IV Daptomycin 825 mg daily for 4 weeks then from 07/31/22 continue doxycycline 100 bid for 2 weeks to complete 6 week course of antibiotics Follow final cultures. Weekly CBC, CMP, CPK. Follow up with ID within 4 weeks. Reviewed blood cultures from [facility], so far they are negative. Wound culture from there shows rare mixed gram-positive growth consistent with skin kiara. Had Ultrasound-guided IV line placed on 07/03/22 Needs follow-up with ID and orthopedics upon discharge Continue wound care at home LAURA On BiPAP at bedtime. Chronic diastolic congestive heart failure: Monitor volume status on Torsemide, Beta-kitty Held torsemide, VIVIANA due to renal function Resume Torsemide at reduced dose: 20mg daily as recommended by Nephrology H/O paroxysmal ventricular tachycardia H/O paroxysmal atrial fibrillation S/P Implantable cardioverter-defibrillator. on amiodarone, Coreg, Eliquis H/O DVT, PE On Eliquis. H/O gouty arthritis: On allopurinol. DM II Was on Insulin Pump Continue Insulin per protocol Peripheral vascular disease: On aspirin, Eliquis statin held while on Dapto URBANO on CKD IIIB Baseline Cr ~1.8 Avoid nephrotoxic agents. Cr 2.6 > 2.1 Monitor renal function Appreciate nephrology input Needs follow-up with nephrology upon discharge Plan to discontinue Lisinopril for now until follow with Nephrology Morbid obesity S/P gastric bypass BMI 45 Restless legs syndrome: Continue home medications. Recurrent major depression: On duloxetine, nortriptyline and bupropion Hyperlipidemia: Statin on hold while on Daptomycin Anemia of chronic kidney disease: Hb stable GERD on PPI HTN On Coreg Lisinopril held Monitor DVT Px: on Eliquis. Code Status Full Code Disposition Home with Admission and Anticipated Discharge Date Admission Date: June 26, 2022 Subjective Patient is seen and examined at bedside Feels well Discussed with Nephrology today Renal function better today Reports chronic dyspnea which is unchanged Denies any chest pain, dizziness, nausea, abdominal pain Denies any pain at surgical site Review of Systems Review of Systems: All systems reviewed & are unremarkable except as noted in Subjective Physical Exam Physical Exam: Physical Exam: Vitals signs as noted above General Appearance:Morbidly Obese, no apparent distress Head: normocephalic, Atraumatic Eyes: normal inspection, EOMI Neck: supple, Trachea midline Respiratory/Chest: Decreased breath sounds, CTA, No accessory muscle use Cardiovascular: S1, S2, No murmur Abdomen/GI:Soft, Protuberant, Non tender, Bowel sounds present Extremities/Musculoskeletal:normal inspection, no edema, R BKA, R UE finger ampuations Neurologic/Psych:AAOX3, grossly no focal neurological deficits Skin: normal color, warm Results & Data Results & Data ([facility]) Vital Signs (Past 12 Hours) Vital Signs Temp Pulse Resp BP Pulse Ox O2 Del Method 07/04/22 11:08 87 20 124/78 94 Room Air 07/04/22 06:06 36.9 C 91 H 20 154/86 H 95 Room Air 07/04/22 02:34 36.9 C 90 20 154/92 H 97 BiPAP Laboratory Results Short CBC 07/04/22 Range/Units 06:04 WBC 7.07 (4.8-10.8) K/ul Hgb 12.0 L (14.0-18.0) g/dl Hct 36.6 L (40.1-51.0) % Plt Count 218 (130-400) K/uL BMP 07/04/22 06:04 Sodium 137 Potassium 3.8 Chloride 103 Carbon Dioxide 25 BUN 54 H Creatinine 2.10 H D Glucose 129 H Calcium 9.7 Cardiac Enzymes 07/04/22 Range/Units 06:04 Total Creatine Kinase 278 H (30-223) U/L
--- NOTE | 2022-07-04 13:27 | Discharge Summary ---
Date of Service July 04, 2022 Admission HPI Per Admitting Provider CHIEF COMPLAINT: Right index finger osteomyelitis. HISTORY OF PRESENT ILLNESS: This 62-year-old male with past medical history significant for ischemic cardiomyopathy ,chronic diastolic CHF, status post ICD recently, EF is 50%-55% low normal, hypertension, history of paroxysmal ventricular tachycardia, on amiodarone, history of DVT and PE, on Eliquis, history of paroxysmal atrial fibrillation, on Eliquis, history of gouty arthritis, history of right below knee amputation, mostly wheelchair bound, history of CAD, history of small-bowel obstruction, complication of his gastric bypass surgery, history of obstructive sleep apnea on BiPAP, obesity, type 2 diabetes, on insulin pump, history of peripheral vascular disease, history of chronic kidney disease stage IIIB, hyperparathyroidism, diabetic retinopathy with hypertension, GERD, psoriatic arthropathy, restless legs syndrome, hip arthritis, amputation of middle fingers of right hand, history of migraines, muscular rigidity and spasm, normocytic anemia, recurrent infections, recurrent major depression disorder, and intention tremor. Lives at home with his . Went to [facility] because of infection of his right index finger. The patient's infection started when his nail came off a couple of weeks ago, but yesterday noticed that it is getting worse, skin came off and became more red. X-rays done at the [facility] showed osteomyelitis and he was transferred here for hand surgeon evaluation. The patient denies any pain. No fever or chills. Resting comfortably, hemodynamically stable. Denies any headache, no dizziness, no blurred visions. Has chronic runny nose, no sore throat, no cough. Dry throat. He has to drink water for swallowing his food. Denies any chest pain. He has chronic shortness of breath with exertion. No nausea, no vomiting, no abdominal pain. Somewhat constipated. Denies any blood in stools. Normal bladder movements. Has some swelling in the legs. Has wounds on his knees from bumping on the bed as per patient. Admission Exam Per Admitting Provider PHYSICAL EXAMINATION: VITAL SIGNS: Currently unavailable. GENERAL: The patient is morbidly obese, alert, oriented, not in acute distress. HEENT: No pallor. Extraocular muscles intact. Oral mucosa moist. NECK: No JVD. No neck masses. CARDIOVASCULAR: S1 and S2 heard. Regular rate and rhythm. No murmur, no gallop. RESPIRATORY SYSTEM: Normal AP diameter. No accessory muscle use. No wheezing, no crackles. ABDOMEN: Soft, bowel sounds present, nontender. No guarding. CENTRAL NERVOUS SYSTEM: Alert and oriented. No facial droop. Speech is clear. Insight is okay. Obeys commands. Moves extremities. EXTREMITIES: Right below-knee amputation, small skin tears in the upper part of the stump and also on the left knee, small skin tear is seen. Edema of the extremities seen. Principal Diagnosis Right Index finger Osteomyelitis Possible 5th Right finger Osteomyelitis Right index finger gangrene/Right index finger diabetic infection Acute kidney injury Discharge Data Allergies Allergy/AdvReac Type Severity Reaction Status Date / Time adhesive tape Allergy Unknown WELTS Verified 05/08/22 08:42 chlorhexidine Allergy UNKN Verified 05/08/22 08:42 disopyramide Allergy UNKN Verified 05/08/22 08:42 erythromycin base Allergy ? HEART Verified 05/08/22 08:42 fluconazole Allergy Unknown Verified 05/08/22 08:42 levofloxacin [From Levaquin] Allergy HEART Verified 05/08/22 08:42 ISSUES Macrolide Antibiotics Allergy HEART ISSUE Verified 05/08/22 08:42 Quinolones Allergy HEART Verified 05/08/22 08:42 ISSUES Sulfa (Sulfonamide Allergy RASH AND Verified 05/08/22 08:42 Antibiotics) ITCHING vancomycin AdvReac Intermediate Red Man Verified 05/08/22 08:42 Syndrome Sulfone Allergy Uncoded 05/08/22 08:42 Consultations 06/26/22 08:00 Consult Orthopedic Surgery Routine 06/29/22 11:32 Consult Infectious Diseases Routine 07/03/22 07:57 Consult Nephrology Routine Procedures Performed Operation Date: 06/28/22 07:35 Actual Procedures p Right Hand Index Finger Amputation(Right) - Chris Ivey MD Ordered Studies 07/01/22 06:33 MR hand RT wo con Routine Laboratory Results WBC 7.07 K/ul (4.8-10.8) 07/04/22 06:04 RBC 3.95 M/uL (4.63-6.08) L 07/04/22 06:04 Hgb 12.0 g/dl (14.0-18.0) L 07/04/22 06:04 Hct 36.6 % (40.1-51.0) L 07/04/22 06:04 MCV 92.7 fL (80.0-100.0) 07/04/22 06:04 MCH 30.4 pg (25.0-34.0) 07/04/22 06:04 MCHC 32.8 g/dL (32.0-36.0) 07/04/22 06:04 RDW Std Deviation 48.0 fL (36.4-46.3) H 07/04/22 06:04 RDW Coeff of Karolina 14.4 % (11.5-14.5) 07/04/22 06:04 Plt Count 218 K/uL (130-400) 07/04/22 06:04 MPV 9.3 fL (9.4-12.4) L 07/04/22 06:04 Immature Gran % (Auto) 0.6 % 06/26/22 07:23 Neut % (Auto) 65.1 % 06/26/22 07:23 Lymph % (Auto) 20.3 % 06/26/22 07:23 [place] % (Auto) 8.1 % 06/26/22 07:23 Eos % (Auto) 4.7 % 06/26/22 07:23 Baso % (Auto) 1.2 % 06/26/22 07:23 Neut # (Auto) 4.19 K/uL (1.4-6.5) 06/26/22 07:23 Lymph # (Auto) 1.31 K/uL (1.2-3.4) 06/26/22 07:23 [place] # (Auto) 0.52 K/uL (0.24-0.82) 06/26/22 07:23 Eos # (Auto) 0.30 K/uL (0-0.50) 06/26/22 07:23 Baso # (Auto) 0.08 K/uL (0-0.2) 06/26/22 07:23 Immature Gran # (Auto) 0.04 K/uL (0.00-0.02) H 06/26/22 07:23 PT 10.3 Seconds (9.0-12.0) 06/26/22 07:23 INR 1.0 (0.9-1.1) 06/26/22 07:23 APTT 29.3 Seconds (21.0-31.0) 06/26/22 07:23 PTT Ratio 1.1 06/26/22 07:23 Sodium 137 mmol/L (136-145) 07/04/22 06:04 Potassium 3.8 mmol/L (3.5-5.1) 07/04/22 06:04 Chloride 103 mmol/L (98-107) 07/04/22 06:04 Carbon Dioxide 25 mmol/L (21-32) 07/04/22 06:04 Anion Gap 9 (3-11) 07/04/22 06:04 BUN 54 mg/dl (6-23) H 07/04/22 06:04 Creatinine 2.10 mg/dl (0.6-1.4) H D 07/04/22 06:04 Est Cr Clr Drug Dosing 50.4 ml/min 07/04/22 06:04 Est GFR ( Amer) 38.5 ml/min 07/04/22 06:04 Est GFR (Non-Af Amer) 33.2 ml/min 07/04/22 06:04 BUN/Creatinine Ratio 25.7 (10-20) H 07/04/22 06:04 Glucose 129 mg/dl (70-99(Fasting)) H 07/04/22 06:04 POC Glucose 216 mg/dl (70-99) H 07/04/22 11:04 Estimat Average Glucose 154 mg/dl 06/26/22 07:23 Hemoglobin A1c 7.0 % (4.5-5.6) H 06/26/22 07:23 Calcium 9.7 mg/dl (8.5-10.1) 07/04/22 06:04 Phosphorus 5.3 mg/dl (2.5-4.9) H 07/02/22 06:13 Magnesium 2.5 mg/dl (1.7-2.4) H 07/02/22 06:13 Total Bilirubin 0.4 mg/dl (0.2-1.0) 07/02/22 06:13 Direct Bilirubin 0.0 mg/dl (0-0.2) 06/26/22 07:23 AST 21 U/L (13-39) 07/02/22 06:13 ALT 14 U/L (7-52) 07/02/22 06:13 Alkaline Phosphatase 94 U/L (34-104) 07/02/22 06:13 Total Creatine Kinase 278 U/L (30-223) H 07/04/22 06:04 Total Protein 7.9 gm/dl (6.0-8.3) 07/02/22 06:13 Albumin 4.3 gm/dl (3.4-5.0) 07/02/22 06:13 Globulin 3.6 gm/dl (2.5-4.0) 07/02/22 06:13 Albumin/Globulin Ratio 1.2 (0.9-2) 07/02/22 06:13 TSH 6.163 uIu/ml (0.300-4.500) H 06/26/22 07:23 Free T4 0.94 ng/dl (0.61-1.60) 06/26/22 07:23 Urine Color Yellow 06/27/22 00:45 Urine Appearance Clear (Clear) 06/27/22 00:45 Urine pH 7.0 (4.5-7.5) 06/27/22 00:45 Ur Specific [place] 1.012 (1.000-1.030) 06/27/22 00:45 Urine Protein Negative (Negative) 06/27/22 00:45 Urine Glucose (UA) Negative (Negative) 06/27/22 00:45 Urine Ketones Negative (Negative) 06/27/22 00:45 Urine Blood Negative (Negative) 06/27/22 00:45 Urine Nitrite Positive (Negative) A 06/27/22 00:45 Urine Bilirubin Negative (Negative) 06/27/22 00:45 Urine Urobilinogen Negative (Negative) 06/27/22 00:45 Ur Leukocyte Esterase 2+ (Negative) H 06/27/22 00:45 Urine WBC (Auto) 10-30 /hpf (0-5) H 06/27/22 00:45 Urine RBC (Auto) 5-10 /hpf (0-4) H 06/27/22 00:45 U Hyaline Cast (Auto) 1-5 /lpf (0-5) 06/27/22 00:45 U Epithel Cells (Auto) >30 /lpf (0-5) H 06/27/22 00:45 Urine Bacteria (Auto) Negative (Negative) 06/27/22 00:45 Impressions Chest X-Ray 06/26/22 04:57 XR chest 1V portable CLINICAL HISTORY: sob TECHNIQUE: Single frontal radiograph of the chest was obtained. Comparison: Comparison is made to chest radiograph 07/17/2019 FINDINGS: Implanted defibrillator is seen. Exam is limited by underpenetration. The cardiomediastinal silhouette is normal. The lungs are clear. No evidence of pleural effusion or pneumothorax. IMPRESSION: Exam is limited by patient body habitus. Within these limits, no evidence of pneumonia. ACT 112: Negative or not required by law. Electronically signed by: Jose Juan Grant M.D. 06/26/2022 12:04 PM Hand X-Ray 06/30/22 14:33 XR hand RT min 3V routine CLINICAL HISTORY: focus on R 5th finger dip joint r/o osteo COMPARISON STUDY: Right hand 06/26/2022. FINDINGS: Status post amputation at the middle phalanx of the right index finger. Prior amputation at the third and fourth fingers. There is a 7 mm skin ulceration at the dorsal aspect of the distal right fifth digit. However, the osseous structures of the distal fifth digit are not well visualized due to patient positioning. No definite erosive changes identified. IMPRESSION: 1. Soft tissue swelling and a skin ulceration within the distal right fifth finger. The underlying osseous structures are not well visualized due to patient positioning. No definite erosive changes identified at the right fifth finger. 2. Interval amputation at the right index finger middle phalanx. ACT 112: Negative or not required by law. Electronically signed by: Kiran Gifford M.D. 06/30/2022 3:51 PM Hand MRI 07/01/22 06:33 MR hand RT wo con HISTORY: Right fifth finger pain. Redness and swelling. r/o osteo R 5th finger TECHNIQUE: Multiaxial CT images of the right hand were performed without contrast according to standard departmental protocol. COMPARISON STUDY: Right hand radiograph 06/30/2022. FINDINGS: The distal tuft of the right fifth finger is absent which appears chronic. There is minimal increased signal on the STIR sequences within the residual distal phalanx of the right fifth finger. However, no abnormal T1 signal to suggest an osteomyelitis. This could represent a low-grade osteitis. Minimal subcutaneous edema within the fifth finger. Status post recent amputation at the middle phalanx of the right index finger. This likely accounts for the soft tissue edema within this finger. No additional areas of suspicious signal abnormality or acute erosive changes within the hand to suggest an osteomyelitis. Evidence for prior amputation at the PIP joint of the middle finger. Degenerative changes noted at the MCP joints and wrist. No loculated fluid collections to suggest an abscess. Mild thickening and small amount of fluid surrounding the flexor tendons of the index finger which could also be due to the recent postoperative change. IMPRESSION: 1. Suspect mild osteitis at the residual distal phalanx of the fifth finger. Otherwise, no evidence for osteomyelitis within the right hand. 2. Status post recent partial amputation of the index finger with expected postoperative changes as described above. ACT 112: Negative or not required by law. Electronically signed by: Kiran Gifford M.D. 07/01/2022 11:46 AM Hospital Course (1) Osteomyelitis: Patient is a 62 yr male who presents with infection of the right hand. Right Index finger and possible 5th Right finger Osteomyelitis Right index finger gangrene/Right index finger diabetic infection --X-rays done in the [facility] showing osteomyelitis of the right index and right fifth finger. --X-ray at [facility]: IMPRESSION: Progressive erosive changes at the distal armani of the right index and fifth fingers consistent with an osteomyelitis versus osteolysis. --MRI Hand:Suspect mild osteitis at the residual distal phalanx of the fifth finger. Otherwise, no evidence for osteomyelitis within the right hand. Status post recent partial amputation of the index finger with expected postoperative changes as described above. -S/P Right index finger amputation at middle phalanx level by Dr.Christopher Ivey on 06/30/22 --Blood Cx: No growth --Wound Cx grew: Coag Negative Staph -- Empirically started on daptomycin and Zosyn>>changed to daptomycin, cefepime Follow the cultures. Orthopedics and wound care consulted Now s/p surg. intervention - R partial index finger amputation (06/28) Appreciate ID input Continue wound care Prior provider discussed with ID on 07/01: continue IV Daptomycin 825 mg daily for 4 weeks then from 07/31/22 continue doxycycline 100 bid for 2 weeks to complete 6 week course of antibiotics Follow final cultures. Weekly CBC, CMP, CPK. Follow up with ID within 4 weeks. Reviewed blood cultures from [facility], so far they are negative. Wound culture from there shows rare mixed gram-positive growth consistent with skin kiara. Had Ultrasound-guided IV line placed on 07/03/22 Needs follow-up with ID and orthopedics upon discharge Continue wound care at home LAURA On BiPAP at bedtime. Chronic diastolic congestive heart failure: Monitor volume status on Torsemide, Beta-kitty Held torsemide, VIVIANA due to renal function Resume Torsemide at reduced dose: 20mg daily as recommended by Nephrology H/O paroxysmal ventricular tachycardia H/O paroxysmal atrial fibrillation S/P Implantable cardioverter-defibrillator. on amiodarone, Coreg, Eliquis H/O DVT, PE On Eliquis. H/O gouty arthritis: On allopurinol. DM II Was on Insulin Pump Continue Insulin per protocol Peripheral vascular disease: On aspirin, Eliquis statin held while on Dapto URBANO on CKD IIIB Baseline Cr ~1.8 Avoid nephrotoxic agents. Cr 2.6 > 2.1 Monitor renal function Appreciate nephrology input Needs follow-up with nephrology upon discharge Plan to discontinue Lisinopril for now until follow with Nephrology Morbid obesity S/P gastric bypass BMI 45 Restless legs syndrome: Continue home medications. Recurrent major depression: On duloxetine, nortriptyline and bupropion Hyperlipidemia: Statin on hold while on Daptomycin Anemia of chronic kidney disease: Hb stable GERD on PPI HTN On Coreg Lisinopril held Monitor DVT Px: on Eliquis. Code Status Full Code Disposition Home with HH Total Time Total Time Spent Total Time Spent (In Minutes): 55 minutes Discharge Plan Discharge Items Patient Disposition: Home - Home Health Services Reason For Visit: OSTEOMYELITIS OF FINGERS-HAND SURGEON Discharge Diagnosis: Right Index finger Osteomyelitis Possible 5th Right finger Osteomyelitis Right index finger gangrene/Right index finger diabetic infection Acute kidney injury Activity: Per Instructions section Exercise/Sports: Gradually increase as tolerated Non-emergency contact: Primary Care Provider, Surgeon, Specialist and Disease Case Manager Rn Call non-emergency contact if: you have any medication questions, your symptoms worsen, you have a fever, your wound has increased redness, your wound has increased drainage and your wound pain has increased Follow-up/Referrals: Hola Lindsey MD [Primary Care Provider] - (Date & Time 07/08/2022 12:20 PM Provider Estrella Jennings PA-C Department [facility] ) Aly Hillman MD [Physician] - (Date & Time 07/31/2022 9:00 AM Provider Aly Hillman MD Department Nephrology, [facility] ) Diet: Carb Consistent or DM2 and Heart Healthy [facility] Attending Provider Instructions: Follow-up with your primary care physician on 07/08/2022 12:20 PM Follow up with your infectious disease DrMarkos Baker in 4 weeks. Please call for appointment Follow up with your Orthopedic Surgeon in 2 weeks. Please call [facility] at for appointment [facility] as recommended by your Disease Case Manager Rn. ---Complete the antibiotic course IV Daptomycin 825mg daily until 07/30/22 and then start taking Doxycycline 100mg Twice a day from 07/31/22 for 2 weeks as recommended by Infectious disease --- Continue wound care at surgical site as recommenced by Orthopedics Other Medication Changes: 1)-- Your lisinopril is discontinued until follow-up with your micropaleontologist next week. 2)--Your torsemide dose is decreased to 20 mg daily as recommended by your micropaleontologist. 3)--DO not Take your cholesterol medication atorvastatin while on IV daptomycin antibiotic course. --Get Blood test weekly (CBC, CMP, CPK) while on IV antibiotics and follow-up with physician with results. Seek immediate medical attention if your symptoms reoccur or worsen Please take all medications as instructed on discharge list below. Please call if you have any questions or problems. You can reach a [facility] hospitalist on duty at [facility] 24 hours a day by calling [phone] [facility] [employer] Provider Instructions: ACTIVITY RECOMMENDATIONS: * Avoid lifting anything heavier than a small water glass until your first post operative visit. SPECIAL CARE INSTRUCTIONS: * recommend daily dressing changes, keep incision covered until your first post op appt with Dr Ivey. * Some drainage onto the dressing may occur. This is normal. * If the bandage feels excessively tight, you may loosen the elastic bandage. Then call the physician's office for further instructions. * If possible, keep your hand elevated above the level of your heart for the first 2 post operative days. * You should move your fingers regularly (50-100 motions per hour) unless otherwise instructed. SPECIAL PRECAUTIONS: * If you notice increased drainage, fever over 101 degrees F. or severe, unre mitting pain, call your physician/office at . * You may have been prescribed pain medication. If you experience nausea and/or skin rash, discontinue this medication and contact our office for an alternative medication. FOLLOW UP VISIT: If appointment is not already scheduled: Please call [facility] to make a follow-up appointment with Dr Ivey after your surgery at . Pending Studies at Discharge: No Stand-Alone Forms: My [facility] Y[facility]q, Smoking Cessation Medications and DC Order Prescriptions: New Advanced Probiotic 625 mg (10 billion cell) Capsule 2 cap PO DAILY 30 Days Qty: 60 1RF doxycycline hyclate 100 mg tablet 100 mg PO BID 14 Days Qty: 28 0RF Rx Instructions: START TAKING FROM 07/31/22 AFTER COMPLETION OF IV DAPTOMYCIN COURSE torsemide 20 mg tablet 20 mg PO DAILY Qty: 30 1RF daptomycin 500 mg recon soln 825 mg IV DAILY Qty: 1 0RF Rx Instructions: administer over 30 mins Until 03/30/22 Continued (DME) BiPap Supplies Misc See Rx Instructions .MEDSUPPLY Qty: 1 5RF Rx Instructions: BiPap supplies. Lifetime need. (DME) Oxygen Home Liters Per Minute See Rx Instructions .MEDSUPPLY Qty: 1 0RF Rx Instructions: Oxygen at 2 l/m via CPAP/BiPap at hs. Lifetime need. (DME) nebulizers Mis See Rx Instructions [id number] .MEDSUPPLY Qty: 1 0RF Rx Instructions: As directed. Use with nebulizer solution. Lifetime need. (DME) nebulizer accessories Kit See Rx Instructions .ROUTE .MEDSUPPLY Qty: 1 0RF Rx Instructions: As directed. Appropriate supplies. Lifetime need. albuterol sulfate 2.5 mg /3 mL (0.083 %) solution for nebulization 2.5 mg INH Q4H PRN (Reason: shortness of breath or wheezing) Qty: 180 3RF (DME) BiPap Machine Misc See Rx Instructions .Route Qty: 1 0RF Rx Instructions: He is set at a pressure of 25 cm H2O with humidification. Lifetime need. All necessary supplies for a new machine. duloxetine 60 mg capsule,delayed release(DR/EC) 60 mg PO DAILY bupropion HCl 150 mg tablet sustained-release 12 hr 150 mg PO BID Rx Instructions: 1 tab twice daily omeprazole 20 mg capsule,delayed release(DR/EC) 20 mg PO DAILYBB Qty: 30 Rx Instructions: Daily before breakfast montelukast 10 mg tablet 10 mg PO DAILY Qty: 90 nitroglycerin 0.4 mg tablet, sublingual 0.[address] 1 TABLET UNDER carvedilol 12.5 mg tablet 12.5 mg PO BID Rx Instructions: 1 tab twice daily multivitamin with iron [Daily Multiple Vitamins/Iron] tablet 1 tab PO DAILY pregabalin 50 mg capsule 50 mg PO QDL Rx Instructions: per med rec, daily at noon primidone 50 mg tablet 50 mg PO QAM Rx Instructions: per med rec, 1 tab in AM, then at bedtime lamotrigine 25 mg tablet,disintegrating 50 mg PO BID amiodarone 200 mg tablet 200 mg PO QAM aspirin 81 mg tablet 81 mg PO DAILY triamcinolone acetonide 0.1 % ointment See Rx Instructions .ROUTE .COMPLEX Rx Instructions: as needed for psoriasis Trokendi XR 100 mg capsule,extended release 24hr 100 mg PO DAILY primidone 50 mg Tablet 200 mg PO HS donepezil 10 mg Tablet 10 mg PO DAILY insulin aspart U-100 [Novolog U-100 Insulin aspart] 100 unit/mL Solution 1 sliding scale dose SUBCUT USEASDIRECTD cholecalciferol (vitamin D3) [Vitamin D3] 125 mcg (5,000 unit) Tablet 5,000 unit PO DAILY allopurinol 100 mg tablet 50 mg PO DAILY Trulicity 4.5 mg/0.5 mL pen injector 4.5 mg SUBCUT WK nortriptyline 25 mg capsule 25 mg PO HS Eliquis 5 mg tablet 5 mg PO BID pregabalin 200 mg capsule 200 mg PO TID pramipexole 1 mg tablet 0.5 mg PO USEASDIRECTD Rx Instructions: 0.5mg po at 5pm and 1.5mg po q hs. Discontinued lisinopril 10 mg tablet 5 mg PO DAILY atorvastatin 40 mg tablet 40 mg PO DAILY torsemide 40 mg Tablet 40 mg PO DAILY Discharge Orders: Discharge Order (Routine); Ordered 07/04/22 Ordered By: Romeo Kong Admission Data Admit Date/Time: 06/26/22 04:20 Attending Provider: Romeo Kong Admit Provider: Phill Beasley Primary Care Provider: Hola Lindsey I. Other Providers: Chris Ivey ; Deandre Black ; Denita Santana ; Ajay Block I. ; Adalberto Mckeon II ; Deana Wetzel ; Jeff Eldridge ; Dae Coburn ; Tim Baker ; Maren Broille ; [facility] ; Durga Medley
== END 2022-07-04 16:00 | disposition home health service (06) | DRG 988 ==
LOC: 2N 04:20 → SUATTDRO 04:20 → 2W 04:48